=== PATIENT | female | born 1945 | race Caucasian/White ===

== ENCOUNTER 2016-12-28 21:58 | Inpatient (IN) | payer MEDICARE, MEDICAID ==
[2016-12-28 22:19] LABS: % BASOPHILS 1.8 % (0.0-2.0); % LYMPHOCYTES 13.2 % (20.0-50.0); HEMATOCRIT 34.7 % (41.0-60); HEMOGLOBIN 11.4 gm/dL (12-16); MEAN CELL VOLUME 83.9 fl (81-100); MEAN CORPUSCULAR HEMOGLOBIN 27.6 pg (27.0-31.0); MEAN CORPUSCULAR HGB CONC 32.9 pg (28.0-36.0); MEAN PLATELET VOLUME 9.5 fl; NEUTROPHILE ABSOLUTE 4.9 Th/cmm (1.8-8.0); PLATELET COUNT 155 Th/cmm (150-400); RED BLOOD COUNT 4.14 Mil/cmm (3.80-5.20); RED CELL DISTRIBUTION WIDTH 19.2 % (11.5-20.0); WHITE BLOOD COUNT 6.6 Th/cmm (4.8-10.8)
[2016-12-28 22:33] LABS: INR 1.33 (0.5-1.4)
[2016-12-28 22:35] LABS: ALB/GLOB RATIO 0.8 (1.0-1.8); ALKALINE PHOSPHATASE 78 U/L (34-104); ANION GAP 10.7 (7.0-16.0); BILIRUBIN,TOTAL 1.1 mg/dL (0.3-1.0); BUN - UREA NITROGEN 62 mg/dL (7-25); BUN/CREATININE RATIO 41.3; CALCIUM SERUM 8.7 mg/dL (8.6-10.3); CARBON DIOXIDE 20.1 mEq/L (21.0-31.0); CHLORIDE 106 mEq/L (98-107); CREATININE - SERUM 1.5 mg/dL (0.6-1.2); GLUCOSE 174 mg/dL (70-105); POTASSIUM SERUM 3.8 mEq/L (3.5-5.1); SGOT 19 U/L (13-39); SGPT/ALT 10 U/L (7-52); SODIUM SERUM 133 mEq/L (136-145)
[2016-12-28 22:49] LABS: URINE BILIRUBIN NEGATIVE (NEGATIVE); URINE BLOOD SMALL (NEGATIVE); URINE COLOR YELLOW; URINE GLUCOSE (UA) NEGATIVE (NEGATIVE); URINE KETONE NEGATIVE (NEGATIVE); URINE PH 5.5 (4.6 - 8.0); URINE PROTEIN TRACE mg/dL (NEGATIVE); URINE UROBILINOGEN 0.2 E.U./dL (0.2 - 1.0)
[2016-12-28 22:53] LABS: URINE BACTERIA MODERATE /hpf (NONE SEEN); URINE EPITHELIAL CELLS FEW /lpf (FEW)
--- NOTE | 2016-12-28 22:57 | ED Physician Chart ---
ED Chief Complaint/HPI - Patient Information Date Seen:: 12/28/16 Time Seen:: 22:02 Chief Complaint:: poor intake History of Present Illness:: THIS IS A 71 YO FEMALE WHO WAS SENT HERE FOR THE LONG-TERM FOR EVALUATION AND TREATMENT FOR POOR FEEDING AND DEHYDRATION. SHE HAS MENTAL DISEASE, DIABETES, HEART DISEASE AND ELEVATED LIPIDS. Allergies:: Allergies Allergy/AdvReac Type Severity Reaction Status Date / Time No Known Allergies Allergy Verified 12/28/16 22:31 Vitals:: Vital Signs - 8 hr 12/28/16 22:00 Temp 97.5 F HR 81 RR 17 BP 121/55 O2 Sat % 96 Historian:: Patient Review:: Nurse's Note Reviewed, Old Chart Reviewed, Transfer documents Reviewed ED Review of Systems - Review of Systems General/Constitutional: No fever, No chills, No weight loss, Weakness, No diaphoresis, No edema, Loss of appetite Skin: No skin lesions, No rash, No bruising Head: No headache, No light-headedness Eyes: No loss of vision, No pain, No diplopia ENT: No earache, No nasal drainage, No sore throat, No tinnitus Neck: No neck pain, No swelling, No thyromegaly, No stiffness, No mass noted Cardio Vascular: No chest pain, No palpitations, No PND, No orthopnea, No edema Pulmonary: No SOB, No cough, No sputum, No wheezing GI: No nausea, No vomiting, No diarrhea, No pain, No melena, No hematochezia, No constipation, No hematemesis G/U: No dysuria, No frequency, No hematuria Musculoskeletal: No bone or joint pain, No back pain, No muscle pain Endocrine: No polyuria, No polydipsia Psychiatric: No prior psych history, No depression, No anxiety, No suicidal ideation Hematopoietic: No bruising, No lymphadenopathy Allergic/Immuno: No urticaria, No angioedema Neurological: No syncope, No focal symptoms, No weakness, No paresthesia, No headache, No seizure, No dizziness, No confusion, No vertigo ED Past Medical History - Past Medical History Obtainable: Yes Past Medical History: HTN, DM, CAD, Dyslipidemia, Seizures, Arthritis Family History: None Social History: Non Smoker, No Alcohol, No Drug Use, Care Facility Surgical History: None Psychiatricy History: Depression, Dementia Family Medical History - Family Member Mother History Unknown: Yes ED Physical Exam - Physical Examination General/Constitutional: Awake, Well-developed, well-nourished, Alert, No distress, GCS 15, Non-toxic appearing, Ambulatory Head: Atraumatic Eyes: Lids, conjuctiva normal, PERRL, EOMI Skin: Nl inspection, No rash, No skin lesions, No ecchymosis, Well hydrated, No lymphadenopathy ENMT: External ears, nose nl, Nasal exam nl, Lips, teeth, gums nl Neck: Nontender, Full ROM w/o pain, No JVD, No nuchal rigidity, No bruit, No mass, No stridor Respiratory: Nl effort/Exclusion, Clear to Auscultation, No Wheeze/Rhonchi/Rales Cardio Vascular: RRR, No murmur, gallop, rubs, NL S1 S2 Other Cardio Vascular comments:: A PACEMAKER IS NOTED IN THE LEFT UPPER CHEST WALL GI: No tenderness/rebounding/guarding, No organomegaly, No hernia, Normal BS's, Nondistended, No mass/bruits, No McBurney tenderness : No CVA tenderness Extremities: No tenderness or effusion, Full ROM, normal strength in all extremities, Normal digits & nails Other Extremities comments:: BILATERAL EDEMA OF BOTH FEET. Neuro/Psych: Alert/oriented, DTR's symmetric, Normal sensory exam, Normal motor strength, Judgement/insight normal, Mood normal, Normal gait, No focal deficits Misc: normal gait, Normal back, No paraspinal tenderness ED Labs/Radiology/EKG Results - Lab Results Results: Laboratory Tests 12/28/16 12/28/16 12/28/16 22:11 22:11 22:11 WBC 6.6 RBC 4.14 Hgb 11.4 L Hct 34.7 L MCV 83.9 MCH 27.6 MCHC Differential 32.9 RDW 19.2 Plt Count 155 MPV 9.5 Neutrophils % 75.0 Lymphocytes % 13.2 L Monocytes % 7.0 Eosinophils % 3.0 Basophils % 1.8 PT 14.0 H INR 1.33 Sodium 133 L Potassium 3.8 Chloride 106 Carbon Dioxide 20.1 L Anion Gap 10.7 BUN 62 H Creatinine 1.5 H Est GFR ( Amer) TNP Est GFR (Non-Af Amer) TNP BUN/Creatinine Ratio 41.3 Glucose 174 H Calcium 8.7 Total Bilirubin 1.1 H AST 19 ALT 10 Alkaline Phosphatase 78 Troponin I Total Protein 6.2 Albumin 2.8 L Globulin 3.4 Albumin/Globulin Ratio 0.8 L Urine Color Urine Clarity Urine pH Ur Specific [place] Urine Protein Urine Glucose (UA) Urine Ketones Urine Blood Urine Nitrate Urine Bilirubin Urine Urobilinogen Ur Leukocyte Esterase 12/28/16 12/28/16 22:11 22:30 WBC RBC Hgb Hct MCV MCH MCHC Differential RDW Plt Count MPV Neutrophils % Lymphocytes % Monocytes % Eosinophils % Basophils % PT INR Sodium Potassium Chloride Carbon Dioxide Anion Gap BUN Creatinine Est GFR ( Amer) Est GFR (Non-Af Amer) BUN/Creatinine Ratio Glucose Calcium Total Bilirubin AST ALT Alkaline Phosphatase Troponin I 1.12 H* Total Protein Albumin Globulin Albumin/Globulin Ratio Urine Color YELLOW Urine Clarity HAZY Urine pH 5.5 Ur Specific [place] 1.015 Urine Protein TRACE Urine Glucose (UA) NEGATIVE Urine Ketones NEGATIVE Urine Blood SMALL H Urine Nitrate POSITIVE H Urine Bilirubin NEGATIVE Urine Urobilinogen 0.2 Ur Leukocyte Esterase TRACE H - Radiology Results Results: CHEST X-RAY = NAD - EKG Interpretations EKG Time:: 22:59 Rate & Rhythm: RATE=73, SINUS Maxwell: LEFT AXIS ED Assessment - Assessment General Assessment: DEHYDRATED ELEVATED TROPONIN URINARY TRACT INFECTION ED Septic Shock - . Is Septic Shock (SBP<90, OR Lactate>4 mmol\L) present?: No - <6hrs of presentation: Vital Signs: Vital Signs - 8 hr 12/28/16 22:00 Temp 97.5 F HR 81 RR 17 BP 121/55 O2 Sat % 96 ED Reassessment (Disposition) - Reassessment Reassessment Condition:: Improved - Diagnosis Diagnosis:: DEHYDRATION ELEVATED TROPONIN URINARY TRACT INFECTION - Patient Disposition Discharge/Transfer:: Acute Care w/in this hosp Admitting Medical Physician:: Tita Kelly Condition at Disposition:: Improved ED Discharge Plan - Patient Disposition Admit/Discharge/Transfer: Acute Care w/in this hosp Condition at Disposition: Improved
[2016-12-29] MEDS ORDERED: Sodium Chloride 0.9% 1,000 ML IV ONE ×2 (00:41)
[2016-12-29] MEDS ORDERED: Fleet Enema 135 mL RC PRN (01:47)
[2016-12-29] MEDS ORDERED: Albuterol/Ipratropium Neb 3 ML AERS HHN PRN (01:47)
[2016-12-29] MEDS ORDERED: Acetaminophen 500 MG TAB PO PRN (01:47)
[2016-12-29] MEDS ORDERED: Magnesium Hydroxide (MOM) 30 mL UDC PO PRN (01:47)
[2016-12-29 03:00] VITALS: BP 105/66
--- NOTE | 2016-12-29 04:51 | Consultation ---
DATE OF CONSULTATION: 12/28/2016 REFERRING PHYSICIAN: Dr. Kelly. REASON FOR CONSULTATION: UTI. HISTORY OF PRESENT ILLNESS: The patient is a 71-year-old female with a past medical history of hypertension, diabetes mellitus type 2, coronary artery disease, dyslipidemia, seizure disorder, arthritis, brought from nursing facility for poor oral intake. On initial evaluation, the patient's temperature was 97.5 degrees Fahrenheit and WBC count was 6600. Creatinine was 1.5, mildly elevated. The patient had urinalysis which suggested wbc 6-10 and positive nitrite and trace leukoesterase. The patient is a poor historian, unable to provide any meaningful history although the patient denies any dysuria. PAST MEDICAL HISTORY: As mentioned above hypertension, diabetes mellitus type 2, coronary artery disease, dyslipidemia, seizure disorder, arthritis. FAMILY HISTORY: Not available. SOCIAL HISTORY: The patient lives at a nursing facility. No history of smoking, alcohol or drug use. PSYCHIATRIC HISTORY: Includes depression and dementia. ALLERGIES: NKDA. MEDICATIONS: See medication reconciliation sheet. Antibiotic-guan, the patient has received Rocephin. This was continuously weaned. REVIEW OF SYSTEMS: GENERAL: The patient has no fever, no chills. HEENT: No diplopia, no photophobia, no sore throat. RESPIRATORY: No cough, no shortness of breath. CARDIOVASCULAR: No chest pain or palpitation. GASTROINTESTINAL: No nausea, no vomiting, no diarrhea, no constipation. GENITOURINARY: No dysuria. NEUROLOGIC: No headache, no dizziness, no focal weakness. GENITOURINARY: The patient denies any dysuria, urgency or hematuria. PHYSICAL EXAMINATION: VITAL SIGNS: Shows temperature is 97.5 degrees Fahrenheit, pulse is 81, respirations 17, blood pressure 121/55. GENERAL: The patient is comfortable, not in acute distress, well nourished, and well developed. HEENT: Head is normocephalic, atraumatic. Oral cavity moist, pink tongue. Eyes: No pallor, no icterus. PERRLA, EOMI. NECK: Supple, no JVD, no carotid bruit. Trachea in midline. CHEST: Bilateral breath sounds. No crackles or wheezing. HEART: S1, S2 within normal limit. Regular rhythm. No murmur, no gallop. ABDOMEN: Soft, nontender, nondistended. Bowel sounds present. EXTREMITIES: No cyanosis, no clubbing, no edema. NEUROLOGIC: Alert, awake, unable to communicate. LABORATORY DATA: Labs shows WBC count was 6600, hemoglobin 11.4, hematocrit 34.7, platelets are 155,000, neutrophils 75%. INR is 1.33. Sodium is 133, potassium 3.8, chloride 106, bicarbonate is 20, BUN is 62, creatinine 1.5, glucose is 474. Total bilirubin 1.1 and troponin 1.12. Hemoglobin A1c 7.4. LFTs are reviewed. Urinalysis showed clear hazy urine with pos blood, nitrite positive, trace leukoesterase, wbc's 6-10, rbc's 10-25. IMPRESSION: 1. Urinary tract infection. 2. Renal failure . There is no previous lab data available, unable to determine, acute versus chronic. 3. Dehydration. 4. Elevated troponin. 5. Hypertension. 6. Diabetes mellitus type 2. 7. Coronary artery disease. 8. Dyslipidemia. 9. Seizure disorder. 10. Arthritis. RECOMMENDATIONS: Check renal ultrasound and continue Rocephin at this time. IV fluids. Thank you Dr. Kelly for involving me in taking care of this patient. JOB# [id number] [facility]
[2016-12-29 06:36] LABS: % BASOPHILS 0.1 % (0.0-2.0); % EOSINOPHILS 2.6 % (0.0-5.0); % LYMPHOCYTES 13.6 % (20.0-50.0); % MONOCYTES 8.6 % (2.0-10.0); % NEUTROPHILS 75.1 % (40.0-80.0); HEMATOCRIT 35.4 % (41.0-60); HEMOGLOBIN 11.5 gm/dL (12-16); MEAN CELL VOLUME 84.3 fl (81-100); MEAN CORPUSCULAR HEMOGLOBIN 27.3 pg (27.0-31.0); MEAN CORPUSCULAR HGB CONC 32.3 pg (28.0-36.0); MEAN PLATELET VOLUME 9.1 fl; NEUTROPHILE ABSOLUTE 4.7 Th/cmm (1.8-8.0); PLATELET COUNT 151 Th/cmm (150-400); RED CELL DISTRIBUTION WIDTH 19.8 % (11.5-20.0); WHITE BLOOD COUNT 6.3 Th/cmm (4.8-10.8)
[2016-12-29 06:42] LABS: ANION GAP 11.3 (7.0-16.0); BUN - UREA NITROGEN 60 mg/dL (7-25); CALCIUM SERUM 8.6 mg/dL (8.6-10.3); CARBON DIOXIDE 18.3 mEq/L (21.0-31.0); CHLORIDE 109 mEq/L (98-107); CREATININE - SERUM 1.5 mg/dL (0.6-1.2); GLUCOSE 151 mg/dL (70-105); PHOSPHOROUS 3.7 mg/dL (2.5-5.0); POTASSIUM SERUM 3.6 mEq/L (3.5-5.1); SODIUM SERUM 135 mEq/L (136-145)
--- NOTE | 2016-12-29 07:43 | Diagnostic Imaging Report ---
Chest x-ray single view History: Shortness of breath Comparison: None The heart size is normal. No focal pulmonary parenchymal processes. No hilar or mediastinal abnormalities. The aortic arch calcified. Left-sided pacemaker is noted. Bony thorax and marked with for degenerative changes. Impression: No acute abnormalities.
[2016-12-29] MEDS: Levothyroxine 0.05 Mg Tab PO SCH (07:51)
[2016-12-29] MEDS: Sodium Chloride 0.9% 1,000 ML IV SCH ×2 (07:51→17:19)
[2016-12-29] MEDS: INSULIN ASPART SLIDING SCALE 100 UNITS/ML UNIT SUBQ SCH ×3 (08:07→17:24)
[2016-12-29] MEDS: Lactobacillus Rhamnosus 10 Billion CFU Capsule PO SCH (08:49)
[2016-12-29] MEDS: Pantoprazole 40 mg EC Tab PO SCH (08:51)
[2016-12-29] MEDS: Multivitamin w/ Minerals Tab PO SCH (08:51)
[2016-12-29] MEDS ORDERED: Non-Formulary Item 1 EA (Cranberry Fruit Extract [Cranberry] 425 MG) PO SCH (09:00)
--- NOTE | 2016-12-29 11:06 | Diagnostic Imaging Report ---
Renal ultrasound HISTORY: pyelonephritis. COMPARISON: None Technique: Sonography of the kidneys and urinary bladder was performed in multiple planes. FINDINGS: Exam is limited due to body habitus. The right kidney measures 11.2 x 5.5 cm. The Left kidney measures 11.1 x 5.3 cm. The renal margins are not well-defined limiting assessment for focal lesions. No hydronephrosis. Due to patient's incontinence post void residual bladder volume are not able to be obtained. The bladder wall appears mildly thickened. IMPRESSION: Limited exam due to body habitus. No evidence of hydronephrosis. Mild generalized prominence of the urinary bladder wall. Underlying inflammatory process cannot be excluded
[2016-12-29] MEDS ORDERED: Atorvastatin Calcium 10 MG TAB PO SCH (21:00)
[2016-12-29] MEDS: Enoxaparin 40 mg/0.4 mL 0.4mL Syr SUBQ SCH (23:13)
[2016-12-30] MEDS: INSULIN ASPART SLIDING SCALE 100 UNITS/ML UNIT SUBQ SCH ×4 (00:17→20:41)
[2016-12-30] MEDS: cefTRIAXone 1 GM in Sodium Chloride 0.9% 50 ML IV SCH (01:43)
--- NOTE | 2016-12-30 02:07 | Consultation ---
DATE OF CONSULTATION: 12/29/2016 PATIENT OF: Dr. Kelly. HISTORY AND PHYSICAL: This is a 71-year-old female patient who has poor intake orally and poor diet, hence the patient was transferred to the Emergency Room. In the Emergency Room, the patient was found to have urinary tract infection with possible pyelonephritis, hence the patient was admitted. The patient has had elevated troponin level, hence Cardiology consult was requested. PAST MEDICAL HISTORY: Coronary artery disease, diabetes mellitus type 2, iron deficiency anemia, diabetic CKD stage 2, hyperlipidemia, seizure disorder, sick sinus syndrome with pacemaker. FAMILY HISTORY: Unremarkable. SOCIAL HISTORY: No history of smoking or alcohol abuse. ALLERGIES: No known allergies. PHYSICAL EXAMINATION: VITAL SIGNS: Blood pressure 110/70, pulse 70, respirations 20, temperature 99. HEAD: Normocephalic. No lumps or bumps. EYES: Pupils equal, reactive to light. Fundi show AV nicking, sclerae white, conjunctivae pink. NECK: Carotid 2+. Normal upstroke. JVD flat. Thyroid not palpable. Lymph nodes not palpable. CHEST: Shows increased AP diameter. No kyphosis, scoliosis. LUNGS: Bilateral bronchovesicular breath sounds. HEART: PMI fifth intercostal space with lateral to midclavicular line. S1, S2. No S3, S4. Systolic murmur, grade 2/6, lower left sternal border without radiation. ABDOMEN: Soft. Liver and spleen not palpable. No organomegaly. Bowel sounds are active. NEUROLOGIC: Unremarkable. EXTREMITIES: Peripheral pulses 2+. No pedal edema. CLINICAL IMPRESSION: Non-ST elevation myocardial infarction, urinary tract infection with pyelonephritis, diabetes mellitus type 2, diabetic chronic kidney disease stage 2, iron deficiency anemia, hyperlipidemia, seizure disorder, sick sinus syndrome with pacemaker. PLAN: The patient to be started on IV fluids and IV antibiotics. The patient to be evaluated for calorie count for possible PEG placement. [facility]# [id number]
[2016-12-30 06:18] LABS: % BASOPHILS 0.1 % (0.0-2.0); % EOSINOPHILS 1.8 % (0.0-5.0); % LYMPHOCYTES 14.2 % (20.0-50.0); % MONOCYTES 10.1 % (2.0-10.0); % NEUTROPHILS 73.8 % (40.0-80.0); HEMATOCRIT 34.4 % (41.0-60); HEMOGLOBIN 11.3 gm/dL (12-16); MEAN CELL VOLUME 84.4 fl (81-100); MEAN CORPUSCULAR HEMOGLOBIN 27.7 pg (27.0-31.0); MEAN CORPUSCULAR HGB CONC 32.8 pg (28.0-36.0); MEAN PLATELET VOLUME 9.2 fl; NEUTROPHILE ABSOLUTE 5.5 Th/cmm (1.8-8.0); PLATELET COUNT 145 Th/cmm (150-400); RED BLOOD COUNT 4.08 Mil/cmm (3.80-5.20); RED CELL DISTRIBUTION WIDTH 19.6 % (11.5-20.0); WHITE BLOOD COUNT 7.4 Th/cmm (4.8-10.8)
[2016-12-30 06:38] LABS: ALB/GLOB RATIO 0.9 (1.0-1.8); ALKALINE PHOSPHATASE 71 U/L (34-104); ANION GAP 12.1 (7.0-16.0); BILIRUBIN,TOTAL 0.9 mg/dL (0.3-1.0); BUN - UREA NITROGEN 54 mg/dL (7-25); BUN/CREATININE RATIO 38.6; CALCIUM SERUM 8.6 mg/dL (8.6-10.3); CHLORIDE 111 mEq/L (98-107); CHOLESTEROL 69 mg/dL (<200); CREATININE - SERUM 1.4 mg/dL (0.6-1.2); GLUCOSE 256 mg/dL (70-105); MAGNESIUM 1.9 mg/dL (1.9-2.7); PHOSPHOROUS 3.3 mg/dL (2.5-5.0); POTASSIUM SERUM 4.1 mEq/L (3.5-5.1); SGOT 15 U/L (13-39); SGPT/ALT 8 U/L (7-52); SODIUM SERUM 139 mEq/L (136-145); TRIGLYCERIDES 60 mg/dL (<150); URIC ACID 9.5 mg/dL (2.3-6.6)
[2016-12-30] MEDS: Sodium Chloride 0.9% 1,000 ML IV SCH ×2 (08:00→17:08)
[2016-12-30] MEDS: Enoxaparin 40 mg/0.4 mL 0.4mL Syr SUBQ SCH ×2 (08:36→20:42)
[2016-12-30] MEDS: Multivitamin w/ Minerals Tab PO SCH (08:37)
[2016-12-30] MEDS: Pantoprazole 40 mg EC Tab PO SCH (08:37)
[2016-12-30] MEDS: Levothyroxine 0.05 Mg Tab PO SCH (08:37)
[2016-12-30] MEDS: Aspirin 81mg Chewable Tab PO SCH (08:37)
[2016-12-30] MEDS: Atorvastatin Calcium 10 MG TAB PO SCH (08:37)
--- NOTE | 2016-12-30 09:43 | General Progress Note ---
Subjective - Review of Systems Events since last encounter: 71 year old patient admitted for poor intake , UTI, elevated troponin level Objective - Results Result Diagrams: 12/30/16 05:35 12/30/16 05:35 Recent Labs: Laboratory Last Values WBC 7.4 Th/cmm (4.8-10.8) 12/30/16 05:35 RBC 4.08 Mil/cmm (3.80-5.20) 12/30/16 05:35 Hgb 11.3 gm/dL (12-16) L 12/30/16 05:35 Hct 34.4 % (41.0-60) L 12/30/16 05:35 MCV 84.4 fl (81-100) 12/30/16 05:35 MCH 27.7 pg (27.0-31.0) 12/30/16 05:35 MCHC Differential 32.8 pg (28.0-36.0) 12/30/16 05:35 RDW 19.6 % (11.5-20.0) 12/30/16 05:35 Plt Count 145 Th/cmm (150-400) L 12/30/16 05:35 MPV 9.2 fl 12/30/16 05:35 Neutrophils % 73.8 % (40.0-80.0) 12/30/16 05:35 Lymphocytes % 14.2 % (20.0-50.0) L 12/30/16 05:35 Monocytes % 10.1 % (2.0-10.0) H 12/30/16 05:35 Eosinophils % 1.8 % (0.0-5.0) 12/30/16 05:35 Basophils % 0.1 % (0.0-2.0) 12/30/16 05:35 PT 14.0 SECONDS (9.5-11.5) H 12/28/16 22:11 INR 1.33 (0.5-1.4) 12/28/16 22:11 Sodium 139 mEq/L (136-145) 12/30/16 05:35 Potassium 4.1 mEq/L (3.5-5.1) 12/30/16 05:35 Chloride 111 mEq/L (98-107) H 12/30/16 05:35 Carbon Dioxide 20.0 mEq/L (21.0-31.0) L 12/30/16 05:35 Anion Gap 12.1 (7.0-16.0) 12/30/16 05:35 BUN 54 mg/dL (7-25) H 12/30/16 05:35 Creatinine 1.4 mg/dL (0.6-1.2) H 12/30/16 05:35 Est GFR ( Amer) TNP 12/30/16 05:35 Est GFR (Non-Af Amer) TNP 12/30/16 05:35 BUN/Creatinine Ratio 38.6 12/30/16 05:35 Glucose 256 mg/dL (70-105) H 12/30/16 05:35 POC Glucose 230 MG/DL (70 - 105) H 12/30/16 05:53 Hemoglobin A1c % 7.4 % (4.0-6.0) H 12/28/16 22:11 Uric Acid 9.5 mg/dL (2.3-6.6) H 12/30/16 05:35 Calcium 8.6 mg/dL (8.6-10.3) 12/30/16 05:35 Phosphorus 3.3 mg/dL (2.5-5.0) 12/30/16 05:35 Magnesium 1.9 mg/dL (1.9-2.7) 12/30/16 05:35 Total Bilirubin 0.9 mg/dL (0.3-1.0) 12/30/16 05:35 AST 15 U/L (13-39) 12/30/16 05:35 ALT 8 U/L (7-52) 12/30/16 05:35 Alkaline Phosphatase 71 U/L (34-104) 12/30/16 05:35 Troponin I 0.76 ng/mL (0.01-0.05) H* D 12/30/16 05:35 Total Protein 6.2 gm/dL (6.0-8.3) 12/30/16 05:35 Albumin 2.9 gm/dL (3.7-5.3) L 12/30/16 05:35 Globulin 3.3 gm/dL 12/30/16 05:35 Albumin/Globulin Ratio 0.9 (1.0-1.8) L 12/30/16 05:35 Triglycerides 60 mg/dL (<150) 12/30/16 05:35 Cholesterol 69 mg/dL (<200) 12/30/16 05:35 LDL Cholesterol Direct 47 mg/dL (75-193) L 12/30/16 05:35 HDL Cholesterol 23 mg/dL (23-92) 12/30/16 05:35 TSH 2.33 uIU/ml (0.34-5.60) 12/28/16 22:11 Urine Source CLEAN C 12/28/16 22:30 Urine Color YELLOW 12/28/16 22:30 Urine Clarity HAZY (CLEAR) 12/28/16 22:30 Urine pH 5.5 (4.6 - 8.0) 12/28/16 22:30 Ur Specific [place] 1.015 (1.005-1.030) 12/28/16 22:30 Urine Protein TRACE mg/dL (NEGATIVE) 12/28/16 22:30 Urine Glucose (UA) NEGATIVE mg/dL (NEGATIVE) 12/28/16 22:30 Urine Ketones NEGATIVE mg/dL (NEGATIVE) 12/28/16 22:30 Urine Blood SMALL (NEGATIVE) H 12/28/16 22:30 Urine Nitrate POSITIVE (NEGATIVE) H 12/28/16 22:30 Urine Bilirubin NEGATIVE (NEGATIVE) 12/28/16 22:30 Urine Urobilinogen 0.2 E.U./dL (0.2 - 1.0) 12/28/16 22:30 Ur Leukocyte Esterase TRACE (NEGATIVE) H 12/28/16 22:30 Urine RBC 10-25 /hpf (0-5) H 12/28/16 22:30 Urine WBC 6-10 /hpf (0-5) H 12/28/16 22:30 Ur Epithelial Cells FEW /lpf (FEW) 12/28/16 22:30 Urine Bacteria MODERATE /hpf (NONE SEEN) 12/28/16 22:30 - Physical Exam Vitals and I&O: Vital Signs Temp 98.0 F 12/30/16 08:00 Pulse 71 12/30/16 08:38 Resp 20 12/30/16 08:13 BP 134/77 12/30/16 08:38 Pulse Ox 97 12/30/16 08:13 Intake & Output 12/29/16 12/30/16 12/30/16 18:59 06:59 18:59 Intake Total 1000 1120 Balance 1000 1120 Weight (lbs) 84.368 kg 84.368 kg Intake: Intake, IV Amount 1000 1000 Sodium Chloride 0.9% 1, 1000 1000 000 ml @ 125 mls/hr IV . Q8H [facility] Rx#:[id number] Oral 120 Other: # Voids 2 # Bowel Movements 0 Active Medications: Current Medications Acetaminophen (Tylenol) 650 mg PO Q4HR PRN PRN Reason: Pain or Fever >101 Stop: 02/27/17 01:46 Last Admin: 12/29/16 15:14 Dose: 650 mg Albuterol/Ipratropium (Duoneb Neb) 3 ml HHN Q6HR PRN PRN Reason: Shortness of Breath or Wheeze Stop: 02/27/17 01:46 Ascorbic Acid (Vitamin C) 500 mg PO DAILY [facility] Stop: 02/27/17 08:59 Last Admin: 12/30/16 08:37 Dose: 500 mg Aspirin (Aspirin Chewable) 81 mg PO DAILY [facility] Stop: 02/28/17 08:59 Last Admin: 12/30/16 08:37 Dose: 81 mg Atorvastatin Calcium (Lipitor) 10 mg PO DAILY [facility]SE DAVID PRN Reason: Protocol Stop: 02/28/17 08:59 Last Admin: 12/30/16 08:37 Dose: 10 mg Bisacodyl (Dulcolax 10 Mg Supp) 10 mg RC DAILY PRN PRN Reason: Constipation Stop: 02/27/17 01:46 Carvedilol (Coreg) 3.125 mg PO BID [facility] Stop: 02/27/17 08:59 Last Admin: 12/30/16 08:38 Dose: 3.125 mg Docusate Sodium (Colace) 100 mg PO BID [facility] Stop: 02/27/17 08:59 Last Admin: 12/30/16 08:37 Dose: 100 mg Enoxaparin Sodium (Lovenox) 40 mg SUBQ Q12HR [facility] Stop: 02/27/17 20:59 Last Admin: 12/30/16 08:36 Dose: 40 mg Hydralazine HCl (Apresoline) 10 mg PO BID [facility] Stop: 02/27/17 08:59 Last Admin: 12/30/16 08:38 Dose: 10 mg Ceftriaxone Sodium 1 gm/ (Sodium Chloride) 50 mls @ 100 mls/hr IV Q24HR [facility] Stop: 02/28/17 00:00 Last Admin: 12/30/16 01:43 Dose: 100 mls/hr Sodium Chloride (Nacl 0.9%) 1,000 mls @ 125 mls/hr IV .Q8H [facility]SE DAVID Stop: 02/27/17 07:59 Last Admin: 12/30/16 08:00 Dose: 125 mls/hr Insulin Aspart (Novolog Insulin Sliding Scale) 0 units SUBQ ACHS JOSE DAVID PRN Reason: Protocol Stop: 02/27/17 07:29 Last Admin: 12/30/16 00:17 Dose: 5 units Isosorbide Dinitrate (Isordil) 10 mg PO TID JOSE DAVID Stop: 02/27/17 08:59 Last Admin: 12/30/16 08:38 Dose: 10 mg Lactobacillus Rhamnosus (Culturelle) 1 each PO DAILY [facility]SE DAVID Stop: 02/27/17 08:59 Last Admin: 12/29/16 08:49 Dose: 1 each Levetiracetam (Keppra) 250 mg PO BID [facility]SE DAVID Stop: 02/27/17 08:59 Last Admin: 12/30/16 08:37 Dose: 250 mg Levothyroxine Sodium (Synthroid) 0.05 mg PO QDAC JOSE DAVID Stop: 02/27/17 07:29 Last Admin: 12/30/16 08:37 Dose: 0.05 mg Magnesium Hydroxide (Milk Of Magnesia) 30 ml PO DAILY PRN PRN Reason: Constipation Stop: 02/27/17 01:46 Montelukast Sodium (Singulair) 10 mg PO DAILY JOSE DAVID Stop: 02/27/17 08:59 Last Admin: 12/30/16 08:37 Dose: 10 mg Ondansetron HCl (Zofran Odt) 4 mg PO Q6HR PRN PRN Reason: Nausea / Vomiting Stop: 02/27/17 01:46 Pantoprazole Sodium (Protonix) 40 mg PO DAILY [facility]ID Stop: 02/27/17 08:59 Last Admin: 12/30/16 08:37 Dose: 40 mg Senna (Senna) 17.2 mg PO HS [facility] Stop: 02/27/17 20:59 Last Admin: 12/29/16 23:17 Dose: 17.2 mg Sodium Phosphate (Fleet Enema) 135 ml RC Q48HR PRN PRN Reason: Constipation Stop: 02/27/17 01:46 General: No acute distress HEENT: Atraumatic Cardiovascular: Regular rate, Normal S1, Normal S2 Lungs: Clear to auscultation Assessment/Plan - Problem List Patient Problems: All Active Problems Anemia (Acute) D64.9 CKD (chronic kidney disease) stage 2, GFR 60-89 ml/min (Acute) N18.2 Diabetes (Acute) E11.9 Hyperlipidemia (Acute) E78.5 Non-ST elevated myocardial infarction (Acute) I21.4 Pacemaker (Acute) Z95.0 Pyelonephritis (Acute) N12 Seizure disorder (Acute) G40.909 Sick sinus syndrome (Acute) I49.5 UTI (urinary tract infection) (Acute) - Plan Plan: cardio w/up iv antibiotics cpm
[2016-12-30] MEDS: Lactobacillus Rhamnosus 10 Billion CFU Capsule PO SCH (10:33)
--- NOTE | 2016-12-30 14:43 | History & Physical ---
ADMIT DATE: 12/29/2016 HISTORY OF PRESENT ILLNESS: A 71-[facility]-old female [facility]. The patient came to the Emergency Room because of poor oral intake, increasing BUN, increasing creatinine and unable to make urine, found to have urinary tract infection, dehydration, acute renal failure. PAST MEDICAL HISTORY: Included coronary artery disease, diabetes, type 2, CKD, hyperkalemia, hyperlipidemia, seizures, and history of sick sinus syndrome, and pacemaker. FAMILY HISTORY: Unremarkable. SOCIAL HISTORY: Unremarkable. ALLERGIES: No known allergies. PHYSICAL EXAMINATION: VITAL SIGNS: Blood pressure 100/70, pulse was 80, respirations 20, temperature 99. HEAD: Normal. ENT: Normal. NECK: Supple and nontender. LUNGS: Clear. CARDIOVASCULAR SYSTEM: S1, S2 heard. ABDOMEN: Soft. Bowel sounds are heard. CENTRAL NERVOUS SYSTEM: Decreased sensorium. DIAGNOSES: Toxic metabolic encephalopathy, urinary tract infection, sepsis, non-ST elevated possible myocardial infarction, history of pyelonephritis, history of diabetes type 2, history of chronic kidney disease, history of acute renal failure, history of hyperlipidemia, history of seizures, history of anemia, status post pacemaker. PLAN: The patient is being admitted and I will follow the patient. JOB# [id number]
[2016-12-30] MEDS ORDERED: Probiotic Screen MC PRN (15:41)
--- NOTE | 2016-12-30 17:16 | Cardiology ---
12/29/[address] Kelly. M-MODE ECHOCARDIOGRAM: Mitral valve, anterior leaflet of the mitral valve shows decreased excursion, EF velocity. Posterior leaflet of mitral valve shows decreased excursion. Left ventricle posterior wall shows increased thickness, decreased excursion. Interventricular septum shows increased thickness, decreased excursion. There is hypertrophy of the left ventricle, ejection fraction 10-15%. Left atrium enlarged 4.3 cm. Aortic root shows normal dimension, normal excursion of aortic leaflets. CONCLUSION: Cardiomyopathy, ejection fraction 10-15%, left atrial enlargement. 2D ECHO: Long axis view shows enlarged left ventricular cavity with global hypokinesis. Mitral valve shows decreased excursion, left atrium enlarged, aortic root shows normal dimension, normal excursion of aortic leaflets. Short axis view of mitral valve normal. Short axis view of aortic valve normal. Apical four chamber view shows enlarged left ventricular cavity with decreased ejection fraction. Left atrial enlargement. Right ventricle normal. Right atrial enlargement. CONCLUSION: Left atrial enlargement, right atrial enlargement. Hypertrophy of the left ventricle, cardiomyopathy 10-15%. Doppler study shows moderate tricuspid regurgitation, mild mitral regurgitation, mild aortic regurgitation, mild pulmonary regurgitation, right ventricular systolic pressure of 75 mmHg with severe pulmonary hypertension. [facility]# [id number]
--- NOTE | 2016-12-30 18:13 | Infectious Disease Prog Note ---
Infectious Disease Subjective - Review of Systems Service Date: 12/30/16 Subjective: There is no new change, there is no fever. Infectious Disease Objective - Results Result Diagrams: 12/30/16 05:35 12/30/16 05:35 Recent Labs: Laboratory Last Values WBC 7.4 Th/cmm (4.8-10.8) 12/30/16 05:35 RBC 4.08 Mil/cmm (3.80-5.20) 12/30/16 05:35 Hgb 11.3 gm/dL (12-16) L 12/30/16 05:35 Hct 34.4 % (41.0-60) L 12/30/16 05:35 MCV 84.4 fl (81-100) 12/30/16 05:35 MCH 27.7 pg (27.0-31.0) 12/30/16 05:35 MCHC Differential 32.8 pg (28.0-36.0) 12/30/16 05:35 RDW 19.6 % (11.5-20.0) 12/30/16 05:35 Plt Count 145 Th/cmm (150-400) L 12/30/16 05:35 MPV 9.2 fl 12/30/16 05:35 Neutrophils % 73.8 % (40.0-80.0) 12/30/16 05:35 Lymphocytes % 14.2 % (20.0-50.0) L 12/30/16 05:35 Monocytes % 10.1 % (2.0-10.0) H 12/30/16 05:35 Eosinophils % 1.8 % (0.0-5.0) 12/30/16 05:35 Basophils % 0.1 % (0.0-2.0) 12/30/16 05:35 PT 14.0 SECONDS (9.5-11.5) H 12/28/16 22:11 INR 1.33 (0.5-1.4) 12/28/16 22:11 Sodium 139 mEq/L (136-145) 12/30/16 05:35 Potassium 4.1 mEq/L (3.5-5.1) 12/30/16 05:35 Chloride 111 mEq/L (98-107) H 12/30/16 05:35 Carbon Dioxide 20.0 mEq/L (21.0-31.0) L 12/30/16 05:35 Anion Gap 12.1 (7.0-16.0) 12/30/16 05:35 BUN 54 mg/dL (7-25) H 12/30/16 05:35 Creatinine 1.4 mg/dL (0.6-1.2) H 12/30/16 05:35 Est GFR ( Amer) TNP 12/30/16 05:35 Est GFR (Non-Af Amer) TNP 12/30/16 05:35 BUN/Creatinine Ratio 38.6 12/30/16 05:35 Glucose 256 mg/dL (70-105) H 12/30/16 05:35 POC Glucose 255 MG/DL (70 - 105) H 12/30/16 17:39 Hemoglobin A1c % 7.4 % (4.0-6.0) H 12/28/16 22:11 Uric Acid 9.5 mg/dL (2.3-6.6) H 12/30/16 05:35 Calcium 8.6 mg/dL (8.6-10.3) 12/30/16 05:35 Phosphorus 3.3 mg/dL (2.5-5.0) 12/30/16 05:35 Magnesium 1.9 mg/dL (1.9-2.7) 12/30/16 05:35 Total Bilirubin 0.9 mg/dL (0.3-1.0) 12/30/16 05:35 AST 15 U/L (13-39) 12/30/16 05:35 ALT 8 U/L (7-52) 12/30/16 05:35 Alkaline Phosphatase 71 U/L (34-104) 12/30/16 05:35 Troponin I 0.76 ng/mL (0.01-0.05) H* D 12/30/16 05:35 Total Protein 6.2 gm/dL (6.0-8.3) 12/30/16 05:35 Albumin 2.9 gm/dL (3.7-5.3) L 12/30/16 05:35 Globulin 3.3 gm/dL 12/30/16 05:35 Albumin/Globulin Ratio 0.9 (1.0-1.8) L 12/30/16 05:35 Triglycerides 60 mg/dL (<150) 12/30/16 05:35 Cholesterol 69 mg/dL (<200) 12/30/16 05:35 LDL Cholesterol Direct 47 mg/dL (75-193) L 12/30/16 05:35 HDL Cholesterol 23 mg/dL (23-92) 12/30/16 05:35 TSH 2.33 uIU/ml (0.34-5.60) 12/28/16 22:11 Urine Source CLEAN C 12/28/16 22:30 Urine Color YELLOW 12/28/16 22:30 Urine Clarity HAZY (CLEAR) 12/28/16 22:30 Urine pH 5.5 (4.6 - 8.0) 12/28/16 22:30 Ur Specific [place] 1.015 (1.005-1.030) 12/28/16 22:30 Urine Protein TRACE mg/dL (NEGATIVE) 12/28/16 22:30 Urine Glucose (UA) NEGATIVE mg/dL (NEGATIVE) 12/28/16 22:30 Urine Ketones NEGATIVE mg/dL (NEGATIVE) 12/28/16 22:30 Urine Blood SMALL (NEGATIVE) H 12/28/16 22:30 Urine Nitrate POSITIVE (NEGATIVE) H 12/28/16 22:30 Urine Bilirubin NEGATIVE (NEGATIVE) 12/28/16 22:30 Urine Urobilinogen 0.2 E.U./dL (0.2 - 1.0) 12/28/16 22:30 Ur Leukocyte Esterase TRACE (NEGATIVE) H 12/28/16 22:30 Urine RBC 10-25 /hpf (0-5) H 12/28/16 22:30 Urine WBC 6-10 /hpf (0-5) H 12/28/16 22:30 Ur Epithelial Cells FEW /lpf (FEW) 12/28/16 22:30 Urine Bacteria MODERATE /hpf (NONE SEEN) 12/28/16 22:30 - Physical Exam Vitals and I&O: Vital Signs Temp 98.7 F 12/30/16 16:00 Pulse 71 12/30/16 17:46 Resp 18 12/30/16 16:00 BP 130/69 12/30/16 17:46 Pulse Ox 96 12/30/16 16:00 Intake & Output 12/29/16 12/30/16 12/30/16 18:59 06:59 18:59 Intake Total 1000 1120 Balance 1000 1120 Weight (lbs) 84.368 kg 84.368 kg Intake: Intake, IV Amount 1000 1000 Sodium Chloride 0.9% 1, 1000 1000 000 ml @ 125 mls/hr IV . Q8H [facility] Rx#:[id number] Oral 120 Other: # Voids 2 # Bowel Movements 0 Active Medications: Current Medications Acetaminophen (Tylenol) 650 mg PO Q4HR PRN PRN Reason: Pain or Fever >101 Stop: 02/27/17 01:46 Last Admin: 12/29/16 15:14 Dose: 650 mg Albuterol/Ipratropium (Duoneb Neb) 3 ml HHN Q6HR PRN PRN Reason: Shortness of Breath or Wheeze Stop: 02/27/17 01:46 Ascorbic Acid (Vitamin C) 500 mg PO DAILY [facility] Stop: 02/27/17 08:59 Last Admin: 12/30/16 08:37 Dose: 500 mg Aspirin (Aspirin Chewable) 81 mg PO DAILY [facility] Stop: 02/28/17 08:59 Last Admin: 12/30/16 08:37 Dose: 81 mg Atorvastatin Calcium (Lipitor) 10 mg PO DAILY [facility] PRN Reason: Protocol Stop: 02/28/17 08:59 Last Admin: 12/30/16 08:37 Dose: 10 mg Bisacodyl (Dulcolax 10 Mg Supp) 10 mg RC DAILY PRN PRN Reason: Constipation Stop: 02/27/17 01:46 Carvedilol (Coreg) 3.125 mg PO BID [facility] Stop: 02/27/17 08:59 Last Admin: 12/30/16 16:57 Dose: 3.125 mg Docusate Sodium (Colace) 100 mg PO BID [facility] Stop: 02/27/17 08:59 Last Admin: 12/30/16 16:57 Dose: 100 mg Enoxaparin Sodium (Lovenox) 40 mg SUBQ Q12HR [facility] Stop: 02/27/17 20:59 Last Admin: 12/30/16 08:36 Dose: 40 mg Hydralazine HCl (Apresoline) 10 mg PO BID [facility] Stop: 02/27/17 08:59 Last Admin: 12/30/16 17:46 Dose: Not Given Ceftriaxone Sodium 1 gm/ (Sodium Chloride) 50 mls @ 100 mls/hr IV Q24HR [facility] Stop: 02/28/17 00:00 Last Admin: 12/30/16 01:43 Dose: 100 mls/hr Sodium Chloride (Nacl 0.9%) 1,000 mls @ 70 mls/hr IV .[id number] [facility] Stop: 02/27/17 07:59 Last Admin: 12/30/16 17:08 Dose: 70 mls/hr Insulin Aspart (Novolog Insulin Sliding Scale) 0 units SUBQ ACHS [facility] PRN Reason: Protocol Stop: 02/27/17 07:29 Last Admin: 12/30/16 17:45 Dose: 5 units Isosorbide Dinitrate (Isordil) 10 mg PO TID [facility] Stop: 02/27/17 08:59 Last Admin: 12/30/16 15:04 Dose: 10 mg Lactobacillus Rhamnosus (Culturelle) 1 each PO DAILY [facility] Stop: 02/27/17 08:59 Last Admin: 12/30/16 10:33 Dose: Not Given Levetiracetam (Keppra) 250 mg PO BID [facility] Stop: 02/27/17 08:59 Last Admin: 12/30/16 16:57 Dose: 250 mg Levothyroxine Sodium (Synthroid) 0.05 mg PO QDAC [facility] Stop: 02/27/17 07:29 Last Admin: 12/30/16 08:37 Dose: 0.05 mg Magnesium Hydroxide (Milk Of Magnesia) 30 ml PO DAILY PRN PRN Reason: Constipation Stop: 02/27/17 01:46 Megestrol Acetate (Megace) 40 mg PO DAILY [facility] PRN Reason: Protocol Stop: 02/28/17 15:59 Last Admin: 12/30/16 16:59 Dose: 40 mg Miscellaneous (Probiotic Screen) 1 ea MC PRN PRN PRN Reason: PROTOCOL Stop: 02/28/17 15:40 Montelukast Sodium (Singulair) 10 mg PO DAILY [facility] Stop: 02/27/17 08:59 Last Admin: 12/30/16 08:37 Dose: 10 mg Ondansetron HCl (Zofran Odt) 4 mg PO Q6HR PRN PRN Reason: Nausea / Vomiting Stop: 02/27/17 01:46 Pantoprazole Sodium (Protonix) 40 mg PO DAILY [facility] Stop: 02/27/17 08:59 Last Admin: 12/30/16 08:37 Dose: 40 mg Senna (Senna) 17.2 mg PO HS [facility] Stop: 02/27/17 20:59 Last Admin: 12/29/16 23:17 Dose: 17.2 mg Sodium Phosphate (Fleet Enema) 135 ml RC Q48HR PRN PRN Reason: Constipation Stop: 02/27/17 01:46 General: no acute distress, well developed, well nourished HEENT: atraumatic, normocephalic, PERRLA Neck: supple, no thyromegaly Cardiovascular: S1S2, regular Lungs: clear to auscultation bilaterally, clear to percussion Abdomen: soft, no tender, no distended Extremities: no cyanosis, no clubbing Neurological: awake, alert Skin: intact Infectious Disease Assmt/Plan - Problem List Patient Problems: All Active Problems Anemia (Acute) D64.9 CKD (chronic kidney disease) stage 2, GFR 60-89 ml/min (Acute) N18.2 Diabetes (Acute) E11.9 Hyperlipidemia (Acute) E78.5 Non-ST elevated myocardial infarction (Acute) I21.4 Pacemaker (Acute) Z95.0 Pyelonephritis (Acute) N12 Seizure disorder (Acute) G40.909 Sick sinus syndrome (Acute) I49.5 UTI (urinary tract infection) (Acute) - Assessment Assessment: UTI MRSA colonization. - Plan Plan: Continue rocephin. Nutritional Asmnt/Malnutr-PDOC - Dietary Evaluation Malnutrition Findings (Please click <Entered> for more info): Nutritional Asmnt/Malnutrition Start: 12/30/16 12: 57 Text: Status: Complete Freq: Document 12/30/16 12:57 GSUN (Rec: 12/30/16 13:17 GSUN [employer]) Nutritional Asmnt/Malnutrition Patient General Information Nutritional Screening High Risk Screening Diagnosis Elevated troponin level, UTI, poor intake Pertinent Medical Hx/Surgical Hx Anemia, CKD stage 2, DM, hyperlipidemia, non ST elevated myocardial infarction , pacemaker, pyelonephritis, seizure disorder, sick sinus syndrome Subjective Information 71 year old female. Pt's diet order noted to be pureed [facility] , current diet order is low sodium. Spoke to RN Baldemar, RN made aware, RN also stated pt is Sinhala speaking but confused. Spoke to LEAF SUCKER OPERATOR who assisted with breakfast, LEAF SUCKER OPERATOR stated pt is a feeder, good appetite, tolerated well, however noted pt is edentulous so did not feed toast. Pt seen talkign to self during visit, appeared overweight, no muscle fat wasting noted. Current Diet Order/ Nutrition Support Low sodium Pertinent Medications Vitamin C, Lipitor, Dulcolax, Colace, Novolog, Culturelle, MOM, Zofran, Protonix, Senna, Fleet Enema Pertinent Labs 12/28: A1c 7.4H 12/30: BUN 54H, potassium 4.1, creatinine 1.4H, glucose 256H Nutritional Hx/Data Height 1.52 m Height (Calculated Centimeters) 152.4 Current Weight (lbs) 84.368 kg Weight (Calculated Kilograms) 84.4 Weight (Calculated Grams) 08444.2 [place] Body Weight 100 Weight Status Obese GI Symptoms Usual diet at home [facility]: ronaldo, [facility], [facility] Skin Integrity/Comment: Ho 13. Pitting 2+ lower extremities. Coccyx blanchable redness. Estimated Nutritional Goals BEE in Kcals: Adj wt of IBW Calories/Kcals/Kg AdjBW 121.5lb/55.2kg Kcals Calculated 1380-1656kcal (25-30kcal/kg) Protein: Adj wt of IBW Protein Calculated 55-66g (1-1.2g/kg) Fluid: ml 1380-1656ml (1ml/kcal) Nutritional Problem 2. Problem Problem Altered nutrition related laboratory values related to Etiology DM aeb Signs/Symptoms: A1c 7.4H, glucose 256H 1. Problem Problem (possible) diffiiculty chewing related to Etiology edentulous, diet order aeb Signs/Symptoms: pt was previously on pureed diet and now on regular texture Intervention/Recommendation Comments 1. Recommend [id number] low sodium, diet texture to be determined. Previous pureed diet order noted in transfer chart, however pt has been on regular texture diet since adm , day 2. MIKE Mcdermott made aware. 2. Nursing staff to record % intake for every meal. No documentations since adm. Expected Outcomes/Goals Expected Outcomes/Goals 1. PO intake to meet at least 75% of estimated nutritional needs with tolerance.
[2016-12-31] MEDS: cefTRIAXone 1 GM in Sodium Chloride 0.9% 50 ML IV SCH (01:37)
--- NOTE | 2016-12-31 04:00 | Consultation ---
DATE OF CONSULTATION: 12/29/2016 ATTENDING PHYSICIAN: Robin Bailey M.D. ART CLASS MODEL: Ryan Castillo M.D. REASON FOR CONSULTATION: Worsening kidney function, electrolyte imbalance, and fluid management. HISTORY OF PRESENT ILLNESS: This is a 71-year-old female with past medical history of hypertension who came in because of failure to thrive. A few days prior to admission, she was noted to have gradual deterioration of oral intake. She lost her appetite. A few hours prior to admission, she was quite weak and was brought to the Emergency Room. Urinalysis was suggestive of UTI. Chest x-ray revealed no acute disease. Labs drawn last 09/2016 revealed a BUN/creatinine of 52/1.64. Her BUN/creatinine upon admission here at [facility] were 62/1.5. There was no history of nausea and vomiting as well as diarrhea. PAST MEDICAL HISTORY: 1. Chronic kidney disease. 2. Chronic decompensating congestive heart failure. 3. Coronary artery disease. 4. Type 2 diabetes mellitus. 5. Vascular dementia. 6. Status post left parietal CVA. 7. Peripheral arterial disease. PAST SURGICAL HISTORY: Status post AICD. CURRENT MEDICATIONS: She is currently on acetaminophen, ascorbic acid, aspirin, atorvastatin, Bisacodyl, carvedilol, ceftriaxone, clonidine, docusate sodium, enoxaparin, hydralazine, aspart, isosorbide, Levetiracetam, levothyroxine, magnesium oxide, montelukast, multivitamins, Zofran, and pantoprazole. ALLERGIES: No known drug allergies. SOCIAL AND FAMILY HISTORY: I was not able to obtain directly from the patient because she remains nonverbal. REVIEW OF SYSTEMS: Again, I was not able to decipher directly from the patient. PHYSICAL EXAMINATION: GENERAL: The patient is awake, not in any form of distress. VITAL SIGNS: Her blood pressure is 121/55, pulse 81, and temperature 97.5 degrees. SKIN: Poor turgor, warm. No rash, no jaundice appreciated. HEENT: Head is normocephalic and atraumatic. Eyes: Extraocular muscles intact. Pupils are equal, round, and reactive to light and accommodates. Anicteric sclerae. Pale conjunctivae. Nose, midline nasal septum. Mouth: Dry mucosa with poor dentition. NECK: Supple. No adenopathy, no thyromegaly, and no bruits. Trachea palpated in the midline. CHEST AND CVS: S1 and S2. No rub, murmur, or gallop appreciated. Point of maximal impulse fifth intercostal space, left midclavicular line. No abdominal or femoral bruits appreciated. LUNGS: Equal expansion. No use of accessory muscles. No supraclavicular retractions. Decreased breath sounds. Few rhonchi, but no rales or wheezes appreciated. BREASTS: Symmetrical without any discharge. ABDOMEN: Flat and soft. Positive for bowel sounds. No bruits either diastolic or systolic. RECTAL: Lax sphincter tone. GENITOURINARY: Normal appearing female genitalia. MUSCULOSKELETAL: No effusions present in her joints, but unable to assess her range of motion. EXTREMITIES: No evidence of any edema, cyanosis, or clubbing with palpable femoral, but unable to fully appreciate her popliteal and dorsalis pedis pulses. NEUROLOGIC: The patient at this point was drowsy and unable to follow my neuro commands, so I was not able to pursue further my neuro exam. LABORATORY DATA: Revealed white count 6.6, hemoglobin 11.4, hematocrit 34.7, platelets 155,000, polys 75%. Chemistry: Sodium 133, potassium 3.8, chloride 106, bicarb 20, BUN 62, creatinine 1.5, glucose is 174, troponin is 1.12, and albumin 2.8. IMPRESSION: 1. Chronic kidney disease. There was no significant change in her kidney function compared to 09/2016. The patient's chronic kidney disease is secondary to diabetic nephropathy due to longstanding history of diabetes and hypertensive nephrosclerosis. 2. Uncomplicated urinary tract infection. 3. Elevated troponin, possibly in this case due to chronic kidney disease. However, also need to consider with history of coronary artery disease. 4. Chronic congestive hearty failure. 5. Type 2 diabetes mellitus. 6. Vascular dementia. 7. Status post left parietal cerebrovascular accident. 8. Peripheral arterial disease. 9. Essential hypertension. PLAN: 1. Urine sodium, eosinophils and creatinine. 2. Urine microalbumin to creatinine ratio. 3. Renal ultrasound. 4. Follow up electrolytes. 5. Encouraged p.o. intake. 6. Start the patient on Megace. [facility]# [id number]
[2016-12-31] MEDS: Sodium Chloride 0.9% 1,000 ML IV SCH (07:00)
[2016-12-31] MEDS: Levothyroxine 0.05 Mg Tab PO SCH (07:01)
[2016-12-31] MEDS: INSULIN ASPART SLIDING SCALE 100 UNITS/ML UNIT SUBQ SCH ×4 (07:02→21:37)
[2016-12-31 07:23] LABS: BUN - UREA NITROGEN 47 mg/dL (7-25); BUN/CREATININE RATIO 36.2; CALCIUM SERUM 8.6 mg/dL (8.6-10.3); CHLORIDE 112 mEq/L (98-107); CREATININE - SERUM 1.3 mg/dL (0.6-1.2); GLUCOSE 157 mg/dL (70-105); SODIUM SERUM 140 mEq/L (136-145)
[2016-12-31] MEDS: Aspirin 81mg Chewable Tab PO SCH (09:30)
[2016-12-31] MEDS: Atorvastatin Calcium 10 MG TAB PO SCH (09:30)
[2016-12-31] MEDS: Multivitamin w/ Minerals Tab PO SCH (09:30)
[2016-12-31] MEDS: Lactobacillus Rhamnosus 10 Billion CFU Capsule PO SCH (09:30)
[2016-12-31] MEDS: Enoxaparin 40 mg/0.4 mL 0.4mL Syr SUBQ SCH ×2 (09:30→21:35)
[2016-12-31] MEDS: Pantoprazole 40 mg EC Tab PO SCH (09:30)
--- NOTE | 2016-12-31 09:53 | General Progress Note ---
Subjective - Review of Systems Events since last encounter: no change Objective - Results Result Diagrams: 12/30/16 05:35 12/31/16 06:27 Recent Labs: Laboratory Last Values WBC 7.4 Th/cmm (4.8-10.8) 12/30/16 05:35 RBC 4.08 Mil/cmm (3.80-5.20) 12/30/16 05:35 Hgb 11.3 gm/dL (12-16) L 12/30/16 05:35 Hct 34.4 % (41.0-60) L 12/30/16 05:35 MCV 84.4 fl (81-100) 12/30/16 05:35 MCH 27.7 pg (27.0-31.0) 12/30/16 05:35 MCHC Differential 32.8 pg (28.0-36.0) 12/30/16 05:35 RDW 19.6 % (11.5-20.0) 12/30/16 05:35 Plt Count 145 Th/cmm (150-400) L 12/30/16 05:35 MPV 9.2 fl 12/30/16 05:35 Neutrophils % 73.8 % (40.0-80.0) 12/30/16 05:35 Lymphocytes % 14.2 % (20.0-50.0) L 12/30/16 05:35 Monocytes % 10.1 % (2.0-10.0) H 12/30/16 05:35 Eosinophils % 1.8 % (0.0-5.0) 12/30/16 05:35 Basophils % 0.1 % (0.0-2.0) 12/30/16 05:35 Eos Smear Source URINE 12/30/16 17:25 Eos Smear Total Cells NONE SEEN (NONE SEEN) 12/30/16 17:25 PT 14.0 SECONDS (9.5-11.5) H 12/28/16 22:11 INR 1.33 (0.5-1.4) 12/28/16 22:11 Sodium 140 mEq/L (136-145) 12/31/16 06:27 Potassium 4.0 mEq/L (3.5-5.1) 12/31/16 06:27 Chloride 112 mEq/L (98-107) H 12/31/16 06:27 Carbon Dioxide 20.0 mEq/L (21.0-31.0) L 12/31/16 06:27 Anion Gap 12.0 (7.0-16.0) 12/31/16 06:27 BUN 47 mg/dL (7-25) H 12/31/16 06:27 Creatinine 1.3 mg/dL (0.6-1.2) H 12/31/16 06:27 Est GFR ( Amer) TNP 12/31/16 06:27 Est GFR (Non-Af Amer) TNP 12/31/16 06:27 BUN/Creatinine Ratio 36.2 12/31/16 06:27 Glucose 157 mg/dL (70-105) H 12/31/16 06:27 POC Glucose 157 MG/DL (70 - 105) H 12/31/16 06:57 Hemoglobin A1c % 7.4 % (4.0-6.0) H 12/28/16 22:11 Uric Acid 9.5 mg/dL (2.3-6.6) H 12/30/16 05:35 Calcium 8.6 mg/dL (8.6-10.3) 12/31/16 06:27 Phosphorus 3.3 mg/dL (2.5-5.0) 12/30/16 05:35 Magnesium 1.9 mg/dL (1.9-2.7) 12/30/16 05:35 Total Bilirubin 0.9 mg/dL (0.3-1.0) 12/30/16 05:35 AST 15 U/L (13-39) 12/30/16 05:35 ALT 8 U/L (7-52) 12/30/16 05:35 Alkaline Phosphatase 71 U/L (34-104) 12/30/16 05:35 Troponin I < 0.01 ng/mL (0.01-0.05) L 12/31/16 06:27 B-Natriuretic Peptide 2210.0 pg/mL (5.0-100.0) H 12/31/16 06:27 Total Protein 6.2 gm/dL (6.0-8.3) 12/30/16 05:35 Albumin 2.9 gm/dL (3.7-5.3) L 12/30/16 05:35 Globulin 3.3 gm/dL 12/30/16 05:35 Albumin/Globulin Ratio 0.9 (1.0-1.8) L 12/30/16 05:35 Triglycerides 60 mg/dL (<150) 12/30/16 05:35 Cholesterol 69 mg/dL (<200) 12/30/16 05:35 LDL Cholesterol Direct 47 mg/dL (75-193) L 12/30/16 05:35 HDL Cholesterol 23 mg/dL (23-92) 12/30/16 05:35 TSH 2.33 uIU/ml (0.34-5.60) 12/28/16 22:11 Urine Source CLEAN C 12/28/16 22:30 Urine Color YELLOW 12/28/16 22:30 Urine Clarity HAZY (CLEAR) 12/28/16 22:30 Urine pH 5.5 (4.6 - 8.0) 12/28/16 22:30 Ur Specific [place] 1.015 (1.005-1.030) 12/28/16 22:30 Urine Protein TRACE mg/dL (NEGATIVE) 12/28/16 22:30 Urine Glucose (UA) NEGATIVE mg/dL (NEGATIVE) 12/28/16 22:30 Urine Ketones NEGATIVE mg/dL (NEGATIVE) 12/28/16 22:30 Urine Blood SMALL (NEGATIVE) H 12/28/16 22:30 Urine Nitrate POSITIVE (NEGATIVE) H 12/28/16 22:30 Urine Bilirubin NEGATIVE (NEGATIVE) 12/28/16 22:30 Urine Urobilinogen 0.2 E.U./dL (0.2 - 1.0) 12/28/16 22:30 Ur Leukocyte Esterase TRACE (NEGATIVE) H 12/28/16 22:30 Urine RBC 10-25 /hpf (0-5) H 12/28/16 22:30 Urine WBC 6-10 /hpf (0-5) H 12/28/16 22:30 Ur Epithelial Cells FEW /lpf (FEW) 12/28/16 22:30 Urine Bacteria MODERATE /hpf (NONE SEEN) 12/28/16 22:30 Ur Random Sodium 13 mmol/L 12/30/16 17:25 Urine Creatinine 93.0 mg/dl (28.0-217.0) 12/30/16 17:25 - Physical Exam Vitals and I&O: Vital Signs Temp 98.3 F 12/31/16 07:37 Pulse 70 12/31/16 08:06 Resp 20 12/31/16 08:06 BP 142/78 12/31/16 07:37 Pulse Ox 99 12/31/16 08:06 Intake & Output 12/30/16 12/31/16 12/31/16 18:59 06:59 18:59 Intake Total 600 200 970.667 Balance 600 200 970.667 Weight (lbs) 84.368 kg 85.275 kg Intake: Intake, IV Amount 970.667 Sodium Chloride 0.9% 1, 970.667 000 ml @ 70 mls/hr IV . [id number] PENDING SALE TO [facility] Rx#:[id number] Oral 600 200 Other: # Voids 4 2 # Bowel Movements 0 0 Active Medications: Current Medications Acetaminophen (Tylenol) 650 mg PO Q4HR PRN PRN Reason: Pain or Fever >101 Stop: 02/27/17 01:46 Last Admin: 12/30/16 21:38 Dose: 650 mg Albuterol/Ipratropium (Duoneb Neb) 3 ml HHN Q6HR PRN PRN Reason: Shortness of Breath or Wheeze Stop: 02/27/17 01:46 Ascorbic Acid (Vitamin C) 500 mg PO DAILY [facility] Stop: 02/27/17 08:59 Last Admin: 12/30/16 08:37 Dose: 500 mg Aspirin (Aspirin Chewable) 81 mg PO DAILY [facility]END[facility] TO [facility] Stop: 02/28/17 08:59 Last Admin: 12/30/16 08:37 Dose: 81 mg Atorvastatin Calcium (Lipitor) 10 mg PO DAILY [facility] PRN Reason: Protocol Stop: 02/28/17 08:59 Last Admin: 12/30/16 08:37 Dose: 10 mg Bisacodyl (Dulcolax 10 Mg Supp) 10 mg RC DAILY PRN PRN Reason: Constipation Stop: 02/27/17 01:46 Carvedilol (Coreg) 3.125 mg PO BID [facility]END[facility] TO [facility] Stop: 02/27/17 08:59 Last Admin: 12/30/16 16:57 Dose: 3.125 mg Docusate Sodium (Colace) 100 mg PO BID [facility] Stop: 02/27/17 08:59 Last Admin: 12/30/16 16:57 Dose: 100 mg Enoxaparin Sodium (Lovenox) 40 mg SUBQ Q12HR PEND[facility] S[facility] TO [facility] Stop: 02/27/17 20:59 Last Admin: 12/30/16 20:42 Dose: 40 mg Hydralazine HCl (Apresoline) 10 mg PO BID JOSE DAVID Stop: 02/27/17 08:59 Last Admin: 12/30/16 17:46 Dose: Not Given Ceftriaxone Sodium 1 gm/ (Sodium Chloride) 50 mls @ 100 mls/hr IV Q24HR JOSE DAVID Stop: 02/28/17 00:00 Last Admin: 12/31/16 01:37 Dose: 100 mls/hr Sodium Chloride (Nacl 0.9%) 1,000 mls @ 70 mls/hr IV .[id number] JOSE DAVID Stop: 02/27/17 07:59 Last Admin: 12/31/16 07:00 Dose: 70 mls/hr Insulin Aspart (Novolog Insulin Sliding Scale) 0 units SUBQ ACHS JOSE DAVID PRN Reason: Protocol Stop: 02/27/17 07:29 Last Admin: 12/31/16 07:02 Dose: 3 units Isosorbide Dinitrate (Isordil) 10 mg PO TID JOSE DAVID Stop: 02/27/17 08:59 Last Admin: 12/30/16 20:22 Dose: 10 mg Lactobacillus Rhamnosus (Culturelle) 1 each PO DAILY JOSE DAVID Stop: 02/27/17 08:59 Last Admin: 12/30/16 10:33 Dose: Not Given Levetiracetam (Keppra) 250 mg PO BID JOSE DAVID Stop: 02/27/17 08:59 Last Admin: 12/30/16 16:57 Dose: 250 mg Levothyroxine Sodium (Synthroid) 0.05 mg PO QDAC JOSE DAVID Stop: 02/27/17 07:29 Last Admin: 12/31/16 07:01 Dose: 0.05 mg Magnesium Hydroxide (Milk Of Magnesia) 30 ml PO DAILY PRN PRN Reason: Constipation Stop: 02/27/17 01:46 Megestrol Acetate (Megace) 40 mg PO DAILY JOSE DAVID PRN Reason: Protocol Stop: 02/28/17 15:59 Last Admin: 12/30/16 16:59 Dose: 40 mg Miscellaneous (Probiotic Screen) 1 ea MC PRN PRN PRN Reason: PROTOCOL Stop: 02/28/17 15:40 Montelukast Sodium (Singulair) 10 mg PO DAILY PENDING SALE TO [facility] Stop: 02/27/17 08:59 Last Admin: 12/30/16 08:37 Dose: 10 mg Mupirocin (Bactroban Oint) 1 appl NS BID PENDING SALE TO [facility] Stop: 01/04/17 17:01 Ondansetron HCl (Zofran Odt) 4 mg PO Q6HR PRN PRN Reason: Nausea / Vomiting Stop: 02/27/17 01:46 Pantoprazole Sodium (Protonix) 40 mg PO DAILY JOSE DAVID Stop: 02/27/17 08:59 Last Admin: 12/30/16 08:37 Dose: 40 mg Senna (Senna) 17.2 mg PO HS JOSE DAVID Stop: 02/27/17 20:59 Last Admin: 12/30/16 20:22 Dose: 17.2 mg Sodium Phosphate (Fleet Enema) 135 ml RC Q48HR PRN PRN Reason: Constipation Stop: 02/27/17 01:46 General: No acute distress HEENT: Atraumatic Cardiovascular: Regular rate, Normal S1, Normal S2 Lungs: Clear to auscultation Assessment/Plan - Problem List Patient Problems: All Active Problems Anemia (Acute) D64.9 CKD (chronic kidney disease) stage 2, GFR 60-89 ml/min (Acute) N18.2 Diabetes (Acute) E11.9 Hyperlipidemia (Acute) E78.5 Non-ST elevated myocardial infarction (Acute) I21.4 Pacemaker (Acute) Z95.0 Pyelonephritis (Acute) N12 Seizure disorder (Acute) G40.909 Sick sinus syndrome (Acute) I49.5 UTI (urinary tract infection) (Acute) - Plan Plan: cardio w/up iv antibiotics cpm Nutritional Asmnt/Malnutr-PDOC - Dietary Evaluation Malnutrition Findings (Please click <Entered> for more info): Nutritional Asmnt/Malnutrition Start: 12/30/16 12: 57 Text: Status: Complete Freq: Document 12/30/16 12:57 GSUN (Rec: 12/30/16 13:17 PAM [id number]) Nutritional Asmnt/Malnutrition Patient General Information Nutritional Screening High Risk Screening Diagnosis Elevated troponin level, UTI, poor intake Pertinent Medical Hx/Surgical Hx Anemia, CKD stage 2, DM, hyperlipidemia, non ST elevated myocardial infarction , pacemaker, pyelonephritis, seizure disorder, sick sinus syndrome Subjective Information 71 year old female. Pt's diet order noted to be pureed CCHO NICOLASA at [facility] , current diet order is low sodium. Spoke to MIKE Mcdermott, RN made aware, RN also stated pt is English speaking but confused. Spoke to SCHOLARSHIP COUNSELOR who assisted with breakfast, SCHOLARSHIP COUNSELOR stated pt is a feeder, good appetite, tolerated well, however noted pt is edentulous so did not feed toast. Pt seen talkign to self during visit, appeared overweight, no muscle fat wasting noted. Current Diet Order/ Nutrition Support Low sodium Pertinent Medications Vitamin C, Lipitor, Dulcolax, Colace, Novolog, Culturelle, MOM, Zofran, Protonix, Senna, Fleet Enema Pertinent Labs 12/28: A1c 7.4H 12/30: BUN 54H, potassium 4.1, creatinine 1.4H, glucose 256H Nutritional Hx/Data Height 1.52 m Height (Calculated Centimeters) 152.4 Current Weight (lbs) 84.368 kg Weight (Calculated Kilograms) 84.4 Weight (Calculated Grams) 30357.2 [place] Body Weight 100 Weight Status Obese GI Symptoms Usual diet at home [facility]: pureed, CCHO, NICOLASA Skin Integrity/Comment: Ho 13. Pitting 2+ lower extremities. Coccyx blanchable redness. Estimated Nutritional Goals BEE in Kcals: Adj wt of IBW Calories/Kcals/Kg AdjBW 121.5lb/55.2kg Kcals Calculated 1380-1656kcal (25-30kcal/kg) Protein: Adj wt of IBW Protein Calculated 55-66g (1-1.2g/kg) Fluid: ml 1380-1656ml (1ml/kcal) Nutritional Problem 2. Problem Problem Altered nutrition related laboratory values related to Etiology DM aeb Signs/Symptoms: A1c 7.4H, glucose 256H 1. Problem Problem (possible) diffiiculty chewing related to Etiology edentulous, diet order aeb Signs/Symptoms: pt was previously on pureed diet and now on regular texture Intervention/Recommendation Comments 1. Recommend [id number] low sodium, diet texture to be determined. Previous pureed diet order noted in transfer chart, however pt has been on regular texture diet since adm , day 2. MIKE Mcdermott made aware. 2. Nursing staff to record % intake for every meal. No documentations since adm. Expected Outcomes/Goals Expected Outcomes/Goals 1. PO intake to meet at least 75% of estimated nutritional needs with tolerance.
--- NOTE | 2016-12-31 18:52 | General Progress Note ---
Subjective - Review of Systems Service Date: 12/31/16 Subjective: awake, eating dinner, mild tachypnea Objective - Results Result Diagrams: 12/30/16 05:35 12/31/16 06:27 Recent Labs: Laboratory Last Values WBC 7.4 Th/cmm (4.8-10.8) 12/30/16 05:35 RBC 4.08 Mil/cmm (3.80-5.20) 12/30/16 05:35 Hgb 11.3 gm/dL (12-16) L 12/30/16 05:35 Hct 34.4 % (41.0-60) L 12/30/16 05:35 MCV 84.4 fl (81-100) 12/30/16 05:35 MCH 27.7 pg (27.0-31.0) 12/30/16 05:35 MCHC Differential 32.8 pg (28.0-36.0) 12/30/16 05:35 RDW 19.6 % (11.5-20.0) 12/30/16 05:35 Plt Count 145 Th/cmm (150-400) L 12/30/16 05:35 MPV 9.2 fl 12/30/16 05:35 Neutrophils % 73.8 % (40.0-80.0) 12/30/16 05:35 Lymphocytes % 14.2 % (20.0-50.0) L 12/30/16 05:35 Monocytes % 10.1 % (2.0-10.0) H 12/30/16 05:35 Eosinophils % 1.8 % (0.0-5.0) 12/30/16 05:35 Basophils % 0.1 % (0.0-2.0) 12/30/16 05:35 Eos Smear Source URINE 12/30/16 17:25 Eos Smear Total Cells NONE SEEN (NONE SEEN) 12/30/16 17:25 PT 14.0 SECONDS (9.5-11.5) H 12/28/16 22:11 INR 1.33 (0.5-1.4) 12/28/16 22:11 Sodium 140 mEq/L (136-145) 12/31/16 06:27 Potassium 4.0 mEq/L (3.5-5.1) 12/31/16 06:27 Chloride 112 mEq/L (98-107) H 12/31/16 06:27 Carbon Dioxide 20.0 mEq/L (21.0-31.0) L 12/31/16 06:27 Anion Gap 12.0 (7.0-16.0) 12/31/16 06:27 BUN 47 mg/dL (7-25) H 12/31/16 06:27 Creatinine 1.3 mg/dL (0.6-1.2) H 12/31/16 06:27 Est GFR ( Amer) TNP 12/31/16 06:27 Est GFR (Non-Af Amer) TNP 12/31/16 06:27 BUN/Creatinine Ratio 36.2 12/31/16 06:27 Glucose 157 mg/dL (70-105) H 12/31/16 06:27 POC Glucose 158 MG/DL (70 - 105) H 12/31/16 17:47 Hemoglobin A1c % 7.4 % (4.0-6.0) H 12/28/16 22:11 Uric Acid 9.5 mg/dL (2.3-6.6) H 12/30/16 05:35 Calcium 8.6 mg/dL (8.6-10.3) 12/31/16 06:27 Phosphorus 3.3 mg/dL (2.5-5.0) 12/30/16 05:35 Magnesium 1.9 mg/dL (1.9-2.7) 12/30/16 05:35 Total Bilirubin 0.9 mg/dL (0.3-1.0) 12/30/16 05:35 AST 15 U/L (13-39) 12/30/16 05:35 ALT 8 U/L (7-52) 12/30/16 05:35 Alkaline Phosphatase 71 U/L (34-104) 12/30/16 05:35 Troponin I < 0.01 ng/mL (0.01-0.05) L 12/31/16 06:27 B-Natriuretic Peptide 2210.0 pg/mL (5.0-100.0) H 12/31/16 06:27 Total Protein 6.2 gm/dL (6.0-8.3) 12/30/16 05:35 Albumin 2.9 gm/dL (3.7-5.3) L 12/30/16 05:35 Globulin 3.3 gm/dL 12/30/16 05:35 Albumin/Globulin Ratio 0.9 (1.0-1.8) L 12/30/16 05:35 Triglycerides 60 mg/dL (<150) 12/30/16 05:35 Cholesterol 69 mg/dL (<200) 12/30/16 05:35 LDL Cholesterol Direct 47 mg/dL (75-193) L 12/30/16 05:35 HDL Cholesterol 23 mg/dL (23-92) 12/30/16 05:35 TSH 2.33 uIU/ml (0.34-5.60) 12/28/16 22:11 Urine Source CLEAN C 12/28/16 22:30 Urine Color YELLOW 12/28/16 22:30 Urine Clarity HAZY (CLEAR) 12/28/16 22:30 Urine pH 5.5 (4.6 - 8.0) 12/28/16 22:30 Ur Specific [place] 1.015 (1.005-1.030) 12/28/16 22:30 Urine Protein TRACE mg/dL (NEGATIVE) 12/28/16 22:30 Urine Glucose (UA) NEGATIVE mg/dL (NEGATIVE) 12/28/16 22:30 Urine Ketones NEGATIVE mg/dL (NEGATIVE) 12/28/16 22:30 Urine Blood SMALL (NEGATIVE) H 12/28/16 22:30 Urine Nitrate POSITIVE (NEGATIVE) H 12/28/16 22:30 Urine Bilirubin NEGATIVE (NEGATIVE) 12/28/16 22:30 Urine Urobilinogen 0.2 E.U./dL (0.2 - 1.0) 12/28/16 22:30 Ur Leukocyte Esterase TRACE (NEGATIVE) H 12/28/16 22:30 Urine RBC 10-25 /hpf (0-5) H 12/28/16 22:30 Urine WBC 6-10 /hpf (0-5) H 12/28/16 22:30 Ur Epithelial Cells FEW /lpf (FEW) 12/28/16 22:30 Urine Bacteria MODERATE /hpf (NONE SEEN) 12/28/16 22:30 Ur Random Sodium 13 mmol/L 12/30/16 17:25 Urine Creatinine 93.0 mg/dl (28.0-217.0) 12/30/16 17:25 - Physical Exam Vitals and I&O: Vital Signs Temp 98.3 F 12/31/16 07:37 Pulse 70 12/31/16 10:23 Resp 20 12/31/16 08:06 BP 142/78 12/31/16 10:23 Pulse Ox 99 12/31/16 08:06 Intake & Output 12/30/16 12/31/16 12/31/16 18:59 06:59 18:59 Intake Total 336 407 4979.667 Balance 969 314 7806.667 Weight (lbs) 84.368 kg 85.275 kg 85.275 kg Intake: Intake, IV Amount 970.667 Sodium Chloride 0.9% 1, 970.667 000 ml @ 70 mls/hr IV . [id number] [facility] Rx#:[id number] Oral 600 200 240 Other: # Voids 4 2 3 # Bowel Movements 0 0 0 Active Medications: Current Medications Acetaminophen (Tylenol) 650 mg PO Q4HR PRN PRN Reason: Pain or Fever >101 Stop: 02/27/17 01:46 Last Admin: 12/30/16 21:38 Dose: 650 mg Albuterol/Ipratropium (Duoneb Neb) 3 ml HHN Q6HR PRN PRN Reason: Shortness of Breath or Wheeze Stop: 02/27/17 01:46 Ascorbic Acid (Vitamin C) 500 mg PO DAILY [facility] Stop: 02/27/17 08:59 Last Admin: 12/31/16 09:30 Dose: 500 mg Aspirin (Aspirin Chewable) 81 mg PO DAILY [facility] Stop: 02/28/17 08:59 Last Admin: 12/31/16 09:30 Dose: 81 mg Atorvastatin Calcium (Lipitor) 10 mg PO DAILY [facility] PRN Reason: Protocol Stop: 02/28/17 08:59 Last Admin: 12/31/16 09:30 Dose: 10 mg Bisacodyl (Dulcolax 10 Mg Supp) 10 mg RC DAILY PRN PRN Reason: Constipation Stop: 02/27/17 01:46 Carvedilol (Coreg) 3.125 mg PO BID [facility] Stop: 02/27/17 08:59 Last Admin: 12/31/16 17:37 Dose: Not Given Docusate Sodium (Colace) 100 mg PO BID [facility] Stop: 02/27/17 08:59 Last Admin: 12/31/16 17:37 Dose: Not Given Enoxaparin Sodium (Lovenox) 40 mg SUBQ Q12HR [facility] Stop: 02/27/17 20:59 Last Admin: 12/31/16 09:30 Dose: 40 mg Hydralazine HCl (Apresoline) 10 mg PO BID [facility] Stop: 02/27/17 08:59 Last Admin: 12/31/16 17:37 Dose: Not Given Ceftriaxone Sodium 1 gm/ (Sodium Chloride) 50 mls @ 100 mls/hr IV Q24HR [facility] Stop: 02/28/17 00:00 Last Admin: 12/31/16 01:37 Dose: 100 mls/hr Sodium Chloride (Nacl 0.9%) 1,000 mls @ 70 mls/hr IV .[id number] [facility] Stop: 02/27/17 07:59 Last Admin: 12/31/16 07:00 Dose: 70 mls/hr Insulin Aspart (Novolog Insulin Sliding Scale) 0 units SUBQ ACHS [facility] PRN Reason: Protocol Stop: 02/27/17 07:29 Last Admin: 12/31/16 17:52 Dose: 3 units Isosorbide Dinitrate (Isordil) 10 mg PO TID [facility] Stop: 02/27/17 08:59 Last Admin: 12/31/16 14:10 Dose: Not Given Lactobacillus Rhamnosus (Culturelle) 1 each PO DAILY [facility] Stop: 02/27/17 08:59 Last Admin: 12/31/16 09:30 Dose: 1 each Levetiracetam (Keppra) 250 mg PO BID [facility] Stop: 02/27/17 08:59 Last Admin: 12/31/16 17:37 Dose: Not Given Levothyroxine Sodium (Synthroid) 0.05 mg PO QDAC [facility] Stop: 02/27/17 07:29 Last Admin: 12/31/16 07:01 Dose: 0.05 mg Magnesium Hydroxide (Milk Of Magnesia) 30 ml PO DAILY PRN PRN Reason: Constipation Stop: 02/27/17 01:46 Megestrol Acetate (Megace) 40 mg PO DAILY [facility] PRN Reason: Protocol Stop: 02/28/17 15:59 Last Admin: 12/31/16 09:30 Dose: 40 mg Miscellaneous (Probiotic Screen) 1 ea MC PRN PRN PRN Reason: PROTOCOL Stop: 02/28/17 15:40 Montelukast Sodium (Singulair) 10 mg PO DAILY [facility] Stop: 02/27/17 08:59 Last Admin: 12/31/16 09:30 Dose: 10 mg Mupirocin (Bactroban Oint) 1 appl NS BID [facility] Stop: 01/04/17 17:01 Last Admin: 12/31/16 17:37 Dose: Not Given Ondansetron HCl (Zofran Odt) 4 mg PO Q6HR PRN PRN Reason: Nausea / Vomiting Stop: 02/27/17 01:46 Pantoprazole Sodium (Protonix) 40 mg PO DAILY [facility] Stop: 02/27/17 08:59 Last Admin: 12/31/16 09:30 Dose: 40 mg Senna (Senna) 17.2 mg PO HS JOSE DVAID Stop: 02/27/17 20:59 Last Admin: 12/30/16 20:22 Dose: 17.2 mg Sodium Phosphate (Fleet Enema) 135 ml RC Q48HR PRN PRN Reason: Constipation Stop: 02/27/17 01:46 General: Alert, No acute distress HEENT: Atraumatic Neck: Supple, +2 carotid pulse wo bruit Cardiovascular: Regular rate, Normal S1, Normal S2 Lungs: Clear to auscultation, Other (decrease bs) Abdomen: Bowel sounds, Soft Extremities: Edema, Other ((+) 3 bipdeal edema) Neurological: Sensation intact Skin: no Rash Psych/Mental Status: Mood NL Assessment/Plan - Problem List Patient Problems: All Active Problems Anemia (Acute) D64.9 CKD (chronic kidney disease) stage 2, GFR 60-89 ml/min (Acute) N18.2 Diabetes (Acute) E11.9 Hyperlipidemia (Acute) E78.5 Non-ST elevated myocardial infarction (Acute) I21.4 Pacemaker (Acute) Z95.0 Pyelonephritis (Acute) N12 Seizure disorder (Acute) G40.909 Sick sinus syndrome (Acute) I49.5 UTI (urinary tract infection) (Acute) - Assessment Assessment: MAEVE on CKD Type 2 DM Alzh Dementia Ess Htn w/ CKD Cardiac Arryhtmia s/p PPP Epilepsy CAD Acute on Chronic Chf Severed PAD FTT - Plan Plan: Lab - Result Diagrams 12/30/16 05:35 12/31/16 06:27 Current Medications Acetaminophen (Tylenol) 650 mg PO Q4HR PRN PRN Reason: Pain or Fever >101 Stop: 02/27/17 01:46 Last Admin: 12/30/16 21:38 Dose: 650 mg Albuterol/Ipratropium (Duoneb Neb) 3 ml HHN Q6HR PRN PRN Reason: Shortness of Breath or Wheeze Stop: 02/27/17 01:46 Ascorbic Acid (Vitamin C) 500 mg PO DAILY [facility] Stop: 02/27/17 08:59 Last Admin: 12/31/16 09:30 Dose: 500 mg Aspirin (Aspirin Chewable) 81 mg PO DAILY [facility] Stop: 02/28/17 08:59 Last Admin: 12/31/16 09:30 Dose: 81 mg Atorvastatin Calcium (Lipitor) 10 mg PO DAILY [facility] PRN Reason: Protocol Stop: 02/28/17 08:59 Last Admin: 12/31/16 09:30 Dose: 10 mg Bisacodyl (Dulcolax 10 Mg Supp) 10 mg RC DAILY PRN PRN Reason: Constipation Stop: 02/27/17 01:46 Carvedilol (Coreg) 3.125 mg PO BID [facility] Stop: 02/27/17 08:59 Last Admin: 12/31/16 17:37 Dose: Not Given Docusate Sodium (Colace) 100 mg PO BID [facility] Stop: 02/27/17 08:59 Last Admin: 12/31/16 17:37 Dose: Not Given Enoxaparin Sodium (Lovenox) 40 mg SUBQ Q12HR [facility] Stop: 02/27/17 20:59 Last Admin: 12/31/16 09:30 Dose: 40 mg Hydralazine HCl (Apresoline) 10 mg PO BID [facility] Stop: 02/27/17 08:59 Last Admin: 12/31/16 17:37 Dose: Not Given Ceftriaxone Sodium 1 gm/ (Sodium Chloride) 50 mls @ 100 mls/hr IV Q24HR [facility] Stop: 02/28/17 00:00 Last Admin: 12/31/16 01:37 Dose: 100 mls/hr Sodium Chloride (Nacl 0.9%) 1,000 mls @ 70 mls/hr IV .[id number] [facility] Stop: 02/27/17 07:59 Last Admin: 12/31/16 07:00 Dose: 70 mls/hr Insulin Aspart (Novolog Insulin Sliding Scale) 0 units SUBQ ACHS [facility] PRN Reason: Protocol Stop: 02/27/17 07:29 Last Admin: 12/31/16 17:52 Dose: 3 units Isosorbide Dinitrate (Isordil) 10 mg PO TID [facility] Stop: 02/27/17 08:59 Last Admin: 12/31/16 14:10 Dose: Not Given Lactobacillus Rhamnosus (Culturelle) 1 each PO DAILY [facility] Stop: 02/27/17 08:59 Last Admin: 12/31/16 09:30 Dose: 1 each Levetiracetam (Keppra) 250 mg PO BID [facility] Stop: 02/27/17 08:59 Last Admin: 12/31/16 17:37 Dose: Not Given Levothyroxine Sodium (Synthroid) 0.05 mg PO QDAC [facility] Stop: 02/27/17 07:29 Last Admin: 12/31/16 07:01 Dose: 0.05 mg Magnesium Hydroxide (Milk Of Magnesia) 30 ml PO DAILY PRN PRN Reason: Constipation Stop: 02/27/17 01:46 Megestrol Acetate (Megace) 40 mg PO DAILY [facility] PRN Reason: Protocol Stop: 02/28/17 15:59 Last Admin: 12/31/16 09:30 Dose: 40 mg Miscellaneous (Probiotic Screen) 1 ea MC PRN PRN PRN Reason: PROTOCOL Stop: 02/28/17 15:40 Montelukast Sodium (Singulair) 10 mg PO DAILY [facility] Stop: 02/27/17 08:59 Last Admin: 12/31/16 09:30 Dose: 10 mg Mupirocin (Bactroban Oint) 1 appl NS BID [facility] Stop: 01/04/17 17:01 Last Admin: 12/31/16 17:37 Dose: Not Given Ondansetron HCl (Zofran Odt) 4 mg PO Q6HR PRN PRN Reason: Nausea / Vomiting Stop: 02/27/17 01:46 Pantoprazole Sodium (Protonix) 40 mg PO DAILY [facility] Stop: 02/27/17 08:59 Last Admin: 12/31/16 09:30 Dose: 40 mg Senna (Senna) 17.2 mg PO HS [facility] Stop: 02/27/17 20:59 Last Admin: 12/30/16 20:22 Dose: 17.2 mg Sodium Phosphate (Fleet Enema) 135 ml RC Q48HR PRN PRN Reason: Constipation Stop: 02/27/17 01:46 DC IVF due to elevated BNP, peripheral edema ECHO revealed severe CM w/ EJF of 10-15% B/L LAE, LVH kidney fnc gradually improving administer 1 dose of lasix already has AICD, consider bivent pacing f/u electrolytes in am FE Na 0.13% suggestive of prerenal component Nutritional Asmnt/Malnutr-PDOC - Dietary Evaluation Malnutrition Findings (Please click <Entered> for more info): Nutritional Asmnt/Malnutrition Start: 12/30/16 12: 57 Text: Status: Complete Freq: Document 12/30/16 12:57 GSUN (Rec: 12/30/16 13:17 GSUN [id number]) Nutritional Asmnt/Malnutrition Patient General Information Nutritional Screening High Risk Screening Diagnosis Elevated troponin level, UTI, poor intake Pertinent Medical Hx/Surgical Hx Anemia, CKD stage 2, DM, hyperlipidemia, non ST elevated myocardial infarction , pacemaker, pyelonephritis, seizure disorder, sick sinus syndrome Subjective Information 71 year old female. Pt's diet order noted to be pureed CCHO NICOLASA at [facility] , current diet order is low sodium. Spoke to RN Baldemar, RN made aware, RN also stated pt is [place] speaking but confused. Spoke to TAPE CUTTING MACHINE OPERATOR who assisted with breakfast, TAPE CUTTING MACHINE OPERATOR stated pt is a feeder, good appetite, tolerated well, however noted pt is edentulous so did not feed toast. Pt seen talkign to self during visit, appeared overweight, no muscle fat wasting noted. Current Diet Order/ Nutrition Support Low sodium Pertinent Medications Vitamin C, Lipitor, Dulcolax, Colace, Novolog, Culturelle, MOM, Zofran, Protonix, Senna, Fleet Enema Pertinent Labs 12/28: A1c 7.4H 12/30: BUN 54H, potassium 4.1, creatinine 1.4H, glucose 256H Nutritional Hx/Data Height 1.52 m Height (Calculated Centimeters) 152.4 Current Weight (lbs) 84.368 kg Weight (Calculated Kilograms) 84.4 Weight (Calculated Grams) 31414.2 [place] Body Weight 100 Weight Status Obese GI Symptoms Usual diet at home [facility]: pureed, CCHO, NICOLASA Skin Integrity/Comment: Ho 13. Pitting 2+ lower extremities. Coccyx blanchable redness. Estimated Nutritional Goals BEE in Kcals: Adj wt of IBW Calories/Kcals/Kg AdjBW 121.5lb/55.2kg Kcals Calculated 1380-1656kcal (25-30kcal/kg) Protein: Adj wt of IBW Protein Calculated 55-66g (1-1.2g/kg) Fluid: ml 1380-1656ml (1ml/kcal) Nutritional Problem 2. Problem Problem Altered nutrition related laboratory values related to Etiology DM aeb Signs/Symptoms: A1c 7.4H, glucose 256H 1. Problem Problem (possible) diffiiculty chewing related to Etiology edentulous, diet order aeb Signs/Symptoms: pt was previously on pureed diet and now on regular texture Intervention/Recommendation Comments 1. Recommend [id number] low sodium, diet texture to be determined. Previous pureed diet order noted in transfer chart, however pt has been on regular texture diet since adm , day 2. MIKE Mcdermott made aware. 2. Nursing staff to record % intake for every meal. No documentations since adm. Expected Outcomes/Goals Expected Outcomes/Goals 1. PO intake to meet at least 75% of estimated nutritional needs with tolerance.
[2017-01-01] MEDS: cefTRIAXone 1 GM in Sodium Chloride 0.9% 50 ML IV SCH ×2 (00:26→23:52)
[2017-01-01] MEDS: Levothyroxine 0.05 Mg Tab PO SCH (06:29)
[2017-01-01] MEDS: INSULIN ASPART SLIDING SCALE 100 UNITS/ML UNIT SUBQ SCH ×6 (06:29→21:38)
[2017-01-01 06:58] LABS: ANION GAP 13.5 (7.0-16.0); BUN - UREA NITROGEN 43 mg/dL (7-25); BUN/CREATININE RATIO 35.8; CALCIUM SERUM 8.8 mg/dL (8.6-10.3); CARBON DIOXIDE 18.4 mEq/L (21.0-31.0); CHLORIDE 113 mEq/L (98-107); CREATININE - SERUM 1.2 mg/dL (0.6-1.2); GLUCOSE 183 mg/dL (70-105); POTASSIUM SERUM 3.9 mEq/L (3.5-5.1); SODIUM SERUM 141 mEq/L (136-145)
--- NOTE | 2017-01-01 07:49 | Diagnostic Imaging Report ---
Streaky: Portable chest x-ray HISTORY: Congestive heart failure. Findings: Portable upright examination of chest at 0738 hours reviewed the study compared to prior [id number]. The study demonstrates severe rotation of the patient Mediastinal structures midline. No acute pulmonic infiltrates or effusions are noted. Left-sided pacemaker identified. The aortic arch calcified. Bony thorax intact. IMPRESSION: No acute disease.
[2017-01-01] MEDS: Atorvastatin Calcium 10 MG TAB PO SCH (09:01)
[2017-01-01] MEDS: Lactobacillus Rhamnosus 10 Billion CFU Capsule PO SCH (09:01)
[2017-01-01] MEDS: Aspirin 81mg Chewable Tab PO SCH (09:03)
[2017-01-01] MEDS: Multivitamin w/ Minerals Tab PO SCH (09:03)
[2017-01-01] MEDS: Pantoprazole 40 mg EC Tab PO SCH (09:04)
[2017-01-01] MEDS: Enoxaparin 40 mg/0.4 mL 0.4mL Syr SUBQ SCH ×2 (09:11→21:37)
--- NOTE | 2017-01-01 11:10 | Internal Medicine Prog Note ---
Internal Medicine Subjective - Subjective Service Date: 01/01/17 Patient seen and examined:: with staff Patient is:: awake, confused Per staff patient has:: no adverse event, tolerating meds Internal Medicine Objective - Results Result Diagrams: 12/30/16 05:35 01/01/17 06:25 Recent Labs: Laboratory Last Values WBC 7.4 Th/cmm (4.8-10.8) 12/30/16 05:35 RBC 4.08 Mil/cmm (3.80-5.20) 12/30/16 05:35 Hgb 11.3 gm/dL (12-16) L 12/30/16 05:35 Hct 34.4 % (41.0-60) L 12/30/16 05:35 MCV 84.4 fl (81-100) 12/30/16 05:35 MCH 27.7 pg (27.0-31.0) 12/30/16 05:35 MCHC Differential 32.8 pg (28.0-36.0) 12/30/16 05:35 RDW 19.6 % (11.5-20.0) 12/30/16 05:35 Plt Count 145 Th/cmm (150-400) L 12/30/16 05:35 MPV 9.2 fl 12/30/16 05:35 Neutrophils % 73.8 % (40.0-80.0) 12/30/16 05:35 Lymphocytes % 14.2 % (20.0-50.0) L 12/30/16 05:35 Monocytes % 10.1 % (2.0-10.0) H 12/30/16 05:35 Eosinophils % 1.8 % (0.0-5.0) 12/30/16 05:35 Basophils % 0.1 % (0.0-2.0) 12/30/16 05:35 Eos Smear Source URINE 12/30/16 17:25 Eos Smear Total Cells NONE SEEN (NONE SEEN) 12/30/16 17:25 PT 14.0 SECONDS (9.5-11.5) H 12/28/16 22:11 INR 1.33 (0.5-1.4) 12/28/16 22:11 Sodium 141 mEq/L (136-145) 01/01/17 06:25 Potassium 3.9 mEq/L (3.5-5.1) 01/01/17 06:25 Chloride 113 mEq/L (98-107) H 01/01/17 06:25 Carbon Dioxide 18.4 mEq/L (21.0-31.0) L 01/01/17 06:25 Anion Gap 13.5 (7.0-16.0) 01/01/17 06:25 BUN 43 mg/dL (7-25) H 01/01/17 06:25 Creatinine 1.2 mg/dL (0.6-1.2) 01/01/17 06:25 Est GFR ( Amer) TNP 01/01/17 06:25 Est GFR (Non-Af Amer) TNP 01/01/17 06:25 BUN/Creatinine Ratio 35.8 01/01/17 06:25 Glucose 183 mg/dL (70-105) H 01/01/17 06:25 POC Glucose 187 MG/DL (70 - 105) H 01/01/17 06:07 Hemoglobin A1c % 7.4 % (4.0-6.0) H 12/28/16 22:11 Uric Acid 9.5 mg/dL (2.3-6.6) H 12/30/16 05:35 Calcium 8.8 mg/dL (8.6-10.3) 01/01/17 06:25 Phosphorus 3.3 mg/dL (2.5-5.0) 12/30/16 05:35 Magnesium 1.9 mg/dL (1.9-2.7) 12/30/16 05:35 Total Bilirubin 0.9 mg/dL (0.3-1.0) 12/30/16 05:35 AST 15 U/L (13-39) 12/30/16 05:35 ALT 8 U/L (7-52) 12/30/16 05:35 Alkaline Phosphatase 71 U/L (34-104) 12/30/16 05:35 Troponin I < 0.01 ng/mL (0.01-0.05) L 12/31/16 06:27 B-Natriuretic Peptide 2210.0 pg/mL (5.0-100.0) H 12/31/16 06:27 Total Protein 6.2 gm/dL (6.0-8.3) 12/30/16 05:35 Albumin 2.9 gm/dL (3.7-5.3) L 12/30/16 05:35 Globulin 3.3 gm/dL 12/30/16 05:35 Albumin/Globulin Ratio 0.9 (1.0-1.8) L 12/30/16 05:35 Triglycerides 60 mg/dL (<150) 12/30/16 05:35 Cholesterol 69 mg/dL (<200) 12/30/16 05:35 LDL Cholesterol Direct 47 mg/dL (75-193) L 12/30/16 05:35 HDL Cholesterol 23 mg/dL (23-92) 12/30/16 05:35 TSH 2.33 uIU/ml (0.34-5.60) 12/28/16 22:11 Urine Source CLEAN C 12/28/16 22:30 Urine Color YELLOW 12/28/16 22:30 Urine Clarity HAZY (CLEAR) 12/28/16 22:30 Urine pH 5.5 (4.6 - 8.0) 12/28/16 22:30 Ur Specific [place] 1.015 (1.005-1.030) 12/28/16 22:30 Urine Protein TRACE mg/dL (NEGATIVE) 12/28/16 22:30 Urine Glucose (UA) NEGATIVE mg/dL (NEGATIVE) 12/28/16 22:30 Urine Ketones NEGATIVE mg/dL (NEGATIVE) 12/28/16 22:30 Urine Blood SMALL (NEGATIVE) H 12/28/16 22:30 Urine Nitrate POSITIVE (NEGATIVE) H 12/28/16 22:30 Urine Bilirubin NEGATIVE (NEGATIVE) 12/28/16 22:30 Urine Urobilinogen 0.2 E.U./dL (0.2 - 1.0) 12/28/16 22:30 Ur Leukocyte Esterase TRACE (NEGATIVE) H 12/28/16 22:30 Urine RBC 10-25 /hpf (0-5) H 12/28/16 22:30 Urine WBC 6-10 /hpf (0-5) H 12/28/16 22:30 Ur Epithelial Cells FEW /lpf (FEW) 12/28/16 22:30 Urine Bacteria MODERATE /hpf (NONE SEEN) 12/28/16 22:30 Ur Random Sodium 13 mmol/L 12/30/16 17:25 Urine Creatinine 93.0 mg/dl (28.0-217.0) 12/30/16 17:25 - Physical Exam Vitals and I&O: Vital Signs Temp 98.1 F 01/01/17 04:00 Pulse 71 01/01/17 09:03 Resp 18 01/01/17 08:19 BP 140/81 01/01/17 09:03 Pulse Ox 97 01/01/17 08:19 Intake & Output 12/31/16 01/01/17 01/01/17 18:59 06:59 18:59 Intake Total 1210.667 200 Balance 1210.667 200 Weight (lbs) 188 lb 186 lb 8 oz 186 lb Intake: Intake, IV Amount 970.667 Sodium Chloride 0.9% 1, 970.667 000 ml @ 70 mls/hr IV . [id number] [facility] Rx#:[id number] Oral 240 200 Other: # Voids 3 3 # Bowel Movements 0 2 Stool Characteristics Soft Brown Black Active Medications: Current Medications Acetaminophen (Tylenol) 650 mg PO Q4HR PRN PRN Reason: Pain or Fever >101 Stop: 02/27/17 01:46 Last Admin: 12/31/16 21:33 Dose: 650 mg Albuterol/Ipratropium (Duoneb Neb) 3 ml HHN Q6HR PRN PRN Reason: Shortness of Breath or Wheeze Stop: 02/27/17 01:46 Ascorbic Acid (Vitamin C) 500 mg PO DAILY [facility] Stop: 02/27/17 08:59 Last Admin: 01/01/17 09:03 Dose: 500 mg Aspirin (Aspirin Chewable) 81 mg PO DAILY [facility] Stop: 02/28/17 08:59 Last Admin: 01/01/17 09:03 Dose: 81 mg Atorvastatin Calcium (Lipitor) 10 mg PO DAILY [facility] PRN Reason: Protocol Stop: 02/28/17 08:59 Last Admin: 01/01/17 09:01 Dose: 10 mg Bisacodyl (Dulcolax 10 Mg Supp) 10 mg RC DAILY PRN PRN Reason: Constipation Stop: 02/27/17 01:46 Carvedilol (Coreg) 3.125 mg PO BID [facility] Stop: 02/27/17 08:59 Last Admin: 01/01/17 09:03 Dose: 3.125 mg Docusate Sodium (Colace) 100 mg PO BID [facility] Stop: 02/27/17 08:59 Last Admin: 01/01/17 09:03 Dose: 100 mg Enoxaparin Sodium (Lovenox) 40 mg SUBQ Q12HR JOSE DAVID Stop: 02/27/17 20:59 Last Admin: 01/01/17 09:11 Dose: Not Given Hydralazine HCl (Apresoline) 10 mg PO BID JOSE DAVID Stop: 02/27/17 08:59 Last Admin: 01/01/17 09:02 Dose: 10 mg Ceftriaxone Sodium 1 gm/ (Sodium Chloride) 50 mls @ 100 mls/hr IV Q24HR JOSE DAVID Stop: 02/28/17 00:00 Last Admin: 01/01/17 00:26 Dose: 100 mls/hr Insulin Aspart (Novolog Insulin Sliding Scale) 0 units SUBQ ACHS [facility] PRN Reason: Protocol Stop: 02/27/17 07:29 Last Admin: 01/01/17 06:29 Dose: Not Given Isosorbide Dinitrate (Isordil) 10 mg PO TID JOSE DAVID Stop: 02/27/17 08:59 Last Admin: 01/01/17 09:01 Dose: 10 mg Lactobacillus Rhamnosus (Culturelle) 1 each PO DAILY JOSE DAVID Stop: 02/27/17 08:59 Last Admin: 01/01/17 09:01 Dose: 1 each Levetiracetam (Keppra) 250 mg PO BID JOSE DAVID Stop: 02/27/17 08:59 Last Admin: 01/01/17 09:04 Dose: 250 mg Levothyroxine Sodium (Synthroid) 0.05 mg PO QDAC [facility] Stop: 02/27/17 07:29 Last Admin: 01/01/17 06:29 Dose: Not Given Magnesium Hydroxide (Milk Of Magnesia) 30 ml PO DAILY PRN PRN Reason: Constipation Stop: 02/27/17 01:46 Megestrol Acetate (Megace) 40 mg PO DAILY [facility] PRN Reason: Protocol Stop: 02/28/17 15:59 Last Admin: 01/01/17 09:01 Dose: 40 mg Miscellaneous (Probiotic Screen) 1 ea PRN PRN PRN Reason: PROTOCOL Stop: 02/28/17 15:40 Montelukast Sodium (Singulair) 10 mg PO DAILY [facility] Stop: 02/27/17 08:59 Last Admin: 01/01/17 09:03 Dose: 10 mg Mupirocin (Bactroban Oint) 1 appl NS BID JOSE DAVID Stop: 01/04/17 17:01 Last Admin: 01/01/17 09:00 Dose: 1 appl Ondansetron HCl (Zofran Odt) 4 mg PO Q6HR PRN PRN Reason: Nausea / Vomiting Stop: 02/27/17 01:46 Pantoprazole Sodium (Protonix) 40 mg PO DAILY JOSE DAVID Stop: 02/27/17 08:59 Last Admin: 01/01/17 09:04 Dose: 40 mg Senna (Senna) 17.2 mg PO HS JOSE DAVID Stop: 02/27/17 20:59 Last Admin: 12/31/16 21:33 Dose: 17.2 mg Sodium Phosphate (Fleet Enema) 135 ml RC Q48HR PRN PRN Reason: Constipation Stop: 02/27/17 01:46 General: weak, demented HEENT: NC/AT, PERRLA Neck: Supple Lungs: CTAB Cardiovascular: RRR, Normal S1, Normal S2, without murmur Abdomen: soft, non-tender, non-distended, positive bowel sound Neurological: other (confused) Internal Medicine Assmt/Plan - Assessment Assessment: Anemia CKD Diabetes Hyperlipidemia Non-ST elevated myocardial infarction Pacemaker status Pyelonephritis Seizure disorder Sick sinus syndrome Acute UTI - Plan Plan: await for BNP results continue iv antibiotics as per id monitor glucose continue current plan of care Nutritional Asmnt/Malnutr-PDOC - Dietary Evaluation Malnutrition Findings (Please click <Entered> for more info): Nutritional Asmnt/Malnutrition Start: 12/30/16 12: 57 Text: Status: Complete Freq: Document 12/30/16 12:57 GSUN (Rec: 12/30/16 13:17 [id number] [id number]) Nutritional Asmnt/Malnutrition Patient General Information Nutritional Screening High Risk Screening Diagnosis Elevated troponin level, UTI, poor intake Pertinent Medical Hx/Surgical Hx Anemia, CKD stage 2, DM, hyperlipidemia, non ST elevated myocardial infarction , pacemaker, pyelonephritis, seizure disorder, sick sinus syndrome Subjective Information 71 year old female. Pt's diet order noted to be pureed CCHO NICOLASA at [facility] , current diet order is low sodium. Spoke to RN Baldemar, RN made aware, RN also stated pt is French speaking but confused. Spoke to COB SAWYER who assisted with breakfast, COB SAWYER stated pt is a feeder, good appetite, tolerated well, however noted pt is edentulous so did not feed toast. Pt seen talkign to self during visit, appeared overweight, no muscle fat wasting noted. Current Diet Order/ Nutrition Support Low sodium Pertinent Medications Vitamin C, Lipitor, Dulcolax, Colace, Novolog, Culturelle, MOM, Zofran, Protonix, Senna, Fleet Enema Pertinent Labs 12/28: A1c 7.4H 12/30: BUN 54H, potassium 4.1, creatinine 1.4H, glucose 256H Nutritional Hx/Data Height 5 ft Height (Calculated Centimeters) 152.4 Current Weight (lbs) 186 lb Weight (Calculated Kilograms) 84.4 Weight (Calculated Grams) 29578.2 [place] Body Weight 100 Weight Status Obese GI Symptoms Usual diet at home [facility]: pureyossi, CCHO, NICOLASA Skin Integrity/Comment: Ho 13. Pitting 2+ lower extremities. Coccyx blanchable redness. Estimated Nutritional Goals BEE in Kcals: Adj wt of IBW Calories/Kcals/Kg AdjBW 121.5lb/55.2kg Kcals Calculated 1380-1656kcal (25-30kcal/kg) Protein: Adj wt of IBW Protein Calculated 55-66g (1-1.2g/kg) Fluid: ml 1380-1656ml (1ml/kcal) Nutritional Problem 2. Problem Problem Altered nutrition related laboratory values related to Etiology DM aeb Signs/Symptoms: A1c 7.4H, glucose 256H 1. Problem Problem (possible) diffiiculty chewing related to Etiology edentulous, diet order aeb Signs/Symptoms: pt was previously on pureed diet and now on regular texture Intervention/Recommendation Comments 1. Recommend [id number] low sodium, diet texture to be determined. Previous pureed diet order noted in transfer chart, however pt has been on regular texture diet since adm , day 2. MIKE Mcdermott made aware. 2. Nursing staff to record % intake for every meal. No documentations since adm. Expected Outcomes/Goals Expected Outcomes/Goals 1. PO intake to meet at least 75% of estimated nutritional needs with tolerance.
[2017-01-01 12:16] LABS: MICROALBUMIN RANDOM RUINE 636.6 ug/mL (Not Estab.)
--- NOTE | 2017-01-01 13:50 | General Progress Note ---
Subjective - Review of Systems Service Date: 01/01/17 Subjective: alert, verbal, mild tachypnea Objective - Results Result Diagrams: 12/30/16 05:35 01/01/17 06:25 Recent Labs: Laboratory Last Values WBC 7.4 Th/cmm (4.8-10.8) 12/30/16 05:35 RBC 4.08 Mil/cmm (3.80-5.20) 12/30/16 05:35 Hgb 11.3 gm/dL (12-16) L 12/30/16 05:35 Hct 34.4 % (41.0-60) L 12/30/16 05:35 MCV 84.4 fl (81-100) 12/30/16 05:35 MCH 27.7 pg (27.0-31.0) 12/30/16 05:35 MCHC Differential 32.8 pg (28.0-36.0) 12/30/16 05:35 RDW 19.6 % (11.5-20.0) 12/30/16 05:35 Plt Count 145 Th/cmm (150-400) L 12/30/16 05:35 MPV 9.2 fl 12/30/16 05:35 Neutrophils % 73.8 % (40.0-80.0) 12/30/16 05:35 Lymphocytes % 14.2 % (20.0-50.0) L 12/30/16 05:35 Monocytes % 10.1 % (2.0-10.0) H 12/30/16 05:35 Eosinophils % 1.8 % (0.0-5.0) 12/30/16 05:35 Basophils % 0.1 % (0.0-2.0) 12/30/16 05:35 Eos Smear Source URINE 12/30/16 17:25 Eos Smear Total Cells NONE SEEN (NONE SEEN) 12/30/16 17:25 PT 14.0 SECONDS (9.5-11.5) H 12/28/16 22:11 INR 1.33 (0.5-1.4) 12/28/16 22:11 Sodium 141 mEq/L (136-145) 01/01/17 06:25 Potassium 3.9 mEq/L (3.5-5.1) 01/01/17 06:25 Chloride 113 mEq/L (98-107) H 01/01/17 06:25 Carbon Dioxide 18.4 mEq/L (21.0-31.0) L 01/01/17 06:25 Anion Gap 13.5 (7.0-16.0) 01/01/17 06:25 BUN 43 mg/dL (7-25) H 01/01/17 06:25 Creatinine 1.2 mg/dL (0.6-1.2) 01/01/17 06:25 Est GFR ( Amer) TNP 01/01/17 06:25 Est GFR (Non-Af Amer) TNP 01/01/17 06:25 BUN/Creatinine Ratio 35.8 01/01/17 06:25 Glucose 183 mg/dL (70-105) H 01/01/17 06:25 POC Glucose 181 MG/DL (70 - 105) H 01/01/17 11:12 Hemoglobin A1c % 7.4 % (4.0-6.0) H 12/28/16 22:11 Uric Acid 9.5 mg/dL (2.3-6.6) H 12/30/16 05:35 Calcium 8.8 mg/dL (8.6-10.3) 01/01/17 06:25 Phosphorus 3.3 mg/dL (2.5-5.0) 12/30/16 05:35 Magnesium 1.9 mg/dL (1.9-2.7) 12/30/16 05:35 Total Bilirubin 0.9 mg/dL (0.3-1.0) 12/30/16 05:35 AST 15 U/L (13-39) 12/30/16 05:35 ALT 8 U/L (7-52) 12/30/16 05:35 Alkaline Phosphatase 71 U/L (34-104) 12/30/16 05:35 Troponin I < 0.01 ng/mL (0.01-0.05) L 12/31/16 06:27 B-Natriuretic Peptide 2520.0 pg/mL (5.0-100.0) H 01/01/17 06:25 Total Protein 6.2 gm/dL (6.0-8.3) 12/30/16 05:35 Albumin 2.9 gm/dL (3.7-5.3) L 12/30/16 05:35 Globulin 3.3 gm/dL 12/30/16 05:35 Albumin/Globulin Ratio 0.9 (1.0-1.8) L 12/30/16 05:35 Triglycerides 60 mg/dL (<150) 12/30/16 05:35 Cholesterol 69 mg/dL (<200) 12/30/16 05:35 LDL Cholesterol Direct 47 mg/dL (75-193) L 12/30/16 05:35 HDL Cholesterol 23 mg/dL (23-92) 12/30/16 05:35 TSH 2.33 uIU/ml (0.34-5.60) 12/28/16 22:11 Urine Source CLEAN C 12/28/16 22:30 Urine Color YELLOW 12/28/16 22:30 Urine Clarity HAZY (CLEAR) 12/28/16 22:30 Urine pH 5.5 (4.6 - 8.0) 12/28/16 22:30 Ur Specific [place] 1.015 (1.005-1.030) 12/28/16 22:30 Urine Protein TRACE mg/dL (NEGATIVE) 12/28/16 22:30 Urine Glucose (UA) NEGATIVE mg/dL (NEGATIVE) 12/28/16 22:30 Urine Ketones NEGATIVE mg/dL (NEGATIVE) 12/28/16 22:30 Urine Blood SMALL (NEGATIVE) H 12/28/16 22:30 Urine Nitrate POSITIVE (NEGATIVE) H 12/28/16 22:30 Urine Bilirubin NEGATIVE (NEGATIVE) 12/28/16 22:30 Urine Urobilinogen 0.2 E.U./dL (0.2 - 1.0) 12/28/16 22:30 Ur Leukocyte Esterase TRACE (NEGATIVE) H 12/28/16 22:30 Urine RBC 10-25 /hpf (0-5) H 12/28/16 22:30 Urine WBC 6-10 /hpf (0-5) H 12/28/16 22:30 Ur Epithelial Cells FEW /lpf (FEW) 12/28/16 22:30 Urine Bacteria MODERATE /hpf (NONE SEEN) 12/28/16 22:30 Ur Random Sodium 13 mmol/L 12/30/16 17:25 Urine Creatinine 74.6 mg/dl (Not Estab.) 12/30/16 17:25 Urine Microalbumin 636.6 ug/mL (Not Estab.) 12/30/16 17:25 Microalb/Creat Ratio 853.4 mg/g creat (0.0-30.0) H 12/30/16 17:25 - Physical Exam Vitals and I&O: Vital Signs Temp 98.8 F 01/01/17 11:52 Pulse 78 01/01/17 11:52 Resp 17 01/01/17 11:52 BP 145/76 01/01/17 11:52 Pulse Ox 97 01/01/17 11:52 Intake & Output 12/31/16 01/01/17 01/01/17 18:59 06:59 18:59 Intake Total 1210.667 200 Balance 1210.667 200 Weight (lbs) 85.275 kg 84.595 kg 84.368 kg Intake: Intake, IV Amount 970.667 Sodium Chloride 0.9% 1, 970.667 000 ml @ 70 mls/hr IV . [id number] [facility] Rx#:[id number] Oral 240 200 Other: # Voids 3 3 # Bowel Movements 0 2 Stool Characteristics Soft Brown Black Active Medications: Current Medications Acetaminophen (Tylenol) 650 mg PO Q4HR PRN PRN Reason: Pain or Fever >101 Stop: 02/27/17 01:46 Last Admin: 12/31/16 21:33 Dose: 650 mg Albuterol/Ipratropium (Duoneb Neb) 3 ml HHN Q6HR PRN PRN Reason: Shortness of Breath or Wheeze Stop: 02/27/17 01:46 Ascorbic Acid (Vitamin C) 500 mg PO DAILY [facility] Stop: 02/27/17 08:59 Last Admin: 01/01/17 09:03 Dose: 500 mg Aspirin (Aspirin Chewable) 81 mg PO DAILY [facility] Stop: 02/28/17 08:59 Last Admin: 01/01/17 09:03 Dose: 81 mg Atorvastatin Calcium (Lipitor) 10 mg PO DAILY [facility] PRN Reason: Protocol Stop: 02/28/17 08:59 Last Admin: 01/01/17 09:01 Dose: 10 mg Bisacodyl (Dulcolax 10 Mg Supp) 10 mg RC DAILY PRN PRN Reason: Constipation Stop: 02/27/17 01:46 Carvedilol (Coreg) 3.125 mg PO BID [facility] Stop: 02/27/17 08:59 Last Admin: 01/01/17 09:03 Dose: 3.125 mg Docusate Sodium (Colace) 100 mg PO BID [facility] Stop: 02/27/17 08:59 Last Admin: 01/01/17 09:03 Dose: 100 mg Enoxaparin Sodium (Lovenox) 40 mg SUBQ Q12HR [facility] Stop: 02/27/17 20:59 Last Admin: 01/01/17 09:11 Dose: Not Given Hydralazine HCl (Apresoline) 10 mg PO BID [facility] Stop: 02/27/17 08:59 Last Admin: 01/01/17 09:02 Dose: 10 mg Ceftriaxone Sodium 1 gm/ (Sodium Chloride) 50 mls @ 100 mls/hr IV Q24HR [facility] Stop: 02/28/17 00:00 Last Admin: 01/01/17 00:26 Dose: 100 mls/hr Insulin Aspart (Novolog Insulin Sliding Scale) 0 units SUBQ ACHS [facility] PRN Reason: Protocol Stop: 02/27/17 07:29 Last Admin: 01/01/17 12:59 Dose: Not Given Isosorbide Dinitrate (Isordil) 10 mg PO TID [facility] Stop: 02/27/17 08:59 Last Admin: 01/01/17 09:01 Dose: 10 mg Lactobacillus Rhamnosus (Culturelle) 1 each PO DAILY [facility] Stop: 02/27/17 08:59 Last Admin: 01/01/17 09:01 Dose: 1 each Levetiracetam (Keppra) 250 mg PO BID [facility] Stop: 02/27/17 08:59 Last Admin: 01/01/17 09:04 Dose: 250 mg Levothyroxine Sodium (Synthroid) 0.05 mg PO QDAC [facility] Stop: 02/27/17 07:29 Last Admin: 01/01/17 06:29 Dose: Not Given Magnesium Hydroxide (Milk Of Magnesia) 30 ml PO DAILY PRN PRN Reason: Constipation Stop: 02/27/17 01:46 Megestrol Acetate (Megace) 40 mg PO DAILY [facility] PRN Reason: Protocol Stop: 02/28/17 15:59 Last Admin: 01/01/17 09:01 Dose: 40 mg Miscellaneous (Probiotic Screen) 1 ea MC PRN PRN PRN Reason: PROTOCOL Stop: 02/28/17 15:40 Montelukast Sodium (Singulair) 10 mg PO DAILY [facility] Stop: 02/27/17 08:59 Last Admin: 01/01/17 09:03 Dose: 10 mg Mupirocin (Bactroban Oint) 1 appl NS BID [facility] Stop: 01/04/17 17:01 Last Admin: 01/01/17 09:00 Dose: 1 appl Ondansetron HCl (Zofran Odt) 4 mg PO Q6HR PRN PRN Reason: Nausea / Vomiting Stop: 02/27/17 01:46 Pantoprazole Sodium (Protonix) 40 mg PO DAILY [facility] Stop: 02/27/17 08:59 Last Admin: 01/01/17 09:04 Dose: 40 mg Senna (Senna) 17.2 mg PO HS [facility] Stop: 02/27/17 20:59 Last Admin: 12/31/16 21:33 Dose: 17.2 mg Sodium Phosphate (Fleet Enema) 135 ml RC Q48HR PRN PRN Reason: Constipation Stop: 02/27/17 01:46 General: Alert, No acute distress HEENT: Atraumatic Neck: Supple, +2 carotid pulse wo bruit Cardiovascular: Regular rate, Normal S1, Normal S2 Lungs: Clear to auscultation, Other (decrease bs) Abdomen: Bowel sounds, Soft Extremities: Edema, Other ((+) 3 bipdeal edema) Neurological: Sensation intact Skin: no Rash Psych/Mental Status: Mood NL Assessment/Plan - Problem List Patient Problems: All Active Problems Anemia (Acute) D64.9 CKD (chronic kidney disease) stage 2, GFR 60-89 ml/min (Acute) N18.2 Diabetes (Acute) E11.9 Hyperlipidemia (Acute) E78.5 Non-ST elevated myocardial infarction (Acute) I21.4 Pacemaker (Acute) Z95.0 Pyelonephritis (Acute) N12 Seizure disorder (Acute) G40.909 Sick sinus syndrome (Acute) I49.5 UTI (urinary tract infection) (Acute) - Assessment Assessment: MAEVE on CKD Type 2 DM Alzh Dementia Ess Htn w/ CKD Cardiomyopathy S/P AICD Epilepsy CAD Acute on Chronic Chf Severed PAD FTT - Plan Plan: Lab - Result Diagrams 12/30/16 05:35 12/31/16 06:27 Current Medications Acetaminophen (Tylenol) 650 mg PO Q4HR PRN PRN Reason: Pain or Fever >101 Stop: 02/27/17 01:46 Last Admin: 12/30/16 21:38 Dose: 650 mg Albuterol/Ipratropium (Duoneb Neb) 3 ml HHN Q6HR PRN PRN Reason: Shortness of Breath or Wheeze Stop: 02/27/17 01:46 Ascorbic Acid (Vitamin C) 500 mg PO DAILY [facility] Stop: 02/27/17 08:59 Last Admin: 12/31/16 09:30 Dose: 500 mg Aspirin (Aspirin Chewable) 81 mg PO DAILY [facility] Stop: 02/28/17 08:59 Last Admin: 12/31/16 09:30 Dose: 81 mg Atorvastatin Calcium (Lipitor) 10 mg PO DAILY [facility] PRN Reason: Protocol Stop: 02/28/17 08:59 Last Admin: 12/31/16 09:30 Dose: 10 mg Bisacodyl (Dulcolax 10 Mg Supp) 10 mg RC DAILY PRN PRN Reason: Constipation Stop: 02/27/17 01:46 Carvedilol (Coreg) 3.125 mg PO BID [facility] Stop: 02/27/17 08:59 Last Admin: 12/31/16 17:37 Dose: Not Given Docusate Sodium (Colace) 100 mg PO BID [facility] Stop: 02/27/17 08:59 Last Admin: 12/31/16 17:37 Dose: Not Given Enoxaparin Sodium (Lovenox) 40 mg SUBQ Q12HR [facility] Stop: 02/27/17 20:59 Last Admin: 12/31/16 09:30 Dose: 40 mg Hydralazine HCl (Apresoline) 10 mg PO BID [facility] Stop: 02/27/17 08:59 Last Admin: 12/31/16 17:37 Dose: Not Given Ceftriaxone Sodium 1 gm/ (Sodium Chloride) 50 mls @ 100 mls/hr IV Q24HR [facility] Stop: 02/28/17 00:00 Last Admin: 12/31/16 01:37 Dose: 100 mls/hr Sodium Chloride (Nacl 0.9%) 1,000 mls @ 70 mls/hr IV .[id number] [facility] Stop: 02/27/17 07:59 Last Admin: 12/31/16 07:00 Dose: 70 mls/hr Insulin Aspart (Novolog Insulin Sliding Scale) 0 units SUBQ ACHS [facility] PRN Reason: Protocol Stop: 02/27/17 07:29 Last Admin: 12/31/16 17:52 Dose: 3 units Isosorbide Dinitrate (Isordil) 10 mg PO TID [facility] Stop: 02/27/17 08:59 Last Admin: 12/31/16 14:10 Dose: Not Given Lactobacillus Rhamnosus (Culturelle) 1 each PO DAILY [facility] Stop: 02/27/17 08:59 Last Admin: 12/31/16 09:30 Dose: 1 each Levetiracetam (Keppra) 250 mg PO BID [facility] Stop: 02/27/17 08:59 Last Admin: 12/31/16 17:37 Dose: Not Given Levothyroxine Sodium (Synthroid) 0.05 mg PO QDAC [facility] Stop: 02/27/17 07:29 Last Admin: 12/31/16 07:01 Dose: 0.05 mg Magnesium Hydroxide (Milk Of Magnesia) 30 ml PO DAILY PRN PRN Reason: Constipation Stop: 02/27/17 01:46 Megestrol Acetate (Megace) 40 mg PO DAILY [facility] PRN Reason: Protocol Stop: 02/28/17 15:59 Last Admin: 12/31/16 09:30 Dose: 40 mg Miscellaneous (Probiotic Screen) 1 ea MC PRN PRN PRN Reason: PROTOCOL Stop: 02/28/17 15:40 Montelukast Sodium (Singulair) 10 mg PO DAILY [facility] Stop: 02/27/17 08:59 Last Admin: 12/31/16 09:30 Dose: 10 mg Mupirocin (Bactroban Oint) 1 appl NS BID [facility] Stop: 01/04/17 17:01 Last Admin: 12/31/16 17:37 Dose: Not Given Ondansetron HCl (Zofran Odt) 4 mg PO Q6HR PRN PRN Reason: Nausea / Vomiting Stop: 02/27/17 01:46 Pantoprazole Sodium (Protonix) 40 mg PO DAILY [facility] Stop: 02/27/17 08:59 Last Admin: 12/31/16 09:30 Dose: 40 mg Senna (Senna) 17.2 mg PO HS [facility] Stop: 02/27/17 20:59 Last Admin: 12/30/16 20:22 Dose: 17.2 mg Sodium Phosphate (Fleet Enema) 135 ml RC Q48HR PRN PRN Reason: Constipation Stop: 02/27/17 01:46 DC IVF due to elevated BNP, peripheral edema ECHO revealed severe CM w/ EJF of 10-15% B/L LAE, LVH kidney fnc gradually improving administer 1 dose of lasix already has AICD, consider bivent pacing CXR NAD, BNP Lab - Result Diagrams 12/30/16 05:35 01/01/17 06:25 2520 FE Na 0.13% suggestive of prerenal component add spironolactone, increase coreg Nutritional Asmnt/Malnutr-PDOC - Dietary Evaluation Malnutrition Findings (Please click <Entered> for more info): Nutritional Asmnt/Malnutrition Start: 12/30/16 12: 57 Text: Status: Complete Freq: Document 12/30/16 12:57 GSUN (Rec: 12/30/16 13:17 [id number] [id number]) Nutritional Asmnt/Malnutrition Patient General Information Nutritional Screening High Risk Screening Diagnosis Elevated troponin level, UTI, poor intake Pertinent Medical Hx/Surgical Hx Anemia, CKD stage 2, DM, hyperlipidemia, non ST elevated myocardial infarction , pacemaker, pyelonephritis, seizure disorder, sick sinus syndrome Subjective Information 71 year old female. Pt's diet order noted to be pureed [facility] at [facility] , current diet order is low sodium. Spoke to RN Baldemar, RN made aware, RN also stated pt is [place] speaking but confused. Spoke to REFRIGERATION MANAGER who assisted with breakfast, REFRIGERATION MANAGER stated pt is a feeder, good appetite, tolerated well, however noted pt is edentulous so did not feed toast. Pt seen talkign to self during visit, appeared overweight, no muscle fat wasting noted. Current Diet Order/ Nutrition Support Low sodium Pertinent Medications Vitamin C, Lipitor, Dulcolax, Colace, Novolog, Culturelle, MOM, Zofran, Protonix, Senna, Fleet Enema Pertinent Labs 12/28: A1c 7.4H 12/30: BUN 54H, potassium 4.1, creatinine 1.4H, glucose 256H Nutritional Hx/Data Height 1.52 m Height (Calculated Centimeters) 152.4 Current Weight (lbs) 84.368 kg Weight (Calculated Kilograms) 84.4 Weight (Calculated Grams) 21736.2 [place] Body Weight 100 Weight Status Obese GI Symptoms Usual diet at home [facility]: pureed, CCHO, NICOLASA Skin Integrity/Comment: Ho 13. Pitting 2+ lower extremities. Coccyx blanchable redness. Estimated Nutritional Goals BEE in Kcals: Adj wt of IBW Calories/Kcals/Kg AdjBW 121.5lb/55.2kg Kcals Calculated 1380-1656kcal (25-30kcal/kg) Protein: Adj wt of IBW Protein Calculated 55-66g (1-1.2g/kg) Fluid: ml 1380-1656ml (1ml/kcal) Nutritional Problem 2. Problem Problem Altered nutrition related laboratory values related to Etiology DM aeb Signs/Symptoms: A1c 7.4H, glucose 256H 1. Problem Problem (possible) diffiiculty chewing related to Etiology edentulous, diet order aeb Signs/Symptoms: pt was previously on pureed diet and now on regular texture Intervention/Recommendation Comments 1. Recommend [id number] low sodium, diet texture to be determined. Previous pureed diet order noted in transfer chart, however pt has been on regular texture diet since adm , day 2. MIKE Mcdermott made aware. 2. Nursing staff to record % intake for every meal. No documentations since adm. Expected Outcomes/Goals Expected Outcomes/Goals 1. PO intake to meet at least 75% of estimated nutritional needs with tolerance.
[2017-01-02] MEDS: INSULIN ASPART SLIDING SCALE 100 UNITS/ML UNIT SUBQ SCH ×4 (07:12→20:41)
[2017-01-02] MEDS: Levothyroxine 0.05 Mg Tab PO SCH (07:12)
[2017-01-02] MEDS: Multivitamin w/ Minerals Tab PO SCH (08:50)
[2017-01-02] MEDS: Atorvastatin Calcium 10 MG TAB PO SCH (08:52)
[2017-01-02] MEDS: Aspirin 81mg Chewable Tab PO SCH (08:54)
[2017-01-02] MEDS: Pantoprazole 40 mg EC Tab PO SCH (08:54)
[2017-01-02] MEDS: Enoxaparin 40 mg/0.4 mL 0.4mL Syr SUBQ SCH ×2 (09:10→20:41)
[2017-01-02] MEDS: Lactobacillus Rhamnosus 10 Billion CFU Capsule PO SCH (10:14)
[2017-01-02 10:44] LABS: % BASOPHILS 0.3 % (0.0-2.0); % EOSINOPHILS 2.5 % (0.0-5.0); % LYMPHOCYTES 12.4 % (20.0-50.0); % NEUTROPHILS 78.8 % (40.0-80.0); MEAN CELL VOLUME 85.1 fl (81-100); MEAN CORPUSCULAR HEMOGLOBIN 26.8 pg (27.0-31.0); MEAN CORPUSCULAR HGB CONC 31.5 pg (28.0-36.0); MEAN PLATELET VOLUME 9.2 fl; PLATELET COUNT 154 Th/cmm (150-400); RED BLOOD COUNT 4.48 Mil/cmm (3.80-5.20); RED CELL DISTRIBUTION WIDTH 18.8 % (11.5-20.0); WHITE BLOOD COUNT 7.6 Th/cmm (4.8-10.8)
[2017-01-02 10:45] LABS: HEMATOCRIT 38.1 % (41.0-60)
[2017-01-02 11:19] LABS: ANION GAP 13.5 (7.0-16.0); BUN - UREA NITROGEN 41 mg/dL (7-25); BUN/CREATININE RATIO 34.2; CALCIUM SERUM 8.7 mg/dL (8.6-10.3); CARBON DIOXIDE 18.6 mEq/L (21.0-31.0); CHLORIDE 112 mEq/L (98-107); CREATININE - SERUM 1.2 mg/dL (0.6-1.2); GLUCOSE 250 mg/dL (70-105); POTASSIUM SERUM 4.1 mEq/L (3.5-5.1); SODIUM SERUM 140 mEq/L (136-145)
--- NOTE | 2017-01-02 13:11 | General Progress Note ---
Subjective - Review of Systems Service Date: 01/02/17 Subjective: alert, verbal, eating lunch Objective - Results Result Diagrams: 01/02/17 10:29 01/02/17 10:29 Recent Labs: Laboratory Last Values WBC 7.6 Th/cmm (4.8-10.8) 01/02/17 10:29 RBC 4.48 Mil/cmm (3.80-5.20) 01/02/17 10:29 Hgb 12.0 gm/dL (12-16) 01/02/17 10:29 Hct 38.1 % (41.0-60) L D 01/02/17 10:29 MCV 85.1 fl (81-100) 01/02/17 10:29 MCH 26.8 pg (27.0-31.0) L 01/02/17 10:29 MCHC Differential 31.5 pg (28.0-36.0) 01/02/17 10:29 RDW 18.8 % (11.5-20.0) 01/02/17 10:29 Plt Count 154 Th/cmm (150-400) 01/02/17 10:29 MPV 9.2 fl 01/02/17 10:29 Neutrophils % 78.8 % (40.0-80.0) 01/02/17 10:29 Lymphocytes % 12.4 % (20.0-50.0) L 01/02/17 10:29 Monocytes % 6.0 % (2.0-10.0) 01/02/17 10:29 Eosinophils % 2.5 % (0.0-5.0) 01/02/17 10:29 Basophils % 0.3 % (0.0-2.0) 01/02/17 10:29 Eos Smear Source URINE 12/30/16 17:25 Eos Smear Total Cells NONE SEEN (NONE SEEN) 12/30/16 17:25 PT 14.0 SECONDS (9.5-11.5) H 12/28/16 22:11 INR 1.33 (0.5-1.4) 12/28/16 22:11 Sodium 140 mEq/L (136-145) 01/02/17 10:29 Potassium 4.1 mEq/L (3.5-5.1) 01/02/17 10:29 Chloride 112 mEq/L (98-107) H 01/02/17 10:29 Carbon Dioxide 18.6 mEq/L (21.0-31.0) L 01/02/17 10:29 Anion Gap 13.5 (7.0-16.0) 01/02/17 10:29 BUN 41 mg/dL (7-25) H 01/02/17 10:29 Creatinine 1.2 mg/dL (0.6-1.2) 01/02/17 10:29 Est GFR ( Amer) TNP 01/02/17 10:29 Est GFR (Non-Af Amer) TNP 01/02/17 10:29 BUN/Creatinine Ratio 34.2 01/02/17 10:29 Glucose 250 mg/dL (70-105) H 01/02/17 10:29 POC Glucose 245 MG/DL (70 - 105) H 01/02/17 12:25 Hemoglobin A1c % 7.4 % (4.0-6.0) H 12/28/16 22:11 Uric Acid 9.5 mg/dL (2.3-6.6) H 12/30/16 05:35 Calcium 8.7 mg/dL (8.6-10.3) 01/02/17 10:29 Phosphorus 3.3 mg/dL (2.5-5.0) 12/30/16 05:35 Magnesium 1.9 mg/dL (1.9-2.7) 12/30/16 05:35 Total Bilirubin 0.9 mg/dL (0.3-1.0) 12/30/16 05:35 AST 15 U/L (13-39) 12/30/16 05:35 ALT 8 U/L (7-52) 12/30/16 05:35 Alkaline Phosphatase 71 U/L (34-104) 12/30/16 05:35 Troponin I < 0.01 ng/mL (0.01-0.05) L 12/31/16 06:27 B-Natriuretic Peptide 2520.0 pg/mL (5.0-100.0) H 01/01/17 06:25 Total Protein 6.2 gm/dL (6.0-8.3) 12/30/16 05:35 Albumin 2.9 gm/dL (3.7-5.3) L 12/30/16 05:35 Globulin 3.3 gm/dL 12/30/16 05:35 Albumin/Globulin Ratio 0.9 (1.0-1.8) L 12/30/16 05:35 Triglycerides 60 mg/dL (<150) 12/30/16 05:35 Cholesterol 69 mg/dL (<200) 12/30/16 05:35 LDL Cholesterol Direct 47 mg/dL (75-193) L 12/30/16 05:35 HDL Cholesterol 23 mg/dL (23-92) 12/30/16 05:35 TSH 2.33 uIU/ml (0.34-5.60) 12/28/16 22:11 Urine Source CLEAN C 12/28/16 22:30 Urine Color YELLOW 12/28/16 22:30 Urine Clarity HAZY (CLEAR) 12/28/16 22:30 Urine pH 5.5 (4.6 - 8.0) 12/28/16 22:30 Ur Specific Olar 1.015 (1.005-1.030) 12/28/16 22:30 Urine Protein TRACE mg/dL (NEGATIVE) 12/28/16 22:30 Urine Glucose (UA) NEGATIVE mg/dL (NEGATIVE) 12/28/16 22:30 Urine Ketones NEGATIVE mg/dL (NEGATIVE) 12/28/16 22:30 Urine Blood SMALL (NEGATIVE) H 12/28/16 22:30 Urine Nitrate POSITIVE (NEGATIVE) H 12/28/16 22:30 Urine Bilirubin NEGATIVE (NEGATIVE) 12/28/16 22:30 Urine Urobilinogen 0.2 E.U./dL (0.2 - 1.0) 12/28/16 22:30 Ur Leukocyte Esterase TRACE (NEGATIVE) H 12/28/16 22:30 Urine RBC 10-25 /hpf (0-5) H 12/28/16 22:30 Urine WBC 6-10 /hpf (0-5) H 12/28/16 22:30 Ur Epithelial Cells FEW /lpf (FEW) 12/28/16 22:30 Urine Bacteria MODERATE /hpf (NONE SEEN) 12/28/16 22:30 Ur Random Sodium 13 mmol/L 12/30/16 17:25 Urine Creatinine 74.6 mg/dl (Not Estab.) 12/30/16 17:25 Urine Microalbumin 636.6 ug/mL (Not Estab.) 12/30/16 17:25 Microalb/Creat Ratio 853.4 mg/g creat (0.0-30.0) H 12/30/16 17:25 - Physical Exam Vitals and I&O: Vital Signs Temp 98.4 F 01/02/17 11:41 Pulse 74 01/02/17 11:41 Resp 18 01/02/17 11:48 BP 122/66 01/02/17 11:41 Pulse Ox 96 01/02/17 11:41 Intake & Output 01/01/17 01/02/17 01/02/17 18:59 06:59 18:59 Intake Total 340 50 Balance 340 50 Weight (lbs) 84.368 kg 84.368 kg 83.461 kg Intake: Intake, IV Amount 50 cefTRIAXone 1 gm In 50 Sodium Chloride 0.9% 50 ml @ 100 mls/hr IV Q24HR [facility] Rx#:[id number] Oral 340 Other: # Voids 3 # Bowel Movements 0 1 Active Medications: Current Medications Acetaminophen (Tylenol) 650 mg PO Q4HR PRN PRN Reason: Pain or Fever >101 Stop: 02/27/17 01:46 Last Admin: 01/01/17 16:16 Dose: 650 mg Albuterol/Ipratropium (Duoneb Neb) 3 ml HHN Q6HR PRN PRN Reason: Shortness of Breath or Wheeze Stop: 02/27/17 01:46 Ascorbic Acid (Vitamin C) 500 mg PO DAILY [facility] Stop: 02/27/17 08:59 Last Admin: 01/02/17 08:54 Dose: 500 mg Aspirin (Aspirin Chewable) 81 mg PO DAILY [facility] Stop: 02/28/17 08:59 Last Admin: 01/02/17 08:54 Dose: 81 mg Atorvastatin Calcium (Lipitor) 10 mg PO DAILY [facility] PRN Reason: Protocol Stop: 02/28/17 08:59 Last Admin: 01/02/17 08:52 Dose: 10 mg Bisacodyl (Dulcolax 10 Mg Supp) 10 mg RC DAILY PRN PRN Reason: Constipation Stop: 02/27/17 01:46 Carvedilol (Coreg) 6.25 mg PO BID [facility] Stop: 03/02/17 16:59 Last Admin: 01/02/17 08:53 Dose: 6.25 mg Docusate Sodium (Colace) 100 mg PO BID [facility] Stop: 02/27/17 08:59 Last Admin: 01/02/17 08:50 Dose: 100 mg Enoxaparin Sodium (Lovenox) 40 mg SUBQ Q12HR [facility] Stop: 02/27/17 20:59 Last Admin: 01/02/17 09:10 Dose: 40 mg Furosemide (Lasix) 40 mg IVP BID [facility] Stop: 03/02/17 16:59 Last Admin: 01/02/17 08:55 Dose: 40 mg Hydralazine HCl (Apresoline) 10 mg PO BID [facility] Stop: 02/27/17 08:59 Last Admin: 01/02/17 10:14 Dose: 10 mg Ceftriaxone Sodium 1 gm/ (Sodium Chloride) 50 mls @ 100 mls/hr IV Q24HR [facility] Stop: 02/28/17 00:00 Last Infusion: 01/02/17 07:12 Dose: Infused Insulin Aspart (Novolog Insulin Sliding Scale) 0 units SUBQ ACHS [facility] PRN Reason: Protocol Stop: 02/27/17 07:29 Last Admin: 01/02/17 07:12 Dose: Not Given Isosorbide Dinitrate (Isordil) 10 mg PO TID [facility] Stop: 02/27/17 08:59 Last Admin: 01/02/17 10:15 Dose: 10 mg Lactobacillus Rhamnosus (Culturelle) 1 each PO DAILY [facility] Stop: 02/27/17 08:59 Last Admin: 01/02/17 10:14 Dose: 1 each Levetiracetam (Keppra) 250 mg PO BID [facility] Stop: 02/27/17 08:59 Last Admin: 01/02/17 08:50 Dose: 250 mg Levothyroxine Sodium (Synthroid) 0.05 mg PO QDAC [facility] Stop: 02/27/17 07:29 Last Admin: 01/02/17 07:12 Dose: Not Given Magnesium Hydroxide (Milk Of Magnesia) 30 ml PO DAILY PRN PRN Reason: Constipation Stop: 02/27/17 01:46 Megestrol Acetate (Megace) 40 mg PO DAILY [facility] PRN Reason: Protocol Stop: 02/28/17 15:59 Last Admin: 01/02/17 08:53 Dose: 40 mg Miscellaneous (Probiotic Screen) 1 ea PRN PRN PRN Reason: PROTOCOL Stop: 02/28/17 15:40 Montelukast Sodium (Singulair) 10 mg PO DAILY [facility] Stop: 02/27/17 08:59 Last Admin: 01/02/17 08:55 Dose: 10 mg Mupirocin (Bactroban Oint) 1 appl NS BID [facility] Stop: 01/04/17 17:01 Last Admin: 01/02/17 09:10 Dose: 1 appl Ondansetron HCl (Zofran Odt) 4 mg PO Q6HR PRN PRN Reason: Nausea / Vomiting Stop: 02/27/17 01:46 Pantoprazole Sodium (Protonix) 40 mg PO DAILY [facility] Stop: 02/27/17 08:59 Last Admin: 01/02/17 08:54 Dose: 40 mg Senna (Senna) 17.2 mg PO HS [facility] Stop: 02/27/17 20:59 Last Admin: 01/01/17 21:38 Dose: 17.2 mg Sodium Phosphate (Fleet Enema) 135 ml RC Q48HR PRN PRN Reason: Constipation Stop: 02/27/17 01:46 Spironolactone (Aldactone) 25 mg PO BID [facility] Stop: 03/02/17 16:59 Last Admin: 01/02/17 08:54 Dose: 25 mg General: Alert, No acute distress HEENT: Atraumatic Neck: Supple, +2 carotid pulse wo bruit Cardiovascular: Regular rate, Normal S1, Normal S2 Lungs: Clear to auscultation, Other (decrease bs) Abdomen: Bowel sounds, Soft Extremities: Edema, Other ((+) 3 bipdeal edema) Neurological: Sensation intact Skin: no Rash Psych/Mental Status: Mood NL Assessment/Plan - Problem List Patient Problems: All Active Problems Anemia (Acute) D64.9 CKD (chronic kidney disease) stage 2, GFR 60-89 ml/min (Acute) N18.2 Diabetes (Acute) E11.9 Hyperlipidemia (Acute) E78.5 Non-ST elevated myocardial infarction (Acute) I21.4 Pacemaker (Acute) Z95.0 Pyelonephritis (Acute) N12 Seizure disorder (Acute) G40.909 Sick sinus syndrome (Acute) I49.5 UTI (urinary tract infection) (Acute) - Assessment Assessment: MAEVE on CKD Type 2 DM Alzh Dementia Ess Htn w/ CKD Severe Cardiomyopathy S/P AICD Epilepsy CAD Acute on Chronic Chf Severed PAD FTT - Plan Plan: Lab - Result Diagrams 12/30/16 05:35 12/31/16 06:27 Current Medications Acetaminophen (Tylenol) 650 mg PO Q4HR PRN PRN Reason: Pain or Fever >101 Stop: 02/27/17 01:46 Last Admin: 12/30/16 21:38 Dose: 650 mg Albuterol/Ipratropium (Duoneb Neb) 3 ml HHN Q6HR PRN PRN Reason: Shortness of Breath or Wheeze Stop: 02/27/17 01:46 Ascorbic Acid (Vitamin C) 500 mg PO DAILY [facility] Stop: 02/27/17 08:59 Last Admin: 12/31/16 09:30 Dose: 500 mg Aspirin (Aspirin Chewable) 81 mg PO DAILY [facility] Stop: 02/28/17 08:59 Last Admin: 12/31/16 09:30 Dose: 81 mg Atorvastatin Calcium (Lipitor) 10 mg PO DAILY [facility] PRN Reason: Protocol Stop: 02/28/17 08:59 Last Admin: 12/31/16 09:30 Dose: 10 mg Bisacodyl (Dulcolax 10 Mg Supp) 10 mg RC DAILY PRN PRN Reason: Constipation Stop: 02/27/17 01:46 Carvedilol (Coreg) 3.125 mg PO BID [facility] Stop: 02/27/17 08:59 Last Admin: 12/31/16 17:37 Dose: Not Given Docusate Sodium (Colace) 100 mg PO BID [facility] Stop: 02/27/17 08:59 Last Admin: 12/31/16 17:37 Dose: Not Given Enoxaparin Sodium (Lovenox) 40 mg SUBQ Q12HR [facility] Stop: 02/27/17 20:59 Last Admin: 12/31/16 09:30 Dose: 40 mg Hydralazine HCl (Apresoline) 10 mg PO BID [facility] Stop: 02/27/17 08:59 Last Admin: 12/31/16 17:37 Dose: Not Given Ceftriaxone Sodium 1 gm/ (Sodium Chloride) 50 mls @ 100 mls/hr IV Q24HR [facility] Stop: 02/28/17 00:00 Last Admin: 12/31/16 01:37 Dose: 100 mls/hr Sodium Chloride (Nacl 0.9%) 1,000 mls @ 70 mls/hr IV .[id number] [facility] Stop: 02/27/17 07:59 Last Admin: 12/31/16 07:00 Dose: 70 mls/hr Insulin Aspart (Novolog Insulin Sliding Scale) 0 units SUBQ ACHS [facility] PRN Reason: Protocol Stop: 02/27/17 07:29 Last Admin: 12/31/16 17:52 Dose: 3 units Isosorbide Dinitrate (Isordil) 10 mg PO TID [facility] Stop: 02/27/17 08:59 Last Admin: 12/31/16 14:10 Dose: Not Given Lactobacillus Rhamnosus (Culturelle) 1 each PO DAILY [facility] Stop: 02/27/17 08:59 Last Admin: 12/31/16 09:30 Dose: 1 each Levetiracetam (Keppra) 250 mg PO BID [facility] Stop: 02/27/17 08:59 Last Admin: 12/31/16 17:37 Dose: Not Given Levothyroxine Sodium (Synthroid) 0.05 mg PO QDAC [facility] Stop: 02/27/17 07:29 Last Admin: 12/31/16 07:01 Dose: 0.05 mg Magnesium Hydroxide (Milk Of Magnesia) 30 ml PO DAILY PRN PRN Reason: Constipation Stop: 02/27/17 01:46 Megestrol Acetate (Megace) 40 mg PO DAILY [facility] PRN Reason: Protocol Stop: 02/28/17 15:59 Last Admin: 12/31/16 09:30 Dose: 40 mg Miscellaneous (Probiotic Screen) 1 ea [facility] PRN PRN PRN Reason: PROTOCOL Stop: 02/28/17 15:40 Montelukast Sodium (Singulair) 10 mg PO DAILY [facility] Stop: 02/27/17 08:59 Last Admin: 12/31/16 09:30 Dose: 10 mg Mupirocin (Bactroban Oint) 1 appl NS BID [facility] Stop: 01/04/17 17:01 Last Admin: 12/31/16 17:37 Dose: Not Given Ondansetron HCl (Zofran Odt) 4 mg PO Q6HR PRN PRN Reason: Nausea / Vomiting Stop: 02/27/17 01:46 Pantoprazole Sodium (Protonix) 40 mg PO DAILY [facility] Stop: 02/27/17 08:59 Last Admin: 12/31/16 09:30 Dose: 40 mg Senna (Senna) 17.2 mg PO HS [facility] Stop: 02/27/17 20:59 Last Admin: 12/30/16 20:22 Dose: 17.2 mg Sodium Phosphate (Fleet Enema) 135 ml RC Q48HR PRN PRN Reason: Constipation Stop: 02/27/17 01:46 DC IVF due to elevated BNP, peripheral edema ECHO revealed severe CM w/ EJF of 10-15% B/L LAE, LVH kidney fnc gradually improving administer 1 dose of lasix already has AICD, consider bivent pacing CXR NAD, BNP 2520 FE Na 0.13% suggestive of prerenal component add spironolactone, increase coreg Lab - Result Diagrams 01/02/17 10:29 01/02/17 10:29 Nutritional Asmnt/Malnutr-PDOC - Dietary Evaluation Malnutrition Findings (Please click <Entered> for more info): Nutritional Asmnt/Malnutrition Start: 12/30/16 12: 57 Text: Status: Complete Freq: Document 12/30/16 12:57 GSUN (Rec: 12/30/16 13:17 [id number]) Nutritional Asmnt/Malnutrition Patient General Information Nutritional Screening High Risk Screening Diagnosis Elevated troponin level, UTI, poor intake Pertinent Medical Hx/Surgical Hx Anemia, CKD stage 2, DM, hyperlipidemia, non ST elevated myocardial infarction , pacemaker, pyelonephritis, seizure disorder, sick sinus syndrome Subjective Information 71 year old female. Pt's diet order noted to be pureed CCHO NICOLASA at [facility] , current diet order is low sodium. Spoke to RN Baldemar, RN made aware, RN also stated pt is Indonesian speaking but confused. Spoke to ACIDIZER who assisted with breakfast, ACIDIZER stated pt is a feeder, good appetite, tolerated well, however noted pt is edentulous so did not feed toast. Pt seen talkign to self during visit, appeared overweight, no muscle fat wasting noted. Current Diet Order/ Nutrition Support Low sodium Pertinent Medications Vitamin C, Lipitor, Dulcolax, Colace, Novolog, Culturelle, MOM, Zofran, Protonix, Senna, Fleet Enema Pertinent Labs 12/28: A1c 7.4H 12/30: BUN 54H, potassium 4.1, creatinine 1.4H, glucose 256H Nutritional Hx/Data Height 1.52 m Height (Calculated Centimeters) 152.4 Current Weight (lbs) 84.368 kg Weight (Calculated Kilograms) 84.4 Weight (Calculated Grams) 09893.2 [place] Body Weight 100 Weight Status Obese GI Symptoms Usual diet at home [facility]: ronaldo, CCHO, NICOLASA Skin Integrity/Comment: Ho 13. Pitting 2+ lower extremities. Coccyx blanchable redness. Estimated Nutritional Goals BEE in Kcals: Adj wt of IBW Calories/Kcals/Kg AdjBW 121.5lb/55.2kg Kcals Calculated 1380-1656kcal (25-30kcal/kg) Protein: Adj wt of IBW Protein Calculated 55-66g (1-1.2g/kg) Fluid: ml 1380-1656ml (1ml/kcal) Nutritional Problem 2. Problem Problem Altered nutrition related laboratory values related to Etiology DM aeb Signs/Symptoms: A1c 7.4H, glucose 256H 1. Problem Problem (possible) diffiiculty chewing related to Etiology edentulous, diet order aeb Signs/Symptoms: pt was previously on pureed diet and now on regular texture Intervention/Recommendation Comments 1. Recommend [id number] low sodium, diet texture to be determined. Previous pureed diet order noted in transfer chart, however pt has been on regular texture diet since adm , day 2. MIKE Mcdermott made aware. 2. Nursing staff to record % intake for every meal. No documentations since adm. Expected Outcomes/Goals Expected Outcomes/Goals 1. PO intake to meet at least 75% of estimated nutritional needs with tolerance.
--- NOTE | 2017-01-02 20:36 | Progress Notes ---
DATE: 01/02/2017 SUBJECTIVE: The patient was seen in her room, lying in the bed. The patient is a poor historian due to medical condition, appears to be awake, alert, and oriented x 2-3 with confusion, otherwise the patient appears to be comfortable, in no acute distress. OBJECTIVE: VITAL SIGNS: Temperature 98.4, heart rate 74, blood pressure 122/66, heart rate of 20, 96% on room air. HEENT: Head is atraumatic and normocephalic. Eyes: Bilateral conjunctivae are clear. Bilateral pupils are equally round and reactive. NECK: Supple. No JVD. CARDIOVASCULAR: S1 and S2, without murmur. PULMONARY: Decreased breath sounds on both sides. GASTROINTESTINAL: Soft and nontender without guarding. Positive bowel sounds. MUSCULOSKELETAL: No clubbing and no cyanosis noted. ASSESSMENT: 1. Metabolic encephalopathy. 2. Non-ST elevated myocardial infarction. 3. Urinary tract infection. 4. Diabetes mellitus. 5. Chronic kidney disease. 6. Iron deficiency anemia. 7. Hyperlipidemia. 8. Diabetes mellitus. 9. Sick sinus syndrome status post pacemaker. 10. Dehydration. PLAN: We will continue to monitor the patient's condition and monitor the patient's electrolytes. We will continue IV hydration. Treatment plans were discussed with Dr. Kelly. Treatment plans were discussed with the patient's nurse. JOB# [id number]
[2017-01-03] MEDS: cefTRIAXone 1 GM in Sodium Chloride 0.9% 50 ML IV SCH (01:24)
[2017-01-03] MEDS: Levothyroxine 0.05 Mg Tab PO SCH (06:39)
[2017-01-03] MEDS: INSULIN ASPART SLIDING SCALE 100 UNITS/ML UNIT SUBQ SCH ×4 (06:39→22:04)
[2017-01-03 07:13] LABS: ANION GAP 9.4 (7.0-16.0); BUN - UREA NITROGEN 41 mg/dL (7-25); BUN/CREATININE RATIO 31.5; CALCIUM SERUM 8.5 mg/dL (8.6-10.3); CARBON DIOXIDE 21.8 mEq/L (21.0-31.0); CHLORIDE 110 mEq/L (98-107); CREATININE - SERUM 1.3 mg/dL (0.6-1.2); GLUCOSE 204 mg/dL (70-105); POTASSIUM SERUM 4.2 mEq/L (3.5-5.1); SODIUM SERUM 137 mEq/L (136-145)
[2017-01-03] MEDS: Multivitamin w/ Minerals Tab PO SCH (08:42)
[2017-01-03] MEDS: Pantoprazole 40 mg EC Tab PO SCH (08:42)
[2017-01-03] MEDS: Atorvastatin Calcium 10 MG TAB PO SCH (08:42)
[2017-01-03] MEDS: Enoxaparin 40 mg/0.4 mL 0.4mL Syr SUBQ SCH ×2 (08:43→21:44)
[2017-01-03] MEDS: Lactobacillus Rhamnosus 10 Billion CFU Capsule PO SCH (08:43)
[2017-01-03] MEDS: Aspirin 81mg Chewable Tab PO SCH (08:43)
--- NOTE | 2017-01-03 10:00 | General Progress Note ---
Subjective - Review of Systems Events since last encounter: no acute distress patient awake Objective - Results Result Diagrams: 01/02/17 10:29 01/03/17 06:37 Recent Labs: Laboratory Last Values WBC 7.6 Th/cmm (4.8-10.8) 01/02/17 10:29 RBC 4.48 Mil/cmm (3.80-5.20) 01/02/17 10:29 Hgb 12.0 gm/dL (12-16) 01/02/17 10:29 Hct 38.1 % (41.0-60) L D 01/02/17 10:29 MCV 85.1 fl (81-100) 01/02/17 10:29 MCH 26.8 pg (27.0-31.0) L 01/02/17 10:29 MCHC Differential 31.5 pg (28.0-36.0) 01/02/17 10:29 RDW 18.8 % (11.5-20.0) 01/02/17 10:29 Plt Count 154 Th/cmm (150-400) 01/02/17 10:29 MPV 9.2 fl 01/02/17 10:29 Neutrophils % 78.8 % (40.0-80.0) 01/02/17 10:29 Lymphocytes % 12.4 % (20.0-50.0) L 01/02/17 10:29 Monocytes % 6.0 % (2.0-10.0) 01/02/17 10:29 Eosinophils % 2.5 % (0.0-5.0) 01/02/17 10:29 Basophils % 0.3 % (0.0-2.0) 01/02/17 10:29 Eos Smear Source URINE 12/30/16 17:25 Eos Smear Total Cells NONE SEEN (NONE SEEN) 12/30/16 17:25 PT 14.0 SECONDS (9.5-11.5) H 12/28/16 22:11 INR 1.33 (0.5-1.4) 12/28/16 22:11 Sodium 137 mEq/L (136-145) 01/03/17 06:37 Potassium 4.2 mEq/L (3.5-5.1) 01/03/17 06:37 Chloride 110 mEq/L (98-107) H 01/03/17 06:37 Carbon Dioxide 21.8 mEq/L (21.0-31.0) 01/03/17 06:37 Anion Gap 9.4 (7.0-16.0) 01/03/17 06:37 BUN 41 mg/dL (7-25) H 01/03/17 06:37 Creatinine 1.3 mg/dL (0.6-1.2) H 01/03/17 06:37 Est GFR ( Amer) TNP 01/03/17 06:37 Est GFR (Non-Af Amer) TNP 01/03/17 06:37 BUN/Creatinine Ratio 31.5 01/03/17 06:37 Glucose 204 mg/dL (70-105) H 01/03/17 06:37 POC Glucose 186 MG/DL (70 - 105) H 01/03/17 06:41 Hemoglobin A1c % 7.4 % (4.0-6.0) H 12/28/16 22:11 Plasma/Ser Osmolality 311 mOsmol/kg (280-301) H 12/30/16 05:35 Uric Acid 9.5 mg/dL (2.3-6.6) H 12/30/16 05:35 Calcium 8.5 mg/dL (8.6-10.3) L 01/03/17 06:37 Phosphorus 3.3 mg/dL (2.5-5.0) 12/30/16 05:35 Magnesium 1.9 mg/dL (1.9-2.7) 12/30/16 05:35 Total Bilirubin 0.9 mg/dL (0.3-1.0) 12/30/16 05:35 AST 15 U/L (13-39) 12/30/16 05:35 ALT 8 U/L (7-52) 12/30/16 05:35 Alkaline Phosphatase 71 U/L (34-104) 12/30/16 05:35 Troponin I < 0.01 ng/mL (0.01-0.05) L 12/31/16 06:27 B-Natriuretic Peptide 2520.0 pg/mL (5.0-100.0) H 01/01/17 06:25 Total Protein 6.2 gm/dL (6.0-8.3) 12/30/16 05:35 Albumin 2.9 gm/dL (3.7-5.3) L 12/30/16 05:35 Globulin 3.3 gm/dL 12/30/16 05:35 Albumin/Globulin Ratio 0.9 (1.0-1.8) L 12/30/16 05:35 Triglycerides 60 mg/dL (<150) 12/30/16 05:35 Cholesterol 69 mg/dL (<200) 12/30/16 05:35 LDL Cholesterol Direct 47 mg/dL (75-193) L 12/30/16 05:35 HDL Cholesterol 23 mg/dL (23-92) 12/30/16 05:35 TSH 2.33 uIU/ml (0.34-5.60) 12/28/16 22:11 Urine Source CLEAN C 12/28/16 22:30 Urine Color YELLOW 12/28/16 22:30 Urine Clarity HAZY (CLEAR) 12/28/16 22:30 Urine pH 5.5 (4.6 - 8.0) 12/28/16 22:30 Ur Specific [place] 1.015 (1.005-1.030) 12/28/16 22:30 Urine Protein TRACE mg/dL (NEGATIVE) 12/28/16 22:30 Urine Glucose (UA) NEGATIVE mg/dL (NEGATIVE) 12/28/16 22:30 Urine Ketones NEGATIVE mg/dL (NEGATIVE) 12/28/16 22:30 Urine Blood SMALL (NEGATIVE) H 12/28/16 22:30 Urine Nitrate POSITIVE (NEGATIVE) H 12/28/16 22:30 Urine Bilirubin NEGATIVE (NEGATIVE) 12/28/16 22:30 Urine Urobilinogen 0.2 E.U./dL (0.2 - 1.0) 12/28/16 22:30 Ur Leukocyte Esterase TRACE (NEGATIVE) H 12/28/16 22:30 Urine RBC 10-25 /hpf (0-5) H 12/28/16 22:30 Urine WBC 6-10 /hpf (0-5) H 12/28/16 22:30 Ur Epithelial Cells FEW /lpf (FEW) 12/28/16 22:30 Urine Bacteria MODERATE /hpf (NONE SEEN) 12/28/16 22:30 Ur Random Sodium 13 mmol/L 12/30/16 17:25 Urine Creatinine 74.6 mg/dl (Not Estab.) 12/30/16 17:25 Urine Microalbumin 636.6 ug/mL (Not Estab.) 12/30/16 17:25 Microalb/Creat Ratio 853.4 mg/g creat (0.0-30.0) H 12/30/16 17:25 - Physical Exam Vitals and I&O: Vital Signs Temp 97.3 F 01/03/17 07:39 Pulse 71 01/03/17 08:45 Resp 18 01/03/17 07:39 BP 123/61 01/03/17 08:45 Pulse Ox 98 01/03/17 07:39 Intake & Output 01/02/17 01/03/17 01/03/17 18:59 06:59 18:59 Intake Total 890 100 Output Total 1 Balance 890 99 Weight (lbs) 83.461 kg 85.275 kg 85.275 kg Intake: Intake, IV Amount 50 cefTRIAXone 1 gm In 50 Sodium Chloride 0.9% 50 ml @ 100 mls/hr IV Q24HR [facility] Rx#:[id number] Oral 840 100 Output: Stool 1 Other: # Voids 2 2 # Bowel Movements 1 Active Medications: Current Medications Acetaminophen (Tylenol) 650 mg PO Q4HR PRN PRN Reason: Pain or Fever >101 Stop: 02/27/17 01:46 Last Admin: 01/01/17 16:16 Dose: 650 mg Albuterol/Ipratropium (Duoneb Neb) 3 ml HHN Q6HR PRN PRN Reason: Shortness of Breath or Wheeze Stop: 02/27/17 01:46 Ascorbic Acid (Vitamin C) 500 mg PO DAILY [facility] Stop: 02/27/17 08:59 Last Admin: 01/03/17 08:42 Dose: 500 mg Aspirin (Aspirin Chewable) 81 mg PO DAILY [facility] Stop: 02/28/17 08:59 Last Admin: 01/03/17 08:43 Dose: 81 mg Atorvastatin Calcium (Lipitor) 10 mg PO DAILY [facility] PRN Reason: Protocol Stop: 02/28/17 08:59 Last Admin: 01/03/17 08:42 Dose: 10 mg Bisacodyl (Dulcolax 10 Mg Supp) 10 mg RC DAILY PRN PRN Reason: Constipation Stop: 02/27/17 01:46 Carvedilol (Coreg) 6.25 mg PO BID [facility] Stop: 03/02/17 16:59 Last Admin: 01/03/17 08:45 Dose: 6.25 mg Docusate Sodium (Colace) 100 mg PO BID [facility] Stop: 02/27/17 08:59 Last Admin: 01/03/17 08:42 Dose: 100 mg Enoxaparin Sodium (Lovenox) 40 mg SUBQ Q12HR [facility] Stop: 02/27/17 20:59 Last Admin: 01/03/17 08:43 Dose: 40 mg Furosemide (Lasix) 40 mg IVP BID [facility]SE DAVID Stop: 03/02/17 16:59 Last Admin: 01/03/17 08:45 Dose: 40 mg Hydralazine HCl (Apresoline) 10 mg PO BID [facility]SE DAVID Stop: 02/27/17 08:59 Last Admin: 01/03/17 08:45 Dose: 10 mg Ceftriaxone Sodium 1 gm/ (Sodium Chloride) 50 mls @ 100 mls/hr IV Q24HR [facility] Stop: 02/28/17 00:00 Last Admin: 01/03/17 01:24 Dose: 100 mls/hr Insulin Aspart (Novolog Insulin Sliding Scale) 0 units SUBQ ACHS [facility] PRN Reason: Protocol Stop: 02/27/17 07:29 Last Admin: 01/03/17 06:39 Dose: 3 units Isosorbide Dinitrate (Isordil) 10 mg PO TID [facility]SE DAVID Stop: 02/27/17 08:59 Last Admin: 01/03/17 08:44 Dose: 10 mg Lactobacillus Rhamnosus (Culturelle) 1 each PO DAILY [facility] Stop: 02/27/17 08:59 Last Admin: 01/03/17 08:43 Dose: 1 each Levetiracetam (Keppra) 250 mg PO BID [facility] Stop: 02/27/17 08:59 Last Admin: 01/03/17 08:43 Dose: 250 mg Levothyroxine Sodium (Synthroid) 0.05 mg PO QDAC [facility] Stop: 02/27/17 07:29 Last Admin: 01/03/17 06:39 Dose: 0.05 mg Magnesium Hydroxide (Milk Of Magnesia) 30 ml PO DAILY PRN PRN Reason: Constipation Stop: 02/27/17 01:46 Megestrol Acetate (Megace) 40 mg PO DAILY [facility] PRN Reason: Protocol Stop: 02/28/17 15:59 Last Admin: 01/03/17 08:43 Dose: 40 mg Miscellaneous (Probiotic Screen) 1 ea MC PRN PRN PRN Reason: PROTOCOL Stop: 02/28/17 15:40 Montelukast Sodium (Singulair) 10 mg PO DAILY [facility] Stop: 02/27/17 08:59 Last Admin: 01/03/17 08:42 Dose: 10 mg Mupirocin (Bactroban Oint) 1 appl NS BID [facility] Stop: 01/04/17 17:01 Last Admin: 01/03/17 08:42 Dose: 1 appl Ondansetron HCl (Zofran Odt) 4 mg PO Q6HR PRN PRN Reason: Nausea / Vomiting Stop: 02/27/17 01:46 Pantoprazole Sodium (Protonix) 40 mg PO DAILY [facility] Stop: 02/27/17 08:59 Last Admin: 01/03/17 08:42 Dose: 40 mg Senna (Senna) 17.2 mg PO HS [facility]SE DAVID Stop: 02/27/17 20:59 Last Admin: 01/02/17 20:40 Dose: 17.2 mg Sodium Phosphate (Fleet Enema) 135 ml RC Q48HR PRN PRN Reason: Constipation Stop: 02/27/17 01:46 Spironolactone (Aldactone) 25 mg PO BID [facility] Stop: 03/02/17 16:59 Last Admin: 01/03/17 08:44 Dose: 25 mg General: Alert, No acute distress HEENT: Atraumatic Neck: Supple, +2 carotid pulse wo bruit Cardiovascular: Regular rate, Normal S1, Normal S2 Lungs: Clear to auscultation, Other (decrease bs) Abdomen: Bowel sounds, Soft Extremities: Edema, Other ((+) 3 bipdeal edema) Neurological: Sensation intact Skin: no Rash Psych/Mental Status: Mood NL Assessment/Plan - Problem List Patient Problems: All Active Problems Anemia (Acute) D64.9 CKD (chronic kidney disease) stage 2, GFR 60-89 ml/min (Acute) N18.2 Diabetes (Acute) E11.9 Hyperlipidemia (Acute) E78.5 Non-ST elevated myocardial infarction (Acute) I21.4 Pacemaker (Acute) Z95.0 Pyelonephritis (Acute) N12 Seizure disorder (Acute) G40.909 Sick sinus syndrome (Acute) I49.5 UTI (urinary tract infection) (Acute) - Plan Plan: cardio w/up iv antibiotics cpm Nutritional Asmnt/Malnutr-PDOC - Dietary Evaluation Malnutrition Findings (Please click <Entered> for more info): Nutritional Asmnt/Malnutrition Start: 12/30/16 12: 57 Text: Status: Complete Freq: Document 12/30/16 12:57 GSUN (Rec: 12/30/16 13:17 GSUN [id number]) Nutritional Asmnt/Malnutrition Patient General Information Nutritional Screening High Risk Screening Diagnosis Elevated troponin level, UTI, poor intake Pertinent Medical Hx/Surgical Hx Anemia, CKD stage 2, DM, hyperlipidemia, non ST elevated myocardial infarction , pacemaker, pyelonephritis, seizure disorder, sick sinus syndrome Subjective Information 71 year old female. Pt's diet order noted to be pureed CCHO NICOLASA at [facility] , current diet order is low sodium. Spoke to RN Baldemar, RN made aware, RN also stated pt is Cypriot speaking but confused. Spoke to INSURANCE ADMINISTRATIVE ASSISTANT who assisted with breakfast, INSURANCE ADMINISTRATIVE ASSISTANT stated pt is a feeder, good appetite, tolerated well, however noted pt is edentulous so did not feed toast. Pt seen talkign to self during visit, appeared overweight, no muscle fat wasting noted. Current Diet Order/ Nutrition Support Low sodium Pertinent Medications Vitamin C, Lipitor, Dulcolax, Colace, Novolog, Culturelle, MOM, Zofran, Protonix, Senna, Fleet Enema Pertinent Labs 12/28: A1c 7.4H 12/30: BUN 54H, potassium 4.1, creatinine 1.4H, glucose 256H Nutritional Hx/Data Height 1.52 m Height (Calculated Centimeters) 152.4 Current Weight (lbs) 84.368 kg Weight (Calculated Kilograms) 84.4 Weight (Calculated Grams) 17625.2 [place] Body Weight 100 Weight Status Obese GI Symptoms Usual diet at home [facility]: pureed, CCHO, NICOLASA Skin Integrity/Comment: Ho 13. Pitting 2+ lower extremities. Coccyx blanchable redness. Estimated Nutritional Goals BEE in Kcals: Adj wt of IBW Calories/Kcals/Kg AdjBW 121.5lb/55.2kg Kcals Calculated 1380-1656kcal (25-30kcal/kg) Protein: Adj wt of IBW Protein Calculated 55-66g (1-1.2g/kg) Fluid: ml 1380-1656ml (1ml/kcal) Nutritional Problem 2. Problem Problem Altered nutrition related laboratory values related to Etiology DM aeb Signs/Symptoms: A1c 7.4H, glucose 256H 1. Problem Problem (possible) diffiiculty chewing related to Etiology edentulous, diet order aeb Signs/Symptoms: pt was previously on pureed diet and now on regular texture Intervention/Recommendation Comments 1. Recommend [id number] low sodium, diet texture to be determined. Previous pureed diet order noted in transfer chart, however pt has been on regular texture diet since adm , day 2. RN Baldemar made aware. 2. Nursing staff to record % intake for every meal. No documentations since adm. Expected Outcomes/Goals Expected Outcomes/Goals 1. PO intake to meet at least 75% of estimated nutritional needs with tolerance.
--- NOTE | 2017-01-03 13:16 | General Progress Note ---
Subjective - Review of Systems Service Date: 01/03/17 Subjective: sleeping, comfortable Objective - Results Result Diagrams: 01/02/17 10:29 01/03/17 06:37 Recent Labs: Laboratory Last Values WBC 7.6 Th/cmm (4.8-10.8) 01/02/17 10:29 RBC 4.48 Mil/cmm (3.80-5.20) 01/02/17 10:29 Hgb 12.0 gm/dL (12-16) 01/02/17 10:29 Hct 38.1 % (41.0-60) L D 01/02/17 10:29 MCV 85.1 fl (81-100) 01/02/17 10:29 MCH 26.8 pg (27.0-31.0) L 01/02/17 10:29 MCHC Differential 31.5 pg (28.0-36.0) 01/02/17 10:29 RDW 18.8 % (11.5-20.0) 01/02/17 10:29 Plt Count 154 Th/cmm (150-400) 01/02/17 10:29 MPV 9.2 fl 01/02/17 10:29 Neutrophils % 78.8 % (40.0-80.0) 01/02/17 10:29 Lymphocytes % 12.4 % (20.0-50.0) L 01/02/17 10:29 Monocytes % 6.0 % (2.0-10.0) 01/02/17 10:29 Eosinophils % 2.5 % (0.0-5.0) 01/02/17 10:29 Basophils % 0.3 % (0.0-2.0) 01/02/17 10:29 Eos Smear Source URINE 12/30/16 17:25 Eos Smear Total Cells NONE SEEN (NONE SEEN) 12/30/16 17:25 PT 14.0 SECONDS (9.5-11.5) H 12/28/16 22:11 INR 1.33 (0.5-1.4) 12/28/16 22:11 Sodium 137 mEq/L (136-145) 01/03/17 06:37 Potassium 4.2 mEq/L (3.5-5.1) 01/03/17 06:37 Chloride 110 mEq/L (98-107) H 01/03/17 06:37 Carbon Dioxide 21.8 mEq/L (21.0-31.0) 01/03/17 06:37 Anion Gap 9.4 (7.0-16.0) 01/03/17 06:37 BUN 41 mg/dL (7-25) H 01/03/17 06:37 Creatinine 1.3 mg/dL (0.6-1.2) H 01/03/17 06:37 Est GFR ( Amer) TNP 01/03/17 06:37 Est GFR (Non-Af Amer) TNP 01/03/17 06:37 BUN/Creatinine Ratio 31.5 01/03/17 06:37 Glucose 204 mg/dL (70-105) H 01/03/17 06:37 POC Glucose 233 MG/DL (70 - 105) H 01/03/17 11:16 Hemoglobin A1c % 7.4 % (4.0-6.0) H 12/28/16 22:11 Plasma/Ser Osmolality 311 mOsmol/kg (280-301) H 12/30/16 05:35 Uric Acid 9.5 mg/dL (2.3-6.6) H 12/30/16 05:35 Calcium 8.5 mg/dL (8.6-10.3) L 01/03/17 06:37 Phosphorus 3.3 mg/dL (2.5-5.0) 12/30/16 05:35 Magnesium 1.9 mg/dL (1.9-2.7) 12/30/16 05:35 Total Bilirubin 0.9 mg/dL (0.3-1.0) 12/30/16 05:35 AST 15 U/L (13-39) 12/30/16 05:35 ALT 8 U/L (7-52) 12/30/16 05:35 Alkaline Phosphatase 71 U/L (34-104) 12/30/16 05:35 Troponin I < 0.01 ng/mL (0.01-0.05) L 12/31/16 06:27 B-Natriuretic Peptide 2520.0 pg/mL (5.0-100.0) H 01/01/17 06:25 Total Protein 6.2 gm/dL (6.0-8.3) 12/30/16 05:35 Albumin 2.9 gm/dL (3.7-5.3) L 12/30/16 05:35 Globulin 3.3 gm/dL 12/30/16 05:35 Albumin/Globulin Ratio 0.9 (1.0-1.8) L 12/30/16 05:35 Triglycerides 60 mg/dL (<150) 12/30/16 05:35 Cholesterol 69 mg/dL (<200) 12/30/16 05:35 LDL Cholesterol Direct 47 mg/dL (75-193) L 12/30/16 05:35 HDL Cholesterol 23 mg/dL (23-92) 12/30/16 05:35 TSH 2.33 uIU/ml (0.34-5.60) 12/28/16 22:11 Urine Source CLEAN C 12/28/16 22:30 Urine Color YELLOW 12/28/16 22:30 Urine Clarity HAZY (CLEAR) 12/28/16 22:30 Urine pH 5.5 (4.6 - 8.0) 12/28/16 22:30 Ur Specific [place] 1.015 (1.005-1.030) 12/28/16 22:30 Urine Protein TRACE mg/dL (NEGATIVE) 12/28/16 22:30 Urine Glucose (UA) NEGATIVE mg/dL (NEGATIVE) 12/28/16 22:30 Urine Ketones NEGATIVE mg/dL (NEGATIVE) 12/28/16 22:30 Urine Blood SMALL (NEGATIVE) H 12/28/16 22:30 Urine Nitrate POSITIVE (NEGATIVE) H 12/28/16 22:30 Urine Bilirubin NEGATIVE (NEGATIVE) 12/28/16 22:30 Urine Urobilinogen 0.2 E.U./dL (0.2 - 1.0) 12/28/16 22:30 Ur Leukocyte Esterase TRACE (NEGATIVE) H 12/28/16 22:30 Urine RBC 10-25 /hpf (0-5) H 12/28/16 22:30 Urine WBC 6-10 /hpf (0-5) H 12/28/16 22:30 Ur Epithelial Cells FEW /lpf (FEW) 12/28/16 22:30 Urine Bacteria MODERATE /hpf (NONE SEEN) 12/28/16 22:30 Ur Random Sodium 13 mmol/L 12/30/16 17:25 Urine Creatinine 74.6 mg/dl (Not Estab.) 12/30/16 17:25 Urine Microalbumin 636.6 ug/mL (Not Estab.) 12/30/16 17:25 Microalb/Creat Ratio 853.4 mg/g creat (0.0-30.0) H 12/30/16 17:25 - Physical Exam Vitals and I&O: Vital Signs Temp 97.2 F 01/03/17 11:54 Pulse 69 01/03/17 11:54 Resp 18 01/03/17 11:54 BP 121/69 01/03/17 11:54 Pulse Ox 99 01/03/17 11:54 Intake & Output 01/02/17 01/03/17 01/03/17 18:59 06:59 18:59 Intake Total 890 100 Output Total 1 Balance 890 99 Weight (lbs) 83.461 kg 85.275 kg 85.275 kg Intake: Intake, IV Amount 50 cefTRIAXone 1 gm In 50 Sodium Chloride 0.9% 50 ml @ 100 mls/hr IV Q24HR [facility] Rx#:[id number] Oral 840 100 Output: Stool 1 Other: # Voids 2 2 # Bowel Movements 1 Active Medications: Current Medications Acetaminophen (Tylenol) 650 mg PO Q4HR PRN PRN Reason: Pain or Fever >101 Stop: 02/27/17 01:46 Last Admin: 01/01/17 16:16 Dose: 650 mg Albuterol/Ipratropium (Duoneb Neb) 3 ml HHN Q6HR PRN PRN Reason: Shortness of Breath or Wheeze Stop: 02/27/17 01:46 Ascorbic Acid (Vitamin C) 500 mg PO DAILY [facility] Stop: 02/27/17 08:59 Last Admin: 01/03/17 08:42 Dose: 500 mg Aspirin (Aspirin Chewable) 81 mg PO DAILY [facility] Stop: 02/28/17 08:59 Last Admin: 01/03/17 08:43 Dose: 81 mg Atorvastatin Calcium (Lipitor) 10 mg PO DAILY [facility] PRN Reason: Protocol Stop: 02/28/17 08:59 Last Admin: 01/03/17 08:42 Dose: 10 mg Bisacodyl (Dulcolax 10 Mg Supp) 10 mg RC DAILY PRN PRN Reason: Constipation Stop: 02/27/17 01:46 Carvedilol (Coreg) 6.25 mg PO BID [facility] Stop: 03/02/17 16:59 Last Admin: 01/03/17 08:45 Dose: 6.25 mg Docusate Sodium (Colace) 100 mg PO BID [facility] Stop: 02/27/17 08:59 Last Admin: 01/03/17 08:42 Dose: 100 mg Enoxaparin Sodium (Lovenox) 40 mg SUBQ Q12HR [facility] Stop: 02/27/17 20:59 Last Admin: 01/03/17 08:43 Dose: 40 mg Furosemide (Lasix) 40 mg IVP BID [facility] Stop: 03/02/17 16:59 Last Admin: 01/03/17 08:45 Dose: 40 mg Hydralazine HCl (Apresoline) 10 mg PO BID [facility] Stop: 02/27/17 08:59 Last Admin: 01/03/17 08:45 Dose: 10 mg Ceftriaxone Sodium 1 gm/ (Sodium Chloride) 50 mls @ 100 mls/hr IV Q24HR [facility] Stop: 02/28/17 00:00 Last Admin: 01/03/17 01:24 Dose: 100 mls/hr Insulin Aspart (Novolog Insulin Sliding Scale) 0 units SUBQ ACHS [facility] PRN Reason: Protocol Stop: 02/27/17 07:29 Last Admin: 01/03/17 11:29 Dose: 4 units Isosorbide Dinitrate (Isordil) 10 mg PO TID [facility] Stop: 02/27/17 08:59 Last Admin: 01/03/17 08:44 Dose: 10 mg Lactobacillus Rhamnosus (Culturelle) 1 each PO DAILY [facility] Stop: 02/27/17 08:59 Last Admin: 01/03/17 08:43 Dose: 1 each Levetiracetam (Keppra) 250 mg PO BID [facility] Stop: 02/27/17 08:59 Last Admin: 01/03/17 08:43 Dose: 250 mg Levothyroxine Sodium (Synthroid) 0.05 mg PO QDAC [facility] Stop: 02/27/17 07:29 Last Admin: 01/03/17 06:39 Dose: 0.05 mg Magnesium Hydroxide (Milk Of Magnesia) 30 ml PO DAILY PRN PRN Reason: Constipation Stop: 02/27/17 01:46 Megestrol Acetate (Megace) 40 mg PO DAILY [facility] PRN Reason: Protocol Stop: 02/28/17 15:59 Last Admin: 01/03/17 08:43 Dose: 40 mg Miscellaneous (Probiotic Screen) 1 ea MC PRN PRN PRN Reason: PROTOCOL Stop: 02/28/17 15:40 Montelukast Sodium (Singulair) 10 mg PO DAILY [facility] Stop: 02/27/17 08:59 Last Admin: 01/03/17 08:42 Dose: 10 mg Mupirocin (Bactroban Oint) 1 appl NS BID [facility] Stop: 01/04/17 17:01 Last Admin: 01/03/17 08:42 Dose: 1 appl Ondansetron HCl (Zofran Odt) 4 mg PO Q6HR PRN PRN Reason: Nausea / Vomiting Stop: 02/27/17 01:46 Pantoprazole Sodium (Protonix) 40 mg PO DAILY [facility] Stop: 02/27/17 08:59 Last Admin: 01/03/17 08:42 Dose: 40 mg Senna (Senna) 17.2 mg PO HS [facility] Stop: 02/27/17 20:59 Last Admin: 01/02/17 20:40 Dose: 17.2 mg Sodium Phosphate (Fleet Enema) 135 ml RC Q48HR PRN PRN Reason: Constipation Stop: 02/27/17 01:46 Spironolactone (Aldactone) 25 mg PO BID [facility] Stop: 03/02/17 16:59 Last Admin: 01/03/17 08:44 Dose: 25 mg General: Alert, No acute distress HEENT: Atraumatic Neck: Supple, +2 carotid pulse wo bruit Cardiovascular: Regular rate, Normal S1, Normal S2 Lungs: Clear to auscultation, Other (decrease bs) Abdomen: Bowel sounds, Soft Extremities: Edema, Other ((+) 3 bipdeal edema) Neurological: Sensation intact Skin: no Rash Psych/Mental Status: Mood NL Assessment/Plan - Problem List Patient Problems: All Active Problems Anemia (Acute) D64.9 CKD (chronic kidney disease) stage 2, GFR 60-89 ml/min (Acute) N18.2 Diabetes (Acute) E11.9 Hyperlipidemia (Acute) E78.5 Non-ST elevated myocardial infarction (Acute) I21.4 Pacemaker (Acute) Z95.0 Pyelonephritis (Acute) N12 Seizure disorder (Acute) G40.909 Sick sinus syndrome (Acute) I49.5 UTI (urinary tract infection) (Acute) - Assessment Assessment: MAEVE on CKD Type 2 DM Alzh Dementia Ess Htn w/ CKD Severe Cardiomyopathy S/P AICD Epilepsy CAD Acute on Chronic Chf Severed PAD FTT - Plan Plan: Lab - Result Diagrams 12/30/16 05:35 12/31/16 06:27 Current Medications Acetaminophen (Tylenol) 650 mg PO Q4HR PRN PRN Reason: Pain or Fever >101 Stop: 02/27/17 01:46 Last Admin: 12/30/16 21:38 Dose: 650 mg Albuterol/Ipratropium (Duoneb Neb) 3 ml HHN Q6HR PRN PRN Reason: Shortness of Breath or Wheeze Stop: 02/27/17 01:46 Ascorbic Acid (Vitamin C) 500 mg PO DAILY [facility] Stop: 02/27/17 08:59 Last Admin: 12/31/16 09:30 Dose: 500 mg Aspirin (Aspirin Chewable) 81 mg PO DAILY [facility] Stop: 02/28/17 08:59 Last Admin: 12/31/16 09:30 Dose: 81 mg Atorvastatin Calcium (Lipitor) 10 mg PO DAILY [facility] PRN Reason: Protocol Stop: 02/28/17 08:59 Last Admin: 12/31/16 09:30 Dose: 10 mg Bisacodyl (Dulcolax 10 Mg Supp) 10 mg RC DAILY PRN PRN Reason: Constipation Stop: 02/27/17 01:46 Carvedilol (Coreg) 3.125 mg PO BID [facility] Stop: 02/27/17 08:59 Last Admin: 12/31/16 17:37 Dose: Not Given Docusate Sodium (Colace) 100 mg PO BID [facility] Stop: 02/27/17 08:59 Last Admin: 12/31/16 17:37 Dose: Not Given Enoxaparin Sodium (Lovenox) 40 mg SUBQ Q12HR [facility] Stop: 02/27/17 20:59 Last Admin: 12/31/16 09:30 Dose: 40 mg Hydralazine HCl (Apresoline) 10 mg PO BID [facility] Stop: 02/27/17 08:59 Last Admin: 12/31/16 17:37 Dose: Not Given Ceftriaxone Sodium 1 gm/ (Sodium Chloride) 50 mls @ 100 mls/hr IV Q24HR [facility] Stop: 02/28/17 00:00 Last Admin: 12/31/16 01:37 Dose: 100 mls/hr Sodium Chloride (Nacl 0.9%) 1,000 mls @ 70 mls/hr IV .[id number] [facility] Stop: 02/27/17 07:59 Last Admin: 12/31/16 07:00 Dose: 70 mls/hr Insulin Aspart (Novolog Insulin Sliding Scale) 0 units SUBQ ACHS [facility] PRN Reason: Protocol Stop: 02/27/17 07:29 Last Admin: 12/31/16 17:52 Dose: 3 units Isosorbide Dinitrate (Isordil) 10 mg PO TID [facility] Stop: 02/27/17 08:59 Last Admin: 12/31/16 14:10 Dose: Not Given Lactobacillus Rhamnosus (Culturelle) 1 each PO DAILY [facility] Stop: 02/27/17 08:59 Last Admin: 12/31/16 09:30 Dose: 1 each Levetiracetam (Keppra) 250 mg PO BID [facility] Stop: 02/27/17 08:59 Last Admin: 12/31/16 17:37 Dose: Not Given Levothyroxine Sodium (Synthroid) 0.05 mg PO QDAC [facility] Stop: 02/27/17 07:29 Last Admin: 12/31/16 07:01 Dose: 0.05 mg Magnesium Hydroxide (Milk Of Magnesia) 30 ml PO DAILY PRN PRN Reason: Constipation Stop: 02/27/17 01:46 Megestrol Acetate (Megace) 40 mg PO DAILY [facility] PRN Reason: Protocol Stop: 02/28/17 15:59 Last Admin: 12/31/16 09:30 Dose: 40 mg Miscellaneous (Probiotic Screen) 1 ea MC PRN PRN PRN Reason: PROTOCOL Stop: 02/28/17 15:40 Montelukast Sodium (Singulair) 10 mg PO DAILY [facility] Stop: 02/27/17 08:59 Last Admin: 12/31/16 09:30 Dose: 10 mg Mupirocin (Bactroban Oint) 1 appl NS BID [facility] Stop: 01/04/17 17:01 Last Admin: 12/31/16 17:37 Dose: Not Given Ondansetron HCl (Zofran Odt) 4 mg PO Q6HR PRN PRN Reason: Nausea / Vomiting Stop: 02/27/17 01:46 Pantoprazole Sodium (Protonix) 40 mg PO DAILY [facility] Stop: 02/27/17 08:59 Last Admin: 12/31/16 09:30 Dose: 40 mg Senna (Senna) 17.2 mg PO HS [facility] Stop: 02/27/17 20:59 Last Admin: 12/30/16 20:22 Dose: 17.2 mg Sodium Phosphate (Fleet Enema) 135 ml RC Q48HR PRN PRN Reason: Constipation Stop: 02/27/17 01:46 DC IVF due to elevated BNP, peripheral edema ECHO revealed severe CM w/ EJF of 10-15% B/L LAE, LVH kidney fnc remain stable administer 1 dose of lasix already has AICD, consider bivent pacing CXR NAD, BNP 2520 FE Na 0.13% suggestive of prerenal component add spironolactone, increase coreg Lab - Result Diagrams 01/02/17 10:29 01/03/17 06:37 Nutritional Asmnt/Malnutr-PDOC - Dietary Evaluation Malnutrition Findings (Please click <Entered> for more info): Nutritional Asmnt/Malnutrition Start: 12/30/16 12: 57 Text: Status: Complete Freq: Document 12/30/16 12:57 GSUN (Rec: 12/30/16 13:17 GSUN [id number]) Nutritional Asmnt/Malnutrition Patient General Information Nutritional Screening High Risk Screening Diagnosis Elevated troponin level, UTI, poor intake Pertinent Medical Hx/Surgical Hx Anemia, CKD stage 2, DM, hyperlipidemia, non ST elevated myocardial infarction , pacemaker, pyelonephritis, seizure disorder, sick sinus syndrome Subjective Information 71 year old female. Pt's diet order noted to be pureed CCHO NICOLASA at [facility] , current diet order is low sodium. Spoke to RN Baldemar, RN made aware, RN also stated pt is [place] speaking but confused. Spoke to SENIOR INTERACTIVE PRODUCER who assisted with breakfast, SENIOR INTERACTIVE PRODUCER stated pt is a feeder, good appetite, tolerated well, however noted pt is edentulous so did not feed toast. Pt seen talkign to self during visit, appeared overweight, no muscle fat wasting noted. Current Diet Order/ Nutrition Support Low sodium Pertinent Medications Vitamin C, Lipitor, Dulcolax, Colace, Novolog, Culturelle, MOM, Zofran, Protonix, Senna, Fleet Enema Pertinent Labs 12/28: A1c 7.4H 12/30: BUN 54H, potassium 4.1, creatinine 1.4H, glucose 256H Nutritional Hx/Data Height 1.52 m Height (Calculated Centimeters) 152.4 Current Weight (lbs) 84.368 kg Weight (Calculated Kilograms) 84.4 Weight (Calculated Grams) [address]555.2 [place] Body Weight 100 Weight Status Obese GI Symptoms Usual diet at home [facility]: pureed, CCHO, NICOLASA Skin Integrity/Comment: Ho 13. Pitting 2+ lower extremities. Coccyx blanchable redness. Estimated Nutritional Goals BEE in Kcals: Adj wt of IBW Calories/Kcals/Kg AdjBW 121.5lb/55.2kg Kcals Calculated 1380-1656kcal (25-30kcal/kg) Protein: Adj wt of IBW Protein Calculated 55-66g (1-1.2g/kg) Fluid: ml 1380-1656ml (1ml/kcal) Nutritional Problem 2. Problem Problem Altered nutrition related laboratory values related to Etiology DM aeb Signs/Symptoms: A1c 7.4H, glucose 256H 1. Problem Problem (possible) diffiiculty chewing related to Etiology edentulous, diet order aeb Signs/Symptoms: pt was previously on pureed diet and now on regular texture Intervention/Recommendation Comments 1. Recommend [id number] low sodium, diet texture to be determined. Previous pureed diet order noted in transfer chart, however pt has been on regular texture diet since adm , day 2. MIKE Mcdermott made aware. 2. Nursing staff to record % intake for every meal. No documentations since adm. Expected Outcomes/Goals Expected Outcomes/Goals 1. PO intake to meet at least 75% of estimated nutritional needs with tolerance.
[2017-01-04] MEDS: cefTRIAXone 1 GM in Sodium Chloride 0.9% 50 ML IV SCH (00:23)
[2017-01-04] MEDS: Levothyroxine 0.05 Mg Tab PO SCH (06:31)
[2017-01-04] MEDS: INSULIN ASPART SLIDING SCALE 100 UNITS/ML UNIT SUBQ SCH ×4 (06:31→23:24)
[2017-01-04 06:49] LABS: ANION GAP 11.1 (7.0-16.0); BUN - UREA NITROGEN 37 mg/dL (7-25); BUN/CREATININE RATIO 30.8; CALCIUM SERUM 8.7 mg/dL (8.6-10.3); CARBON DIOXIDE 22.1 mEq/L (21.0-31.0); CHLORIDE 110 mEq/L (98-107); CREATININE - SERUM 1.2 mg/dL (0.6-1.2); GLUCOSE 182 mg/dL (70-105); POTASSIUM SERUM 4.2 mEq/L (3.5-5.1); SODIUM SERUM 139 mEq/L (136-145)
--- NOTE | 2017-01-04 09:30 | Infectious Disease Prog Note ---
Infectious Disease Subjective - Review of Systems Service Date: 01/04/17 Subjective: There is no new change, there is no fever. Infectious Disease Objective - Results Result Diagrams: 01/02/17 10:29 01/04/17 05:10 Recent Labs: Laboratory Last Values WBC 7.6 Th/cmm (4.8-10.8) 01/02/17 10:29 RBC 4.48 Mil/cmm (3.80-5.20) 01/02/17 10:29 Hgb 12.0 gm/dL (12-16) 01/02/17 10:29 Hct 38.1 % (41.0-60) L D 01/02/17 10:29 MCV 85.1 fl (81-100) 01/02/17 10:29 MCH 26.8 pg (27.0-31.0) L 01/02/17 10:29 MCHC Differential 31.5 pg (28.0-36.0) 01/02/17 10:29 RDW 18.8 % (11.5-20.0) 01/02/17 10:29 Plt Count 154 Th/cmm (150-400) 01/02/17 10:29 MPV 9.2 fl 01/02/17 10:29 Neutrophils % 78.8 % (40.0-80.0) 01/02/17 10:29 Lymphocytes % 12.4 % (20.0-50.0) L 01/02/17 10:29 Monocytes % 6.0 % (2.0-10.0) 01/02/17 10:29 Eosinophils % 2.5 % (0.0-5.0) 01/02/17 10:29 Basophils % 0.3 % (0.0-2.0) 01/02/17 10:29 Eos Smear Source URINE 12/30/16 17:25 Eos Smear Total Cells NONE SEEN (NONE SEEN) 12/30/16 17:25 PT 14.0 SECONDS (9.5-11.5) H 12/28/16 22:11 INR 1.33 (0.5-1.4) 12/28/16 22:11 Sodium 139 mEq/L (136-145) 01/04/17 05:10 Potassium 4.2 mEq/L (3.5-5.1) 01/04/17 05:10 Chloride 110 mEq/L (98-107) H 01/04/17 05:10 Carbon Dioxide 22.1 mEq/L (21.0-31.0) 01/04/17 05:10 Anion Gap 11.1 (7.0-16.0) 01/04/17 05:10 BUN 37 mg/dL (7-25) H 01/04/17 05:10 Creatinine 1.2 mg/dL (0.6-1.2) 01/04/17 05:10 Est GFR ( Amer) TNP 01/04/17 05:10 Est GFR (Non-Af Amer) TNP 01/04/17 05:10 BUN/Creatinine Ratio 30.8 01/04/17 05:10 Glucose 182 mg/dL (70-105) H 01/04/17 05:10 POC Glucose 177 MG/DL (70 - 105) H 01/04/17 05:41 Hemoglobin A1c % 7.4 % (4.0-6.0) H 12/28/16 22:11 Plasma/Ser Osmolality 311 mOsmol/kg (280-301) H 12/30/16 05:35 Uric Acid 9.5 mg/dL (2.3-6.6) H 12/30/16 05:35 Calcium 8.7 mg/dL (8.6-10.3) 01/04/17 05:10 Phosphorus 3.3 mg/dL (2.5-5.0) 12/30/16 05:35 Magnesium 1.9 mg/dL (1.9-2.7) 12/30/16 05:35 Total Bilirubin 0.9 mg/dL (0.3-1.0) 12/30/16 05:35 AST 15 U/L (13-39) 12/30/16 05:35 ALT 8 U/L (7-52) 12/30/16 05:35 Alkaline Phosphatase 71 U/L (34-104) 12/30/16 05:35 Troponin I < 0.01 ng/mL (0.01-0.05) L 12/31/16 06:27 B-Natriuretic Peptide 1610.0 pg/mL (5.0-100.0) H 01/04/17 05:10 Total Protein 6.2 gm/dL (6.0-8.3) 12/30/16 05:35 Albumin 2.9 gm/dL (3.7-5.3) L 12/30/16 05:35 Globulin 3.3 gm/dL 12/30/16 05:35 Albumin/Globulin Ratio 0.9 (1.0-1.8) L 12/30/16 05:35 Triglycerides 60 mg/dL (<150) 12/30/16 05:35 Cholesterol 69 mg/dL (<200) 12/30/16 05:35 LDL Cholesterol Direct 47 mg/dL (75-193) L 12/30/16 05:35 HDL Cholesterol 23 mg/dL (23-92) 12/30/16 05:35 TSH 2.33 uIU/ml (0.34-5.60) 12/28/16 22:11 Urine Source CLEAN C 12/28/16 22:30 Urine Color YELLOW 12/28/16 22:30 Urine Clarity HAZY (CLEAR) 12/28/16 22:30 Urine pH 5.5 (4.6 - 8.0) 12/28/16 22:30 Ur Specific [place] 1.015 (1.005-1.030) 12/28/16 22:30 Urine Protein TRACE mg/dL (NEGATIVE) 12/28/16 22:30 Urine Glucose (UA) NEGATIVE mg/dL (NEGATIVE) 12/28/16 22:30 Urine Ketones NEGATIVE mg/dL (NEGATIVE) 12/28/16 22:30 Urine Blood SMALL (NEGATIVE) H 12/28/16 22:30 Urine Nitrate POSITIVE (NEGATIVE) H 12/28/16 22:30 Urine Bilirubin NEGATIVE (NEGATIVE) 12/28/16 22:30 Urine Urobilinogen 0.2 E.U./dL (0.2 - 1.0) 12/28/16 22:30 Ur Leukocyte Esterase TRACE (NEGATIVE) H 12/28/16 22:30 Urine RBC 10-25 /hpf (0-5) H 12/28/16 22:30 Urine WBC 6-10 /hpf (0-5) H 12/28/16 22:30 Ur Epithelial Cells FEW /lpf (FEW) 12/28/16 22:30 Urine Bacteria MODERATE /hpf (NONE SEEN) 12/28/16 22:30 Ur Random Sodium 13 mmol/L 12/30/16 17:25 Urine Creatinine 74.6 mg/dl (Not Estab.) 12/30/16 17:25 Urine Microalbumin 636.6 ug/mL (Not Estab.) 12/30/16 17:25 Microalb/Creat Ratio 853.4 mg/g creat (0.0-30.0) H 12/30/16 17:25 - Physical Exam Vitals and I&O: Vital Signs Temp 98.4 F 01/04/17 07:35 Pulse 68 01/04/17 07:45 Resp 20 01/04/17 08:47 BP 102/69 01/04/17 07:35 Pulse Ox 97 01/04/17 07:45 Intake & Output 01/03/17 01/04/17 01/04/17 18:59 06:59 18:59 Intake Total 960 150 Output Total 1 Balance 959 150 Weight (lbs) 85.275 kg 84.368 kg Intake: Oral 960 150 Output: Stool 1 Other: # Voids 2 3 # Bowel Movements 1 Active Medications: Current Medications Acetaminophen (Tylenol) 650 mg PO Q4HR PRN PRN Reason: Pain or Fever >101 Stop: 02/27/17 01:46 Last Admin: 01/01/17 16:16 Dose: 650 mg Albuterol/Ipratropium (Duoneb Neb) 3 ml HHN Q6HR PRN PRN Reason: Shortness of Breath or Wheeze Stop: 02/27/17 01:46 Ascorbic Acid (Vitamin C) 500 mg PO DAILY [facility] Stop: 02/27/17 08:59 Last Admin: 01/03/17 08:42 Dose: 500 mg Aspirin (Aspirin Chewable) 81 mg PO DAILY [facility] Stop: 02/28/17 08:59 Last Admin: 01/03/17 08:43 Dose: 81 mg Atorvastatin Calcium (Lipitor) 10 mg PO DAILY JOSE DAVID PRN Reason: Protocol Stop: 02/28/17 08:59 Last Admin: 01/03/17 08:42 Dose: 10 mg Bisacodyl (Dulcolax 10 Mg Supp) 10 mg RC DAILY PRN PRN Reason: Constipation Stop: 02/27/17 01:46 Carvedilol (Coreg) 6.25 mg PO BID [facility] Stop: 03/02/17 16:59 Last Admin: 01/03/17 16:26 Dose: Not Given Docusate Sodium (Colace) 100 mg PO BID JOSE DAVID Stop: 02/27/17 08:59 Last Admin: 01/03/17 16:24 Dose: 100 mg Enoxaparin Sodium (Lovenox) 40 mg SUBQ Q12HR JOSE DAVID Stop: 02/27/17 20:59 Last Admin: 01/03/17 21:44 Dose: 40 mg Furosemide (Lasix) 40 mg IVP BID JOSE DAVID Stop: 03/02/17 16:59 Last Admin: 01/03/17 16:27 Dose: Not Given Hydralazine HCl (Apresoline) 10 mg PO BID JOSE DAVID Stop: 02/27/17 08:59 Last Admin: 01/03/17 16:26 Dose: Not Given Ceftriaxone Sodium 1 gm/ (Sodium Chloride) 50 mls @ 100 mls/hr IV Q24HR JOSE DAVID Stop: 02/28/17 00:00 Last Admin: 01/04/17 00:23 Dose: 100 mls/hr Insulin Aspart (Novolog Insulin Sliding Scale) 0 units SUBQ ACHS JOSE DAVID PRN Reason: Protocol Stop: 02/27/17 07:29 Last Admin: 01/04/17 06:31 Dose: 3 units Isosorbide Dinitrate (Isordil) 10 mg PO TID JOSE DAVID Stop: 02/27/17 08:59 Last Admin: 01/03/17 21:44 Dose: 10 mg Lactobacillus Rhamnosus (Culturelle) 1 each PO DAILY JOSE DAVID Stop: 02/27/17 08:59 Last Admin: 01/03/17 08:43 Dose: 1 each Levetiracetam (Keppra) 250 mg PO BID JOSE DAVID Stop: 02/27/17 08:59 Last Admin: 01/03/17 16:24 Dose: 250 mg Levothyroxine Sodium (Synthroid) 0.05 mg PO QDAC JOSE DAVID Stop: 02/27/17 07:29 Last Admin: 01/04/17 06:31 Dose: 0.05 mg Magnesium Hydroxide (Milk Of Magnesia) 30 ml PO DAILY PRN PRN Reason: Constipation Stop: 02/27/17 01:46 Megestrol Acetate (Megace) 40 mg PO DAILY JOSE DAVID PRN Reason: Protocol Stop: 02/28/17 15:59 Last Admin: 01/03/17 08:43 Dose: 40 mg Miscellaneous (Probiotic Screen) 1 ea PRN PRN PRN Reason: PROTOCOL Stop: 02/28/17 15:40 Montelukast Sodium (Singulair) 10 mg PO DAILY JOSE DAVID Stop: 02/27/17 08:59 Last Admin: 01/03/17 08:42 Dose: 10 mg Mupirocin (Bactroban Oint) 1 appl NS BID JOSE DAVID Stop: 01/04/17 17:01 Last Admin: 01/03/17 16:28 Dose: 1 appl Ondansetron HCl (Zofran Odt) 4 mg PO Q6HR PRN PRN Reason: Nausea / Vomiting Stop: 02/27/17 01:46 Pantoprazole Sodium (Protonix) 40 mg PO DAILY JOSE DAVID Stop: 02/27/17 08:59 Last Admin: 01/03/17 08:42 Dose: 40 mg Senna (Senna) 17.2 mg PO HS [facility] Stop: 02/27/17 20:59 Last Admin: 01/03/17 21:45 Dose: 17.2 mg Sodium Phosphate (Fleet Enema) 135 ml RC Q48HR PRN PRN Reason: Constipation Stop: 02/27/17 01:46 Spironolactone (Aldactone) 25 mg PO BID JOSE DAVID Stop: 03/02/17 16:59 Last Admin: 01/03/17 16:25 Dose: Not Given General: no acute distress, well developed, well nourished HEENT: atraumatic, normocephalic, PERRLA, EOMI, moist mucous membrane Neck: supple, no thyromegaly Cardiovascular: S1S2, regular Lungs: clear to auscultation bilaterally, clear to percussion Abdomen: soft, no tender, no distended, no mass Extremities: no cyanosis, no clubbing, no edema Neurological: awake, alert, oriented Skin: intact Infectious Disease Assmt/Plan - Problem List Patient Problems: All Active Problems Anemia (Acute) D64.9 CKD (chronic kidney disease) stage 2, GFR 60-89 ml/min (Acute) N18.2 Diabetes (Acute) E11.9 Hyperlipidemia (Acute) E78.5 Non-ST elevated myocardial infarction (Acute) I21.4 Pacemaker (Acute) Z95.0 Pyelonephritis (Acute) N12 Seizure disorder (Acute) G40.909 Sick sinus syndrome (Acute) I49.5 UTI (urinary tract infection) (Acute) - Assessment Assessment: UTI MRSA colonization. - Plan Plan: Continue rocephin. DC plan. DC antibiotic on discharge. Nutritional Asmnt/Malnutr-PDOC - Dietary Evaluation Malnutrition Findings (Please click <Entered> for more info): Nutritional Asmnt/Malnutrition Start: 12/30/16 12: 57 Text: Status: Complete Freq: Document 12/30/16 12:57 GSUN (Rec: 12/30/16 13:17 GSUN [id number]) Nutritional Asmnt/Malnutrition Patient General Information Nutritional Screening High Risk Screening Diagnosis Elevated troponin level, UTI, poor intake Pertinent Medical Hx/Surgical Hx Anemia, CKD stage 2, DM, hyperlipidemia, non ST elevated myocardial infarction , pacemaker, pyelonephritis, seizure disorder, sick sinus syndrome Subjective Information 71 year old female. Pt's diet order noted to be pureed SAULO NICOLASA at [facility] , current diet order is low sodium. Spoke to RN Baldemar, RN made aware, RN also stated pt is Frisian speaking but confused. Spoke to HYGIENE ASSISTANT who assisted with breakfast, HYGIENE ASSISTANT stated pt is a feeder, good appetite, tolerated well, however noted pt is edentulous so did not feed toast. Pt seen talkign to self during visit, appeared overweight, no muscle fat wasting noted. Current Diet Order/ Nutrition Support Low sodium Pertinent Medications Vitamin C, Lipitor, Dulcolax, Colace, Novolog, Culturelle, MOM, Zofran, Protonix, Senna, Fleet Enema Pertinent Labs 12/28: A1c 7.4H 12/30: BUN 54H, potassium 4.1, creatinine 1.4H, glucose 256H Nutritional Hx/Data Height 1.52 m Height (Calculated Centimeters) 152.4 Current Weight (lbs) 84.368 kg Weight (Calculated Kilograms) 84.4 Weight (Calculated Grams) 47830.2 [place] Body Weight 100 Weight Status Obese GI Symptoms Usual diet at home [facility]: pureed, CCHO, NICOLASA Skin Integrity/Comment: Ho 13. Pitting 2+ lower extremities. Coccyx blanchable redness. Estimated Nutritional Goals BEE in Kcals: Adj wt of IBW Calories/Kcals/Kg AdjBW 121.5lb/55.2kg Kcals Calculated 1380-1656kcal (25-30kcal/kg) Protein: Adj wt of IBW Protein Calculated 55-66g (1-1.2g/kg) Fluid: ml 1380-1656ml (1ml/kcal) Nutritional Problem 2. Problem Problem Altered nutrition related laboratory values related to Etiology DM aeb Signs/Symptoms: A1c 7.4H, glucose 256H 1. Problem Problem (possible) diffiiculty chewing related to Etiology edentulous, diet order aeb Signs/Symptoms: pt was previously on pureed diet and now on regular texture Intervention/Recommendation Comments 1. Recommend [id number] low sodium, diet texture to be determined. Previous pureed diet order noted in transfer chart, however pt has been on regular texture diet since adm , day 2. RN Baldemar made aware. 2. Nursing staff to record % intake for every meal. No documentations since adm. Expected Outcomes/Goals Expected Outcomes/Goals 1. PO intake to meet at least 75% of estimated nutritional needs with tolerance.
[2017-01-04] MEDS: Lactobacillus Rhamnosus 10 Billion CFU Capsule PO SCH (09:37)
[2017-01-04] MEDS: Atorvastatin Calcium 10 MG TAB PO SCH (09:37)
[2017-01-04] MEDS: Aspirin 81mg Chewable Tab PO SCH (09:38)
[2017-01-04] MEDS: Enoxaparin 40 mg/0.4 mL 0.4mL Syr SUBQ SCH ×2 (09:55→21:18)
[2017-01-04] MEDS: Pantoprazole 40 mg EC Tab PO SCH (09:56)
[2017-01-04] MEDS: Multivitamin w/ Minerals Tab PO SCH (09:56)
--- NOTE | 2017-01-04 14:21 | General Progress Note ---
Subjective - Review of Systems Service Date: 01/04/17 Subjective: alert, verbal, comfortable Objective - Results Result Diagrams: 01/02/17 10:29 01/04/17 05:10 Recent Labs: Laboratory Last Values WBC 7.6 Th/cmm (4.8-10.8) 01/02/17 10:29 RBC 4.48 Mil/cmm (3.80-5.20) 01/02/17 10:29 Hgb 12.0 gm/dL (12-16) 01/02/17 10:29 Hct 38.1 % (41.0-60) L D 01/02/17 10:29 MCV 85.1 fl (81-100) 01/02/17 10:29 MCH 26.8 pg (27.0-31.0) L 01/02/17 10:29 MCHC Differential 31.5 pg (28.0-36.0) 01/02/17 10:29 RDW 18.8 % (11.5-20.0) 01/02/17 10:29 Plt Count 154 Th/cmm (150-400) 01/02/17 10:29 MPV 9.2 fl 01/02/17 10:29 Neutrophils % 78.8 % (40.0-80.0) 01/02/17 10:29 Lymphocytes % 12.4 % (20.0-50.0) L 01/02/17 10:29 Monocytes % 6.0 % (2.0-10.0) 01/02/17 10:29 Eosinophils % 2.5 % (0.0-5.0) 01/02/17 10:29 Basophils % 0.3 % (0.0-2.0) 01/02/17 10:29 Eos Smear Source URINE 12/30/16 17:25 Eos Smear Total Cells NONE SEEN (NONE SEEN) 12/30/16 17:25 PT 14.0 SECONDS (9.5-11.5) H 12/28/16 22:11 INR 1.33 (0.5-1.4) 12/28/16 22:11 Sodium 139 mEq/L (136-145) 01/04/17 05:10 Potassium 4.2 mEq/L (3.5-5.1) 01/04/17 05:10 Chloride 110 mEq/L (98-107) H 01/04/17 05:10 Carbon Dioxide 22.1 mEq/L (21.0-31.0) 01/04/17 05:10 Anion Gap 11.1 (7.0-16.0) 01/04/17 05:10 BUN 37 mg/dL (7-25) H 01/04/17 05:10 Creatinine 1.2 mg/dL (0.6-1.2) 01/04/17 05:10 Est GFR ( Amer) TNP 01/04/17 05:10 Est GFR (Non-Af Amer) TNP 01/04/17 05:10 BUN/Creatinine Ratio 30.8 01/04/17 05:10 Glucose 182 mg/dL (70-105) H 01/04/17 05:10 POC Glucose 182 MG/DL (70 - 105) H 01/04/17 12:09 Hemoglobin A1c % 7.4 % (4.0-6.0) H 12/28/16 22:11 Plasma/Ser Osmolality 311 mOsmol/kg (280-301) H 12/30/16 05:35 Uric Acid 9.5 mg/dL (2.3-6.6) H 12/30/16 05:35 Calcium 8.7 mg/dL (8.6-10.3) 01/04/17 05:10 Phosphorus 3.3 mg/dL (2.5-5.0) 12/30/16 05:35 Magnesium 1.9 mg/dL (1.9-2.7) 12/30/16 05:35 Total Bilirubin 0.9 mg/dL (0.3-1.0) 12/30/16 05:35 AST 15 U/L (13-39) 12/30/16 05:35 ALT 8 U/L (7-52) 12/30/16 05:35 Alkaline Phosphatase 71 U/L (34-104) 12/30/16 05:35 Troponin I < 0.01 ng/mL (0.01-0.05) L 12/31/16 06:27 B-Natriuretic Peptide 1610.0 pg/mL (5.0-100.0) H 01/04/17 05:10 Total Protein 6.2 gm/dL (6.0-8.3) 12/30/16 05:35 Albumin 2.9 gm/dL (3.7-5.3) L 12/30/16 05:35 Globulin 3.3 gm/dL 12/30/16 05:35 Albumin/Globulin Ratio 0.9 (1.0-1.8) L 12/30/16 05:35 Triglycerides 60 mg/dL (<150) 12/30/16 05:35 Cholesterol 69 mg/dL (<200) 12/30/16 05:35 LDL Cholesterol Direct 47 mg/dL (75-193) L 12/30/16 05:35 HDL Cholesterol 23 mg/dL (23-92) 12/30/16 05:35 TSH 2.33 uIU/ml (0.34-5.60) 12/28/16 22:11 Urine Source CLEAN C 12/28/16 22:30 Urine Color YELLOW 12/28/16 22:30 Urine Clarity HAZY (CLEAR) 12/28/16 22:30 Urine pH 5.5 (4.6 - 8.0) 12/28/16 22:30 Ur Specific [place] 1.015 (1.005-1.030) 12/28/16 22:30 Urine Protein TRACE mg/dL (NEGATIVE) 12/28/16 22:30 Urine Glucose (UA) NEGATIVE mg/dL (NEGATIVE) 12/28/16 22:30 Urine Ketones NEGATIVE mg/dL (NEGATIVE) 12/28/16 22:30 Urine Blood SMALL (NEGATIVE) H 12/28/16 22:30 Urine Nitrate POSITIVE (NEGATIVE) H 12/28/16 22:30 Urine Bilirubin NEGATIVE (NEGATIVE) 12/28/16 22:30 Urine Urobilinogen 0.2 E.U./dL (0.2 - 1.0) 12/28/16 22:30 Ur Leukocyte Esterase TRACE (NEGATIVE) H 12/28/16 22:30 Urine RBC 10-25 /hpf (0-5) H 12/28/16 22:30 Urine WBC 6-10 /hpf (0-5) H 12/28/16 22:30 Ur Epithelial Cells FEW /lpf (FEW) 12/28/16 22:30 Urine Bacteria MODERATE /hpf (NONE SEEN) 12/28/16 22:30 Ur Random Sodium 13 mmol/L 12/30/16 17:25 Urine Creatinine 74.6 mg/dl (Not Estab.) 12/30/16 17:25 Urine Microalbumin 636.6 ug/mL (Not Estab.) 12/30/16 17:25 Microalb/Creat Ratio 853.4 mg/g creat (0.0-30.0) H 12/30/16 17:25 - Physical Exam Vitals and I&O: Vital Signs Temp 98.6 F 01/04/17 11:39 Pulse 82 01/04/17 11:39 Resp 17 01/04/17 12:00 BP 104/71 01/04/17 11:39 Pulse Ox 99 01/04/17 11:39 Intake & Output 01/03/17 01/04/17 01/04/17 18:59 06:59 18:59 Intake Total 960 150 Output Total 1 Balance 959 150 Weight (lbs) 85.275 kg 84.368 kg 84.368 kg Intake: Oral 960 150 Output: Stool 1 Other: # Voids 2 3 # Bowel Movements 1 Active Medications: Current Medications Acetaminophen (Tylenol) 650 mg PO Q4HR PRN PRN Reason: Pain or Fever >101 Stop: 02/27/17 01:46 Last Admin: 01/01/17 16:16 Dose: 650 mg Albuterol/Ipratropium (Duoneb Neb) 3 ml HHN Q6HR PRN PRN Reason: Shortness of Breath or Wheeze Stop: 02/27/17 01:46 Ascorbic Acid (Vitamin C) 500 mg PO DAILY [facility] Stop: 02/27/17 08:59 Last Admin: 01/04/17 09:55 Dose: Not Given Aspirin (Aspirin Chewable) 81 mg PO DAILY [facility] Stop: 02/28/17 08:59 Last Admin: 01/04/17 09:38 Dose: 81 mg Atorvastatin Calcium (Lipitor) 10 mg PO DAILY [facility] PRN Reason: Protocol Stop: 02/28/17 08:59 Last Admin: 01/04/17 09:37 Dose: 10 mg Bisacodyl (Dulcolax 10 Mg Supp) 10 mg RC DAILY PRN PRN Reason: Constipation Stop: 02/27/17 01:46 Carvedilol (Coreg) 6.25 mg PO BID [facility] Stop: 03/02/17 16:59 Last Admin: 01/04/17 09:38 Dose: 6.25 mg Docusate Sodium (Colace) 100 mg PO BID [facility] Stop: 02/27/17 08:59 Last Admin: 01/04/17 09:55 Dose: Not Given Enoxaparin Sodium (Lovenox) 40 mg SUBQ Q12HR [facility] Stop: 02/27/17 20:59 Last Admin: 01/04/17 09:55 Dose: Not Given Furosemide (Lasix) 40 mg IVP BID [facility] Stop: 03/02/17 16:59 Last Admin: 01/04/17 09:38 Dose: 40 mg Hydralazine HCl (Apresoline) 10 mg PO BID [facility] Stop: 02/27/17 08:59 Last Admin: 01/04/17 09:55 Dose: Not Given Insulin Aspart (Novolog Insulin Sliding Scale) 0 units SUBQ ACHS [facility] PRN Reason: Protocol Stop: 02/27/17 07:29 Last Admin: 01/04/17 12:13 Dose: 3 units Isosorbide Dinitrate (Isordil) 10 mg PO TID [facility] Stop: 02/27/17 08:59 Last Admin: 01/04/17 14:04 Dose: Not Given Lactobacillus Rhamnosus (Culturelle) 1 each PO DAILY [facility] Stop: 02/27/17 08:59 Last Admin: 01/04/17 09:37 Dose: 1 each Levetiracetam (Keppra) 250 mg PO BID [facility] Stop: 02/27/17 08:59 Last Admin: 01/04/17 09:37 Dose: 250 mg Levothyroxine Sodium (Synthroid) 0.05 mg PO QDAC [facility] Stop: 02/27/17 07:29 Last Admin: 01/04/17 06:31 Dose: 0.05 mg Magnesium Hydroxide (Milk Of Magnesia) 30 ml PO DAILY PRN PRN Reason: Constipation Stop: 02/27/17 01:46 Megestrol Acetate (Megace) 40 mg PO DAILY [facility] PRN Reason: Protocol Stop: 02/28/17 15:59 Last Admin: 01/04/17 09:38 Dose: 40 mg Metolazone (Zaroxolyn) 5 mg PO BID [facility] Stop: 03/05/17 16:59 Miscellaneous (Probiotic Screen) 1 ea PRN PRN PRN Reason: PROTOCOL Stop: 02/28/17 15:40 Montelukast Sodium (Singulair) 10 mg PO DAILY [facility] Stop: 02/27/17 08:59 Last Admin: 01/04/17 09:56 Dose: Not Given Mupirocin (Bactroban Oint) 1 appl NS BID [facility] Stop: 01/04/17 17:01 Last Admin: 01/04/17 10:00 Dose: 1 appl Ondansetron HCl (Zofran Odt) 4 mg PO Q6HR PRN PRN Reason: Nausea / Vomiting Stop: 02/27/17 01:46 Pantoprazole Sodium (Protonix) 40 mg PO DAILY [facility] Stop: 02/27/17 08:59 Last Admin: 01/04/17 09:56 Dose: Not Given Senna (Senna) 17.2 mg PO HS [facility] Stop: 02/27/17 20:59 Last Admin: 01/03/17 21:45 Dose: 17.2 mg Sodium Phosphate (Fleet Enema) 135 ml RC Q48HR PRN PRN Reason: Constipation Stop: 02/27/17 01:46 Spironolactone (Aldactone) 25 mg PO BID [facility] Stop: 03/02/17 16:59 Last Admin: 01/04/17 09:56 Dose: Not Given General: Alert, No acute distress HEENT: Atraumatic Neck: Supple, +2 carotid pulse wo bruit Cardiovascular: Regular rate, Normal S1, Normal S2 Lungs: Clear to auscultation, Other (decrease bs) Abdomen: Bowel sounds, Soft Extremities: Edema, Other ((+) 3 bipdeal edema) Neurological: Sensation intact Skin: no Rash Psych/Mental Status: Mood NL Assessment/Plan - Problem List Patient Problems: All Active Problems Anemia (Acute) D64.9 CKD (chronic kidney disease) stage 2, GFR 60-89 ml/min (Acute) N18.2 Diabetes (Acute) E11.9 Hyperlipidemia (Acute) E78.5 Non-ST elevated myocardial infarction (Acute) I21.4 Pacemaker (Acute) Z95.0 Pyelonephritis (Acute) N12 Seizure disorder (Acute) G40.909 Sick sinus syndrome (Acute) I49.5 UTI (urinary tract infection) (Acute) - Assessment Assessment: MAEVE on CKD Type 2 DM Alzh Dementia Ess Htn w/ CKD Severe Cardiomyopathy S/P AICD Epilepsy CAD Acute on Chronic Chf Severed PAD FTT - Plan Plan: Lab - Result Diagrams 12/30/16 05:35 12/31/16 06:27 Current Medications Acetaminophen (Tylenol) 650 mg PO Q4HR PRN PRN Reason: Pain or Fever >101 Stop: 02/27/17 01:46 Last Admin: 12/30/16 21:38 Dose: 650 mg Albuterol/Ipratropium (Duoneb Neb) 3 ml HHN Q6HR PRN PRN Reason: Shortness of Breath or Wheeze Stop: 02/27/17 01:46 Ascorbic Acid (Vitamin C) 500 mg PO DAILY [facility] Stop: 02/27/17 08:59 Last Admin: 12/31/16 09:30 Dose: 500 mg Aspirin (Aspirin Chewable) 81 mg PO DAILY [facility] Stop: 02/28/17 08:59 Last Admin: 12/31/16 09:30 Dose: 81 mg Atorvastatin Calcium (Lipitor) 10 mg PO DAILY [facility] PRN Reason: Protocol Stop: 02/28/17 08:59 Last Admin: 12/31/16 09:30 Dose: 10 mg Bisacodyl (Dulcolax 10 Mg Supp) 10 mg RC DAILY PRN PRN Reason: Constipation Stop: 02/27/17 01:46 Carvedilol (Coreg) 3.125 mg PO BID [facility] Stop: 02/27/17 08:59 Last Admin: 12/31/16 17:37 Dose: Not Given Docusate Sodium (Colace) 100 mg PO BID [facility] Stop: 02/27/17 08:59 Last Admin: 12/31/16 17:37 Dose: Not Given Enoxaparin Sodium (Lovenox) 40 mg SUBQ Q12HR [facility] Stop: 02/27/17 20:59 Last Admin: 12/31/16 09:30 Dose: 40 mg Hydralazine HCl (Apresoline) 10 mg PO BID [facility] Stop: 02/27/17 08:59 Last Admin: 12/31/16 17:37 Dose: Not Given Ceftriaxone Sodium 1 gm/ (Sodium Chloride) 50 mls @ 100 mls/hr IV Q24HR [facility] Stop: 02/28/17 00:00 Last Admin: 12/31/16 01:37 Dose: 100 mls/hr Sodium Chloride (Nacl 0.9%) 1,000 mls @ 70 mls/hr IV .[id number] [facility] Stop: 02/27/17 07:59 Last Admin: 12/31/16 07:00 Dose: 70 mls/hr Insulin Aspart (Novolog Insulin Sliding Scale) 0 units SUBQ ACHS [facility] PRN Reason: Protocol Stop: 02/27/17 07:29 Last Admin: 12/31/16 17:52 Dose: 3 units Isosorbide Dinitrate (Isordil) 10 mg PO TID [facility] Stop: 02/27/17 08:59 Last Admin: 12/31/16 14:10 Dose: Not Given Lactobacillus Rhamnosus (Culturelle) 1 each PO DAILY [facility] Stop: 02/27/17 08:59 Last Admin: 12/31/16 09:30 Dose: 1 each Levetiracetam (Keppra) 250 mg PO BID [facility] Stop: 02/27/17 08:59 Last Admin: 12/31/16 17:37 Dose: Not Given Levothyroxine Sodium (Synthroid) 0.05 mg PO QDAC [facility] Stop: 02/27/17 07:29 Last Admin: 12/31/16 07:01 Dose: 0.05 mg Magnesium Hydroxide (Milk Of Magnesia) 30 ml PO DAILY PRN PRN Reason: Constipation Stop: 02/27/17 01:46 Megestrol Acetate (Megace) 40 mg PO DAILY [facility] PRN Reason: Protocol Stop: 02/28/17 15:59 Last Admin: 12/31/16 09:30 Dose: 40 mg Miscellaneous (Probiotic Screen) 1 ea MC PRN PRN PRN Reason: PROTOCOL Stop: 02/28/17 15:40 Montelukast Sodium (Singulair) 10 mg PO DAILY [facility] Stop: 02/27/17 08:59 Last Admin: 12/31/16 09:30 Dose: 10 mg Mupirocin (Bactroban Oint) 1 appl NS BID [facility] Stop: 01/04/17 17:01 Last Admin: 12/31/16 17:37 Dose: Not Given Ondansetron HCl (Zofran Odt) 4 mg PO Q6HR PRN PRN Reason: Nausea / Vomiting Stop: 02/27/17 01:46 Pantoprazole Sodium (Protonix) 40 mg PO DAILY [facility] Stop: 02/27/17 08:59 Last Admin: 12/31/16 09:30 Dose: 40 mg Senna (Senna) 17.2 mg PO HS [facility] Stop: 02/27/17 20:59 Last Admin: 12/30/16 20:22 Dose: 17.2 mg Sodium Phosphate (Fleet Enema) 135 ml RC Q48HR PRN PRN Reason: Constipation Stop: 02/27/17 01:46 DC IVF due to elevated BNP, peripheral edema ECHO revealed severe CM w/ EJF of 10-15% B/L LAE, LVH kidney fnc remain stable already has AICD, consider bivent pacing CXR NAD, BNP 2520 FE Na 0.13% suggestive of prerenal component add spironolactone, increase coreg f/u cxr, electrolytes Lab - Result Diagrams 01/02/17 10:29 01/04/17 05:10 7 Nutritional Asmnt/Malnutr-PDOC - Dietary Evaluation Malnutrition Findings (Please click <Entered> for more info): Nutritional Asmnt/Malnutrition Start: 12/30/16 12: 57 Text: Status: Complete Freq: Document 12/30/16 12:57 GSUN (Rec: 12/30/16 13:17 GSUN [facility]) Nutritional Asmnt/Malnutrition Patient General Information Nutritional Screening High Risk Screening Diagnosis Elevated troponin level, UTI, poor intake Pertinent Medical Hx/Surgical Hx Anemia, CKD stage 2, DM, hyperlipidemia, non ST elevated myocardial infarction , pacemaker, pyelonephritis, seizure disorder, sick sinus syndrome Subjective Information 71 year old female. Pt's diet order noted to be pureed CCHO NICOLASA at [facility] , current diet order is low sodium. Spoke to RN Baldemar, RN made aware, RN also stated pt is Tajik speaking but confused. Spoke to MANAGER INTRANET who assisted with breakfast, MANAGER INTRANET stated pt is a feeder, good appetite, tolerated well, however noted pt is edentulous so did not feed toast. Pt seen talkign to self during visit, appeared overweight, no muscle fat wasting noted. Current Diet Order/ Nutrition Support Low sodium Pertinent Medications Vitamin C, Lipitor, Dulcolax, Colace, Novolog, Culturelle, MOM, Zofran, Protonix, Senna, Fleet Enema Pertinent Labs 12/28: A1c 7.4H 12/30: BUN 54H, potassium 4.1, creatinine 1.4H, glucose 256H Nutritional Hx/Data Height 1.52 m Height (Calculated Centimeters) 152.4 Current Weight (lbs) 84.368 kg Weight (Calculated Kilograms) 84.4 Weight (Calculated Grams) 84406.2 [place] Body Weight 100 Weight Status Obese GI Symptoms Usual diet at home [facility]: HAZEL higgins NAS Skin Integrity/Comment: Ho 13. Pitting 2+ lower extremities. Coccyx blanchable redness. Estimated Nutritional Goals BEE in Kcals: Adj wt of IBW Calories/Kcals/Kg AdjBW 121.5lb/55.2kg Kcals Calculated 1380-1656kcal (25-30kcal/kg) Protein: Adj wt of IBW Protein Calculated 55-66g (1-1.2g/kg) Fluid: ml 1380-1656ml (1ml/kcal) Nutritional Problem 2. Problem Problem Altered nutrition related laboratory values related to Etiology DM aeb Signs/Symptoms: A1c 7.4H, glucose 256H 1. Problem Problem (possible) diffiiculty chewing related to Etiology edentulous, diet order aeb Signs/Symptoms: pt was previously on pureed diet and now on regular texture Intervention/Recommendation Comments 1. Recommend [id number] low sodium, diet texture to be determined. Previous pureed diet order noted in transfer chart, however pt has been on regular texture diet since adm , day 2. MIKE Mcdermott made aware. 2. Nursing staff to record % intake for every meal. No documentations since adm. Expected Outcomes/Goals Expected Outcomes/Goals 1. PO intake to meet at least 75% of estimated nutritional needs with tolerance.
--- NOTE | 2017-01-04 19:48 | Internal Medicine Prog Note ---
Internal Medicine Subjective - Subjective Service Date: 01/04/17 Patient is:: awake, confused Per staff patient has:: no adverse event, tolerating meds Internal Medicine Objective - Results Result Diagrams: 01/02/17 10:29 01/04/17 05:10 Recent Labs: Laboratory Last Values WBC 7.6 Th/cmm (4.8-10.8) 01/02/17 10:29 RBC 4.48 Mil/cmm (3.80-5.20) 01/02/17 10:29 Hgb 12.0 gm/dL (12-16) 01/02/17 10:29 Hct 38.1 % (41.0-60) L D 01/02/17 10:29 MCV 85.1 fl (81-100) 01/02/17 10:29 MCH 26.8 pg (27.0-31.0) L 01/02/17 10:29 MCHC Differential 31.5 pg (28.0-36.0) 01/02/17 10:29 RDW 18.8 % (11.5-20.0) 01/02/17 10:29 Plt Count 154 Th/cmm (150-400) 01/02/17 10:29 MPV 9.2 fl 01/02/17 10:29 Neutrophils % 78.8 % (40.0-80.0) 01/02/17 10:29 Lymphocytes % 12.4 % (20.0-50.0) L 01/02/17 10:29 Monocytes % 6.0 % (2.0-10.0) 01/02/17 10:29 Eosinophils % 2.5 % (0.0-5.0) 01/02/17 10:29 Basophils % 0.3 % (0.0-2.0) 01/02/17 10:29 Eos Smear Source URINE 12/30/16 17:25 Eos Smear Total Cells NONE SEEN (NONE SEEN) 12/30/16 17:25 PT 14.0 SECONDS (9.5-11.5) H 12/28/16 22:11 INR 1.33 (0.5-1.4) 12/28/16 22:11 Sodium 139 mEq/L (136-145) 01/04/17 05:10 Potassium 4.2 mEq/L (3.5-5.1) 01/04/17 05:10 Chloride 110 mEq/L (98-107) H 01/04/17 05:10 Carbon Dioxide 22.1 mEq/L (21.0-31.0) 01/04/17 05:10 Anion Gap 11.1 (7.0-16.0) 01/04/17 05:10 BUN 37 mg/dL (7-25) H 01/04/17 05:10 Creatinine 1.2 mg/dL (0.6-1.2) 01/04/17 05:10 Est GFR ( Amer) TNP 01/04/17 05:10 Est GFR (Non-Af Amer) TNP 01/04/17 05:10 BUN/Creatinine Ratio 30.8 01/04/17 05:10 Glucose 182 mg/dL (70-105) H 01/04/17 05:10 POC Glucose 182 MG/DL (70 - 105) H 01/04/17 12:09 Hemoglobin A1c % 7.4 % (4.0-6.0) H 12/28/16 22:11 Plasma/Ser Osmolality 311 mOsmol/kg (280-301) H 12/30/16 05:35 Uric Acid 9.5 mg/dL (2.3-6.6) H 12/30/16 05:35 Calcium 8.7 mg/dL (8.6-10.3) 01/04/17 05:10 Phosphorus 3.3 mg/dL (2.5-5.0) 12/30/16 05:35 Magnesium 1.9 mg/dL (1.9-2.7) 12/30/16 05:35 Total Bilirubin 0.9 mg/dL (0.3-1.0) 12/30/16 05:35 AST 15 U/L (13-39) 12/30/16 05:35 ALT 8 U/L (7-52) 12/30/16 05:35 Alkaline Phosphatase 71 U/L (34-104) 12/30/16 05:35 Troponin I < 0.01 ng/mL (0.01-0.05) L 12/31/16 06:27 B-Natriuretic Peptide 1610.0 pg/mL (5.0-100.0) H 01/04/17 05:10 Total Protein 6.2 gm/dL (6.0-8.3) 12/30/16 05:35 Albumin 2.9 gm/dL (3.7-5.3) L 12/30/16 05:35 Globulin 3.3 gm/dL 12/30/16 05:35 Albumin/Globulin Ratio 0.9 (1.0-1.8) L 12/30/16 05:35 Triglycerides 60 mg/dL (<150) 12/30/16 05:35 Cholesterol 69 mg/dL (<200) 12/30/16 05:35 LDL Cholesterol Direct 47 mg/dL (75-193) L 12/30/16 05:35 HDL Cholesterol 23 mg/dL (23-92) 12/30/16 05:35 TSH 2.33 uIU/ml (0.34-5.60) 12/28/16 22:11 Urine Source CLEAN C 12/28/16 22:30 Urine Color YELLOW 12/28/16 22:30 Urine Clarity HAZY (CLEAR) 12/28/16 22:30 Urine pH 5.5 (4.6 - 8.0) 12/28/16 22:30 Ur Specific [place] 1.015 (1.005-1.030) 12/28/16 22:30 Urine Protein TRACE mg/dL (NEGATIVE) 12/28/16 22:30 Urine Glucose (UA) NEGATIVE mg/dL (NEGATIVE) 12/28/16 22:30 Urine Ketones NEGATIVE mg/dL (NEGATIVE) 12/28/16 22:30 Urine Blood SMALL (NEGATIVE) H 12/28/16 22:30 Urine Nitrate POSITIVE (NEGATIVE) H 12/28/16 22:30 Urine Bilirubin NEGATIVE (NEGATIVE) 12/28/16 22:30 Urine Urobilinogen 0.2 E.U./dL (0.2 - 1.0) 12/28/16 22:30 Ur Leukocyte Esterase TRACE (NEGATIVE) H 12/28/16 22:30 Urine RBC 10-25 /hpf (0-5) H 12/28/16 22:30 Urine WBC 6-10 /hpf (0-5) H 12/28/16 22:30 Ur Epithelial Cells FEW /lpf (FEW) 12/28/16 22:30 Urine Bacteria MODERATE /hpf (NONE SEEN) 12/28/16 22:30 Ur Random Sodium 13 mmol/L 12/30/16 17:25 Urine Creatinine 74.6 mg/dl (Not Estab.) 12/30/16 17:25 Urine Microalbumin 636.6 ug/mL (Not Estab.) 12/30/16 17:25 Microalb/Creat Ratio 853.4 mg/g creat (0.0-30.0) H 12/30/16 17:25 - Physical Exam Vitals and I&O: Vital Signs Temp 98.4 F 01/04/17 15:06 Pulse 72 01/04/17 18:50 Resp 20 01/04/17 18:50 BP 113/50 01/04/17 16:39 Pulse Ox 100 01/04/17 18:50 Intake & Output 01/04/17 01/04/17 01/05/17 06:59 18:59 06:59 Intake Total 150 Balance 150 Weight (lbs) 186 lb 186 lb Intake: Oral 150 Other: # Voids 3 # Bowel Movements 1 Active Medications: Current Medications Acetaminophen (Tylenol) 650 mg PO Q4HR PRN PRN Reason: Pain or Fever >101 Stop: 02/27/17 01:46 Last Admin: 01/01/17 16:16 Dose: 650 mg Albuterol/Ipratropium (Duoneb Neb) 3 ml HHN Q6HR PRN PRN Reason: Shortness of Breath or Wheeze Stop: 02/27/17 01:46 Ascorbic Acid (Vitamin C) 500 mg PO DAILY [facility] Stop: 02/27/17 08:59 Last Admin: 01/04/17 09:55 Dose: Not Given Aspirin (Aspirin Chewable) 81 mg PO DAILY [facility] Stop: 02/28/17 08:59 Last Admin: 01/04/17 09:38 Dose: 81 mg Atorvastatin Calcium (Lipitor) 10 mg PO DAILY [facility] PRN Reason: Protocol Stop: 02/28/17 08:59 Last Admin: 01/04/17 09:37 Dose: 10 mg Bisacodyl (Dulcolax 10 Mg Supp) 10 mg RC DAILY PRN PRN Reason: Constipation Stop: 02/27/17 01:46 Carvedilol (Coreg) 6.25 mg PO BID [facility] Stop: 03/02/17 16:59 Last Admin: 01/04/17 16:39 Dose: 6.25 mg Docusate Sodium (Colace) 100 mg PO BID [facility] Stop: 02/27/17 08:59 Last Admin: 01/04/17 17:30 Dose: Not Given Enoxaparin Sodium (Lovenox) 40 mg SUBQ Q12HR [facility] Stop: 02/27/17 20:59 Last Admin: 01/04/17 09:55 Dose: Not Given Furosemide (Lasix) 40 mg IVP BID [facility] Stop: 03/02/17 16:59 Last Admin: 01/04/17 16:38 Dose: 40 mg Hydralazine HCl (Apresoline) 10 mg PO BID [facility] Stop: 02/27/17 08:59 Last Admin: 01/04/17 16:39 Dose: 10 mg Insulin Aspart (Novolog Insulin Sliding Scale) 0 units SUBQ ACHS [facility] PRN Reason: Protocol Stop: 02/27/17 07:29 Last Admin: 01/04/17 16:47 Dose: 4 units Isosorbide Dinitrate (Isordil) 10 mg PO TID [facility] Stop: 02/27/17 08:59 Last Admin: 01/04/17 14:04 Dose: Not Given Lactobacillus Rhamnosus (Culturelle) 1 each PO DAILY [facility] Stop: 02/27/17 08:59 Last Admin: 01/04/17 09:37 Dose: 1 each Levetiracetam (Keppra) 250 mg PO BID [facility] Stop: 02/27/17 08:59 Last Admin: 01/04/17 17:30 Dose: 250 mg Levothyroxine Sodium (Synthroid) 0.05 mg PO QDAC [facility] Stop: 02/27/17 07:29 Last Admin: 01/04/17 06:31 Dose: 0.05 mg Magnesium Hydroxide (Milk Of Magnesia) 30 ml PO DAILY PRN PRN Reason: Constipation Stop: 02/27/17 01:46 Megestrol Acetate (Megace) 40 mg PO DAILY [facility] PRN Reason: Protocol Stop: 02/28/17 15:59 Last Admin: 01/04/17 09:38 Dose: 40 mg Metolazone (Zaroxolyn) 5 mg PO BID [facility] Stop: 03/05/17 16:59 Last Admin: 01/04/17 16:39 Dose: 5 mg Miscellaneous (Probiotic Screen) 1 ea MC PRN PRN PRN Reason: PROTOCOL Stop: 02/28/17 15:40 Montelukast Sodium (Singulair) 10 mg PO DAILY [facility] Stop: 02/27/17 08:59 Last Admin: 01/04/17 09:56 Dose: Not Given Ondansetron HCl (Zofran Odt) 4 mg PO Q6HR PRN PRN Reason: Nausea / Vomiting Stop: 02/27/17 01:46 Pantoprazole Sodium (Protonix) 40 mg PO DAILY [facility] Stop: 02/27/17 08:59 Last Admin: 01/04/17 09:56 Dose: Not Given Senna (Senna) 17.2 mg PO HS [facility] Stop: 02/27/17 20:59 Last Admin: 01/03/17 21:45 Dose: 17.2 mg Sodium Phosphate (Fleet Enema) 135 ml RC Q48HR PRN PRN Reason: Constipation Stop: 02/27/17 01:46 Spironolactone (Aldactone) 25 mg PO BID [facility] Stop: 03/02/17 16:59 Last Admin: 01/04/17 16:38 Dose: 25 mg General: weak, demented HEENT: NC/AT, PERRLA Neck: Supple Lungs: CTAB Cardiovascular: RRR, Normal S1, Normal S2, without murmur Abdomen: soft, non-tender, non-distended, positive bowel sound Neurological: other (confused) Internal Medicine Assmt/Plan - Assessment Assessment: Anemia CKD Diabetes Hyperlipidemia Non-ST elevated myocardial infarction Pacemaker status Pyelonephritis Seizure disorder Sick sinus syndrome Acute UTI - Plan Plan: continue iv antibiotics as per id monitor glucose continue current plan of care Nutritional Asmnt/Malnutr-PDOC - Dietary Evaluation Malnutrition Findings (Please click <Entered> for more info): Nutritional Asmnt/Malnutrition Start: 12/30/16 12: 57 Text: Status: Complete Freq: Document 12/30/16 12:57 GSUN (Rec: 12/30/16 13:17 GSUN [email or web address]) Nutritional Asmnt/Malnutrition Patient General Information Nutritional Screening High Risk Screening Diagnosis Elevated troponin level, UTI, poor intake Pertinent Medical Hx/Surgical Hx Anemia, CKD stage 2, DM, hyperlipidemia, non ST elevated myocardial infarction , pacemaker, pyelonephritis, seizure disorder, sick sinus syndrome Subjective Information 71 year old female. Pt's diet order noted to be [facility] , current diet order is low sodium. Spoke to RN Kyzyl, RN made aware, RN also stated pt is Nepalese speaking but confused. Spoke to ROVING CAN TENDER who assisted with breakfast, ROVING CAN TENDER stated pt is a feeder, good appetite, tolerated well, however noted pt is edentulous so did not feed toast. Pt seen talkign to self during visit, appeared overweight, no muscle fat wasting noted. Current Diet Order/ Nutrition Support Low sodium Pertinent Medications Vitamin C, Lipitor, Dulcolax, Colace, Novolog, Culturelle, MOM, Zofran, Protonix, Senna, Fleet Enema Pertinent Labs 12/28: A1c 7.4H 12/30: BUN 54H, potassium 4.1, creatinine 1.4H, glucose 256H Nutritional Hx/Data Height 5 ft Height (Calculated Centimeters) 152.4 Current Weight (lbs) 186 lb Weight (Calculated Kilograms) 84.4 Weight (Calculated Grams) 23280.2 [place] Body Weight 100 Weight Status Obese GI Symptoms Usual diet at home [facility]: pureed, CCHO, NICOLASA Skin Integrity/Comment: Ho 13. Pitting 2+ lower extremities. Coccyx blanchable redness. Estimated Nutritional Goals BEE in Kcals: Adj wt of IBW Calories/Kcals/Kg AdjBW 121.5lb/55.2kg Kcals Calculated 1380-1656kcal (25-30kcal/kg) Protein: Adj wt of IBW Protein Calculated 55-66g (1-1.2g/kg) Fluid: ml 1380-1656ml (1ml/kcal) Nutritional Problem 2. Problem Problem Altered nutrition related laboratory values related to Etiology DM aeb Signs/Symptoms: A1c 7.4H, glucose 256H 1. Problem Problem (possible) diffiiculty chewing related to Etiology edentulous, diet order aeb Signs/Symptoms: pt was previously on pureed diet and now on regular texture Intervention/Recommendation Comments 1. Recommend [id number] low sodium, diet texture to be determined. Previous pureed diet order noted in transfer chart, however pt has been on regular texture diet since adm , day 2. MIKE Mcdermott made aware. 2. Nursing staff to record % intake for every meal. No documentations since adm. Expected Outcomes/Goals Expected Outcomes/Goals 1. PO intake to meet at least 75% of estimated nutritional needs with tolerance.
[2017-01-05 06:06] LABS: ANION GAP 10.3 (7.0-16.0); BUN - UREA NITROGEN 35 mg/dL (7-25); BUN/CREATININE RATIO 29.2; CALCIUM SERUM 8.7 mg/dL (8.6-10.3); CHLORIDE 106 mEq/L (98-107); CREATININE - SERUM 1.2 mg/dL (0.6-1.2); GLUCOSE 264 mg/dL (70-105); POTASSIUM SERUM 4.3 mEq/L (3.5-5.1); SODIUM SERUM 134 mEq/L (136-145)
[2017-01-05] MEDS: INSULIN ASPART SLIDING SCALE 100 UNITS/ML UNIT SUBQ SCH ×4 (07:02→21:07)
[2017-01-05] MEDS: Levothyroxine 0.05 Mg Tab PO SCH (07:03)
[2017-01-05] MEDS: Enoxaparin 40 mg/0.4 mL 0.4mL Syr SUBQ SCH ×2 (08:37→21:07)
[2017-01-05] MEDS: Atorvastatin Calcium 10 MG TAB PO SCH (08:38)
[2017-01-05] MEDS: Pantoprazole 40 mg EC Tab PO SCH (08:38)
--- NOTE | 2017-01-05 08:38 | Diagnostic Imaging Report ---
CHEST X-RAY: AP view INDICATION: Pneumonia COMPARISON: 01/01/2017 FINDINGS: Left chest wall AICD stable. No focal consolidation or pleural effusions. No evidence of CHF. Cardiomegaly is noted with atherosclerosis. IMPRESSION: No focal consolidation identified Stable AICD. Cardiomegaly and atherosclerotic vascular disease.
[2017-01-05] MEDS: Lactobacillus Rhamnosus 10 Billion CFU Capsule PO SCH (08:40)
[2017-01-05] MEDS: Multivitamin w/ Minerals Tab PO SCH (08:40)
[2017-01-05] MEDS: Aspirin 81mg Chewable Tab PO SCH (08:40)
--- NOTE | 2017-01-05 10:05 | General Progress Note ---
Subjective - Review of Systems Events since last encounter: patient awake alert no distress Objective - Results Result Diagrams: 01/02/17 10:29 01/05/17 05:35 Recent Labs: Laboratory Last Values WBC 7.6 Th/cmm (4.8-10.8) 01/02/17 10:29 RBC 4.48 Mil/cmm (3.80-5.20) 01/02/17 10:29 Hgb 12.0 gm/dL (12-16) 01/02/17 10:29 Hct 38.1 % (41.0-60) L D 01/02/17 10:29 MCV 85.1 fl (81-100) 01/02/17 10:29 MCH 26.8 pg (27.0-31.0) L 01/02/17 10:29 MCHC Differential 31.5 pg (28.0-36.0) 01/02/17 10:29 RDW 18.8 % (11.5-20.0) 01/02/17 10:29 Plt Count 154 Th/cmm (150-400) 01/02/17 10:29 MPV 9.2 fl 01/02/17 10:29 Neutrophils % 78.8 % (40.0-80.0) 01/02/17 10:29 Lymphocytes % 12.4 % (20.0-50.0) L 01/02/17 10:29 Monocytes % 6.0 % (2.0-10.0) 01/02/17 10:29 Eosinophils % 2.5 % (0.0-5.0) 01/02/17 10:29 Basophils % 0.3 % (0.0-2.0) 01/02/17 10:29 Eos Smear Source URINE 12/30/16 17:25 Eos Smear Total Cells NONE SEEN (NONE SEEN) 12/30/16 17:25 PT 14.0 SECONDS (9.5-11.5) H 12/28/16 22:11 INR 1.33 (0.5-1.4) 12/28/16 22:11 Sodium 134 mEq/L (136-145) L 01/05/17 05:35 Potassium 4.3 mEq/L (3.5-5.1) 01/05/17 05:35 Chloride 106 mEq/L (98-107) 01/05/17 05:35 Carbon Dioxide 22.0 mEq/L (21.0-31.0) 01/05/17 05:35 Anion Gap 10.3 (7.0-16.0) 01/05/17 05:35 BUN 35 mg/dL (7-25) H 01/05/17 05:35 Creatinine 1.2 mg/dL (0.6-1.2) 01/05/17 05:35 Est GFR ( Amer) TNP 01/05/17 05:35 Est GFR (Non-Af Amer) TNP 01/05/17 05:35 BUN/Creatinine Ratio 29.2 01/05/17 05:35 Glucose 264 mg/dL (70-105) H 01/05/17 05:35 POC Glucose 241 MG/DL (70 - 105) H 01/05/17 05:38 Hemoglobin A1c % 7.4 % (4.0-6.0) H 12/28/16 22:11 Plasma/Ser Osmolality 311 mOsmol/kg (280-301) H 12/30/16 05:35 Uric Acid 9.5 mg/dL (2.3-6.6) H 12/30/16 05:35 Calcium 8.7 mg/dL (8.6-10.3) 01/05/17 05:35 Phosphorus 3.3 mg/dL (2.5-5.0) 12/30/16 05:35 Magnesium 1.9 mg/dL (1.9-2.7) 12/30/16 05:35 Total Bilirubin 0.9 mg/dL (0.3-1.0) 12/30/16 05:35 AST 15 U/L (13-39) 12/30/16 05:35 ALT 8 U/L (7-52) 12/30/16 05:35 Alkaline Phosphatase 71 U/L (34-104) 12/30/16 05:35 Troponin I < 0.01 ng/mL (0.01-0.05) L 12/31/16 06:27 B-Natriuretic Peptide 2580.0 pg/mL (5.0-100.0) H 01/05/17 05:35 Total Protein 6.2 gm/dL (6.0-8.3) 12/30/16 05:35 Albumin 2.9 gm/dL (3.7-5.3) L 12/30/16 05:35 Globulin 3.3 gm/dL 12/30/16 05:35 Albumin/Globulin Ratio 0.9 (1.0-1.8) L 12/30/16 05:35 Triglycerides 60 mg/dL (<150) 12/30/16 05:35 Cholesterol 69 mg/dL (<200) 12/30/16 05:35 LDL Cholesterol Direct 47 mg/dL (75-193) L 12/30/16 05:35 HDL Cholesterol 23 mg/dL (23-92) 12/30/16 05:35 TSH 2.33 uIU/ml (0.34-5.60) 12/28/16 22:11 Urine Source CLEAN C 12/28/16 22:30 Urine Color YELLOW 12/28/16 22:30 Urine Clarity HAZY (CLEAR) 12/28/16 22:30 Urine pH 5.5 (4.6 - 8.0) 12/28/16 22:30 Ur Specific [place] 1.015 (1.005-1.030) 12/28/16 22:30 Urine Protein TRACE mg/dL (NEGATIVE) 12/28/16 22:30 Urine Glucose (UA) NEGATIVE mg/dL (NEGATIVE) 12/28/16 22:30 Urine Ketones NEGATIVE mg/dL (NEGATIVE) 12/28/16 22:30 Urine Blood SMALL (NEGATIVE) H 12/28/16 22:30 Urine Nitrate POSITIVE (NEGATIVE) H 12/28/16 22:30 Urine Bilirubin NEGATIVE (NEGATIVE) 12/28/16 22:30 Urine Urobilinogen 0.2 E.U./dL (0.2 - 1.0) 12/28/16 22:30 Ur Leukocyte Esterase TRACE (NEGATIVE) H 12/28/16 22:30 Urine RBC 10-25 /hpf (0-5) H 12/28/16 22:30 Urine WBC 6-10 /hpf (0-5) H 12/28/16 22:30 Ur Epithelial Cells FEW /lpf (FEW) 12/28/16 22:30 Urine Bacteria MODERATE /hpf (NONE SEEN) 12/28/16 22:30 Ur Random Sodium 13 mmol/L 12/30/16 17:25 Urine Creatinine 74.6 mg/dl (Not Estab.) 12/30/16 17:25 Urine Microalbumin 636.6 ug/mL (Not Estab.) 12/30/16 17:25 Microalb/Creat Ratio 853.4 mg/g creat (0.0-30.0) H 12/30/16 17:25 - Physical Exam Vitals and I&O: Vital Signs Temp 97.7 F 01/05/17 07:34 Pulse 74 01/05/17 08:40 Resp 17 01/05/17 07:34 BP 133/67 01/05/17 08:40 Pulse Ox 96 01/05/17 07:34 Intake & Output 01/04/17 01/05/17 01/05/17 18:59 06:59 18:59 Intake Total 240 Balance 240 Weight (lbs) 84.368 kg 84.368 kg Intake: Oral 240 Other: # Voids 3 # Bowel Movements 1 Active Medications: Current Medications Acetaminophen (Tylenol) 650 mg PO Q4HR PRN PRN Reason: Pain or Fever >101 Stop: 02/27/17 01:46 Last Admin: 01/04/17 23:10 Dose: 650 mg Albuterol/Ipratropium (Duoneb Neb) 3 ml HHN Q6HR PRN PRN Reason: Shortness of Breath or Wheeze Stop: 02/27/17 01:46 Ascorbic Acid (Vitamin C) 500 mg PO DAILY [facility] Stop: 02/27/17 08:59 Last Admin: 01/05/17 08:40 Dose: 500 mg Aspirin (Aspirin Chewable) 81 mg PO DAILY [facility] Stop: 02/28/17 08:59 Last Admin: 01/05/17 08:40 Dose: 81 mg Atorvastatin Calcium (Lipitor) 10 mg PO DAILY [facility] PRN Reason: Protocol Stop: 02/28/17 08:59 Last Admin: 01/05/17 08:38 Dose: 10 mg Bisacodyl (Dulcolax 10 Mg Supp) 10 mg RC DAILY PRN PRN Reason: Constipation Stop: 02/27/17 01:46 Carvedilol (Coreg) 6.25 mg PO BID [facility] Stop: 03/02/17 16:59 Last Admin: 01/05/17 08:39 Dose: 6.25 mg Docusate Sodium (Colace) 100 mg PO BID [facility] Stop: 02/27/17 08:59 Last Admin: 01/05/17 08:40 Dose: 100 mg Enoxaparin Sodium (Lovenox) 40 mg SUBQ Q12HR [facility] Stop: 02/27/17 20:59 Last Admin: 01/05/17 08:37 Dose: 40 mg Furosemide (Lasix) 40 mg IVP BID [facility] Stop: 03/02/17 16:59 Last Admin: 01/05/17 08:39 Dose: 40 mg Hydralazine HCl (Apresoline) 10 mg PO BID [facility] Stop: 02/27/17 08:59 Last Admin: 01/05/17 08:40 Dose: 10 mg Insulin Aspart (Novolog Insulin Sliding Scale) 0 units SUBQ ACHS [facility] PRN Reason: Protocol Stop: 02/27/17 07:29 Last Admin: 01/05/17 07:02 Dose: 4 units Isosorbide Dinitrate (Isordil) 10 mg PO TID [facility] Stop: 02/27/17 08:59 Last Admin: 01/05/17 08:38 Dose: 10 mg Lactobacillus Rhamnosus (Culturelle) 1 each PO DAILY [facility] Stop: 02/27/17 08:59 Last Admin: 01/05/17 08:40 Dose: 1 each Levetiracetam (Keppra) 250 mg PO BID [facility] Stop: 02/27/17 08:59 Last Admin: 01/05/17 08:40 Dose: 250 mg Levothyroxine Sodium (Synthroid) 0.05 mg PO QDAC [facility] Stop: 02/27/17 07:29 Last Admin: 01/05/17 07:03 Dose: 0.05 mg Magnesium Hydroxide (Milk Of Magnesia) 30 ml PO DAILY PRN PRN Reason: Constipation Stop: 02/27/17 01:46 Megestrol Acetate (Megace) 40 mg PO DAILY [facility] PRN Reason: Protocol Stop: 02/28/17 15:59 Last Admin: 01/05/17 08:38 Dose: 40 mg Metolazone (Zaroxolyn) 5 mg PO BID [facility] Stop: 03/05/17 16:59 Last Admin: 01/05/17 08:39 Dose: 5 mg Miscellaneous (Probiotic Screen) 1 ea MC PRN PRN PRN Reason: PROTOCOL Stop: 02/28/17 15:40 Montelukast Sodium (Singulair) 10 mg PO DAILY [facility] Stop: 02/27/17 08:59 Last Admin: 01/05/17 08:38 Dose: 10 mg Ondansetron HCl (Zofran Odt) 4 mg PO Q6HR PRN PRN Reason: Nausea / Vomiting Stop: 02/27/17 01:46 Pantoprazole Sodium (Protonix) 40 mg PO DAILY [facility] Stop: 02/27/17 08:59 Last Admin: 01/05/17 08:38 Dose: 40 mg Senna (Senna) 17.2 mg PO HS [facility] Stop: 02/27/17 20:59 Last Admin: 01/04/17 21:19 Dose: 17.2 mg Sodium Phosphate (Fleet Enema) 135 ml RC Q48HR PRN PRN Reason: Constipation Stop: 02/27/17 01:46 Spironolactone (Aldactone) 25 mg PO BID [facility] Stop: 03/02/17 16:59 Last Admin: 01/05/17 08:39 Dose: 25 mg General: Alert, No acute distress HEENT: Atraumatic Neck: Supple, +2 carotid pulse wo bruit Cardiovascular: Regular rate, Normal S1, Normal S2 Lungs: Clear to auscultation, Other (decrease bs) Abdomen: Bowel sounds, Soft Extremities: Edema, Other ((+) 3 bipdeal edema) Neurological: Sensation intact Skin: no Rash Psych/Mental Status: Mood NL Assessment/Plan - Problem List Patient Problems: All Active Problems Anemia (Acute) D64.9 CKD (chronic kidney disease) stage 2, GFR 60-89 ml/min (Acute) N18.2 Diabetes (Acute) E11.9 Hyperlipidemia (Acute) E78.5 Non-ST elevated myocardial infarction (Acute) I21.4 Pacemaker (Acute) Z95.0 Pyelonephritis (Acute) N12 Seizure disorder (Acute) G40.909 Sick sinus syndrome (Acute) I49.5 UTI (urinary tract infection) (Acute) - Plan Plan: cardio w/up iv antibiotics cpm Nutritional Asmnt/Malnutr-PDOC - Dietary Evaluation Malnutrition Findings (Please click <Entered> for more info): Nutritional Asmnt/Malnutrition Start: 12/30/16 12: 57 Text: Status: Complete Freq: Document 12/30/16 12:57 GSUN (Rec: 12/30/16 13:17 GSUN [email or web address]) Nutritional Asmnt/Malnutrition Patient General Information Nutritional Screening High Risk Screening Diagnosis Elevated troponin level, UTI, poor intake Pertinent Medical Hx/Surgical Hx Anemia, CKD stage 2, DM, hyperlipidemia, non ST elevated myocardial infarction , pacemaker, pyelonephritis, seizure disorder, sick sinus syndrome Subjective Information 71 year old female. Pt's diet order noted to be pureed [facility] at [facility] , current diet order is low sodium. Spoke to RN Baldemar, RN made aware, RN also stated pt is Indonesian speaking but confused. Spoke to POWER SYSTEMS ENGINEER who assisted with breakfast, POWER SYSTEMS ENGINEER stated pt is a feeder, good appetite, tolerated well, however noted pt is edentulous so did not feed toast. Pt seen talkign to self during visit, appeared overweight, no muscle fat wasting noted. Current Diet Order/ Nutrition Support Low sodium Pertinent Medications Vitamin C, Lipitor, Dulcolax, Colace, Novolog, Culturelle, MOM, Zofran, Protonix, Senna, Fleet Enema Pertinent Labs 12/28: A1c 7.4H 12/30: BUN 54H, potassium 4.1, creatinine 1.4H, glucose 256H Nutritional Hx/Data Height 1.52 m Height (Calculated Centimeters) 152.4 Current Weight (lbs) 84.368 kg Weight (Calculated Kilograms) 84.4 Weight (Calculated Grams) 47508.2 [place] Body Weight 100 Weight Status Obese GI Symptoms Usual diet at home [facility]: pureed, CCHO, NICOLASA Skin Integrity/Comment: Ho 13. Pitting 2+ lower extremities. Coccyx blanchable redness. Estimated Nutritional Goals BEE in Kcals: Adj wt of IBW Calories/Kcals/Kg AdjBW 121.5lb/55.2kg Kcals Calculated 1380-1656kcal (25-30kcal/kg) Protein: Adj wt of IBW Protein Calculated 55-66g (1-1.2g/kg) Fluid: ml 1380-1656ml (1ml/kcal) Nutritional Problem 2. Problem Problem Altered nutrition related laboratory values related to Etiology DM aeb Signs/Symptoms: A1c 7.4H, glucose 256H 1. Problem Problem (possible) diffiiculty chewing related to Etiology edentulous, diet order aeb Signs/Symptoms: pt was previously on pureed diet and now on regular texture Intervention/Recommendation Comments 1. Recommend [id number] low sodium, diet texture to be determined. Previous pureed diet order noted in transfer chart, however pt has been on regular texture diet since adm , day 2. RN Baldemar made aware. 2. Nursing staff to record % intake for every meal. No documentations since adm. Expected Outcomes/Goals Expected Outcomes/Goals 1. PO intake to meet at least 75% of estimated nutritional needs with tolerance.
--- NOTE | 2017-01-05 14:35 | General Progress Note ---
Subjective - Review of Systems Service Date: 01/05/17 Subjective: alert, verbal, comfortable Objective - Results Result Diagrams: 01/02/17 10:29 01/05/17 05:35 Recent Labs: Laboratory Last Values WBC 7.6 Th/cmm (4.8-10.8) 01/02/17 10:29 RBC 4.48 Mil/cmm (3.80-5.20) 01/02/17 10:29 Hgb 12.0 gm/dL (12-16) 01/02/17 10:29 Hct 38.1 % (41.0-60) L D 01/02/17 10:29 MCV 85.1 fl (81-100) 01/02/17 10:29 MCH 26.8 pg (27.0-31.0) L 01/02/17 10:29 MCHC Differential 31.5 pg (28.0-36.0) 01/02/17 10:29 RDW 18.8 % (11.5-20.0) 01/02/17 10:29 Plt Count 154 Th/cmm (150-400) 01/02/17 10:29 MPV 9.2 fl 01/02/17 10:29 Neutrophils % 78.8 % (40.0-80.0) 01/02/17 10:29 Lymphocytes % 12.4 % (20.0-50.0) L 01/02/17 10:29 Monocytes % 6.0 % (2.0-10.0) 01/02/17 10:29 Eosinophils % 2.5 % (0.0-5.0) 01/02/17 10:29 Basophils % 0.3 % (0.0-2.0) 01/02/17 10:29 Eos Smear Source URINE 12/30/16 17:25 Eos Smear Total Cells NONE SEEN (NONE SEEN) 12/30/16 17:25 PT 14.0 SECONDS (9.5-11.5) H 12/28/16 22:11 INR 1.33 (0.5-1.4) 12/28/16 22:11 Sodium 134 mEq/L (136-145) L 01/05/17 05:35 Potassium 4.3 mEq/L (3.5-5.1) 01/05/17 05:35 Chloride 106 mEq/L (98-107) 01/05/17 05:35 Carbon Dioxide 22.0 mEq/L (21.0-31.0) 01/05/17 05:35 Anion Gap 10.3 (7.0-16.0) 01/05/17 05:35 BUN 35 mg/dL (7-25) H 01/05/17 05:35 Creatinine 1.2 mg/dL (0.6-1.2) 01/05/17 05:35 Est GFR ( Amer) TNP 01/05/17 05:35 Est GFR (Non-Af Amer) TNP 01/05/17 05:35 BUN/Creatinine Ratio 29.2 01/05/17 05:35 Glucose 264 mg/dL (70-105) H 01/05/17 05:35 POC Glucose 187 MG/DL (70 - 105) H 01/05/17 11:25 Hemoglobin A1c % 7.4 % (4.0-6.0) H 12/28/16 22:11 Plasma/Ser Osmolality 311 mOsmol/kg (280-301) H 12/30/16 05:35 Uric Acid 9.5 mg/dL (2.3-6.6) H 12/30/16 05:35 Calcium 8.7 mg/dL (8.6-10.3) 01/05/17 05:35 Phosphorus 3.3 mg/dL (2.5-5.0) 12/30/16 05:35 Magnesium 1.9 mg/dL (1.9-2.7) 12/30/16 05:35 Total Bilirubin 0.9 mg/dL (0.3-1.0) 12/30/16 05:35 AST 15 U/L (13-39) 12/30/16 05:35 ALT 8 U/L (7-52) 12/30/16 05:35 Alkaline Phosphatase 71 U/L (34-104) 12/30/16 05:35 Troponin I < 0.01 ng/mL (0.01-0.05) L 12/31/16 06:27 B-Natriuretic Peptide 2580.0 pg/mL (5.0-100.0) H 01/05/17 05:35 Total Protein 6.2 gm/dL (6.0-8.3) 12/30/16 05:35 Albumin 2.9 gm/dL (3.7-5.3) L 12/30/16 05:35 Globulin 3.3 gm/dL 12/30/16 05:35 Albumin/Globulin Ratio 0.9 (1.0-1.8) L 12/30/16 05:35 Triglycerides 60 mg/dL (<150) 12/30/16 05:35 Cholesterol 69 mg/dL (<200) 12/30/16 05:35 LDL Cholesterol Direct 47 mg/dL (75-193) L 12/30/16 05:35 HDL Cholesterol 23 mg/dL (23-92) 12/30/16 05:35 TSH 2.33 uIU/ml (0.34-5.60) 12/28/16 22:11 Urine Source CLEAN C 12/28/16 22:30 Urine Color YELLOW 12/28/16 22:30 Urine Clarity HAZY (CLEAR) 12/28/16 22:30 Urine pH 5.5 (4.6 - 8.0) 12/28/16 22:30 Ur Specific Stickney 1.015 (1.005-1.030) 12/28/16 22:30 Urine Protein TRACE mg/dL (NEGATIVE) 12/28/16 22:30 Urine Glucose (UA) NEGATIVE mg/dL (NEGATIVE) 12/28/16 22:30 Urine Ketones NEGATIVE mg/dL (NEGATIVE) 12/28/16 22:30 Urine Blood SMALL (NEGATIVE) H 12/28/16 22:30 Urine Nitrate POSITIVE (NEGATIVE) H 12/28/16 22:30 Urine Bilirubin NEGATIVE (NEGATIVE) 12/28/16 22:30 Urine Urobilinogen 0.2 E.U./dL (0.2 - 1.0) 12/28/16 22:30 Ur Leukocyte Esterase TRACE (NEGATIVE) H 12/28/16 22:30 Urine RBC 10-25 /hpf (0-5) H 12/28/16 22:30 Urine WBC 6-10 /hpf (0-5) H 12/28/16 22:30 Ur Epithelial Cells FEW /lpf (FEW) 12/28/16 22:30 Urine Bacteria MODERATE /hpf (NONE SEEN) 12/28/16 22:30 Ur Random Sodium 13 mmol/L 12/30/16 17:25 Urine Creatinine 74.6 mg/dl (Not Estab.) 12/30/16 17:25 Urine Microalbumin 636.6 ug/mL (Not Estab.) 12/30/16 17:25 Microalb/Creat Ratio 853.4 mg/g creat (0.0-30.0) H 12/30/16 17:25 - Physical Exam Vitals and I&O: Vital Signs Temp 97.7 F 01/05/17 11:00 Pulse 74 01/05/17 11:00 Resp 17 01/05/17 11:00 BP 133/67 01/05/17 11:00 Pulse Ox 96 01/05/17 11:00 Intake & Output 01/04/17 01/05/17 01/05/17 18:59 06:59 18:59 Intake Total 240 Balance 240 Weight (lbs) 84.368 kg 84.368 kg Intake: Oral 240 Other: # Voids 3 # Bowel Movements 1 Active Medications: Current Medications Acetaminophen (Tylenol) 650 mg PO Q4HR PRN PRN Reason: Pain or Fever >101 Stop: 02/27/17 01:46 Last Admin: 01/04/17 23:10 Dose: 650 mg Albuterol/Ipratropium (Duoneb Neb) 3 ml HHN Q6HR PRN PRN Reason: Shortness of Breath or Wheeze Stop: 02/27/17 01:46 Ascorbic Acid (Vitamin C) 500 mg PO DAILY [facility] Stop: 02/27/17 08:59 Last Admin: 01/05/17 08:40 Dose: 500 mg Aspirin (Aspirin Chewable) 81 mg PO DAILY [facility] Stop: 02/28/17 08:59 Last Admin: 01/05/17 08:40 Dose: 81 mg Atorvastatin Calcium (Lipitor) 10 mg PO DAILY JOSE DAVID PRN Reason: Protocol Stop: 02/28/17 08:59 Last Admin: 01/05/17 08:38 Dose: 10 mg Bisacodyl (Dulcolax 10 Mg Supp) 10 mg RC DAILY PRN PRN Reason: Constipation Stop: 02/27/17 01:46 Carvedilol (Coreg) 6.25 mg PO BID [facility] Stop: 03/02/17 16:59 Last Admin: 01/05/17 08:39 Dose: 6.25 mg Docusate Sodium (Colace) 100 mg PO BID [facility] Stop: 02/27/17 08:59 Last Admin: 01/05/17 08:40 Dose: 100 mg Enoxaparin Sodium (Lovenox) 40 mg SUBQ Q12HR JOSE DAVID Stop: 02/27/17 20:59 Last Admin: 01/05/17 08:37 Dose: 40 mg Furosemide (Lasix) 40 mg IVP BID JOSE DAVID Stop: 03/02/17 16:59 Last Admin: 01/05/17 08:39 Dose: 40 mg Hydralazine HCl (Apresoline) 10 mg PO BID JOSE DAVID Stop: 02/27/17 08:59 Last Admin: 01/05/17 08:40 Dose: 10 mg Dopamine HCl/Dextrose (Dopamine) 400 mg in 250 mls @ 9.491 mls/hr IV Q26H JOSE DAVID PRN Reason: 3 MCG/KG/MIN Stop: 01/08/17 12:59 Insulin Aspart (Novolog Insulin Sliding Scale) 0 units SUBQ ACHS JOSE DAVID PRN Reason: Protocol Stop: 02/27/17 07:29 Last Admin: 01/05/17 12:33 Dose: 3 units Isosorbide Dinitrate (Isordil) 10 mg PO TID [facility] Stop: 02/27/17 08:59 Last Admin: 01/05/17 08:38 Dose: 10 mg Lactobacillus Rhamnosus (Culturelle) 1 each PO DAILY JOSE DAVID Stop: 02/27/17 08:59 Last Admin: 01/05/17 08:40 Dose: 1 each Levetiracetam (Keppra) 250 mg PO BID JOSE DAVID Stop: 02/27/17 08:59 Last Admin: 01/05/17 08:40 Dose: 250 mg Levothyroxine Sodium (Synthroid) 0.05 mg PO QDAC JOSE DAVID Stop: 02/27/17 07:29 Last Admin: 01/05/17 07:03 Dose: 0.05 mg Magnesium Hydroxide (Milk Of Magnesia) 30 ml PO DAILY PRN PRN Reason: Constipation Stop: 02/27/17 01:46 Megestrol Acetate (Megace) 40 mg PO DAILY JOSE DAVID PRN Reason: Protocol Stop: 02/28/17 15:59 Last Admin: 01/05/17 08:38 Dose: 40 mg Metolazone (Zaroxolyn) 5 mg PO BID JOSE DAVID Stop: 03/05/17 16:59 Last Admin: 01/05/17 08:39 Dose: 5 mg Miscellaneous (Probiotic Screen) 1 ea MC PRN PRN PRN Reason: PROTOCOL Stop: 02/28/17 15:40 Montelukast Sodium (Singulair) 10 mg PO DAILY [facility] Stop: 02/27/17 08:59 Last Admin: 01/05/17 08:38 Dose: 10 mg Ondansetron HCl (Zofran Odt) 4 mg PO Q6HR PRN PRN Reason: Nausea / Vomiting Stop: 02/27/17 01:46 Pantoprazole Sodium (Protonix) 40 mg PO DAILY JOSE DAVID Stop: 02/27/17 08:59 Last Admin: 01/05/17 08:38 Dose: 40 mg Senna (Senna) 17.2 mg PO HS JOSE DAVID Stop: 02/27/17 20:59 Last Admin: 01/04/17 21:19 Dose: 17.2 mg Sodium Phosphate (Fleet Enema) 135 ml RC Q48HR PRN PRN Reason: Constipation Stop: 02/27/17 01:46 Spironolactone (Aldactone) 25 mg PO BID [facility] Stop: 03/02/17 16:59 Last Admin: 01/05/17 08:39 Dose: 25 mg General: Alert, No acute distress HEENT: Atraumatic Neck: Supple, +2 carotid pulse wo bruit Cardiovascular: Regular rate, Normal S1, Normal S2 Lungs: Other (decrease bs) Abdomen: Bowel sounds, Soft Extremities: Edema, Other ((+) 3 bipdeal edema) Neurological: Sensation intact Skin: no Rash Psych/Mental Status: Mood NL Assessment/Plan - Problem List Patient Problems: All Active Problems Anemia (Acute) D64.9 CKD (chronic kidney disease) stage 2, GFR 60-89 ml/min (Acute) N18.2 Diabetes (Acute) E11.9 Hyperlipidemia (Acute) E78.5 Non-ST elevated myocardial infarction (Acute) I21.4 Pacemaker (Acute) Z95.0 Pyelonephritis (Acute) N12 Seizure disorder (Acute) G40.909 Sick sinus syndrome (Acute) I49.5 UTI (urinary tract infection) (Acute) - Assessment Assessment: MAEVE on CKD Type 2 DM Alzh Dementia Ess Htn w/ CKD Severe Cardiomyopathy S/P AICD Epilepsy CAD Acute on Chronic Chf Severed PAD FTT - Plan Plan: Lab - Result Diagrams 12/30/16 05:35 12/31/16 06:27 Current Medications Acetaminophen (Tylenol) 650 mg PO Q4HR PRN PRN Reason: Pain or Fever >101 Stop: 02/27/17 01:46 Last Admin: 12/30/16 21:38 Dose: 650 mg Albuterol/Ipratropium (Duoneb Neb) 3 ml HHN Q6HR PRN PRN Reason: Shortness of Breath or Wheeze Stop: 02/27/17 01:46 Ascorbic Acid (Vitamin C) 500 mg PO DAILY [facility] Stop: 02/27/17 08:59 Last Admin: 12/31/16 09:30 Dose: 500 mg Aspirin (Aspirin Chewable) 81 mg PO DAILY [facility] Stop: 02/28/17 08:59 Last Admin: 12/31/16 09:30 Dose: 81 mg Atorvastatin Calcium (Lipitor) 10 mg PO DAILY JOSE DAVID PRN Reason: Protocol Stop: 02/28/17 08:59 Last Admin: 12/31/16 09:30 Dose: 10 mg Bisacodyl (Dulcolax 10 Mg Supp) 10 mg RC DAILY PRN PRN Reason: Constipation Stop: 02/27/17 01:46 Carvedilol (Coreg) 3.125 mg PO BID [facility] Stop: 02/27/17 08:59 Last Admin: 12/31/16 17:37 Dose: Not Given Docusate Sodium (Colace) 100 mg PO BID [facility] Stop: 02/27/17 08:59 Last Admin: 12/31/16 17:37 Dose: Not Given Enoxaparin Sodium (Lovenox) 40 mg SUBQ Q12HR [facility] Stop: 02/27/17 20:59 Last Admin: 12/31/16 09:30 Dose: 40 mg Hydralazine HCl (Apresoline) 10 mg PO BID [facility] Stop: 02/27/17 08:59 Last Admin: 12/31/16 17:37 Dose: Not Given Ceftriaxone Sodium 1 gm/ (Sodium Chloride) 50 mls @ 100 mls/hr IV Q24HR [facility] Stop: 02/28/17 00:00 Last Admin: 12/31/16 01:37 Dose: 100 mls/hr Sodium Chloride (Nacl 0.9%) 1,000 mls @ 70 mls/hr IV .[id number] [facility] Stop: 02/27/17 07:59 Last Admin: 12/31/16 07:00 Dose: 70 mls/hr Insulin Aspart (Novolog Insulin Sliding Scale) 0 units SUBQ ACHS JOSE DAVID PRN Reason: Protocol Stop: 02/27/17 07:29 Last Admin: 12/31/16 17:52 Dose: 3 units Isosorbide Dinitrate (Isordil) 10 mg PO TID JOSE DAVID Stop: 02/27/17 08:59 Last Admin: 12/31/16 14:10 Dose: Not Given Lactobacillus Rhamnosus (Culturelle) 1 each PO DAILY JOSE DAVID Stop: 02/27/17 08:59 Last Admin: 12/31/16 09:30 Dose: 1 each Levetiracetam (Keppra) 250 mg PO BID JOSE DAVID Stop: 02/27/17 08:59 Last Admin: 12/31/16 17:37 Dose: Not Given Levothyroxine Sodium (Synthroid) 0.05 mg PO QDAC JOSE DAVID Stop: 02/27/17 07:29 Last Admin: 12/31/16 07:01 Dose: 0.05 mg Magnesium Hydroxide (Milk Of Magnesia) 30 ml PO DAILY PRN PRN Reason: Constipation Stop: 02/27/17 01:46 Megestrol Acetate (Megace) 40 mg PO DAILY JOSE DAVID PRN Reason: Protocol Stop: 02/28/17 15:59 Last Admin: 12/31/16 09:30 Dose: 40 mg Miscellaneous (Probiotic Screen) 1 ea MC PRN PRN PRN Reason: PROTOCOL Stop: 02/28/17 15:40 Montelukast Sodium (Singulair) 10 mg PO DAILY [facility] Stop: 02/27/17 08:59 Last Admin: 12/31/16 09:30 Dose: 10 mg Mupirocin (Bactroban Oint) 1 appl NS BID [facility] Stop: 01/04/17 17:01 Last Admin: 12/31/16 17:37 Dose: Not Given Ondansetron HCl (Zofran Odt) 4 mg PO Q6HR PRN PRN Reason: Nausea / Vomiting Stop: 02/27/17 01:46 Pantoprazole Sodium (Protonix) 40 mg PO DAILY JOSE DAVID Stop: 02/27/17 08:59 Last Admin: 12/31/16 09:30 Dose: 40 mg Senna (Senna) 17.2 mg PO HS OJSE DAVID Stop: 02/27/17 20:59 Last Admin: 12/30/16 20:22 Dose: 17.2 mg Sodium Phosphate (Fleet Enema) 135 ml RC Q48HR PRN PRN Reason: Constipation Stop: 02/27/17 01:46 DC IVF due to elevated BNP, peripheral edema ECHO revealed severe CM w/ EJF of 10-15% B/L LAE, LVH no change kidney fnc already has AICD, consider bivent pacing CXR NAD, BNP 2520 FE Na 0.13% suggestive of prerenal component add spironolactone, increase coreg f/u cxr, electrolytes Lab - Result Diagrams 01/02/17 10:29 01/05/17 05:35 7 Nutritional Asmnt/Malnutr-PDOC - Dietary Evaluation Malnutrition Findings (Please click <Entered> for more info): Nutritional Asmnt/Malnutrition Start: 12/30/16 12: 57 Text: Status: Complete Freq: Document 12/30/16 12:57 GSUN (Rec: 12/30/16 13:17 GSUN [id number]) Nutritional Asmnt/Malnutrition Patient General Information Nutritional Screening High Risk Screening Diagnosis Elevated troponin level, UTI, poor intake Pertinent Medical Hx/Surgical Hx Anemia, CKD stage 2, DM, hyperlipidemia, non ST elevated myocardial infarction , pacemaker, pyelonephritis, seizure disorder, sick sinus syndrome Subjective Information 71 year old female. Pt's diet order noted to be pureed CCHO NICOLASA at [facility] , current diet order is low sodium. Spoke to RN Baldemar, RN made aware, RN also stated pt is [place] speaking but confused. Spoke to MIS SPECIALIST who assisted with breakfast, MIS SPECIALIST stated pt is a feeder, good appetite, tolerated well, however noted pt is edentulous so did not feed toast. Pt seen talkign to self during visit, appeared overweight, no muscle fat wasting noted. Current Diet Order/ Nutrition Support Low sodium Pertinent Medications Vitamin C, Lipitor, Dulcolax, Colace, Novolog, Culturelle, MOM, Zofran, Protonix, Senna, Fleet Enema Pertinent Labs 12/28: A1c 7.4H 12/30: BUN 54H, potassium 4.1, creatinine 1.4H, glucose 256H Nutritional Hx/Data Height 1.52 m Height (Calculated Centimeters) 152.4 Current Weight (lbs) 84.368 kg Weight (Calculated Kilograms) 84.4 Weight (Calculated Grams) 10206.2 [place] Body Weight 100 Weight Status Obese GI Symptoms Usual diet at home [facility]: ronaldo, SAULO, NICOLASA Skin Integrity/Comment: Ho 13. Pitting 2+ lower extremities. Coccyx blanchable redness. Estimated Nutritional Goals BEE in Kcals: Adj wt of IBW Calories/Kcals/Kg AdjBW 121.5lb/55.2kg Kcals Calculated 1380-1656kcal (25-30kcal/kg) Protein: Adj wt of IBW Protein Calculated 55-66g (1-1.2g/kg) Fluid: ml 1380-1656ml (1ml/kcal) Nutritional Problem 2. Problem Problem Altered nutrition related laboratory values related to Etiology DM aeb Signs/Symptoms: A1c 7.4H, glucose 256H 1. Problem Problem (possible) diffiiculty chewing related to Etiology edentulous, diet order aeb Signs/Symptoms: pt was previously on pureed diet and now on regular texture Intervention/Recommendation Comments 1. Recommend [id number] low sodium, diet texture to be determined. Previous pureed diet order noted in transfer chart, however pt has been on regular texture diet since adm , day 2. MIKE Mcdermott made aware. 2. Nursing staff to record % intake for every meal. No documentations since adm. Expected Outcomes/Goals Expected Outcomes/Goals 1. PO intake to meet at least 75% of estimated nutritional needs with tolerance.
[2017-01-05] MEDS: DOPamine 400 MG/250 ML BAG IV SCH (14:43)
--- NOTE | 2017-01-05 22:47 | Infectious Disease Prog Note ---
Infectious Disease Subjective - Review of Systems Service Date: 01/05/17 Subjective: There is no new change, there is no fever. Infectious Disease Objective - Results Result Diagrams: 01/02/17 10:29 01/06/17 05:30 Recent Labs: Laboratory Last Values WBC 7.6 Th/cmm (4.8-10.8) 01/02/17 10:29 RBC 4.48 Mil/cmm (3.80-5.20) 01/02/17 10:29 Hgb 12.0 gm/dL (12-16) 01/02/17 10:29 Hct 38.1 % (41.0-60) L D 01/02/17 10:29 MCV 85.1 fl (81-100) 01/02/17 10:29 MCH 26.8 pg (27.0-31.0) L 01/02/17 10:29 MCHC Differential 31.5 pg (28.0-36.0) 01/02/17 10:29 RDW 18.8 % (11.5-20.0) 01/02/17 10:29 Plt Count 154 Th/cmm (150-400) 01/02/17 10:29 MPV 9.2 fl 01/02/17 10:29 Neutrophils % 78.8 % (40.0-80.0) 01/02/17 10:29 Lymphocytes % 12.4 % (20.0-50.0) L 01/02/17 10:29 Monocytes % 6.0 % (2.0-10.0) 01/02/17 10:29 Eosinophils % 2.5 % (0.0-5.0) 01/02/17 10:29 Basophils % 0.3 % (0.0-2.0) 01/02/17 10:29 Eos Smear Source URINE 12/30/16 17:25 Eos Smear Total Cells NONE SEEN (NONE SEEN) 12/30/16 17:25 PT 14.0 SECONDS (9.5-11.5) H 12/28/16 22:11 INR 1.33 (0.5-1.4) 12/28/16 22:11 Sodium 134 mEq/L (136-145) L 01/05/17 05:35 Potassium 4.3 mEq/L (3.5-5.1) 01/05/17 05:35 Chloride 106 mEq/L (98-107) 01/05/17 05:35 Carbon Dioxide 22.0 mEq/L (21.0-31.0) 01/05/17 05:35 Anion Gap 10.3 (7.0-16.0) 01/05/17 05:35 BUN 35 mg/dL (7-25) H 01/05/17 05:35 Creatinine 1.2 mg/dL (0.6-1.2) 01/05/17 05:35 Est GFR ( Amer) TNP 01/05/17 05:35 Est GFR (Non-Af Amer) TNP 01/05/17 05:35 BUN/Creatinine Ratio 29.2 01/05/17 05:35 Glucose 264 mg/dL (70-105) H 01/05/17 05:35 POC Glucose 261 MG/DL (70 - 105) H 01/05/17 21:02 Hemoglobin A1c % 7.4 % (4.0-6.0) H 12/28/16 22:11 Plasma/Ser Osmolality 311 mOsmol/kg (280-301) H 12/30/16 05:35 Uric Acid 9.5 mg/dL (2.3-6.6) H 12/30/16 05:35 Calcium 8.7 mg/dL (8.6-10.3) 01/05/17 05:35 Phosphorus 3.3 mg/dL (2.5-5.0) 12/30/16 05:35 Magnesium 1.9 mg/dL (1.9-2.7) 12/30/16 05:35 Total Bilirubin 0.9 mg/dL (0.3-1.0) 12/30/16 05:35 AST 15 U/L (13-39) 12/30/16 05:35 ALT 8 U/L (7-52) 12/30/16 05:35 Alkaline Phosphatase 71 U/L (34-104) 12/30/16 05:35 Troponin I < 0.01 ng/mL (0.01-0.05) L 12/31/16 06:27 B-Natriuretic Peptide 2580.0 pg/mL (5.0-100.0) H 01/05/17 05:35 Total Protein 6.2 gm/dL (6.0-8.3) 12/30/16 05:35 Albumin 2.9 gm/dL (3.7-5.3) L 12/30/16 05:35 Globulin 3.3 gm/dL 12/30/16 05:35 Albumin/Globulin Ratio 0.9 (1.0-1.8) L 12/30/16 05:35 Triglycerides 60 mg/dL (<150) 12/30/16 05:35 Cholesterol 69 mg/dL (<200) 12/30/16 05:35 LDL Cholesterol Direct 47 mg/dL (75-193) L 12/30/16 05:35 HDL Cholesterol 23 mg/dL (23-92) 12/30/16 05:35 TSH 2.33 uIU/ml (0.34-5.60) 12/28/16 22:11 Urine Source CLEAN C 12/28/16 22:30 Urine Color YELLOW 12/28/16 22:30 Urine Clarity HAZY (CLEAR) 12/28/16 22:30 Urine pH 5.5 (4.6 - 8.0) 12/28/16 22:30 Ur Specific [place] 1.015 (1.005-1.030) 12/28/16 22:30 Urine Protein TRACE mg/dL (NEGATIVE) 12/28/16 22:30 Urine Glucose (UA) NEGATIVE mg/dL (NEGATIVE) 12/28/16 22:30 Urine Ketones NEGATIVE mg/dL (NEGATIVE) 12/28/16 22:30 Urine Blood SMALL (NEGATIVE) H 12/28/16 22:30 Urine Nitrate POSITIVE (NEGATIVE) H 12/28/16 22:30 Urine Bilirubin NEGATIVE (NEGATIVE) 12/28/16 22:30 Urine Urobilinogen 0.2 E.U./dL (0.2 - 1.0) 12/28/16 22:30 Ur Leukocyte Esterase TRACE (NEGATIVE) H 12/28/16 22:30 Urine RBC 10-25 /hpf (0-5) H 12/28/16 22:30 Urine WBC 6-10 /hpf (0-5) H 12/28/16 22:30 Ur Epithelial Cells FEW /lpf (FEW) 12/28/16 22:30 Urine Bacteria MODERATE /hpf (NONE SEEN) 12/28/16 22:30 Ur Random Sodium 13 mmol/L 12/30/16 17:25 Urine Creatinine 74.6 mg/dl (Not Estab.) 12/30/16 17:25 Urine Microalbumin 636.6 ug/mL (Not Estab.) 12/30/16 17:25 Microalb/Creat Ratio 853.4 mg/g creat (0.0-30.0) H 12/30/16 17:25 - Physical Exam Vitals and I&O: Vital Signs Temp 98.3 F 01/05/17 15:00 Pulse 80 01/05/17 19:20 Resp 20 01/05/17 19:20 BP 142/66 01/05/17 16:52 Pulse Ox 95 01/05/17 19:20 Intake & Output 01/05/17 01/05/17 01/06/17 06:59 18:59 06:59 Intake Total 240 360 Output Total 725 Balance 240 -365 Weight (lbs) 84.368 kg 84.368 kg Intake: Oral 240 360 Output: Urine 725 Other: # Voids 3 # Bowel Movements 1 Active Medications: Current Medications Acetaminophen (Tylenol) 650 mg PO Q4HR PRN PRN Reason: Pain or Fever >101 Stop: 02/27/17 01:46 Last Admin: 01/04/17 23:10 Dose: 650 mg Albuterol/Ipratropium (Duoneb Neb) 3 ml HHN Q6HR PRN PRN Reason: Shortness of Breath or Wheeze Stop: 02/27/17 01:46 Ascorbic Acid (Vitamin C) 500 mg PO DAILY [facility] Stop: 02/27/17 08:59 Last Admin: 01/05/17 08:40 Dose: 500 mg Aspirin (Aspirin Chewable) 81 mg PO DAILY [facility] Stop: 02/28/17 08:59 Last Admin: 01/05/17 08:40 Dose: 81 mg Atorvastatin Calcium (Lipitor) 10 mg PO DAILY [facility] PRN Reason: Protocol Stop: 02/28/17 08:59 Last Admin: 01/05/17 08:38 Dose: 10 mg Bisacodyl (Dulcolax 10 Mg Supp) 10 mg RC DAILY PRN PRN Reason: Constipation Stop: 02/27/17 01:46 Carvedilol (Coreg) 6.25 mg PO BID [facility] Stop: 03/02/17 16:59 Last Admin: 01/05/17 16:51 Dose: 6.25 mg Docusate Sodium (Colace) 100 mg PO BID [facility] Stop: 02/27/17 08:59 Last Admin: 01/05/17 16:51 Dose: 100 mg Enoxaparin Sodium (Lovenox) 40 mg SUBQ Q12HR [facility] Stop: 02/27/17 20:59 Last Admin: 01/05/17 21:07 Dose: 40 mg Furosemide (Lasix) 40 mg IVP BID [facility] Stop: 03/02/17 16:59 Last Admin: 01/05/17 16:51 Dose: 40 mg Hydralazine HCl (Apresoline) 10 mg PO BID [facility] Stop: 02/27/17 08:59 Last Admin: 01/05/17 16:52 Dose: 10 mg Dopamine HCl/Dextrose (Dopamine) 400 mg in 250 mls @ 9.491 mls/hr IV Q26H [facility] PRN Reason: 3 MCG/KG/MIN Stop: 01/08/17 12:59 Last Admin: 01/05/17 14:43 Dose: 3 mcg/kg/min, 9.491 mls/hr Insulin Aspart (Novolog Insulin Sliding Scale) 0 units SUBQ ACHS [facility] PRN Reason: Protocol Stop: 02/27/17 07:29 Last Admin: 01/05/17 21:07 Dose: 5 units Isosorbide Dinitrate (Isordil) 10 mg PO TID [facility] Stop: 02/27/17 08:59 Last Admin: 01/05/17 21:06 Dose: Not Given Lactobacillus Rhamnosus (Culturelle) 1 each PO DAILY [facility] Stop: 02/27/17 08:59 Last Admin: 01/05/17 08:40 Dose: 1 each Levetiracetam (Keppra) 250 mg PO BID [facility] Stop: 02/27/17 08:59 Last Admin: 01/05/17 16:51 Dose: 250 mg Levothyroxine Sodium (Synthroid) 0.05 mg PO QDAC [facility] Stop: 02/27/17 07:29 Last Admin: 01/05/17 07:03 Dose: 0.05 mg Magnesium Hydroxide (Milk Of Magnesia) 30 ml PO DAILY PRN PRN Reason: Constipation Stop: 02/27/17 01:46 Megestrol Acetate (Megace) 40 mg PO DAILY [facility] PRN Reason: Protocol Stop: 02/28/17 15:59 Last Admin: 01/05/17 08:38 Dose: 40 mg Metolazone (Zaroxolyn) 5 mg PO BID [facility] Stop: 03/05/17 16:59 Last Admin: 01/05/17 16:51 Dose: 5 mg Miscellaneous (Probiotic Screen) 1 ea MC PRN PRN PRN Reason: PROTOCOL Stop: 02/28/17 15:40 Montelukast Sodium (Singulair) 10 mg PO DAILY [facility] Stop: 02/27/17 08:59 Last Admin: 01/05/17 08:38 Dose: 10 mg Ondansetron HCl (Zofran Odt) 4 mg PO Q6HR PRN PRN Reason: Nausea / Vomiting Stop: 02/27/17 01:46 Pantoprazole Sodium (Protonix) 40 mg PO DAILY [facility] Stop: 02/27/17 08:59 Last Admin: 01/05/17 08:38 Dose: 40 mg Senna (Senna) 17.2 mg PO HS [facility] Stop: 02/27/17 20:59 Last Admin: 01/05/17 21:07 Dose: Not Given Sodium Phosphate (Fleet Enema) 135 ml RC Q48HR PRN PRN Reason: Constipation Stop: 02/27/17 01:46 Spironolactone (Aldactone) 25 mg PO BID [facility] Stop: 03/02/17 16:59 Last Admin: 01/05/17 16:50 Dose: 25 mg General: no acute distress, well developed, well nourished HEENT: atraumatic, normocephalic, PERRLA Neck: supple, no thyromegaly Cardiovascular: S1S2, regular Lungs: clear to auscultation bilaterally, clear to percussion Abdomen: soft, bowel sounds, no tender, no distended, no mass Extremities: no cyanosis, no clubbing, no edema Neurological: awake, alert, oriented Skin: intact, no rash Infectious Disease Assmt/Plan - Problem List Patient Problems: All Active Problems Anemia (Acute) D64.9 CKD (chronic kidney disease) stage 2, GFR 60-89 ml/min (Acute) N18.2 Diabetes (Acute) E11.9 Hyperlipidemia (Acute) E78.5 Non-ST elevated myocardial infarction (Acute) I21.4 Pacemaker (Acute) Z95.0 Pyelonephritis (Acute) N12 Seizure disorder (Acute) G40.909 Sick sinus syndrome (Acute) I49.5 UTI (urinary tract infection) (Acute) - Assessment Assessment: UTI MRSA colonization. - Plan Plan: [facility] DC plan. Nutritional Asmnt/Malnutr-PDOC - Dietary Evaluation Malnutrition Findings (Please click <Entered> for more info): Nutritional Asmnt/Malnutrition Start: 12/30/16 12: 57 Text: Status: Complete Freq: Document 12/30/16 12:57 GSUN (Rec: 12/30/16 13:17 [email or web address] [email or web address]) Nutritional Asmnt/Malnutrition Patient General Information Nutritional Screening High Risk Screening Diagnosis Elevated troponin level, UTI, poor intake Pertinent Medical Hx/Surgical Hx Anemia, CKD stage 2, DM, hyperlipidemia, non ST elevated myocardial infarction , pacemaker, pyelonephritis, seizure disorder, sick sinus syndrome Subjective Information 71 year old female. Pt's diet order noted to be pureed CCHO NICOLASA at [facility] , current diet order is low sodium. Spoke to RN Baldemar, RN made aware, RN also stated pt is Chilean speaking but confused. Spoke to VENEER DRIER who assisted with breakfast, VENEER DRIER stated pt is a feeder, good appetite, tolerated well, however noted pt is edentulous so did not feed toast. Pt seen talkign to self during visit, appeared overweight, no muscle fat wasting noted. Current Diet Order/ Nutrition Support Low sodium Pertinent Medications Vitamin C, Lipitor, Dulcolax, Colace, Novolog, Culturelle, MOM, Zofran, Protonix, Senna, Fleet Enema Pertinent Labs 12/28: A1c 7.4H 12/30: BUN 54H, potassium 4.1, creatinine 1.4H, glucose 256H Nutritional Hx/Data Height 1.52 m Height (Calculated Centimeters) 152.4 Current Weight (lbs) 84.368 kg Weight (Calculated Kilograms) 84.4 Weight (Calculated Grams) 31741.2 [place] Body Weight 100 Weight Status Obese GI Symptoms Usual diet at home [facility]: pureed, CCHO, NICOLASA Skin Integrity/Comment: Ho 13. Pitting 2+ lower extremities. Coccyx blanchable redness. Estimated Nutritional Goals BEE in Kcals: Adj wt of IBW Calories/Kcals/Kg AdjBW 121.5lb/55.2kg Kcals Calculated 1380-1656kcal (25-30kcal/kg) Protein: Adj wt of IBW Protein Calculated 55-66g (1-1.2g/kg) Fluid: ml 1380-1656ml (1ml/kcal) Nutritional Problem 2. Problem Problem Altered nutrition related laboratory values related to Etiology DM aeb Signs/Symptoms: A1c 7.4H, glucose 256H 1. Problem Problem (possible) diffiiculty chewing related to Etiology edentulous, diet order aeb Signs/Symptoms: pt was previously on pureed diet and now on regular texture Intervention/Recommendation Comments 1. Recommend [id number] low sodium, diet texture to be determined. Previous pureed diet order noted in transfer chart, however pt has been on regular texture diet since adm , day 2. MIKE Mcdermott made aware. 2. Nursing staff to record % intake for every meal. No documentations since adm. Expected Outcomes/Goals Expected Outcomes/Goals 1. PO intake to meet at least 75% of estimated nutritional needs with tolerance.
[2017-01-06 06:16] LABS: ANION GAP 10.5 (7.0-16.0); BUN - UREA NITROGEN 34 mg/dL (7-25); BUN/CREATININE RATIO 28.3; CALCIUM SERUM 8.8 mg/dL (8.6-10.3); CARBON DIOXIDE 22.7 mEq/L (21.0-31.0); CHLORIDE 106 mEq/L (98-107); CREATININE - SERUM 1.2 mg/dL (0.6-1.2); GLUCOSE 211 mg/dL (70-105); MAGNESIUM 1.7 mg/dL (1.9-2.7); POTASSIUM SERUM 4.2 mEq/L (3.5-5.1); SODIUM SERUM 135 mEq/L (136-145)
[2017-01-06] MEDS: INSULIN ASPART SLIDING SCALE 100 UNITS/ML UNIT SUBQ SCH ×4 (06:45→20:42)
[2017-01-06] MEDS: Levothyroxine 0.05 Mg Tab PO SCH (06:45)
[2017-01-06] MEDS ORDERED: Mag Sulfate 2gm/50mL Premix 2 GM/50 ML BAG IV ONE (08:59)
--- NOTE | 2017-01-06 09:20 | General Progress Note ---
Subjective - Review of Systems Events since last encounter: there is no new changes Objective - Results Result Diagrams: 01/02/17 10:29 01/06/17 05:30 Recent Labs: Laboratory Last Values WBC 7.6 Th/cmm (4.8-10.8) 01/02/17 10:29 RBC 4.48 Mil/cmm (3.80-5.20) 01/02/17 10:29 Hgb 12.0 gm/dL (12-16) 01/02/17 10:29 Hct 38.1 % (41.0-60) L D 01/02/17 10:29 MCV 85.1 fl (81-100) 01/02/17 10:29 MCH 26.8 pg (27.0-31.0) L 01/02/17 10:29 MCHC Differential 31.5 pg (28.0-36.0) 01/02/17 10:29 RDW 18.8 % (11.5-20.0) 01/02/17 10:29 Plt Count 154 Th/cmm (150-400) 01/02/17 10:29 MPV 9.2 fl 01/02/17 10:29 Neutrophils % 78.8 % (40.0-80.0) 01/02/17 10:29 Lymphocytes % 12.4 % (20.0-50.0) L 01/02/17 10:29 Monocytes % 6.0 % (2.0-10.0) 01/02/17 10:29 Eosinophils % 2.5 % (0.0-5.0) 01/02/17 10:29 Basophils % 0.3 % (0.0-2.0) 01/02/17 10:29 Eos Smear Source URINE 12/30/16 17:25 Eos Smear Total Cells NONE SEEN (NONE SEEN) 12/30/16 17:25 PT 14.0 SECONDS (9.5-11.5) H 12/28/16 22:11 INR 1.33 (0.5-1.4) 12/28/16 22:11 Sodium 135 mEq/L (136-145) L 01/06/17 05:30 Potassium 4.2 mEq/L (3.5-5.1) 01/06/17 05:30 Chloride 106 mEq/L (98-107) 01/06/17 05:30 Carbon Dioxide 22.7 mEq/L (21.0-31.0) 01/06/17 05:30 Anion Gap 10.5 (7.0-16.0) 01/06/17 05:30 BUN 34 mg/dL (7-25) H 01/06/17 05:30 Creatinine 1.2 mg/dL (0.6-1.2) 01/06/17 05:30 Est GFR ( Amer) TNP 01/06/17 05:30 Est GFR (Non-Af Amer) TNP 01/06/17 05:30 BUN/Creatinine Ratio 28.3 01/06/17 05:30 Glucose 211 mg/dL (70-105) H 01/06/17 05:30 POC Glucose 195 MG/DL (70 - 105) H 01/06/17 06:38 Hemoglobin A1c % 7.4 % (4.0-6.0) H 12/28/16 22:11 Plasma/Ser Osmolality 311 mOsmol/kg (280-301) H 12/30/16 05:35 Uric Acid 9.5 mg/dL (2.3-6.6) H 12/30/16 05:35 Calcium 8.8 mg/dL (8.6-10.3) 01/06/17 05:30 Phosphorus 3.3 mg/dL (2.5-5.0) 12/30/16 05:35 Magnesium 1.7 mg/dL (1.9-2.7) L 01/06/17 05:30 Total Bilirubin 0.9 mg/dL (0.3-1.0) 12/30/16 05:35 AST 15 U/L (13-39) 12/30/16 05:35 ALT 8 U/L (7-52) 12/30/16 05:35 Alkaline Phosphatase 71 U/L (34-104) 12/30/16 05:35 Troponin I < 0.01 ng/mL (0.01-0.05) L 12/31/16 06:27 B-Natriuretic Peptide 2360.0 pg/mL (5.0-100.0) H 01/06/17 05:30 Total Protein 6.2 gm/dL (6.0-8.3) 12/30/16 05:35 Albumin 2.9 gm/dL (3.7-5.3) L 12/30/16 05:35 Globulin 3.3 gm/dL 12/30/16 05:35 Albumin/Globulin Ratio 0.9 (1.0-1.8) L 12/30/16 05:35 Triglycerides 60 mg/dL (<150) 12/30/16 05:35 Cholesterol 69 mg/dL (<200) 12/30/16 05:35 LDL Cholesterol Direct 47 mg/dL (75-193) L 12/30/16 05:35 HDL Cholesterol 23 mg/dL (23-92) 12/30/16 05:35 TSH 2.33 uIU/ml (0.34-5.60) 12/28/16 22:11 Urine Source CLEAN C 12/28/16 22:30 Urine Color YELLOW 12/28/16 22:30 Urine Clarity HAZY (CLEAR) 12/28/16 22:30 Urine pH 5.5 (4.6 - 8.0) 12/28/16 22:30 Ur Specific [place] 1.015 (1.005-1.030) 12/28/16 22:30 Urine Protein TRACE mg/dL (NEGATIVE) 12/28/16 22:30 Urine Glucose (UA) NEGATIVE mg/dL (NEGATIVE) 12/28/16 22:30 Urine Ketones NEGATIVE mg/dL (NEGATIVE) 12/28/16 22:30 Urine Blood SMALL (NEGATIVE) H 12/28/16 22:30 Urine Nitrate POSITIVE (NEGATIVE) H 12/28/16 22:30 Urine Bilirubin NEGATIVE (NEGATIVE) 12/28/16 22:30 Urine Urobilinogen 0.2 E.U./dL (0.2 - 1.0) 12/28/16 22:30 Ur Leukocyte Esterase TRACE (NEGATIVE) H 12/28/16 22:30 Urine RBC 10-25 /hpf (0-5) H 12/28/16 22:30 Urine WBC 6-10 /hpf (0-5) H 12/28/16 22:30 Ur Epithelial Cells FEW /lpf (FEW) 12/28/16 22:30 Urine Bacteria MODERATE /hpf (NONE SEEN) 12/28/16 22:30 Ur Random Sodium 13 mmol/L 12/30/16 17:25 Urine Creatinine 74.6 mg/dl (Not Estab.) 12/30/16 17:25 Urine Microalbumin 636.6 ug/mL (Not Estab.) 12/30/16 17:25 Microalb/Creat Ratio 853.4 mg/g creat (0.0-30.0) H 12/30/16 17:25 - Physical Exam Vitals and I&O: Vital Signs Temp 98.4 F 01/06/17 04:00 Pulse 78 01/06/17 07:22 Resp 20 01/06/17 07:22 BP 134/61 01/06/17 04:00 Pulse Ox 97 01/06/17 07:22 Intake & Output 01/05/17 01/06/17 01/06/17 18:59 06:59 18:59 Intake Total 360 300 Output Total 725 1100 Balance -365 -800 Weight (lbs) 84.368 kg 84.368 kg Intake: Oral 360 300 Output: Urine 725 1100 Active Medications: Current Medications Acetaminophen (Tylenol) 650 mg PO Q4HR PRN PRN Reason: Pain or Fever >101 Stop: 02/27/17 01:46 Last Admin: 01/04/17 23:10 Dose: 650 mg Albuterol/Ipratropium (Duoneb Neb) 3 ml HHN Q6HR PRN PRN Reason: Shortness of Breath or Wheeze Stop: 02/27/17 01:46 Ascorbic Acid (Vitamin C) 500 mg PO DAILY [facility] Stop: 02/27/17 08:59 Last Admin: 01/05/17 08:40 Dose: 500 mg Aspirin (Aspirin Chewable) 81 mg PO DAILY [facility] Stop: 02/28/17 08:59 Last Admin: 01/05/17 08:40 Dose: 81 mg Atorvastatin Calcium (Lipitor) 10 mg PO DAILY [facility] PRN Reason: Protocol Stop: 02/28/17 08:59 Last Admin: 01/05/17 08:38 Dose: 10 mg Bisacodyl (Dulcolax 10 Mg Supp) 10 mg RC DAILY PRN PRN Reason: Constipation Stop: 02/27/17 01:46 Carvedilol (Coreg) 6.25 mg PO BID [facility] Stop: 03/02/17 16:59 Last Admin: 01/05/17 16:51 Dose: 6.25 mg Docusate Sodium (Colace) 100 mg PO BID [facility] Stop: 02/27/17 08:59 Last Admin: 01/05/17 16:51 Dose: 100 mg Enoxaparin Sodium (Lovenox) 40 mg SUBQ Q12HR [facility] Stop: 02/27/17 20:59 Last Admin: 01/05/17 21:07 Dose: 40 mg Furosemide (Lasix) 40 mg IVP BID [facility] Stop: 03/02/17 16:59 Last Admin: 01/05/17 16:51 Dose: 40 mg Hydralazine HCl (Apresoline) 10 mg PO BID [facility] Stop: 02/27/17 08:59 Last Admin: 01/05/17 16:52 Dose: 10 mg Dopamine HCl/Dextrose (Dopamine) 400 mg in 250 mls @ 9.491 mls/hr IV Q26H [facility]ID PRN Reason: 3 MCG/KG/MIN Stop: 01/08/17 12:59 Last Admin: 01/05/17 14:43 Dose: 3 mcg/kg/min, 9.491 mls/hr Magnesium Sulfate (Magnesium Sulfate Premix) 2 gm in 50 mls @ 25 mls/hr IV X1 ONE Stop: 01/06/17 10:58 Insulin Aspart (Novolog Insulin Sliding Scale) 0 units SUBQ ACHS [facility] DAVID PRN Reason: Protocol Stop: 02/27/17 07:29 Last Admin: 01/06/17 06:45 Dose: 3 units Isosorbide Dinitrate (Isordil) 10 mg PO TID [facility] Stop: 02/27/17 08:59 Last Admin: 01/05/17 21:06 Dose: Not Given Lactobacillus Rhamnosus (Culturelle) 1 each PO DAILY [facility] Stop: 02/27/17 08:59 Last Admin: 01/05/17 08:40 Dose: 1 each Levetiracetam (Keppra) 250 mg PO BID [facility] Stop: 02/27/17 08:59 Last Admin: 01/05/17 16:51 Dose: 250 mg Levothyroxine Sodium (Synthroid) 0.05 mg PO QDAC [facility] Stop: 02/27/17 07:29 Last Admin: 01/06/17 06:45 Dose: 0.05 mg Magnesium Hydroxide (Milk Of Magnesia) 30 ml PO DAILY PRN PRN Reason: Constipation Stop: 02/27/17 01:46 Megestrol Acetate (Megace) 40 mg PO DAILY [facility] PRN Reason: Protocol Stop: 02/28/17 15:59 Last Admin: 01/05/17 08:38 Dose: 40 mg Metolazone (Zaroxolyn) 5 mg PO BID [facility] Stop: 03/05/17 16:59 Last Admin: 01/05/17 16:51 Dose: 5 mg Miscellaneous (Probiotic Screen) 1 ea MC PRN PRN PRN Reason: PROTOCOL Stop: 02/28/17 15:40 Montelukast Sodium (Singulair) 10 mg PO DAILY [facility] Stop: 02/27/17 08:59 Last Admin: 01/05/17 08:38 Dose: 10 mg Ondansetron HCl (Zofran Odt) 4 mg PO Q6HR PRN PRN Reason: Nausea / Vomiting Stop: 02/27/17 01:46 Pantoprazole Sodium (Protonix) 40 mg PO DAILY [facility] Stop: 02/27/17 08:59 Last Admin: 01/05/17 08:38 Dose: 40 mg Senna (Senna) 17.2 mg PO HS [facility] Stop: 02/27/17 20:59 Last Admin: 01/05/17 21:07 Dose: Not Given Sodium Phosphate (Fleet Enema) 135 ml RC Q48HR PRN PRN Reason: Constipation Stop: 02/27/17 01:46 Spironolactone (Aldactone) 25 mg PO BID [facility] Stop: 03/02/17 16:59 Last Admin: 01/05/17 16:50 Dose: 25 mg General: Alert, No acute distress HEENT: Atraumatic Neck: Supple, +2 carotid pulse wo bruit Cardiovascular: Regular rate, Normal S1, Normal S2 Lungs: Other (decrease bs) Abdomen: Bowel sounds, Soft Extremities: Edema, Other ((+) 3 bipdeal edema) Neurological: Sensation intact Skin: no Rash Psych/Mental Status: Mood NL Assessment/Plan - Problem List Patient Problems: All Active Problems Anemia (Acute) D64.9 CKD (chronic kidney disease) stage 2, GFR 60-89 ml/min (Acute) N18.2 Diabetes (Acute) E11.9 Hyperlipidemia (Acute) E78.5 Non-ST elevated myocardial infarction (Acute) I21.4 Pacemaker (Acute) Z95.0 Pyelonephritis (Acute) N12 Seizure disorder (Acute) G40.909 Sick sinus syndrome (Acute) I49.5 UTI (urinary tract infection) (Acute) - Plan Plan: cardio w/up iv antibiotics cpm Nutritional Asmnt/Malnutr-PDOC - Dietary Evaluation Malnutrition Findings (Please click <Entered> for more info): Nutritional Asmnt/Malnutrition Start: 12/30/16 12: 57 Text: Status: Complete Freq: Document 12/30/16 12:57 GSUN (Rec: 12/30/16 13:17 [email or web address] [email or web address]) Nutritional Asmnt/Malnutrition Patient General Information Nutritional Screening High Risk Screening Diagnosis Elevated troponin level, UTI, poor intake Pertinent Medical Hx/Surgical Hx Anemia, CKD stage 2, DM, hyperlipidemia, non ST elevated myocardial infarction , pacemaker, pyelonephritis, seizure disorder, sick sinus syndrome Subjective Information 71 year old female. Pt's diet order noted to be pureed CCHO NICOLASA at [facility] , current diet order is low sodium. Spoke to MIKE Mcdermott, RN made aware, RN also stated pt is Occitan speaking but confused. Spoke to BOOSTER PUMP OPERATOR who assisted with breakfast, BOOSTER PUMP OPERATOR stated pt is a feeder, good appetite, tolerated well, however noted pt is edentulous so did not feed toast. Pt seen talkign to self during visit, appeared overweight, no muscle fat wasting noted. Current Diet Order/ Nutrition Support Low sodium Pertinent Medications Vitamin C, Lipitor, Dulcolax, Colace, Novolog, Culturelle, MOM, Zofran, Protonix, Senna, Fleet Enema Pertinent Labs 12/28: A1c 7.4H 12/30: BUN 54H, potassium 4.1, creatinine 1.4H, glucose 256H Nutritional Hx/Data Height 1.52 m Height (Calculated Centimeters) 152.4 Current Weight (lbs) 84.368 kg Weight (Calculated Kilograms) 84.4 Weight (Calculated Grams) 43169.2 [place] Body Weight 100 Weight Status Obese GI Symptoms Usual diet at home [facility]: pureed, CCHO, NICOLASA Skin Integrity/Comment: Ho 13. Pitting 2+ lower extremities. Coccyx blanchable redness. Estimated Nutritional Goals BEE in Kcals: Adj wt of IBW Calories/Kcals/Kg AdjBW 121.5lb/55.2kg Kcals Calculated 1380-1656kcal (25-30kcal/kg) Protein: Adj wt of IBW Protein Calculated 55-66g (1-1.2g/kg) Fluid: ml 1380-1656ml (1ml/kcal) Nutritional Problem 2. Problem Problem Altered nutrition related laboratory values related to Etiology DM aeb Signs/Symptoms: A1c 7.4H, glucose 256H 1. Problem Problem (possible) diffiiculty chewing related to Etiology edentulous, diet order aeb Signs/Symptoms: pt was previously on pureed diet and now on regular texture Intervention/Recommendation Comments 1. Recommend [id number] low sodium, diet texture to be determined. Previous pureed diet order noted in transfer chart, however pt has been on regular texture diet since adm , day 2. RN Baldemar made aware. 2. Nursing staff to record % intake for every meal. No documentations since adm. Expected Outcomes/Goals Expected Outcomes/Goals 1. PO intake to meet at least 75% of estimated nutritional needs with tolerance.
[2017-01-06] MEDS: Atorvastatin Calcium 10 MG TAB PO SCH (09:42)
[2017-01-06] MEDS: Lactobacillus Rhamnosus 10 Billion CFU Capsule PO SCH (09:42)
[2017-01-06] MEDS: Enoxaparin 40 mg/0.4 mL 0.4mL Syr SUBQ SCH ×2 (09:42→20:44)
[2017-01-06] MEDS: Multivitamin w/ Minerals Tab PO SCH (09:42)
[2017-01-06] MEDS: Aspirin 81mg Chewable Tab PO SCH (09:43)
[2017-01-06] MEDS: Pantoprazole 40 mg EC Tab PO SCH (09:43)
--- NOTE | 2017-01-06 11:02 | Infectious Disease Prog Note ---
Infectious Disease Subjective - Review of Systems Service Date: 01/06/17 Subjective: There is no new change, there is no fever. Infectious Disease Objective - Results Result Diagrams: 01/02/17 10:29 01/06/17 05:30 Recent Labs: Laboratory Last Values WBC 7.6 Th/cmm (4.8-10.8) 01/02/17 10:29 RBC 4.48 Mil/cmm (3.80-5.20) 01/02/17 10:29 Hgb 12.0 gm/dL (12-16) 01/02/17 10:29 Hct 38.1 % (41.0-60) L D 01/02/17 10:29 MCV 85.1 fl (81-100) 01/02/17 10:29 MCH 26.8 pg (27.0-31.0) L 01/02/17 10:29 MCHC Differential 31.5 pg (28.0-36.0) 01/02/17 10:29 RDW 18.8 % (11.5-20.0) 01/02/17 10:29 Plt Count 154 Th/cmm (150-400) 01/02/17 10:29 MPV 9.2 fl 01/02/17 10:29 Neutrophils % 78.8 % (40.0-80.0) 01/02/17 10:29 Lymphocytes % 12.4 % (20.0-50.0) L 01/02/17 10:29 Monocytes % 6.0 % (2.0-10.0) 01/02/17 10:29 Eosinophils % 2.5 % (0.0-5.0) 01/02/17 10:29 Basophils % 0.3 % (0.0-2.0) 01/02/17 10:29 Eos Smear Source URINE 12/30/16 17:25 Eos Smear Total Cells NONE SEEN (NONE SEEN) 12/30/16 17:25 PT 14.0 SECONDS (9.5-11.5) H 12/28/16 22:11 INR 1.33 (0.5-1.4) 12/28/16 22:11 Sodium 135 mEq/L (136-145) L 01/06/17 05:30 Potassium 4.2 mEq/L (3.5-5.1) 01/06/17 05:30 Chloride 106 mEq/L (98-107) 01/06/17 05:30 Carbon Dioxide 22.7 mEq/L (21.0-31.0) 01/06/17 05:30 Anion Gap 10.5 (7.0-16.0) 01/06/17 05:30 BUN 34 mg/dL (7-25) H 01/06/17 05:30 Creatinine 1.2 mg/dL (0.6-1.2) 01/06/17 05:30 Est GFR ( Amer) TNP 01/06/17 05:30 Est GFR (Non-Af Amer) TNP 01/06/17 05:30 BUN/Creatinine Ratio 28.3 01/06/17 05:30 Glucose 211 mg/dL (70-105) H 01/06/17 05:30 POC Glucose 195 MG/DL (70 - 105) H 01/06/17 06:38 Hemoglobin A1c % 7.4 % (4.0-6.0) H 12/28/16 22:11 Plasma/Ser Osmolality 311 mOsmol/kg (280-301) H 12/30/16 05:35 Uric Acid 9.5 mg/dL (2.3-6.6) H 12/30/16 05:35 Calcium 8.8 mg/dL (8.6-10.3) 01/06/17 05:30 Phosphorus 3.3 mg/dL (2.5-5.0) 12/30/16 05:35 Magnesium 1.7 mg/dL (1.9-2.7) L 01/06/17 05:30 Total Bilirubin 0.9 mg/dL (0.3-1.0) 12/30/16 05:35 AST 15 U/L (13-39) 12/30/16 05:35 ALT 8 U/L (7-52) 12/30/16 05:35 Alkaline Phosphatase 71 U/L (34-104) 12/30/16 05:35 Troponin I < 0.01 ng/mL (0.01-0.05) L 12/31/16 06:27 B-Natriuretic Peptide 2360.0 pg/mL (5.0-100.0) H 01/06/17 05:30 Total Protein 6.2 gm/dL (6.0-8.3) 12/30/16 05:35 Albumin 2.9 gm/dL (3.7-5.3) L 12/30/16 05:35 Globulin 3.3 gm/dL 12/30/16 05:35 Albumin/Globulin Ratio 0.9 (1.0-1.8) L 12/30/16 05:35 Triglycerides 60 mg/dL (<150) 12/30/16 05:35 Cholesterol 69 mg/dL (<200) 12/30/16 05:35 LDL Cholesterol Direct 47 mg/dL (75-193) L 12/30/16 05:35 HDL Cholesterol 23 mg/dL (23-92) 12/30/16 05:35 TSH 2.33 uIU/ml (0.34-5.60) 12/28/16 22:11 Urine Source CLEAN C 12/28/16 22:30 Urine Color YELLOW 12/28/16 22:30 Urine Clarity HAZY (CLEAR) 12/28/16 22:30 Urine pH 5.5 (4.6 - 8.0) 12/28/16 22:30 Ur Specific [place] 1.015 (1.005-1.030) 12/28/16 22:30 Urine Protein TRACE mg/dL (NEGATIVE) 12/28/16 22:30 Urine Glucose (UA) NEGATIVE mg/dL (NEGATIVE) 12/28/16 22:30 Urine Ketones NEGATIVE mg/dL (NEGATIVE) 12/28/16 22:30 Urine Blood SMALL (NEGATIVE) H 12/28/16 22:30 Urine Nitrate POSITIVE (NEGATIVE) H 12/28/16 22:30 Urine Bilirubin NEGATIVE (NEGATIVE) 12/28/16 22:30 Urine Urobilinogen 0.2 E.U./dL (0.2 - 1.0) 12/28/16 22:30 Ur Leukocyte Esterase TRACE (NEGATIVE) H 12/28/16 22:30 Urine RBC 10-25 /hpf (0-5) H 12/28/16 22:30 Urine WBC 6-10 /hpf (0-5) H 12/28/16 22:30 Ur Epithelial Cells FEW /lpf (FEW) 12/28/16 22:30 Urine Bacteria MODERATE /hpf (NONE SEEN) 12/28/16 22:30 Ur Random Sodium 13 mmol/L 12/30/16 17:25 Urine Creatinine 74.6 mg/dl (Not Estab.) 12/30/16 17:25 Urine Microalbumin 636.6 ug/mL (Not Estab.) 12/30/16 17:25 Microalb/Creat Ratio 853.4 mg/g creat (0.0-30.0) H 12/30/16 17:25 - Physical Exam Vitals and I&O: Vital Signs Temp 98.4 F 01/06/17 04:00 Pulse 82 01/06/17 09:46 Resp 20 01/06/17 07:22 BP 145/70 01/06/17 09:46 Pulse Ox 97 01/06/17 07:22 Intake & Output 01/05/17 01/06/17 01/06/17 18:59 06:59 18:59 Intake Total 360 300 Output Total 725 1100 Balance -365 -800 Weight (lbs) 84.368 kg 84.368 kg Intake: Oral 360 300 Output: Urine 725 1100 Active Medications: Current Medications Acetaminophen (Tylenol) 650 mg PO Q4HR PRN PRN Reason: Pain or Fever >101 Stop: 02/27/17 01:46 Last Admin: 01/04/17 23:10 Dose: 650 mg Albuterol/Ipratropium (Duoneb Neb) 3 ml HHN Q6HR PRN PRN Reason: Shortness of Breath or Wheeze Stop: 02/27/17 01:46 Ascorbic Acid (Vitamin C) 500 mg PO DAILY [facility] Stop: 02/27/17 08:59 Last Admin: 01/06/17 09:42 Dose: 500 mg Aspirin (Aspirin Chewable) 81 mg PO DAILY [facility] Stop: 02/28/17 08:59 Last Admin: 01/06/17 09:43 Dose: 81 mg Atorvastatin Calcium (Lipitor) 10 mg PO DAILY [facility] PRN Reason: Protocol Stop: 02/28/17 08:59 Last Admin: 01/06/17 09:42 Dose: 10 mg Bisacodyl (Dulcolax 10 Mg Supp) 10 mg RC DAILY PRN PRN Reason: Constipation Stop: 02/27/17 01:46 Carvedilol (Coreg) 6.25 mg PO BID [facility] Stop: 03/02/17 16:59 Last Admin: 01/06/17 09:46 Dose: 6.25 mg Docusate Sodium (Colace) 100 mg PO BID [facility] Stop: 02/27/17 08:59 Last Admin: 01/06/17 09:45 Dose: 100 mg Enoxaparin Sodium (Lovenox) 40 mg SUBQ Q12HR [facility] Stop: 02/27/17 20:59 Last Admin: 01/06/17 09:42 Dose: 40 mg Furosemide (Lasix) 40 mg IVP BID [facility] Stop: 03/02/17 16:59 Last Admin: 01/06/17 09:41 Dose: 40 mg Hydralazine HCl (Apresoline) 10 mg PO BID [facility] Stop: 02/27/17 08:59 Last Admin: 01/06/17 09:43 Dose: 10 mg Dopamine HCl/Dextrose (Dopamine) 400 mg in 250 mls @ 9.491 mls/hr IV Q26H [facility] PRN Reason: 3 MCG/KG/MIN Stop: 01/08/17 12:59 Last Admin: 01/05/17 14:43 Dose: 3 mcg/kg/min, 9.491 mls/hr Insulin Aspart (Novolog Insulin Sliding Scale) 0 units SUBQ ACHS [facility] DAV[facility] PRN Reason: Protocol Stop: 02/27/17 07:29 Last Admin: 01/06/17 06:45 Dose: 3 units Isosorbide Dinitrate (Isordil) 10 mg PO TID [facility] Stop: 02/27/17 08:59 Last Admin: 01/06/17 09:42 Dose: 10 mg Lactobacillus Rhamnosus (Culturelle) 1 each PO DAILY [facility] Stop: 02/27/17 08:59 Last Admin: 01/06/17 09:42 Dose: 1 each Levetiracetam (Keppra) 250 mg PO BID [facility] Stop: 02/27/17 08:59 Last Admin: 01/06/17 09:42 Dose: 250 mg Levothyroxine Sodium (Synthroid) 0.05 mg PO QDAC [facility] Stop: 02/27/17 07:29 Last Admin: 01/06/17 06:45 Dose: 0.05 mg Magnesium Hydroxide (Milk Of Magnesia) 30 ml PO DAILY PRN PRN Reason: Constipation Stop: 02/27/17 01:46 Megestrol Acetate (Megace) 40 mg PO DAILY [facility] PRN Reason: Protocol Stop: 02/28/17 15:59 Last Admin: 10/04/17 09:42 Dose: 40 mg Metolazone (Zaroxolyn) 5 mg PO BID [facility] Stop: 03/05/17 16:59 Last Admin: 01/06/17 09:42 Dose: 5 mg Miscellaneous (Probiotic Screen) 1 ea MC PRN PRN PRN Reason: PROTOCOL Stop: 02/28/17 15:40 Montelukast Sodium (Singulair) 10 mg PO DAILY [facility] Stop: 02/27/17 08:59 Last Admin: 01/06/17 09:43 Dose: 10 mg Ondansetron HCl (Zofran Odt) 4 mg PO Q6HR PRN PRN Reason: Nausea / Vomiting Stop: 02/27/17 01:46 Pantoprazole Sodium (Protonix) 40 mg PO DAILY [facility] Stop: 02/27/17 08:59 Last Admin: 01/06/17 09:43 Dose: 40 mg Senna (Senna) 17.2 mg PO HS [facility] Stop: 02/27/17 20:59 Last Admin: 01/05/17 21:07 Dose: Not Given Sodium Phosphate (Fleet Enema) 135 ml RC Q48HR PRN PRN Reason: Constipation Stop: 02/27/17 01:46 Spironolactone (Aldactone) 25 mg PO BID [facility] Stop: 03/02/17 16:59 Last Admin: 01/06/17 09:43 Dose: 25 mg General: no acute distress, well developed, well nourished HEENT: atraumatic, normocephalic, PERRLA, EOMI Neck: supple, no thyromegaly Cardiovascular: S1S2, regular Lungs: clear to auscultation bilaterally, clear to percussion Abdomen: soft, no tender, no distended, no mass Extremities: no cyanosis, no clubbing, no edema Neurological: awake, alert, oriented Skin: intact Infectious Disease Assmt/Plan - Problem List Patient Problems: All Active Problems Anemia (Acute) D64.9 CKD (chronic kidney disease) stage 2, GFR 60-89 ml/min (Acute) N18.2 Diabetes (Acute) E11.9 Hyperlipidemia (Acute) E78.5 Non-ST elevated myocardial infarction (Acute) I21.4 Pacemaker (Acute) Z95.0 Pyelonephritis (Acute) N12 Seizure disorder (Acute) G40.909 Sick sinus syndrome (Acute) I49.5 UTI (urinary tract infection) (Acute) - Assessment Assessment: UTI MRSA colonization. - Plan Plan: off antibiotics. DC plan. Nutritional Asmnt/Malnutr-PDOC - Dietary Evaluation Malnutrition Findings (Please click <Entered> for more info): Nutritional Asmnt/Malnutrition Start: 12/30/16 12: 57 Text: Status: Complete Freq: Document 12/30/16 12:57 GSUN (Rec: 12/30/16 13:17 GSUN [id number]) Nutritional Asmnt/Malnutrition Patient General Information Nutritional Screening High Risk Screening Diagnosis Elevated troponin level, UTI, poor intake Pertinent Medical Hx/Surgical Hx Anemia, CKD stage 2, DM, hyperlipidemia, non ST elevated myocardial infarction , pacemaker, pyelonephritis, seizure disorder, sick sinus syndrome Subjective Information 71 year old female. Pt's diet order noted to be pureed CCHO NICOLASA at [facility] , current diet order is low sodium. Spoke to RN Baldemar, RN made aware, RN also stated pt is Malian speaking but confused. Spoke to APPLICATION SUPPORT CONSULTANT who assisted with breakfast, APPLICATION SUPPORT CONSULTANT stated pt is a feeder, good appetite, tolerated well, however noted pt is edentulous so did not feed toast. Pt seen talkign to self during visit, appeared overweight, no muscle fat wasting noted. Current Diet Order/ Nutrition Support Low sodium Pertinent Medications Vitamin C, Lipitor, Dulcolax, Colace, Novolog, Culturelle, MOM, Zofran, Protonix, Senna, Fleet Enema Pertinent Labs 12/28: A1c 7.4H 12/30: BUN 54H, potassium 4.1, creatinine 1.4H, glucose 256H Nutritional Hx/Data Height 1.52 m Height (Calculated Centimeters) 152.4 Current Weight (lbs) 84.368 kg Weight (Calculated Kilograms) 84.4 Weight (Calculated Grams) 18885.2 [place] Body Weight 100 Weight Status Obese GI Symptoms Usual diet at home [facility]: pureed, CCHO, NICOLASA Skin Integrity/Comment: Ho 13. Pitting 2+ lower extremities. Coccyx blanchable redness. Estimated Nutritional Goals BEE in Kcals: Adj wt of IBW Calories/Kcals/Kg AdjBW 121.5lb/55.2kg Kcals Calculated 1380-1656kcal (25-30kcal/kg) Protein: Adj wt of IBW Protein Calculated 55-66g (1-1.2g/kg) Fluid: ml 1380-1656ml (1ml/kcal) Nutritional Problem 2. Problem Problem Altered nutrition related laboratory values related to Etiology DM aeb Signs/Symptoms: A1c 7.4H, glucose 256H 1. Problem Problem (possible) diffiiculty chewing related to Etiology edentulous, diet order aeb Signs/Symptoms: pt was previously on pureed diet and now on regular texture Intervention/Recommendation Comments 1. Recommend [id number] low sodium, diet texture to be determined. Previous pureed diet order noted in transfer chart, however pt has been on regular texture diet since adm , day 2. RN Baldemar made aware. 2. Nursing staff to record % intake for every meal. No documentations since adm. Expected Outcomes/Goals Expected Outcomes/Goals 1. PO intake to meet at least 75% of estimated nutritional needs with tolerance.
--- NOTE | 2017-01-06 13:53 | General Progress Note ---
Subjective - Review of Systems Service Date: 01/06/17 Subjective: alert, verbal, comfortable Objective - Results Result Diagrams: 01/02/17 10:29 01/06/17 05:30 Recent Labs: Laboratory Last Values WBC 7.6 Th/cmm (4.8-10.8) 01/02/17 10:29 RBC 4.48 Mil/cmm (3.80-5.20) 01/02/17 10:29 Hgb 12.0 gm/dL (12-16) 01/02/17 10:29 Hct 38.1 % (41.0-60) L D 01/02/17 10:29 MCV 85.1 fl (81-100) 01/02/17 10:29 MCH 26.8 pg (27.0-31.0) L 01/02/17 10:29 MCHC Differential 31.5 pg (28.0-36.0) 01/02/17 10:29 RDW 18.8 % (11.5-20.0) 01/02/17 10:29 Plt Count 154 Th/cmm (150-400) 01/02/17 10:29 MPV 9.2 fl 01/02/17 10:29 Neutrophils % 78.8 % (40.0-80.0) 01/02/17 10:29 Lymphocytes % 12.4 % (20.0-50.0) L 01/02/17 10:29 Monocytes % 6.0 % (2.0-10.0) 01/02/17 10:29 Eosinophils % 2.5 % (0.0-5.0) 01/02/17 10:29 Basophils % 0.3 % (0.0-2.0) 01/02/17 10:29 Eos Smear Source URINE 12/30/16 17:25 Eos Smear Total Cells NONE SEEN (NONE SEEN) 12/30/16 17:25 PT 14.0 SECONDS (9.5-11.5) H 12/28/16 22:11 INR 1.33 (0.5-1.4) 12/28/16 22:11 Sodium 135 mEq/L (136-145) L 01/06/17 05:30 Potassium 4.2 mEq/L (3.5-5.1) 01/06/17 05:30 Chloride 106 mEq/L (98-107) 01/06/17 05:30 Carbon Dioxide 22.7 mEq/L (21.0-31.0) 01/06/17 05:30 Anion Gap 10.5 (7.0-16.0) 01/06/17 05:30 BUN 34 mg/dL (7-25) H 01/06/17 05:30 Creatinine 1.2 mg/dL (0.6-1.2) 01/06/17 05:30 Est GFR ( Amer) TNP 01/06/17 05:30 Est GFR (Non-Af Amer) TNP 01/06/17 05:30 BUN/Creatinine Ratio 28.3 01/06/17 05:30 Glucose 211 mg/dL (70-105) H 01/06/17 05:30 POC Glucose 214 MG/DL (70 - 105) H 01/06/17 11:33 Hemoglobin A1c % 7.4 % (4.0-6.0) H 12/28/16 22:11 Plasma/Ser Osmolality 311 mOsmol/kg (280-301) H 12/30/16 05:35 Uric Acid 9.5 mg/dL (2.3-6.6) H 12/30/16 05:35 Calcium 8.8 mg/dL (8.6-10.3) 01/06/17 05:30 Phosphorus 3.3 mg/dL (2.5-5.0) 12/30/16 05:35 Magnesium 1.7 mg/dL (1.9-2.7) L 01/06/17 05:30 Total Bilirubin 0.9 mg/dL (0.3-1.0) 12/30/16 05:35 AST 15 U/L (13-39) 12/30/16 05:35 ALT 8 U/L (7-52) 12/30/16 05:35 Alkaline Phosphatase 71 U/L (34-104) 12/30/16 05:35 Troponin I < 0.01 ng/mL (0.01-0.05) L 12/31/16 06:27 B-Natriuretic Peptide 2360.0 pg/mL (5.0-100.0) H 01/06/17 05:30 Total Protein 6.2 gm/dL (6.0-8.3) 12/30/16 05:35 Albumin 2.9 gm/dL (3.7-5.3) L 12/30/16 05:35 Globulin 3.3 gm/dL 12/30/16 05:35 Albumin/Globulin Ratio 0.9 (1.0-1.8) L 12/30/16 05:35 Triglycerides 60 mg/dL (<150) 12/30/16 05:35 Cholesterol 69 mg/dL (<200) 12/30/16 05:35 LDL Cholesterol Direct 47 mg/dL (75-193) L 12/30/16 05:35 HDL Cholesterol 23 mg/dL (23-92) 12/30/16 05:35 TSH 2.33 uIU/ml (0.34-5.60) 12/28/16 22:11 Urine Source CLEAN C 12/28/16 22:30 Urine Color YELLOW 12/28/16 22:30 Urine Clarity HAZY (CLEAR) 12/28/16 22:30 Urine pH 5.5 (4.6 - 8.0) 12/28/16 22:30 Ur Specific [place] 1.015 (1.005-1.030) 12/28/16 22:30 Urine Protein TRACE mg/dL (NEGATIVE) 12/28/16 22:30 Urine Glucose (UA) NEGATIVE mg/dL (NEGATIVE) 12/28/16 22:30 Urine Ketones NEGATIVE mg/dL (NEGATIVE) 12/28/16 22:30 Urine Blood SMALL (NEGATIVE) H 12/28/16 22:30 Urine Nitrate POSITIVE (NEGATIVE) H 12/28/16 22:30 Urine Bilirubin NEGATIVE (NEGATIVE) 12/28/16 22:30 Urine Urobilinogen 0.2 E.U./dL (0.2 - 1.0) 12/28/16 22:30 Ur Leukocyte Esterase TRACE (NEGATIVE) H 12/28/16 22:30 Urine RBC 10-25 /hpf (0-5) H 12/28/16 22:30 Urine WBC 6-10 /hpf (0-5) H 12/28/16 22:30 Ur Epithelial Cells FEW /lpf (FEW) 12/28/16 22:30 Urine Bacteria MODERATE /hpf (NONE SEEN) 12/28/16 22:30 Ur Random Sodium 13 mmol/L 12/30/16 17:25 Urine Creatinine 74.6 mg/dl (Not Estab.) 12/30/16 17:25 Urine Microalbumin 636.6 ug/mL (Not Estab.) 12/30/16 17:25 Microalb/Creat Ratio 853.4 mg/g creat (0.0-30.0) H 12/30/16 17:25 - Physical Exam Vitals and I&O: Vital Signs Temp 98.7 F 01/06/17 12:00 Pulse 81 01/06/17 12:00 Resp 16 01/06/17 12:00 BP 125/60 01/06/17 12:00 Pulse Ox 96 01/06/17 12:00 Intake & Output 01/05/17 01/06/17 01/06/17 18:59 06:59 18:59 Intake Total 360 300 Output Total 725 1100 Balance -365 -800 Weight (lbs) 84.368 kg 84.368 kg Intake: Oral 360 300 Output: Urine 725 1100 Active Medications: Current Medications Acetaminophen (Tylenol) 650 mg PO Q4HR PRN PRN Reason: Pain or Fever >101 Stop: 02/27/17 01:46 Last Admin: 01/04/17 23:10 Dose: 650 mg Albuterol/Ipratropium (Duoneb Neb) 3 ml HHN Q6HR PRN PRN Reason: Shortness of Breath or Wheeze Stop: 02/27/17 01:46 Ascorbic Acid (Vitamin C) 500 mg PO DAILY [facility] Stop: 02/27/17 08:59 Last Admin: 01/06/17 09:42 Dose: 500 mg Aspirin (Aspirin Chewable) 81 mg PO DAILY [facility] Stop: 02/28/17 08:59 Last Admin: 01/06/17 09:43 Dose: 81 mg Atorvastatin Calcium (Lipitor) 10 mg PO DAILY JOSE DAVID PRN Reason: Protocol Stop: 02/28/17 08:59 Last Admin: 01/06/17 09:42 Dose: 10 mg Bisacodyl (Dulcolax 10 Mg Supp) 10 mg RC DAILY PRN PRN Reason: Constipation Stop: 02/27/17 01:46 Carvedilol (Coreg) 6.25 mg PO BID [facility] Stop: 03/02/17 16:59 Last Admin: 01/06/17 09:46 Dose: 6.25 mg Docusate Sodium (Colace) 100 mg PO BID [facility] Stop: 02/27/17 08:59 Last Admin: 01/06/17 09:45 Dose: 100 mg Enoxaparin Sodium (Lovenox) 40 mg SUBQ Q12HR JOSE DAVID Stop: 02/27/17 20:59 Last Admin: 01/06/17 09:42 Dose: 40 mg Furosemide (Lasix) 40 mg IVP BID JOSE DAVID Stop: 03/02/17 16:59 Last Admin: 01/06/17 09:41 Dose: 40 mg Hydralazine HCl (Apresoline) 10 mg PO BID [facility]SE DAV[facility] Stop: 02/27/17 08:59 Last Admin: 01/06/17 09:43 Dose: 10 mg Dopamine HCl/Dextrose (Dopamine) 400 mg in 250 mls @ 9.491 mls/hr IV Q26H JOSE DAVID PRN Reason: 3 MCG/KG/MIN Stop: 01/08/17 12:59 Last Admin: 01/05/17 14:43 Dose: 3 mcg/kg/min, 9.491 mls/hr Insulin Aspart (Novolog Insulin Sliding Scale) 0 units SUBQ ACHS JOSE DAVID PRN Reason: Protocol Stop: 02/27/17 07:29 Last Admin: 01/06/17 11:36 Dose: 4 units Isosorbide Dinitrate (Isordil) 10 mg PO TID JOS EDAVID Stop: 02/27/17 08:59 Last Admin: 01/06/17 09:42 Dose: 10 mg Lactobacillus Rhamnosus (Culturelle) 1 each PO DAILY JOSE DAVID Stop: 02/27/17 08:59 Last Admin: 01/06/17 09:42 Dose: 1 each Levetiracetam (Keppra) 250 mg PO BID [facility]SE DAV[facility] Stop: 02/27/17 08:59 Last Admin: 01/06/17 09:42 Dose: 250 mg Levothyroxine Sodium (Synthroid) 0.05 mg PO QDAC JOSE DAVID Stop: 02/27/17 07:29 Last Admin: 01/06/17 06:45 Dose: 0.05 mg Magnesium Hydroxide (Milk Of Magnesia) 30 ml PO DAILY PRN PRN Reason: Constipation Stop: 02/27/17 01:46 Megestrol Acetate (Megace) 40 mg PO DAILY JOSE DAVID PRN Reason: Protocol Stop: 02/28/17 15:59 Last Admin: 01/06/17 09:42 Dose: 40 mg Metolazone (Zaroxolyn) 5 mg PO BID [facility] Stop: 03/05/17 16:59 Last Admin: 01/06/17 09:42 Dose: 5 mg Miscellaneous (Probiotic Screen) 1 ea MC PRN PRN PRN Reason: PROTOCOL Stop: 02/28/17 15:40 Montelukast Sodium (Singulair) 10 mg PO DAILY [facility] Stop: 02/27/17 08:59 Last Admin: 01/06/17 09:43 Dose: 10 mg Ondansetron HCl (Zofran Odt) 4 mg PO Q6HR PRN PRN Reason: Nausea / Vomiting Stop: 02/27/17 01:46 Pantoprazole Sodium (Protonix) 40 mg PO DAILY JOSE DAVID Stop: 02/27/17 08:59 Last Admin: 01/06/17 09:43 Dose: 40 mg Senna (Senna) 17.2 mg PO HS [facility] Stop: 02/27/17 20:59 Last Admin: 01/05/17 21:07 Dose: Not Given Sodium Phosphate (Fleet Enema) 135 ml RC Q48HR PRN PRN Reason: Constipation Stop: 02/27/17 01:46 Spironolactone (Aldactone) 25 mg PO BID [facility] Stop: 03/02/17 16:59 Last Admin: 01/06/17 09:43 Dose: 25 mg General: Alert, No acute distress HEENT: Atraumatic Neck: Supple, +2 carotid pulse wo bruit Cardiovascular: Regular rate, Normal S1, Normal S2 Lungs: Other (decrease bs) Abdomen: Bowel sounds, Soft Extremities: Edema, Other ((+) 3 bipdeal edema) Neurological: Sensation intact Skin: no Rash Psych/Mental Status: Mood NL Assessment/Plan - Problem List Patient Problems: All Active Problems Anemia (Acute) D64.9 CKD (chronic kidney disease) stage 2, GFR 60-89 ml/min (Acute) N18.2 Diabetes (Acute) E11.9 Hyperlipidemia (Acute) E78.5 Non-ST elevated myocardial infarction (Acute) I21.4 Pacemaker (Acute) Z95.0 Pyelonephritis (Acute) N12 Seizure disorder (Acute) G40.909 Sick sinus syndrome (Acute) I49.5 UTI (urinary tract infection) (Acute) - Assessment Assessment: MAEVE on CKD Type 2 DM Alzh Dementia Ess Htn w/ CKD Severe Cardiomyopathy S/P AICD Epilepsy CAD Acute on Chronic Chf Severed PAD FTT - Plan Plan: Lab - Result Diagrams 12/30/16 05:35 12/31/16 06:27 Current Medications Acetaminophen (Tylenol) 650 mg PO Q4HR PRN PRN Reason: Pain or Fever >101 Stop: 02/27/17 01:46 Last Admin: 12/30/16 21:38 Dose: 650 mg Albuterol/Ipratropium (Duoneb Neb) 3 ml HHN Q6HR PRN PRN Reason: Shortness of Breath or Wheeze Stop: 02/27/17 01:46 Ascorbic Acid (Vitamin C) 500 mg PO DAILY [facility] Stop: 02/27/17 08:59 Last Admin: 12/31/16 09:30 Dose: 500 mg Aspirin (Aspirin Chewable) 81 mg PO DAILY [facility] Stop: 02/28/17 08:59 Last Admin: 12/31/16 09:30 Dose: 81 mg Atorvastatin Calcium (Lipitor) 10 mg PO DAILY JOSE DAVID PRN Reason: Protocol Stop: 02/28/17 08:59 Last Admin: 12/31/16 09:30 Dose: 10 mg Bisacodyl (Dulcolax 10 Mg Supp) 10 mg RC DAILY PRN PRN Reason: Constipation Stop: 02/27/17 01:46 Carvedilol (Coreg) 3.125 mg PO BID [facility] Stop: 02/27/17 08:59 Last Admin: 12/31/16 17:37 Dose: Not Given Docusate Sodium (Colace) 100 mg PO BID [facility] Stop: 02/27/17 08:59 Last Admin: 12/31/16 17:37 Dose: Not Given Enoxaparin Sodium (Lovenox) 40 mg SUBQ Q12HR [facility] Stop: 02/27/17 20:59 Last Admin: 12/31/16 09:30 Dose: 40 mg Hydralazine HCl (Apresoline) 10 mg PO BID [facility] Stop: 02/27/17 08:59 Last Admin: 12/31/16 17:37 Dose: Not Given Ceftriaxone Sodium 1 gm/ (Sodium Chloride) 50 mls @ 100 mls/hr IV Q24HR [facility] Stop: 02/28/17 00:00 Last Admin: 12/31/16 01:37 Dose: 100 mls/hr Sodium Chloride (Nacl 0.9%) 1,000 mls @ 70 mls/hr IV .[id number] JOSE DAVID Stop: 02/27/17 07:59 Last Admin: 12/31/16 07:00 Dose: 70 mls/hr Insulin Aspart (Novolog Insulin Sliding Scale) 0 units SUBQ ACHS JOSE DAVID PRN Reason: Protocol Stop: 02/27/17 07:29 Last Admin: 12/31/16 17:52 Dose: 3 units Isosorbide Dinitrate (Isordil) 10 mg PO TID [facility] Stop: 02/27/17 08:59 Last Admin: 12/31/16 14:10 Dose: Not Given Lactobacillus Rhamnosus (Culturelle) 1 each PO DAILY [facility] Stop: 02/27/17 08:59 Last Admin: 12/31/16 09:30 Dose: 1 each Levetiracetam (Keppra) 250 mg PO BID [facility] Stop: 02/27/17 08:59 Last Admin: 12/31/16 17:37 Dose: Not Given Levothyroxine Sodium (Synthroid) 0.05 mg PO QDAC [facility]SE DAVID Stop: 02/27/17 07:29 Last Admin: 12/31/16 07:01 Dose: 0.05 mg Magnesium Hydroxide (Milk Of Magnesia) 30 ml PO DAILY PRN PRN Reason: Constipation Stop: 02/27/17 01:46 Megestrol Acetate (Megace) 40 mg PO DAILY [facility] PRN Reason: Protocol Stop: 02/28/17 15:59 Last Admin: 12/31/16 09:30 Dose: 40 mg Miscellaneous (Probiotic Screen) 1 ea MC PRN PRN PRN Reason: PROTOCOL Stop: 02/28/17 15:40 Montelukast Sodium (Singulair) 10 mg PO DAILY [facility] Stop: 02/27/17 08:59 Last Admin: 12/31/16 09:30 Dose: 10 mg Mupirocin (Bactroban Oint) 1 appl NS BID [facility] Stop: 01/04/17 17:01 Last Admin: 12/31/16 17:37 Dose: Not Given Ondansetron HCl (Zofran Odt) 4 mg PO Q6HR PRN PRN Reason: Nausea / Vomiting Stop: 02/27/17 01:46 Pantoprazole Sodium (Protonix) 40 mg PO DAILY [facility] Stop: 02/27/17 08:59 Last Admin: 12/31/16 09:30 Dose: 40 mg Senna (Senna) 17.2 mg PO HS [facility] Stop: 02/27/17 20:59 Last Admin: 12/30/16 20:22 Dose: 17.2 mg Sodium Phosphate (Fleet Enema) 135 ml RC Q48HR PRN PRN Reason: Constipation Stop: 02/27/17 01:46 DC IVF due to elevated BNP, peripheral edema ECHO revealed severe CM w/ EJF of 10-15% B/L LAE, LVH no change kidney fnc already has AICD, consider bivent pacing CXR NAD, BNP 2520 FE Na 0.13% suggestive of prerenal component add spironolactone, increase coreg f/u cxr, electrolytes Lab - Result Diagrams 01/02/17 10:29 01/06/17 05:30 7 Nutritional Asmnt/Malnutr-PDOC - Dietary Evaluation Malnutrition Findings (Please click <Entered> for more info): Nutritional Asmnt/Malnutrition Start: 12/30/16 12: 57 Text: Status: Complete Freq: Document 12/30/16 12:57 GSUN (Rec: 12/30/16 13:17 [email or web address] [id number]) Nutritional Asmnt/Malnutrition Patient General Information Nutritional Screening High Risk Screening Diagnosis Elevated troponin level, UTI, poor intake Pertinent Medical Hx/Surgical Hx Anemia, CKD stage 2, DM, hyperlipidemia, non ST elevated myocardial infarction , pacemaker, pyelonephritis, seizure disorder, sick sinus syndrome Subjective Information 71 year old female. [facility]'s [facility] , current diet order is low sodium. Spoke to MIKE Mcdermott RN made aware, RN also stated pt is Latvian speaking but confused. Spoke to SHRIMP CLEANER who assisted with breakfast, SHR[employer] CLEANER stated pt is a feeder, good appetite, tolerated well, however noted pt is edentulous so did not feed toast. Pt seen talkign to self during visit, appeared overweight, no muscle fat wasting noted. Current Diet Order/ Nutrition Support Low sodium Pertinent Medications Vitamin C, Lipitor, Dulcolax, Colace, Novolog, Culturelle, MOM, Zofran, Protonix, Senna, Fleet Enema Pertinent Labs 12/28: A1c 7.4H 12/30: BUN 54H, potassium 4.1, creatinine 1.4H, glucose 256H Nutritional Hx/Data Height 1.52 m Height (Calculated Centimeters) 152.4 Current Weight (lbs) 84.368 kg Weight (Calculated Kilograms) 84.4 Weight (Calculated Grams) 91370.2 [place] Body Weight 100 Weight Status Obese GI Symptoms Usual diet at home [facility]: pureed, CCHO, NICOLASA Skin Integrity/Comment: Ho 13. Pitting 2+ lower extremities. Coccyx blanchable redness. Estimated Nutritional Goals BEE in Kcals: Adj wt of IBW Calories/Kcals/Kg AdjBW 121.5lb/55.2kg Kcals Calculated 1380-1656kcal (25-30kcal/kg) Protein: Adj wt of IBW Protein Calculated 55-66g (1-1.2g/kg) Fluid: ml 1380-1656ml (1ml/kcal) Nutritional Problem 2. Problem Problem Altered nutrition related laboratory values related to Etiology DM aeb Signs/Symptoms: A1c 7.4H, glucose 256H 1. Problem Problem (possible) diffiiculty chewing related to Etiology edentulous, diet order aeb Signs/Symptoms: pt was previously on pureed diet and now on regular texture Intervention/Recommendation Comments 1. Recommend [id number] low sodium, diet texture to be determined. Previous pureed diet order noted in transfer chart, however pt has been on regular texture diet since adm , day 2. MIKE Mcdermott made aware. 2. Nursing staff to record % intake for every meal. No documentations since adm. Expected Outcomes/Goals Expected Outcomes/Goals 1. PO intake to meet at least 75% of estimated nutritional needs with tolerance.
[2017-01-06] MEDS: DOPamine 400 MG/250 ML BAG IV SCH (16:45)
[2017-01-07 06:43] LABS: ANION GAP 13.1 (7.0-16.0); BUN - UREA NITROGEN 35 mg/dL (7-25); BUN/CREATININE RATIO 29.2; CALCIUM SERUM 8.8 mg/dL (8.6-10.3); CARBON DIOXIDE 21.9 mEq/L (21.0-31.0); CHLORIDE 104 mEq/L (98-107); CREATININE - SERUM 1.2 mg/dL (0.6-1.2); GLUCOSE 253 mg/dL (70-105); SODIUM SERUM 135 mEq/L (136-145)
[2017-01-07] MEDS: Levothyroxine 0.05 Mg Tab PO SCH (06:43)
[2017-01-07] MEDS: INSULIN ASPART SLIDING SCALE 100 UNITS/ML UNIT SUBQ SCH ×4 (06:44→20:44)
--- NOTE | 2017-01-07 08:17 | General Progress Note ---
Subjective - Review of Systems Events since last encounter: alert , with no acute distress Objective - Results Result Diagrams: 01/02/17 10:29 01/07/17 05:40 Recent Labs: Laboratory Last Values WBC 7.6 Th/cmm (4.8-10.8) 01/02/17 10:29 RBC 4.48 Mil/cmm (3.80-5.20) 01/02/17 10:29 Hgb 12.0 gm/dL (12-16) 01/02/17 10:29 Hct 38.1 % (41.0-60) L D 01/02/17 10:29 MCV 85.1 fl (81-100) 01/02/17 10:29 MCH 26.8 pg (27.0-31.0) L 01/02/17 10:29 MCHC Differential 31.5 pg (28.0-36.0) 01/02/17 10:29 RDW 18.8 % (11.5-20.0) 01/02/17 10:29 Plt Count 154 Th/cmm (150-400) 01/02/17 10:29 MPV 9.2 fl 01/02/17 10:29 Neutrophils % 78.8 % (40.0-80.0) 01/02/17 10:29 Lymphocytes % 12.4 % (20.0-50.0) L 01/02/17 10:29 Monocytes % 6.0 % (2.0-10.0) 01/02/17 10:29 Eosinophils % 2.5 % (0.0-5.0) 01/02/17 10:29 Basophils % 0.3 % (0.0-2.0) 01/02/17 10:29 Eos Smear Source URINE 12/30/16 17:25 Eos Smear Total Cells NONE SEEN (NONE SEEN) 12/30/16 17:25 PT 14.0 SECONDS (9.5-11.5) H 12/28/16 22:11 INR 1.33 (0.5-1.4) 12/28/16 22:11 Sodium 135 mEq/L (136-145) L 01/07/17 05:40 Potassium 4.0 mEq/L (3.5-5.1) 01/07/17 05:40 Chloride 104 mEq/L (98-107) 01/07/17 05:40 Carbon Dioxide 21.9 mEq/L (21.0-31.0) 01/07/17 05:40 Anion Gap 13.1 (7.0-16.0) 01/07/17 05:40 BUN 35 mg/dL (7-25) H 01/07/17 05:40 Creatinine 1.2 mg/dL (0.6-1.2) 01/07/17 05:40 Est GFR ( Amer) TNP 01/07/17 05:40 Est GFR (Non-Af Amer) TNP 01/07/17 05:40 BUN/Creatinine Ratio 29.2 01/07/17 05:40 Glucose 253 mg/dL (70-105) H 01/07/17 05:40 POC Glucose 213 MG/DL (70 - 105) H 01/07/17 06:00 Hemoglobin A1c % 7.4 % (4.0-6.0) H 12/28/16 22:11 Plasma/Ser Osmolality 311 mOsmol/kg (280-301) H 12/30/16 05:35 Uric Acid 9.5 mg/dL (2.3-6.6) H 12/30/16 05:35 Calcium 8.8 mg/dL (8.6-10.3) 01/07/17 05:40 Phosphorus 3.3 mg/dL (2.5-5.0) 12/30/16 05:35 Magnesium 2.0 mg/dL (1.9-2.7) 01/07/17 05:40 Total Bilirubin 0.9 mg/dL (0.3-1.0) 12/30/16 05:35 AST 15 U/L (13-39) 12/30/16 05:35 ALT 8 U/L (7-52) 12/30/16 05:35 Alkaline Phosphatase 71 U/L (34-104) 12/30/16 05:35 Troponin I < 0.01 ng/mL (0.01-0.05) L 12/31/16 06:27 B-Natriuretic Peptide 2210.0 pg/mL (5.0-100.0) H 01/07/17 05:40 Total Protein 6.2 gm/dL (6.0-8.3) 12/30/16 05:35 Albumin 2.9 gm/dL (3.7-5.3) L 12/30/16 05:35 Globulin 3.3 gm/dL 12/30/16 05:35 Albumin/Globulin Ratio 0.9 (1.0-1.8) L 12/30/16 05:35 Triglycerides 60 mg/dL (<150) 12/30/16 05:35 Cholesterol 69 mg/dL (<200) 12/30/16 05:35 LDL Cholesterol Direct 47 mg/dL (75-193) L 12/30/16 05:35 HDL Cholesterol 23 mg/dL (23-92) 12/30/16 05:35 TSH 2.33 uIU/ml (0.34-5.60) 12/28/16 22:11 Urine Source CLEAN C 12/28/16 22:30 Urine Color YELLOW 12/28/16 22:30 Urine Clarity HAZY (CLEAR) 12/28/16 22:30 Urine pH 5.5 (4.6 - 8.0) 12/28/16 22:30 Ur Specific May 1.015 (1.005-1.030) 12/28/16 22:30 Urine Protein TRACE mg/dL (NEGATIVE) 12/28/16 22:30 Urine Glucose (UA) NEGATIVE mg/dL (NEGATIVE) 12/28/16 22:30 Urine Ketones NEGATIVE mg/dL (NEGATIVE) 12/28/16 22:30 Urine Blood SMALL (NEGATIVE) H 12/28/16 22:30 Urine Nitrate POSITIVE (NEGATIVE) H 12/28/16 22:30 Urine Bilirubin NEGATIVE (NEGATIVE) 12/28/16 22:30 Urine Urobilinogen 0.2 E.U./dL (0.2 - 1.0) 12/28/16 22:30 Ur Leukocyte Esterase TRACE (NEGATIVE) H 12/28/16 22:30 Urine RBC 10-25 /hpf (0-5) H 12/28/16 22:30 Urine WBC 6-10 /hpf (0-5) H 12/28/16 22:30 Ur Epithelial Cells FEW /lpf (FEW) 12/28/16 22:30 Urine Bacteria MODERATE /hpf (NONE SEEN) 12/28/16 22:30 Ur Random Sodium 13 mmol/L 12/30/16 17:25 Urine Creatinine 74.6 mg/dl (Not Estab.) 12/30/16 17:25 Urine Microalbumin 636.6 ug/mL (Not Estab.) 12/30/16 17:25 Microalb/Creat Ratio 853.4 mg/g creat (0.0-30.0) H 12/30/16 17:25 - Physical Exam Vitals and I&O: Vital Signs Temp 98.4 F 01/07/17 04:00 Pulse 93 01/07/17 04:00 Resp 20 01/07/17 04:00 BP 140/55 01/07/17 04:00 Pulse Ox 18 01/07/17 04:00 Intake & Output 01/06/17 01/07/17 01/07/17 18:59 06:59 18:59 Intake Total 747.082 200 Output Total 1800 1300 Balance -1052.918 -1100 Weight (lbs) 84.368 kg 84.368 kg Intake: Intake, IV Amount 247.082 DOPamine 400 mg In 250 ml 247.082 @ 3 MCG/KG/MIN 9.491 mls /hr IV Q26H [facility] Rx#: [id number] Oral 500 200 Output: Urine 1800 1300 Other: # Bowel Movements 0 Active Medications: Current Medications Acetaminophen (Tylenol) 650 mg PO Q4HR PRN PRN Reason: Pain or Fever >101 Stop: 02/27/17 01:46 Last Admin: 01/07/17 00:37 Dose: 650 mg Albuterol/Ipratropium (Duoneb Neb) 3 ml HHN Q6HR PRN PRN Reason: Shortness of Breath or Wheeze Stop: 02/27/17 01:46 Ascorbic Acid (Vitamin C) 500 mg PO DAILY [facility] Stop: 02/27/17 08:59 Last Admin: 01/06/17 09:42 Dose: 500 mg Aspirin (Aspirin Chewable) 81 mg PO DAILY [facility] Stop: 02/28/17 08:59 Last Admin: 01/06/17 09:43 Dose: 81 mg Atorvastatin Calcium (Lipitor) 10 mg PO DAILY [facility] PRN Reason: Protocol Stop: 02/28/17 08:59 Last Admin: 01/06/17 09:42 Dose: 10 mg Bisacodyl (Dulcolax 10 Mg Supp) 10 mg RC DAILY PRN PRN Reason: Constipation Stop: 02/27/17 01:46 Carvedilol (Coreg) 6.25 mg PO BID [facility] Stop: 03/02/17 16:59 Last Admin: 01/06/17 16:43 Dose: 6.25 mg Docusate Sodium (Colace) 100 mg PO BID [facility] Stop: 02/27/17 08:59 Last Admin: 01/06/17 16:48 Dose: 100 mg Enoxaparin Sodium (Lovenox) 40 mg SUBQ Q12HR [facility] Stop: 02/27/17 20:59 Last Admin: 01/06/17 20:44 Dose: 40 mg Furosemide (Lasix) 40 mg IVP BID [facility] Stop: 03/02/17 16:59 Last Admin: 01/06/17 16:44 Dose: 40 mg Hydralazine HCl (Apresoline) 10 mg PO BID [facility] Stop: 02/27/17 08:59 Last Admin: 01/06/17 16:42 Dose: 10 mg Dopamine HCl/Dextrose (Dopamine) 400 mg in 250 mls @ 9.491 mls/hr IV Q26H [facility] PRN Reason: 3 MCG/KG/MIN Stop: 01/08/17 12:59 Last Admin: 01/06/17 16:45 Dose: 3 mcg/kg/min, 9.491 mls/hr Insulin Aspart (Novolog Insulin Sliding Scale) 0 units SUBQ ACHS [facility] PRN Reason: Protocol Stop: 02/27/17 07:29 Last Admin: 01/07/17 06:44 Dose: 4 units Isosorbide Dinitrate (Isordil) 10 mg PO TID [facility] Stop: 02/27/17 08:59 Last Admin: 01/06/17 20:49 Dose: 10 mg Lactobacillus Rhamnosus (Culturelle) 1 each PO DAILY [facility] Stop: 02/27/17 08:59 Last Admin: 01/06/17 09:42 Dose: 1 each Levetiracetam (Keppra) 250 mg PO BID [facility] Stop: 02/27/17 08:59 Last Admin: 01/06/17 16:41 Dose: 250 mg Levothyroxine Sodium (Synthroid) 0.05 mg PO QDAC [facility] Stop: 02/27/17 07:29 Last Admin: 01/07/17 06:43 Dose: 0.05 mg Magnesium Hydroxide (Milk Of Magnesia) 30 ml PO DAILY PRN PRN Reason: Constipation Stop: 02/27/17 01:46 Megestrol Acetate (Megace) 40 mg PO DAILY [facility] PRN Reason: Protocol Stop: 02/28/17 15:59 Last Admin: 01/06/17 09:42 Dose: 40 mg Metolazone (Zaroxolyn) 5 mg PO BID [facility] Stop: 03/05/17 16:59 Last Admin: 01/06/17 16:44 Dose: 5 mg Miscellaneous (Probiotic Screen) 1 ea MC PRN PRN PRN Reason: PROTOCOL Stop: 02/28/17 15:40 Montelukast Sodium (Singulair) 10 mg PO DAILY [facility] Stop: 02/27/17 08:59 Last Admin: 01/06/17 09:43 Dose: 10 mg Ondansetron HCl (Zofran Odt) 4 mg PO Q6HR PRN PRN Reason: Nausea / Vomiting Stop: 02/27/17 01:46 Pantoprazole Sodium (Protonix) 40 mg PO DAILY [facility] Stop: 02/27/17 08:59 Last Admin: 01/06/17 09:43 Dose: 40 mg Senna (Senna) 17.2 mg PO HS [facility] Stop: 02/27/17 20:59 Last Admin: 01/06/17 20:48 Dose: 17.2 mg Sodium Phosphate (Fleet Enema) 135 ml RC Q48HR PRN PRN Reason: Constipation Stop: 02/27/17 01:46 Spironolactone (Aldactone) 25 mg PO BID [facility] Stop: 03/02/17 16:59 Last Admin: 01/06/17 16:44 Dose: 25 mg General: Alert, No acute distress HEENT: Atraumatic Neck: Supple, +2 carotid pulse wo bruit Cardiovascular: Regular rate, Normal S1, Normal S2 Lungs: Other (decrease bs) Abdomen: Bowel sounds, Soft Extremities: Edema, Other ((+) 3 bipdeal edema) Neurological: Sensation intact Skin: no Rash Psych/Mental Status: Mood NL Assessment/Plan - Problem List Patient Problems: All Active Problems Anemia (Acute) D64.9 CKD (chronic kidney disease) stage 2, GFR 60-89 ml/min (Acute) N18.2 Diabetes (Acute) E11.9 Hyperlipidemia (Acute) E78.5 Non-ST elevated myocardial infarction (Acute) I21.4 Pacemaker (Acute) Z95.0 Pyelonephritis (Acute) N12 Seizure disorder (Acute) G40.909 Sick sinus syndrome (Acute) I49.5 UTI (urinary tract infection) (Acute) - Plan Plan: cardio w/up iv antibiotics cpm Nutritional Asmnt/Malnutr-PDOC - Dietary Evaluation Malnutrition Findings (Please click <Entered> for more info): Nutritional Asmnt/Malnutrition Start: 12/30/16 12: 57 Text: Status: Complete Freq: Document 12/30/16 12:57 GSUN (Rec: 12/30/16 13:17 GSUN [id number]) Nutritional Asmnt/Malnutrition Patient General Information Nutritional Screening High Risk Screening Diagnosis Elevated troponin level, UTI, poor intake Pertinent Medical Hx/Surgical Hx Anemia, CKD stage 2, DM, hyperlipidemia, non ST elevated myocardial infarction , pacemaker, pyelonephritis, seizure disorder, sick sinus syndrome Subjective Information 71 year old female. Pt's diet order noted to be pureed CCHO NICOLASA at [facility] , current diet order is low sodium. Spoke to RN Baldemar, RN made aware, RN also stated pt is Ethiopian speaking but confused. Spoke to MANAGER GENERATION who assisted with breakfast, MANAGER GENERATION stated pt is a feeder, good appetite, tolerated well, however noted pt is edentulous so did not feed toast. Pt seen talkign to self during visit, appeared overweight, no muscle fat wasting noted. Current Diet Order/ Nutrition Support Low sodium Pertinent Medications Vitamin C, Lipitor, Dulcolax, Colace, Novolog, Culturelle, MOM, Zofran, Protonix, Senna, Fleet Enema Pertinent Labs 12/28: A1c 7.4H 12/30: BUN 54H, potassium 4.1, creatinine 1.4H, glucose 256H Nutritional Hx/Data Height 1.52 m Height (Calculated Centimeters) 152.4 Current Weight (lbs) 84.368 kg Weight (Calculated Kilograms) 84.4 Weight (Calculated Grams) 26361.2 Mead Body Weight 100 Weight Status Obese GI Symptoms Usual diet at home [facility]: pureed, CCHO, NICOLASA Skin Integrity/Comment: Ho 13. Pitting 2+ lower extremities. Coccyx blanchable redness. Estimated Nutritional Goals BEE in Kcals: Adj wt of IBW Calories/Kcals/Kg AdjBW 121.5lb/55.2kg Kcals Calculated 1380-1656kcal (25-30kcal/kg) Protein: Adj wt of IBW Protein Calculated 55-66g (1-1.2g/kg) Fluid: ml 1380-1656ml (1ml/kcal) Nutritional Problem 2. Problem Problem Altered nutrition related laboratory values related to Etiology DM aeb Signs/Symptoms: A1c 7.4H, glucose 256H 1. Problem Problem (possible) diffiiculty chewing related to Etiology edentulous, diet order aeb Signs/Symptoms: pt was previously on pureed diet and now on regular texture Intervention/Recommendation Comments 1. Recommend [id number] low sodium, diet texture to be determined. Previous pureed diet order noted in transfer chart, however pt has been on regular texture diet since adm , day 2. MIKE Mcdermott made aware. 2. Nursing staff to record % intake for every meal. No documentations since adm. Expected Outcomes/Goals Expected Outcomes/Goals 1. PO intake to meet at least 75% of estimated nutritional needs with tolerance.
[2017-01-07] MEDS: Enoxaparin 40 mg/0.4 mL 0.4mL Syr SUBQ SCH ×2 (09:17→20:31)
[2017-01-07] MEDS: Lactobacillus Rhamnosus 10 Billion CFU Capsule PO SCH (09:19)
[2017-01-07] MEDS: Multivitamin w/ Minerals Tab PO SCH (09:20)
[2017-01-07] MEDS: Atorvastatin Calcium 10 MG TAB PO SCH (09:20)
[2017-01-07] MEDS: Aspirin 81mg Chewable Tab PO SCH (09:20)
[2017-01-07] MEDS: Pantoprazole 40 mg EC Tab PO SCH (09:20)
--- NOTE | 2017-01-07 15:01 | General Progress Note ---
Subjective - Review of Systems Service Date: 01/07/17 Subjective: alert, verbal, comfortable Objective - Results Result Diagrams: 01/02/17 10:29 01/07/17 05:40 Recent Labs: Laboratory Last Values WBC 7.6 Th/cmm (4.8-10.8) 01/02/17 10:29 RBC 4.48 Mil/cmm (3.80-5.20) 01/02/17 10:29 Hgb 12.0 gm/dL (12-16) 01/02/17 10:29 Hct 38.1 % (41.0-60) L D 01/02/17 10:29 MCV 85.1 fl (81-100) 01/02/17 10:29 MCH 26.8 pg (27.0-31.0) L 01/02/17 10:29 MCHC Differential 31.5 pg (28.0-36.0) 01/02/17 10:29 RDW 18.8 % (11.5-20.0) 01/02/17 10:29 Plt Count 154 Th/cmm (150-400) 01/02/17 10:29 MPV 9.2 fl 01/02/17 10:29 Neutrophils % 78.8 % (40.0-80.0) 01/02/17 10:29 Lymphocytes % 12.4 % (20.0-50.0) L 01/02/17 10:29 Monocytes % 6.0 % (2.0-10.0) 01/02/17 10:29 Eosinophils % 2.5 % (0.0-5.0) 01/02/17 10:29 Basophils % 0.3 % (0.0-2.0) 01/02/17 10:29 Eos Smear Source URINE 12/30/16 17:25 Eos Smear Total Cells NONE SEEN (NONE SEEN) 12/30/16 17:25 PT 14.0 SECONDS (9.5-11.5) H 12/28/16 22:11 INR 1.33 (0.5-1.4) 12/28/16 22:11 Sodium 135 mEq/L (136-145) L 01/07/17 05:40 Potassium 4.0 mEq/L (3.5-5.1) 01/07/17 05:40 Chloride 104 mEq/L (98-107) 01/07/17 05:40 Carbon Dioxide 21.9 mEq/L (21.0-31.0) 01/07/17 05:40 Anion Gap 13.1 (7.0-16.0) 01/07/17 05:40 BUN 35 mg/dL (7-25) H 01/07/17 05:40 Creatinine 1.2 mg/dL (0.6-1.2) 01/07/17 05:40 Est GFR ( Amer) TNP 01/07/17 05:40 Est GFR (Non-Af Amer) TNP 01/07/17 05:40 BUN/Creatinine Ratio 29.2 01/07/17 05:40 Glucose 253 mg/dL (70-105) H 01/07/17 05:40 POC Glucose 262 MG/DL (70 - 105) H 01/07/17 11:14 Hemoglobin A1c % 7.4 % (4.0-6.0) H 12/28/16 22:11 Plasma/Ser Osmolality 311 mOsmol/kg (280-301) H 12/30/16 05:35 Uric Acid 9.5 mg/dL (2.3-6.6) H 12/30/16 05:35 Calcium 8.8 mg/dL (8.6-10.3) 01/07/17 05:40 Phosphorus 3.3 mg/dL (2.5-5.0) 12/30/16 05:35 Magnesium 2.0 mg/dL (1.9-2.7) 01/07/17 05:40 Total Bilirubin 0.9 mg/dL (0.3-1.0) 12/30/16 05:35 AST 15 U/L (13-39) 12/30/16 05:35 ALT 8 U/L (7-52) 12/30/16 05:35 Alkaline Phosphatase 71 U/L (34-104) 12/30/16 05:35 Troponin I < 0.01 ng/mL (0.01-0.05) L 12/31/16 06:27 B-Natriuretic Peptide 2210.0 pg/mL (5.0-100.0) H 01/07/17 05:40 Total Protein 6.2 gm/dL (6.0-8.3) 12/30/16 05:35 Albumin 2.9 gm/dL (3.7-5.3) L 12/30/16 05:35 Globulin 3.3 gm/dL 12/30/16 05:35 Albumin/Globulin Ratio 0.9 (1.0-1.8) L 12/30/16 05:35 Triglycerides 60 mg/dL (<150) 12/30/16 05:35 Cholesterol 69 mg/dL (<200) 12/30/16 05:35 LDL Cholesterol Direct 47 mg/dL (75-193) L 12/30/16 05:35 HDL Cholesterol 23 mg/dL (23-92) 12/30/16 05:35 TSH 2.33 uIU/ml (0.34-5.60) 12/28/16 22:11 Urine Source CLEAN C 12/28/16 22:30 Urine Color YELLOW 12/28/16 22:30 Urine Clarity HAZY (CLEAR) 12/28/16 22:30 Urine pH 5.5 (4.6 - 8.0) 12/28/16 22:30 Ur Specific [place] 1.015 (1.005-1.030) 12/28/16 22:30 Urine Protein TRACE mg/dL (NEGATIVE) 12/28/16 22:30 Urine Glucose (UA) NEGATIVE mg/dL (NEGATIVE) 12/28/16 22:30 Urine Ketones NEGATIVE mg/dL (NEGATIVE) 12/28/16 22:30 Urine Blood SMALL (NEGATIVE) H 12/28/16 22:30 Urine Nitrate POSITIVE (NEGATIVE) H 12/28/16 22:30 Urine Bilirubin NEGATIVE (NEGATIVE) 12/28/16 22:30 Urine Urobilinogen 0.2 E.U./dL (0.2 - 1.0) 12/28/16 22:30 Ur Leukocyte Esterase TRACE (NEGATIVE) H 12/28/16 22:30 Urine RBC 10-25 /hpf (0-5) H 12/28/16 22:30 Urine WBC 6-10 /hpf (0-5) H 12/28/16 22:30 Ur Epithelial Cells FEW /lpf (FEW) 12/28/16 22:30 Urine Bacteria MODERATE /hpf (NONE SEEN) 12/28/16 22:30 Ur Random Sodium 13 mmol/L 12/30/16 17:25 Urine Creatinine 74.6 mg/dl (Not Estab.) 12/30/16 17:25 Urine Microalbumin 636.6 ug/mL (Not Estab.) 12/30/16 17:25 Microalb/Creat Ratio 853.4 mg/g creat (0.0-30.0) H 12/30/16 17:25 - Physical Exam Vitals and I&O: Vital Signs Temp 97.7 F 01/07/17 13:49 Pulse 85 01/07/17 14:53 Resp 17 01/07/17 13:49 BP 137/69 01/07/17 14:53 Pulse Ox 97 01/07/17 13:49 Intake & Output 01/06/17 01/07/17 01/07/17 18:59 06:59 18:59 Intake Total 747.082 200 Output Total 1800 1300 Balance -1052.918 -1100 Weight (lbs) 84.368 kg 84.368 kg Intake: Intake, IV Amount 247.082 DOPamine 400 mg In 250 ml 247.082 @ 3 MCG/KG/MIN 9.491 mls /hr IV Q26H [facility] Rx#: [id number] Oral 500 200 Output: Urine 1800 1300 Other: # Bowel Movements 0 Active Medications: Current Medications Acetaminophen (Tylenol) 650 mg PO Q4HR PRN PRN Reason: Pain or Fever >101 Stop: 02/27/17 01:46 Last Admin: 01/07/17 00:37 Dose: 650 mg Albuterol/Ipratropium (Duoneb Neb) 3 ml HHN Q6HR PRN PRN Reason: Shortness of Breath or Wheeze Stop: 02/27/17 01:46 Ascorbic Acid (Vitamin C) 500 mg PO DAILY [facility] Stop: 02/27/17 08:59 Last Admin: 01/07/17 09:20 Dose: 500 mg Aspirin (Aspirin Chewable) 81 mg PO DAILY [facility] Stop: 02/28/17 08:59 Last Admin: 01/07/17 09:20 Dose: 81 mg Atorvastatin Calcium (Lipitor) 10 mg PO DAILY [facility] PRN Reason: Protocol Stop: 02/28/17 08:59 Last Admin: 01/07/17 09:20 Dose: 10 mg Bisacodyl (Dulcolax 10 Mg Supp) 10 mg RC DAILY PRN PRN Reason: Constipation Stop: 02/27/17 01:46 Carvedilol (Coreg) 6.25 mg PO BID [facility] Stop: 03/02/17 16:59 Last Admin: 01/07/17 09:20 Dose: 6.25 mg Docusate Sodium (Colace) 100 mg PO BID JOSE DAVID Stop: 02/27/17 08:59 Last Admin: 01/07/17 09:20 Dose: 100 mg Enoxaparin Sodium (Lovenox) 40 mg SUBQ Q12HR JOSE DAVID Stop: 02/27/17 20:59 Last Admin: 01/07/17 09:17 Dose: 40 mg Furosemide (Lasix) 40 mg IVP BID JOSE DAVID Stop: 03/02/17 16:59 Last Admin: 01/07/17 09:17 Dose: 40 mg Hydralazine HCl (Apresoline) 10 mg PO BID JOSE DAVID Stop: 02/27/17 08:59 Last Admin: 01/07/17 09:21 Dose: 10 mg Dopamine HCl/Dextrose (Dopamine) 400 mg in 250 mls @ 9.491 mls/hr IV Q26H JOSE DAVID PRN Reason: 3 MCG/KG/MIN Stop: 01/08/17 12:59 Last Admin: 01/06/17 16:45 Dose: 3 mcg/kg/min, 9.491 mls/hr Insulin Aspart (Novolog Insulin Sliding Scale) 0 units SUBQ ACHS JOSE DAVID PRN Reason: Protocol Stop: 02/27/17 07:29 Last Admin: 01/07/17 11:24 Dose: 5 units Isosorbide Dinitrate (Isordil) 10 mg PO TID JOSE DAVID Stop: 02/27/17 08:59 Last Admin: 01/07/17 14:53 Dose: 10 mg Lactobacillus Rhamnosus (Culturelle) 1 each PO DAILY JOSE DAVID Stop: 02/27/17 08:59 Last Admin: 01/07/17 09:19 Dose: 1 each Levetiracetam (Keppra) 250 mg PO BID JOSE DAVID Stop: 02/27/17 08:59 Last Admin: 01/07/17 09:20 Dose: 250 mg Levothyroxine Sodium (Synthroid) 0.05 mg PO QDAC JOSE DAVID Stop: 02/27/17 07:29 Last Admin: 01/07/17 06:43 Dose: 0.05 mg Magnesium Hydroxide (Milk Of Magnesia) 30 ml PO DAILY PRN PRN Reason: Constipation Stop: 02/27/17 01:46 Megestrol Acetate (Megace) 40 mg PO DAILY JOSE DAVID PRN Reason: Protocol Stop: 02/28/17 15:59 Last Admin: 01/07/17 09:20 Dose: 40 mg Metolazone (Zaroxolyn) 5 mg PO BID JOSE DAVID Stop: 03/05/17 16:59 Last Admin: 01/07/17 09:20 Dose: 5 mg Miscellaneous (Probiotic Screen) 1 ea MC PRN PRN PRN Reason: PROTOCOL Stop: 02/28/17 15:40 Montelukast Sodium (Singulair) 10 mg PO DAILY JOSE DAVID Stop: 02/27/17 08:59 Last Admin: 01/07/17 09:20 Dose: 10 mg Ondansetron HCl (Zofran Odt) 4 mg PO Q6HR PRN PRN Reason: Nausea / Vomiting Stop: 02/27/17 01:46 Pantoprazole Sodium (Protonix) 40 mg PO DAILY JOSE DAVID Stop: 02/27/17 08:59 Last Admin: 01/07/17 09:20 Dose: 40 mg Senna (Senna) 17.2 mg PO HS [facility] Stop: 02/27/17 20:59 Last Admin: 01/06/17 20:48 Dose: 17.2 mg Sodium Phosphate (Fleet Enema) 135 ml RC Q48HR PRN PRN Reason: Constipation Stop: 02/27/17 01:46 Spironolactone (Aldactone) 25 mg PO BID [facility] Stop: 03/02/17 16:59 Last Admin: 01/07/17 09:21 Dose: 25 mg General: Alert, No acute distress HEENT: Atraumatic Neck: Supple, +2 carotid pulse wo bruit Cardiovascular: Regular rate, Normal S1, Normal S2 Lungs: Other (decrease bs) Abdomen: Bowel sounds, Soft Extremities: Edema, Other ((+) 3 bipdeal edema) Neurological: Sensation intact Skin: no Rash Psych/Mental Status: Mood NL Assessment/Plan - Problem List Patient Problems: All Active Problems Anemia (Acute) D64.9 CKD (chronic kidney disease) stage 2, GFR 60-89 ml/min (Acute) N18.2 Diabetes (Acute) E11.9 Hyperlipidemia (Acute) E78.5 Non-ST elevated myocardial infarction (Acute) I21.4 Pacemaker (Acute) Z95.0 Pyelonephritis (Acute) N12 Seizure disorder (Acute) G40.909 Sick sinus syndrome (Acute) I49.5 UTI (urinary tract infection) (Acute) - Assessment Assessment: MAEVE on CKD Type 2 DM Alzh Dementia Ess Htn w/ CKD Severe Cardiomyopathy S/P AICD Epilepsy CAD Acute on Chronic Chf Severed PAD FTT - Plan Plan: Lab - Result Diagrams 12/30/16 05:35 12/31/16 06:27 Current Medications Acetaminophen (Tylenol) 650 mg PO Q4HR PRN PRN Reason: Pain or Fever >101 Stop: 02/27/17 01:46 Last Admin: 12/30/16 21:38 Dose: 650 mg Albuterol/Ipratropium (Duoneb Neb) 3 ml HHN Q6HR PRN PRN Reason: Shortness of Breath or Wheeze Stop: 02/27/17 01:46 Ascorbic Acid (Vitamin C) 500 mg PO DAILY [facility] Stop: 02/27/17 08:59 Last Admin: 12/31/16 09:30 Dose: 500 mg Aspirin (Aspirin Chewable) 81 mg PO DAILY JOSE DAVID Stop: 02/28/17 08:59 Last Admin: 12/31/16 09:30 Dose: 81 mg Atorvastatin Calcium (Lipitor) 10 mg PO DAILY JOSE DAVID PRN Reason: Protocol Stop: 02/28/17 08:59 Last Admin: 12/31/16 09:30 Dose: 10 mg Bisacodyl (Dulcolax 10 Mg Supp) 10 mg RC DAILY PRN PRN Reason: Constipation Stop: 02/27/17 01:46 Carvedilol (Coreg) 3.125 mg PO BID [facility] Stop: 02/27/17 08:59 Last Admin: 12/31/16 17:37 Dose: Not Given Docusate Sodium (Colace) 100 mg PO BID [facility] Stop: 02/27/17 08:59 Last Admin: 12/31/16 17:37 Dose: Not Given Enoxaparin Sodium (Lovenox) 40 mg SUBQ Q12HR JOSE DAVID Stop: 02/27/17 20:59 Last Admin: 12/31/16 09:30 Dose: 40 mg Hydralazine HCl (Apresoline) 10 mg PO BID [facility] Stop: 02/27/17 08:59 Last Admin: 12/31/16 17:37 Dose: Not Given Ceftriaxone Sodium 1 gm/ (Sodium Chloride) 50 mls @ 100 mls/hr IV Q24HR JOSE DAVID Stop: 02/28/17 00:00 Last Admin: 12/31/16 01:37 Dose: 100 mls/hr Sodium Chloride (Nacl 0.9%) 1,000 mls @ 70 mls/hr IV .[id number] JOSE DAVID Stop: 02/27/17 07:59 Last Admin: 12/31/16 07:00 Dose: 70 mls/hr Insulin Aspart (Novolog Insulin Sliding Scale) 0 units SUBQ ACHS JOSE DAVID PRN Reason: Protocol Stop: 02/27/17 07:29 Last Admin: 12/31/16 17:52 Dose: 3 units Isosorbide Dinitrate (Isordil) 10 mg PO TID JOSE DAVID Stop: 02/27/17 08:59 Last Admin: 12/31/16 14:10 Dose: Not Given Lactobacillus Rhamnosus (Culturelle) 1 each PO DAILY JOSE DAVID Stop: 02/27/17 08:59 Last Admin: 12/31/16 09:30 Dose: 1 each Levetiracetam (Keppra) 250 mg PO BID JOSE DAVID Stop: 02/27/17 08:59 Last Admin: 12/31/16 17:37 Dose: Not Given Levothyroxine Sodium (Synthroid) 0.05 mg PO QDAC JOSE DAVID Stop: 02/27/17 07:29 Last Admin: 12/31/16 07:01 Dose: 0.05 mg Magnesium Hydroxide (Milk Of Magnesia) 30 ml PO DAILY PRN PRN Reason: Constipation Stop: 02/27/17 01:46 Megestrol Acetate (Megace) 40 mg PO DAILY JOSE DAVID PRN Reason: Protocol Stop: 02/28/17 15:59 Last Admin: 12/31/16 09:30 Dose: 40 mg Miscellaneous (Probiotic Screen) 1 ea MC PRN PRN PRN Reason: PROTOCOL Stop: 02/28/17 15:40 Montelukast Sodium (Singulair) 10 mg PO DAILY JOSE DAVID Stop: 02/27/17 08:59 Last Admin: 12/31/16 09:30 Dose: 10 mg Mupirocin (Bactroban Oint) 1 appl NS BID JOSE DAVID Stop: 01/04/17 17:01 Last Admin: 12/31/16 17:37 Dose: Not Given Ondansetron HCl (Zofran Odt) 4 mg PO Q6HR PRN PRN Reason: Nausea / Vomiting Stop: 02/27/17 01:46 Pantoprazole Sodium (Protonix) 40 mg PO DAILY JOSE DAVID Stop: 02/27/17 08:59 Last Admin: 12/31/16 09:30 Dose: 40 mg Senna (Senna) 17.2 mg PO HS JOSE DAVID Stop: 02/27/17 20:59 Last Admin: 12/30/16 20:22 Dose: 17.2 mg Sodium Phosphate (Fleet Enema) 135 ml RC Q48HR PRN PRN Reason: Constipation Stop: 02/27/17 01:46 DC IVF due to elevated BNP, peripheral edema ECHO revealed severe CM w/ EJF of 10-15% B/L LAE, LVH no change kidney fnc already has AICD, consider bivent pacing CXR NAD, BNP 2520 FE Na 0.13% suggestive of prerenal component add spironolactone, increase coreg f/u cxr, electrolytes Lab - Result Diagrams 01/02/17 10:29 01/07/17 05:40 7 Nutritional Asmnt/Malnutr-PDOC - Dietary Evaluation Malnutrition Findings (Please click <Entered> for more info): Nutritional Asmnt/Malnutrition Start: 12/30/16 12: 57 Text: Status: Complete Freq: Document 12/30/16 12:57 GSUN (Rec: 12/30/16 13:17 [email or web address] [id number]) Nutritional Asmnt/Malnutrition Patient General Information Nutritional Screening High Risk Screening Diagnosis Elevated troponin level, UTI, poor intake Pertinent Medical Hx/Surgical Hx Anemia, CKD stage 2, DM, hyperlipidemia, non ST elevated myocardial infarction , pacemaker, pyelonephritis, seizure disorder, sick sinus syndrome Subjective Information 71 year old female. Pt's diet order noted to be pureed CCHO NICOLASA at [facility] , current diet order is low sodium. Spoke to RN Baldemar, RN made aware, RN also stated pt is Sw[place] speaking but confused. Spoke to CONSERVATION TECHNICIAN who assisted with breakfast, CONSERVATION TECHNICIAN stated pt is a feeder, good appetite, tolerated well, however noted pt is edentulous so did not feed toast. Pt seen talkign to self during visit, appeared overweight, no muscle fat wasting noted. Current Diet Order/ Nutrition Support Low sodium Pertinent Medications Vitamin C, Lipitor, Dulcolax, Colace, Novolog, Culturelle, MOM, Zofran, Protonix, Senna, Fleet Enema Pertinent Labs 12/28: A1c 7.4H 12/30: BUN 54H, potassium 4.1, creatinine 1.4H, glucose 256H Nutritional Hx/Data Height 1.52 m Height (Calculated Centimeters) 152.4 Current Weight (lbs) 84.368 kg Weight (Calculated Kilograms) 84.4 Weight (Calculated Grams) 99979.2 [place] Body Weight 100 Weight Status Obese GI Symptoms Usual diet at home [facility]: pureed, CCHO, NICOLASA Skin Integrity/Comment: Ho 13. Pitting 2+ lower extremities. Coccyx blanchable redness. Estimated Nutritional Goals BEE in Kcals: Adj wt of IBW Calories/Kcals/Kg AdjBW 121.5lb/55.2kg Kcals Calculated 1380-1656kcal (25-30kcal/kg) Protein: Adj wt of IBW Protein Calculated 55-66g (1-1.2g/kg) Fluid: ml 1380-1656ml (1ml/kcal) Nutritional Problem 2. Problem Problem Altered nutrition related laboratory values related to Etiology DM aeb Signs/Symptoms: A1c 7.4H, glucose 256H 1. Problem Problem (possible) diffiiculty chewing related to Etiology edentulous, diet order aeb Signs/Symptoms: pt was previously on pureed diet and now on regular texture Intervention/Recommendation Comments 1. Recommend [id number] low sodium, diet texture to be determined. Previous pureed diet order noted in transfer chart, however pt has been on regular texture diet since adm , day 2. MIKE Mcdermott made aware. 2. Nursing staff to record % intake for every meal. No documentations since adm. Expected Outcomes/Goals Expected Outcomes/Goals 1. PO intake to meet at least 75% of estimated nutritional needs with tolerance.
[2017-01-07] MEDS: DOPamine 400 MG/250 ML BAG IV SCH (16:40)
[2017-01-08 06:32] LABS: ANION GAP 10.9 (7.0-16.0); BUN - UREA NITROGEN 32 mg/dL (7-25); BUN/CREATININE RATIO 26.7; CALCIUM SERUM 8.9 mg/dL (8.6-10.3); CHLORIDE 102 mEq/L (98-107); CREATININE - SERUM 1.2 mg/dL (0.6-1.2); GLUCOSE 206 mg/dL (70-105); POTASSIUM SERUM 3.9 mEq/L (3.5-5.1); SODIUM SERUM 134 mEq/L (136-145)
[2017-01-08] MEDS: INSULIN ASPART SLIDING SCALE 100 UNITS/ML UNIT SUBQ SCH ×4 (06:37→20:40)
[2017-01-08] MEDS: Levothyroxine 0.05 Mg Tab PO SCH (06:37)
[2017-01-08] MEDS: Enoxaparin 40 mg/0.4 mL 0.4mL Syr SUBQ SCH ×2 (09:17→20:44)
[2017-01-08] MEDS: Aspirin 81mg Chewable Tab PO SCH (09:25)
[2017-01-08] MEDS: Atorvastatin Calcium 10 MG TAB PO SCH (09:25)
[2017-01-08] MEDS: Lactobacillus Rhamnosus 10 Billion CFU Capsule PO SCH (09:26)
[2017-01-08] MEDS: Multivitamin w/ Minerals Tab PO SCH (09:33)
[2017-01-08] MEDS: Pantoprazole 40 mg EC Tab PO SCH (09:33)
--- NOTE | 2017-01-08 12:24 | Internal Medicine Prog Note ---
Internal Medicine Subjective - Subjective Service Date: 01/08/17 (patient is on dopamine renal dose, bnp still elevated) Patient is:: awake, confused Per staff patient has:: no adverse event, tolerating meds Internal Medicine Objective - Results Result Diagrams: 01/02/17 10:29 01/08/17 05:55 Recent Labs: Laboratory Last Values WBC 7.6 Th/cmm (4.8-10.8) 01/02/17 10:29 RBC 4.48 Mil/cmm (3.80-5.20) 01/02/17 10:29 Hgb 12.0 gm/dL (12-16) 01/02/17 10:29 Hct 38.1 % (41.0-60) L D 01/02/17 10:29 MCV 85.1 fl (81-100) 01/02/17 10:29 MCH 26.8 pg (27.0-31.0) L 01/02/17 10:29 MCHC Differential 31.5 pg (28.0-36.0) 01/02/17 10:29 RDW 18.8 % (11.5-20.0) 01/02/17 10:29 Plt Count 154 Th/cmm (150-400) 01/02/17 10:29 MPV 9.2 fl 01/02/17 10:29 Neutrophils % 78.8 % (40.0-80.0) 01/02/17 10:29 Lymphocytes % 12.4 % (20.0-50.0) L 01/02/17 10:29 Monocytes % 6.0 % (2.0-10.0) 01/02/17 10:29 Eosinophils % 2.5 % (0.0-5.0) 01/02/17 10:29 Basophils % 0.3 % (0.0-2.0) 01/02/17 10:29 Eos Smear Source URINE 12/30/16 17:25 Eos Smear Total Cells NONE SEEN (NONE SEEN) 12/30/16 17:25 PT 14.0 SECONDS (9.5-11.5) H 12/28/16 22:11 INR 1.33 (0.5-1.4) 12/28/16 22:11 Sodium 134 mEq/L (136-145) L 01/08/17 05:55 Potassium 3.9 mEq/L (3.5-5.1) 01/08/17 05:55 Chloride 102 mEq/L (98-107) 01/08/17 05:55 Carbon Dioxide 25.0 mEq/L (21.0-31.0) 01/08/17 05:55 Anion Gap 10.9 (7.0-16.0) 01/08/17 05:55 BUN 32 mg/dL (7-25) H 01/08/17 05:55 Creatinine 1.2 mg/dL (0.6-1.2) 01/08/17 05:55 Est GFR ( Amer) TNP 01/08/17 05:55 Est GFR (Non-Af Amer) TNP 01/08/17 05:55 BUN/Creatinine Ratio 26.7 01/08/17 05:55 Glucose 206 mg/dL (70-105) H 01/08/17 05:55 POC Glucose 246 MG/DL (70 - 105) H 01/08/17 11:39 Hemoglobin A1c % 7.4 % (4.0-6.0) H 12/28/16 22:11 Plasma/Ser Osmolality 311 mOsmol/kg (280-301) H 12/30/16 05:35 Uric Acid 9.5 mg/dL (2.3-6.6) H 12/30/16 05:35 Calcium 8.9 mg/dL (8.6-10.3) 01/08/17 05:55 Phosphorus 3.3 mg/dL (2.5-5.0) 12/30/16 05:35 Magnesium 2.0 mg/dL (1.9-2.7) 01/07/17 05:40 Total Bilirubin 0.9 mg/dL (0.3-1.0) 12/30/16 05:35 AST 15 U/L (13-39) 12/30/16 05:35 ALT 8 U/L (7-52) 12/30/16 05:35 Alkaline Phosphatase 71 U/L (34-104) 12/30/16 05:35 Troponin I < 0.01 ng/mL (0.01-0.05) L 12/31/16 06:27 B-Natriuretic Peptide 2830.0 pg/mL (5.0-100.0) H 01/08/17 05:55 Total Protein 6.2 gm/dL (6.0-8.3) 12/30/16 05:35 Albumin 2.9 gm/dL (3.7-5.3) L 12/30/16 05:35 Globulin 3.3 gm/dL 12/30/16 05:35 Albumin/Globulin Ratio 0.9 (1.0-1.8) L 12/30/16 05:35 Triglycerides 60 mg/dL (<150) 12/30/16 05:35 Cholesterol 69 mg/dL (<200) 12/30/16 05:35 LDL Cholesterol Direct 47 mg/dL (75-193) L 12/30/16 05:35 HDL Cholesterol 23 mg/dL (23-92) 12/30/16 05:35 TSH 2.33 uIU/ml (0.34-5.60) 12/28/16 22:11 Urine Source CLEAN C 12/28/16 22:30 Urine Color YELLOW 12/28/16 22:30 Urine Clarity HAZY (CLEAR) 12/28/16 22:30 Urine pH 5.5 (4.6 - 8.0) 12/28/16 22:30 Ur Specific [place] 1.015 (1.005-1.030) 12/28/16 22:30 Urine Protein TRACE mg/dL (NEGATIVE) 12/28/16 22:30 Urine Glucose (UA) NEGATIVE mg/dL (NEGATIVE) 12/28/16 22:30 Urine Ketones NEGATIVE mg/dL (NEGATIVE) 12/28/16 22:30 Urine Blood SMALL (NEGATIVE) H 12/28/16 22:30 Urine Nitrate POSITIVE (NEGATIVE) H 12/28/16 22:30 Urine Bilirubin NEGATIVE (NEGATIVE) 12/28/16 22:30 Urine Urobilinogen 0.2 E.U./dL (0.2 - 1.0) 12/28/16 22:30 Ur Leukocyte Esterase TRACE (NEGATIVE) H 12/28/16 22:30 Urine RBC 10-25 /hpf (0-5) H 12/28/16 22:30 Urine WBC 6-10 /hpf (0-5) H 12/28/16 22:30 Ur Epithelial Cells FEW /lpf (FEW) 12/28/16 22:30 Urine Bacteria MODERATE /hpf (NONE SEEN) 12/28/16 22:30 Ur Random Sodium 13 mmol/L 12/30/16 17:25 Urine Creatinine 74.6 mg/dl (Not Estab.) 12/30/16 17:25 Urine Microalbumin 636.6 ug/mL (Not Estab.) 12/30/16 17:25 Microalb/Creat Ratio 853.4 mg/g creat (0.0-30.0) H 12/30/16 17:25 - Physical Exam Vitals and I&O: Vital Signs Temp 97.3 F 01/08/17 12:00 Pulse 90 01/08/17 12:00 Resp 18 01/08/17 12:00 BP 137/84 01/08/17 12:00 Pulse Ox 98 01/08/17 12:00 Intake & Output 01/07/17 01/08/17 01/08/17 18:59 06:59 18:59 Intake Total 226.993 Output Total 1000 Balance 226.993 -1000 Weight (lbs) 186 lb Intake: Intake, IV Amount 226.993 DOPamine 400 mg In 250 ml 226.993 @ 3 MCG/KG/MIN 9.491 mls /hr IV Q26H [facility] Rx#: [id number] Output: Urine 1000 Other: Stool Characteristics Soft Formed Active Medications: Current Medications Acetaminophen (Tylenol) 650 mg PO Q4HR PRN PRN Reason: Pain or Fever >101 Stop: 02/27/17 01:46 Last Admin: 01/08/17 09:24 Dose: 650 mg Albuterol/Ipratropium (Duoneb Neb) 3 ml HHN Q6HR PRN PRN Reason: Shortness of Breath or Wheeze Stop: 02/27/17 01:46 Ascorbic Acid (Vitamin C) 500 mg PO DAILY [facility] Stop: 02/27/17 08:59 Last Admin: 01/08/17 09:24 Dose: 500 mg Aspirin (Aspirin Chewable) 81 mg PO DAILY [facility] Stop: 02/28/17 08:59 Last Admin: 01/08/17 09:25 Dose: 81 mg Atorvastatin Calcium (Lipitor) 10 mg PO DAILY JOSE DAVID PRN Reason: Protocol Stop: 02/28/17 08:59 Last Admin: 01/08/17 09:25 Dose: 10 mg Bisacodyl (Dulcolax 10 Mg Supp) 10 mg RC DAILY PRN PRN Reason: Constipation Stop: 02/27/17 01:46 Carvedilol (Coreg) 6.25 mg PO BID JOSE DAVID Stop: 03/02/17 16:59 Last Admin: 01/08/17 09:26 Dose: 6.25 mg Docusate Sodium (Colace) 100 mg PO BID JOSE DAVID Stop: 02/27/17 08:59 Last Admin: 01/08/17 09:26 Dose: 100 mg Enoxaparin Sodium (Lovenox) 40 mg SUBQ Q12HR JOSE DAVID Stop: 02/27/17 20:59 Last Admin: 01/08/17 09:17 Dose: 40 mg Furosemide (Lasix) 40 mg IVP BID JOSE DAVID Stop: 03/02/17 16:59 Last Admin: 01/08/17 09:17 Dose: 40 mg Hydralazine HCl (Apresoline) 10 mg PO BID JOSE DAVID Stop: 02/27/17 08:59 Last Admin: 01/08/17 09:25 Dose: 10 mg Dopamine HCl/Dextrose (Dopamine) 400 mg in 250 mls @ 9.491 mls/hr IV Q26H JOSE DAVID PRN Reason: 3 MCG/KG/MIN Stop: 01/08/17 12:59 Last Admin: 01/07/17 16:40 Dose: 3 mcg/kg/min, 9.491 mls/hr Insulin Aspart (Novolog Insulin Sliding Scale) 0 units SUBQ ACHS JOSE DAVID PRN Reason: Protocol Stop: 02/27/17 07:29 Last Admin: 01/08/17 12:01 Dose: 4 units Isosorbide Dinitrate (Isordil) 10 mg PO TID JOSE DAVID Stop: 02/27/17 08:59 Last Admin: 01/08/17 09:25 Dose: 10 mg Lactobacillus Rhamnosus (Culturelle) 1 each PO DAILY JOSE DAVID Stop: 02/27/17 08:59 Last Admin: 01/08/17 09:26 Dose: 1 each Levetiracetam (Keppra) 250 mg PO BID JOSE DAVID Stop: 02/27/17 08:59 Last Admin: 01/08/17 09:25 Dose: 250 mg Levothyroxine Sodium (Synthroid) 0.05 mg PO QDAC JOSE DAVID Stop: 02/27/17 07:29 Last Admin: 01/08/17 06:37 Dose: 0.05 mg Magnesium Hydroxide (Milk Of Magnesia) 30 ml PO DAILY PRN PRN Reason: Constipation Stop: 02/27/17 01:46 Megestrol Acetate (Megace) 40 mg PO DAILY JOSE DAVID PRN Reason: Protocol Stop: 02/28/17 15:59 Last Admin: 01/08/17 09:34 Dose: 40 mg Metolazone (Zaroxolyn) 5 mg PO BID JOSE DAVID Stop: 03/05/17 16:59 Last Admin: 01/08/17 09:34 Dose: 5 mg Miscellaneous (Probiotic Screen) 1 ea MC PRN PRN PRN Reason: PROTOCOL Stop: 02/28/17 15:40 Montelukast Sodium (Singulair) 10 mg PO DAILY JOSE DAVID Stop: 02/27/17 08:59 Last Admin: 01/08/17 09:35 Dose: 10 mg Ondansetron HCl (Zofran Odt) 4 mg PO Q6HR PRN PRN Reason: Nausea / Vomiting Stop: 02/27/17 01:46 Pantoprazole Sodium (Protonix) 40 mg PO DAILY JOSE DAVID Stop: 02/27/17 08:59 Last Admin: 01/08/17 09:33 Dose: 40 mg Senna (Senna) 17.2 mg PO HS JOSE DAVID Stop: 02/27/17 20:59 Last Admin: 01/07/17 20:31 Dose: 17.2 mg Sodium Phosphate (Fleet Enema) 135 ml RC Q48HR PRN PRN Reason: Constipation Stop: 02/27/17 01:46 Spironolactone (Aldactone) 25 mg PO BID [facility] Stop: 03/02/17 16:59 Last Admin: 01/08/17 09:33 Dose: 25 mg General: weak, demented HEENT: NC/AT, PERRLA Neck: Supple Lungs: CTAB Cardiovascular: RRR, Normal S1, Normal S2, without murmur Abdomen: soft, non-tender, non-distended, positive bowel sound Neurological: other (confused) Internal Medicine Assmt/Plan - Assessment Assessment: Anemia CKD Diabetes Hyperlipidemia Non-ST elevated myocardial infarction Pacemaker status Pyelonephritis Seizure disorder Sick sinus syndrome Acute UTI - Plan Plan: continue dopamine as per cardio cardio f/u am labs continue iv antibiotics as per id monitor glucose continue current plan of care Nutritional Asmnt/Malnutr-PDOC - Dietary Evaluation Malnutrition Findings (Please click <Entered> for more info): Nutritional Asmnt/Malnutrition Start: 12/30/16 12: 57 Text: Status: Complete Freq: Document 12/30/16 12:57 GSUN (Rec: 12/30/16 13:17 [email or web address] [id number]) Nutritional Asmnt/Malnutrition Patient General Information Nutritional Screening High Risk Screening Diagnosis Elevated troponin level, UTI, poor intake Pertinent Medical Hx/Surgical Hx Anemia, CKD stage 2, DM, hyperlipidemia, non ST elevated myocardial infarction , pacemaker, pyelonephritis, seizure disorder, sick sinus syndrome Subjective Information 71 year old female. Pt's diet order noted to be pureed CCHO INCOLASA at [facility] , current diet order is low sodium. Spoke to RN Baldemar, RN made aware, RN also stated pt is American speaking but confused. Spoke to [employer] who assisted with breakfast, [employer] stated pt is a feeder, good appetite, tolerated well, however noted pt is edentulous so did not feed toast. Pt seen talkign to self during visit, appeared overweight, no muscle fat wasting noted. Current Diet Order/ Nutrition Support Low sodium Pertinent Medications Vitamin C, Lipitor, Dulcolax, Colace, Novolog, Culturelle, MOM, Zofran, Protonix, Senna, Fleet Enema Pertinent Labs 12/28: A1c 7.4H 12/30: BUN 54H, potassium 4.1, creatinine 1.4H, glucose 256H Nutritional Hx/Data Height 5 ft Height (Calculated Centimeters) 152.4 Current Weight (lbs) 186 lb Weight (Calculated Kilograms) 84.4 Weight (Calculated Grams) 80546.2 [place] Body Weight 100 Weight Status Obese GI Symptoms Usual diet at home [facility]: pureed, CCHO, NICOLASA Skin Integrity/Comment: Ho 13. Pitting 2+ lower extremities. Coccyx blanchable redness. Estimated Nutritional Goals BEE in Kcals: Adj wt of IBW Calories/Kcals/Kg AdjBW 121.5lb/55.2kg Kcals Calculated 1380-1656kcal (25-30kcal/kg) Protein: Adj wt of IBW Protein Calculated 55-66g (1-1.2g/kg) Fluid: ml 1380-1656ml (1ml/kcal) Nutritional Problem 2. Problem Problem Altered nutrition related laboratory values related to Etiology DM aeb Signs/Symptoms: A1c 7.4H, glucose 256H 1. Problem Problem (possible) diffiiculty chewing related to Etiology edentulous, diet order aeb Signs/Symptoms: pt was previously on pureed diet and now on regular texture Intervention/Recommendation Comments 1. Recommend [id number] low sodium, diet texture to be determined. Previous pureed diet order noted in transfer chart, however pt has been on regular texture diet since adm , day 2. RN Baldemar made aware. 2. Nursing staff to record % intake for every meal. No documentations since adm. Expected Outcomes/Goals Expected Outcomes/Goals 1. PO intake to meet at least 75% of estimated nutritional needs with tolerance.
--- NOTE | 2017-01-08 14:46 | General Progress Note ---
Subjective - Review of Systems Service Date: 01/08/17 Subjective: alert, screaming Objective - Results Result Diagrams: 01/02/17 10:29 01/08/17 05:55 Recent Labs: Laboratory Last Values WBC 7.6 Th/cmm (4.8-10.8) 01/02/17 10:29 RBC 4.48 Mil/cmm (3.80-5.20) 01/02/17 10:29 Hgb 12.0 gm/dL (12-16) 01/02/17 10:29 Hct 38.1 % (41.0-60) L D 01/02/17 10:29 MCV 85.1 fl (81-100) 01/02/17 10:29 MCH 26.8 pg (27.0-31.0) L 01/02/17 10:29 MCHC Differential 31.5 pg (28.0-36.0) 01/02/17 10:29 RDW 18.8 % (11.5-20.0) 01/02/17 10:29 Plt Count 154 Th/cmm (150-400) 01/02/17 10:29 MPV 9.2 fl 01/02/17 10:29 Neutrophils % 78.8 % (40.0-80.0) 01/02/17 10:29 Lymphocytes % 12.4 % (20.0-50.0) L 01/02/17 10:29 Monocytes % 6.0 % (2.0-10.0) 01/02/17 10:29 Eosinophils % 2.5 % (0.0-5.0) 01/02/17 10:29 Basophils % 0.3 % (0.0-2.0) 01/02/17 10:29 Eos Smear Source URINE 12/30/16 17:25 Eos Smear Total Cells NONE SEEN (NONE SEEN) 12/30/16 17:25 PT 14.0 SECONDS (9.5-11.5) H 12/28/16 22:11 INR 1.33 (0.5-1.4) 12/28/16 22:11 Sodium 134 mEq/L (136-145) L 01/08/17 05:55 Potassium 3.9 mEq/L (3.5-5.1) 01/08/17 05:55 Chloride 102 mEq/L (98-107) 01/08/17 05:55 Carbon Dioxide 25.0 mEq/L (21.0-31.0) 01/08/17 05:55 Anion Gap 10.9 (7.0-16.0) 01/08/17 05:55 BUN 32 mg/dL (7-25) H 01/08/17 05:55 Creatinine 1.2 mg/dL (0.6-1.2) 01/08/17 05:55 Est GFR ( Amer) TNP 01/08/17 05:55 Est GFR (Non-Af Amer) TNP 01/08/17 05:55 BUN/Creatinine Ratio 26.7 01/08/17 05:55 Glucose 206 mg/dL (70-105) H 01/08/17 05:55 POC Glucose 246 MG/DL (70 - 105) H 01/08/17 11:39 Hemoglobin A1c % 7.4 % (4.0-6.0) H 12/28/16 22:11 Plasma/Ser Osmolality 311 mOsmol/kg (280-301) H 12/30/16 05:35 Uric Acid 9.5 mg/dL (2.3-6.6) H 12/30/16 05:35 Calcium 8.9 mg/dL (8.6-10.3) 01/08/17 05:55 Phosphorus 3.3 mg/dL (2.5-5.0) 12/30/16 05:35 Magnesium 2.0 mg/dL (1.9-2.7) 01/07/17 05:40 Total Bilirubin 0.9 mg/dL (0.3-1.0) 12/30/16 05:35 AST 15 U/L (13-39) 12/30/16 05:35 ALT 8 U/L (7-52) 12/30/16 05:35 Alkaline Phosphatase 71 U/L (34-104) 12/30/16 05:35 Troponin I < 0.01 ng/mL (0.01-0.05) L 12/31/16 06:27 B-Natriuretic Peptide 2830.0 pg/mL (5.0-100.0) H 01/08/17 05:55 Total Protein 6.2 gm/dL (6.0-8.3) 12/30/16 05:35 Albumin 2.9 gm/dL (3.7-5.3) L 12/30/16 05:35 Globulin 3.3 gm/dL 12/30/16 05:35 Albumin/Globulin Ratio 0.9 (1.0-1.8) L 12/30/16 05:35 Triglycerides 60 mg/dL (<150) 12/30/16 05:35 Cholesterol 69 mg/dL (<200) 12/30/16 05:35 LDL Cholesterol Direct 47 mg/dL (75-193) L 12/30/16 05:35 HDL Cholesterol 23 mg/dL (23-92) 12/30/16 05:35 TSH 2.33 uIU/ml (0.34-5.60) 12/28/16 22:11 Urine Source CLEAN C 12/28/16 22:30 Urine Color YELLOW 12/28/16 22:30 Urine Clarity HAZY (CLEAR) 12/28/16 22:30 Urine pH 5.5 (4.6 - 8.0) 12/28/16 22:30 Ur Specific [place] 1.015 (1.005-1.030) 12/28/16 22:30 Urine Protein TRACE mg/dL (NEGATIVE) 12/28/16 22:30 Urine Glucose (UA) NEGATIVE mg/dL (NEGATIVE) 12/28/16 22:30 Urine Ketones NEGATIVE mg/dL (NEGATIVE) 12/28/16 22:30 Urine Blood SMALL (NEGATIVE) H 12/28/16 22:30 Urine Nitrate POSITIVE (NEGATIVE) H 12/28/16 22:30 Urine Bilirubin NEGATIVE (NEGATIVE) 12/28/16 22:30 Urine Urobilinogen 0.2 E.U./dL (0.2 - 1.0) 12/28/16 22:30 Ur Leukocyte Esterase TRACE (NEGATIVE) H 12/28/16 22:30 Urine RBC 10-25 /hpf (0-5) H 12/28/16 22:30 Urine WBC 6-10 /hpf (0-5) H 12/28/16 22:30 Ur Epithelial Cells FEW /lpf (FEW) 12/28/16 22:30 Urine Bacteria MODERATE /hpf (NONE SEEN) 12/28/16 22:30 Ur Random Sodium 13 mmol/L 12/30/16 17:25 Urine Creatinine 74.6 mg/dl (Not Estab.) 12/30/16 17:25 Urine Microalbumin 636.6 ug/mL (Not Estab.) 12/30/16 17:25 Microalb/Creat Ratio 853.4 mg/g creat (0.0-30.0) H 12/30/16 17:25 - Physical Exam Vitals and I&O: Vital Signs Temp 97.3 F 01/08/17 12:00 Pulse 76 01/08/17 13:53 Resp 18 01/08/17 12:00 BP 140/83 01/08/17 13:53 Pulse Ox 98 01/08/17 12:00 Intake & Output 01/07/17 01/08/17 01/08/17 18:59 06:59 18:59 Intake Total 226.993 Output Total 1000 Balance 226.993 -1000 Weight (lbs) 84.368 kg Intake: Intake, IV Amount 226.993 DOPamine 400 mg In 250 ml 226.993 @ 3 MCG/KG/MIN 9.491 mls /hr IV Q26H [facility] Rx#: [id number] Output: Urine 1000 Other: Stool Characteristics Soft Formed Active Medications: Current Medications Acetaminophen (Tylenol) 650 mg PO Q4HR PRN PRN Reason: Pain or Fever >101 Stop: 02/27/17 01:46 Last Admin: 01/08/17 09:24 Dose: 650 mg Albuterol/Ipratropium (Duoneb Neb) 3 ml HHN Q6HR PRN PRN Reason: Shortness of Breath or Wheeze Stop: 02/27/17 01:46 Ascorbic Acid (Vitamin C) 500 mg PO DAILY [facility] Stop: 02/27/17 08:59 Last Admin: 01/08/17 09:24 Dose: 500 mg Aspirin (Aspirin Chewable) 81 mg PO DAILY [facility] Stop: 02/28/17 08:59 Last Admin: 01/08/17 09:25 Dose: 81 mg Atorvastatin Calcium (Lipitor) 10 mg PO DAILY [facility] PRN Reason: Protocol Stop: 02/28/17 08:59 Last Admin: 01/08/17 09:25 Dose: 10 mg Bisacodyl (Dulcolax 10 Mg Supp) 10 mg RC DAILY PRN PRN Reason: Constipation Stop: 02/27/17 01:46 Carvedilol (Coreg) 6.25 mg PO BID [facility] Stop: 03/02/17 16:59 Last Admin: 01/08/17 09:26 Dose: 6.25 mg Docusate Sodium (Colace) 100 mg PO BID [facility] Stop: 02/27/17 08:59 Last Admin: 01/08/17 09:26 Dose: 100 mg Enoxaparin Sodium (Lovenox) 40 mg SUBQ Q12HR [facility] Stop: 02/27/17 20:59 Last Admin: 01/08/17 09:17 Dose: 40 mg Furosemide (Lasix) 40 mg IVP BID [facility] Stop: 03/02/17 16:59 Last Admin: 01/08/17 09:17 Dose: 40 mg Hydralazine HCl (Apresoline) 10 mg PO BID [facility] Stop: 02/27/17 08:59 Last Admin: 01/08/17 09:25 Dose: 10 mg Insulin Aspart (Novolog Insulin Sliding Scale) 0 units SUBQ ACHS [facility] PRN Reason: Protocol Stop: 02/27/17 07:29 Last Admin: 01/08/17 12:01 Dose: 4 units Isosorbide Dinitrate (Isordil) 10 mg PO TID [facility] Stop: 02/27/17 08:59 Last Admin: 01/08/17 13:53 Dose: 10 mg Lactobacillus Rhamnosus (Culturelle) 1 each PO DAILY [facility] Stop: 02/27/17 08:59 Last Admin: 01/08/17 09:26 Dose: 1 each Levetiracetam (Keppra) 250 mg PO BID [facility] Stop: 02/27/17 08:59 Last Admin: 01/08/17 09:25 Dose: 250 mg Levothyroxine Sodium (Synthroid) 0.05 mg PO QDAC [facility] Stop: 02/27/17 07:29 Last Admin: 01/08/17 06:37 Dose: 0.05 mg Magnesium Hydroxide (Milk Of Magnesia) 30 ml PO DAILY PRN PRN Reason: Constipation Stop: 02/27/17 01:46 Megestrol Acetate (Megace) 40 mg PO DAILY [facility] PRN Reason: Protocol Stop: 02/28/17 15:59 Last Admin: 01/08/17 09:34 Dose: 40 mg Metolazone (Zaroxolyn) 5 mg PO BID [facility] Stop: 03/05/17 16:59 Last Admin: 01/08/17 09:34 Dose: 5 mg Miscellaneous (Probiotic Screen) 1 ea MC PRN PRN PRN Reason: PROTOCOL Stop: 02/28/17 15:40 Montelukast Sodium (Singulair) 10 mg PO DAILY [facility] Stop: 02/27/17 08:59 Last Admin: 01/08/17 09:35 Dose: 10 mg Ondansetron HCl (Zofran Odt) 4 mg PO Q6HR PRN PRN Reason: Nausea / Vomiting Stop: 02/27/17 01:46 Pantoprazole Sodium (Protonix) 40 mg PO DAILY [facility] Stop: 02/27/17 08:59 Last Admin: 01/08/17 09:33 Dose: 40 mg Senna (Senna) 17.2 mg PO HS [facility] Stop: 02/27/17 20:59 Last Admin: 01/07/17 20:31 Dose: 17.2 mg Sodium Phosphate (Fleet Enema) 135 ml RC Q48HR PRN PRN Reason: Constipation Stop: 02/27/17 01:46 Spironolactone (Aldactone) 25 mg PO BID [facility] Stop: 03/02/17 16:59 Last Admin: 01/08/17 09:33 Dose: 25 mg General: Alert, No acute distress HEENT: Atraumatic Neck: Supple, +2 carotid pulse wo bruit Cardiovascular: Regular rate, Normal S1, Normal S2 Lungs: Other (decrease bs) Abdomen: Bowel sounds, Soft Extremities: Edema, Other ((+) 3 bipdeal edema) Neurological: Sensation intact Skin: no Rash Psych/Mental Status: Mood NL Assessment/Plan - Problem List Patient Problems: All Active Problems Anemia (Acute) D64.9 CKD (chronic kidney disease) stage 2, GFR 60-89 ml/min (Acute) N18.2 Diabetes (Acute) E11.9 Hyperlipidemia (Acute) E78.5 Non-ST elevated myocardial infarction (Acute) I21.4 Pacemaker (Acute) Z95.0 Pyelonephritis (Acute) N12 Seizure disorder (Acute) G40.909 Sick sinus syndrome (Acute) I49.5 UTI (urinary tract infection) (Acute) - Assessment Assessment: MAEVE on CKD Type 2 DM Alzh Dementia Ess Htn w/ CKD Severe Cardiomyopathy S/P AICD Epilepsy CAD Acute on Chronic Chf Severed PAD FTT - Plan Plan: Lab - Result Diagrams 12/30/16 05:35 12/31/16 06:27 Current Medications Acetaminophen (Tylenol) 650 mg PO Q4HR PRN PRN Reason: Pain or Fever >101 Stop: 02/27/17 01:46 Last Admin: 12/30/16 21:38 Dose: 650 mg Albuterol/Ipratropium (Duoneb Neb) 3 ml HHN Q6HR PRN PRN Reason: Shortness of Breath or Wheeze Stop: 02/27/17 01:46 Ascorbic Acid (Vitamin C) 500 mg PO DAILY [facility] Stop: 02/27/17 08:59 Last Admin: 12/31/16 09:30 Dose: 500 mg Aspirin (Aspirin Chewable) 81 mg PO DAILY [facility] Stop: 02/28/17 08:59 Last Admin: 12/31/16 09:30 Dose: 81 mg Atorvastatin Calcium (Lipitor) 10 mg PO DAILY [facility] PRN Reason: Protocol Stop: 02/28/17 08:59 Last Admin: 12/31/16 09:30 Dose: 10 mg Bisacodyl (Dulcolax 10 Mg Supp) 10 mg RC DAILY PRN PRN Reason: Constipation Stop: 02/27/17 01:46 Carvedilol (Coreg) 3.125 mg PO BID [facility] Stop: 02/27/17 08:59 Last Admin: 12/31/16 17:37 Dose: Not Given Docusate Sodium (Colace) 100 mg PO BID [facility] Stop: 02/27/17 08:59 Last Admin: 12/31/16 17:37 Dose: Not Given Enoxaparin Sodium (Lovenox) 40 mg SUBQ Q12HR [facility] Stop: 02/27/17 20:59 Last Admin: 12/31/16 09:30 Dose: 40 mg Hydralazine HCl (Apresoline) 10 mg PO BID [facility] Stop: 02/27/17 08:59 Last Admin: 12/31/16 17:37 Dose: Not Given Ceftriaxone Sodium 1 gm/ (Sodium Chloride) 50 mls @ 100 mls/hr IV Q24HR [facility] Stop: 02/28/17 00:00 Last Admin: 12/31/16 01:37 Dose: 100 mls/hr Sodium Chloride (Nacl 0.9%) 1,000 mls @ 70 mls/hr IV .[id number] [facility] Stop: 02/27/17 07:59 Last Admin: 12/31/16 07:00 Dose: 70 mls/hr Insulin Aspart (Novolog Insulin Sliding Scale) 0 units SUBQ ACHS [facility] PRN Reason: Protocol Stop: 02/27/17 07:29 Last Admin: 12/31/16 17:52 Dose: 3 units Isosorbide Dinitrate (Isordil) 10 mg PO TID [facility] Stop: 02/27/17 08:59 Last Admin: 12/31/16 14:10 Dose: Not Given Lactobacillus Rhamnosus (Culturelle) 1 each PO DAILY [facility] Stop: 02/27/17 08:59 Last Admin: 12/31/16 09:30 Dose: 1 each Levetiracetam (Keppra) 250 mg PO BID [facility] Stop: 02/27/17 08:59 Last Admin: 12/31/16 17:37 Dose: Not Given Levothyroxine Sodium (Synthroid) 0.05 mg PO QDAC [facility] Stop: 02/27/17 07:29 Last Admin: 12/31/16 07:01 Dose: 0.05 mg Magnesium Hydroxide (Milk Of Magnesia) 30 ml PO DAILY PRN PRN Reason: Constipation Stop: 02/27/17 01:46 Megestrol Acetate (Megace) 40 mg PO DAILY [facility] PRN Reason: Protocol Stop: 02/28/17 15:59 Last Admin: 12/31/16 09:30 Dose: 40 mg Miscellaneous (Probiotic Screen) 1 ea MC PRN PRN PRN Reason: PROTOCOL Stop: 02/28/17 15:40 Montelukast Sodium (Singulair) 10 mg PO DAILY [facility] Stop: 02/27/17 08:59 Last Admin: 12/31/16 09:30 Dose: 10 mg Mupirocin (Bactroban Oint) 1 appl NS BID [facility] Stop: 01/04/17 17:01 Last Admin: 12/31/16 17:37 Dose: Not Given Ondansetron HCl (Zofran Odt) 4 mg PO Q6HR PRN PRN Reason: Nausea / Vomiting Stop: 02/27/17 01:46 Pantoprazole Sodium (Protonix) 40 mg PO DAILY [facility] Stop: 02/27/17 08:59 Last Admin: 12/31/16 09:30 Dose: 40 mg Senna (Senna) 17.2 mg PO HS [facility] Stop: 02/27/17 20:59 Last Admin: 12/30/16 20:22 Dose: 17.2 mg Sodium Phosphate (Fleet Enema) 135 ml RC Q48HR PRN PRN Reason: Constipation Stop: 02/27/17 01:46 DC IVF due to elevated BNP, peripheral edema ECHO revealed severe CM w/ EJF of 10-15% B/L LAE, LVH no change kidney fnc already has AICD, consider bivent pacing CXR NAD, BNP 2830 FE Na 0.13% suggestive of prerenal component add spironolactone, increase coreg on lasix, metolazone, renal dose dopamine 7 Nutritional Asmnt/Malnutr-PDOC - Dietary Evaluation Malnutrition Findings (Please click <Entered> for more info): Nutritional Asmnt/Malnutrition Start: 12/30/16 12: 57 Text: Status: Complete Freq: Document 12/30/16 12:57 GSUN (Rec: 12/30/16 13:17 [email or web address] [id number]) Nutritional Asmnt/Malnutrition Patient General Information Nutritional Screening High Risk Screening Diagnosis Elevated troponin level, UTI, poor intake Pertinent Medical Hx/Surgical Hx Anemia, CKD stage 2, DM, hyperlipidemia, non ST elevated myocardial infarction , pacemaker, pyelonephritis, seizure disorder, sick sinus syndrome Subjective Information 71 year old female. Pt's diet order noted to be pureed [facility] at [facility] , current diet order is low sodium. Spoke to RN Baldemar, RN made aware, RN also stated pt is Russian speaking but confused. Spoke to DIRECTOR OF REIMBURSEMENT who assisted with breakfast, DIRECTOR OF REIMBURSEMENT stated pt is a feeder, good appetite, tolerated well, however noted pt is edentulous so did not feed toast. Pt seen talkign to self during visit, appeared overweight, no muscle fat wasting noted. Current Diet Order/ Nutrition Support Low sodium Pertinent Medications Vitamin C, Lipitor, Dulcolax, Colace, Novolog, Culturelle, MOM, Zofran, Protonix, Senna, Fleet Enema Pertinent Labs 12/28: A1c 7.4H 12/30: BUN 54H, potassium 4.1, creatinine 1.4H, glucose 256H Nutritional Hx/Data Height 1.52 m Height (Calculated Centimeters) 152.4 Current Weight (lbs) 84.368 kg Weight (Calculated Kilograms) 84.4 Weight (Calculated Grams) 79575.2 Isabella Body Weight 100 Weight Status Obese GI Symptoms Usual diet at home [facility]: pureyossi, CCHO, NICOLASA Skin Integrity/Comment: Ho 13. Pitting 2+ lower extremities. Coccyx blanchable redness. Estimated Nutritional Goals BEE in Kcals: Adj wt of IBW Calories/Kcals/Kg AdjBW 121.5lb/55.2kg Kcals Calculated 1380-1656kcal (25-30kcal/kg) Protein: Adj wt of IBW Protein Calculated 55-66g (1-1.2g/kg) Fluid: ml 1380-1656ml (1ml/kcal) Nutritional Problem 2. Problem Problem Altered nutrition related laboratory values related to Etiology DM aeb Signs/Symptoms: A1c 7.4H, glucose 256H 1. Problem Problem (possible) diffiiculty chewing related to Etiology edentulous, diet order aeb Signs/Symptoms: pt was previously on pureed diet and now on regular texture Intervention/Recommendation Comments 1. Recommend [id number] low sodium, diet texture to be determined. Previous pureed diet order noted in transfer chart, however pt has been on regular texture diet since adm , day 2. MIKE Mcdermott made aware. 2. Nursing staff to record % intake for every meal. No documentations since adm. Expected Outcomes/Goals Expected Outcomes/Goals 1. PO intake to meet at least 75% of estimated nutritional needs with tolerance.
[2017-01-09 06:15] LABS: HEMOGLOBIN 11.2 gm/dL (12-16); MEAN PLATELET VOLUME 9.4 fl
[2017-01-09 06:20] LABS: % BASOPHILS 0.9 % (0.0-2.0); % LYMPHOCYTES 25.3 % (20.0-50.0); % MONOCYTES 9.6 % (2.0-10.0); % NEUTROPHILS 60.2 % (40.0-80.0); MEAN CELL VOLUME 81.9 fl (81-100); MEAN CORPUSCULAR HGB CONC 32.9 pg (28.0-36.0); NEUTROPHILE ABSOLUTE 3.5 Th/cmm (1.8-8.0); PLATELET COUNT 148 Th/cmm (150-400); RED BLOOD COUNT 4.16 Mil/cmm (3.80-5.20); RED CELL DISTRIBUTION WIDTH 18.7 % (11.5-20.0)
[2017-01-09 06:21] LABS: HEMATOCRIT 34.1 % (41.0-60); WHITE BLOOD COUNT 5.9 Th/cmm (4.8-10.8)
[2017-01-09 06:33] LABS: ANION GAP 9.1 (7.0-16.0); BUN - UREA NITROGEN 33 mg/dL (7-25); BUN/CREATININE RATIO 27.5; CALCIUM SERUM 8.7 mg/dL (8.6-10.3); CARBON DIOXIDE 28.7 mEq/L (21.0-31.0); CHLORIDE 100 mEq/L (98-107); CREATININE - SERUM 1.2 mg/dL (0.6-1.2); GLUCOSE 118 mg/dL (70-105); POTASSIUM SERUM 3.8 mEq/L (3.5-5.1); SODIUM SERUM 134 mEq/L (136-145)
[2017-01-09] MEDS: INSULIN ASPART SLIDING SCALE 100 UNITS/ML UNIT SUBQ SCH ×4 (06:51→21:08)
[2017-01-09] MEDS: Levothyroxine 0.05 Mg Tab PO SCH (06:51)
--- NOTE | 2017-01-09 08:07 | Diagnostic Imaging Report ---
Exam: Chest portable HISTORY: Infiltrates Findings: Portable examination of the chest at 0753 hours was reviewed. The study compared to previous of 01/05/2017. The study demonstrates a no acute pulmonic infiltrates or effusions. Mediastinal structures midline the heart is not enlarged. The aortic arch calcified. Left-sided pacemaker is noted. IMPRESSION: No acute disease.
[2017-01-09] MEDS: Enoxaparin 40 mg/0.4 mL 0.4mL Syr SUBQ SCH ×4 (09:36→21:00)
[2017-01-09] MEDS: Pantoprazole 40 mg EC Tab PO SCH ×2 (09:37→10:47)
[2017-01-09] MEDS: Lactobacillus Rhamnosus 10 Billion CFU Capsule PO SCH ×2 (09:38→10:50)
[2017-01-09] MEDS: Aspirin 81mg Chewable Tab PO SCH ×2 (09:38→10:48)
[2017-01-09] MEDS: Multivitamin w/ Minerals Tab PO SCH ×2 (09:38→10:48)
[2017-01-09] MEDS: Atorvastatin Calcium 10 MG TAB PO SCH ×2 (09:41→10:49)
--- NOTE | 2017-01-09 10:54 | General Progress Note ---
Subjective - Review of Systems Events since last encounter: no change Objective - Results Result Diagrams: 01/09/17 06:00 01/09/17 06:00 Recent Labs: Laboratory Last Values WBC 5.9 Th/cmm (4.8-10.8) D 01/09/17 06:00 RBC 4.16 Mil/cmm (3.80-5.20) 01/09/17 06:00 Hgb 11.2 gm/dL (12-16) L 01/09/17 06:00 Hct 34.1 % (41.0-60) L D 01/09/17 06:00 MCV 81.9 fl (81-100) 01/09/17 06:00 MCH 27.0 pg (27.0-31.0) 01/09/17 06:00 MCHC Differential 32.9 pg (28.0-36.0) 01/09/17 06:00 RDW 18.7 % (11.5-20.0) 01/09/17 06:00 Plt Count 148 Th/cmm (150-400) L 01/09/17 06:00 MPV 9.4 fl 01/09/17 06:00 Neutrophils % 60.2 % (40.0-80.0) 01/09/17 06:00 Lymphocytes % 25.3 % (20.0-50.0) 01/09/17 06:00 Monocytes % 9.6 % (2.0-10.0) 01/09/17 06:00 Eosinophils % 4.0 % (0.0-5.0) 01/09/17 06:00 Basophils % 0.9 % (0.0-2.0) 01/09/17 06:00 Eos Smear Source URINE 12/30/16 17:25 Eos Smear Total Cells NONE SEEN (NONE SEEN) 12/30/16 17:25 PT 14.0 SECONDS (9.5-11.5) H 12/28/16 22:11 INR 1.33 (0.5-1.4) 12/28/16 22:11 Sodium 134 mEq/L (136-145) L 01/09/17 06:00 Potassium 3.8 mEq/L (3.5-5.1) 01/09/17 06:00 Chloride 100 mEq/L (98-107) 01/09/17 06:00 Carbon Dioxide 28.7 mEq/L (21.0-31.0) 01/09/17 06:00 Anion Gap 9.1 (7.0-16.0) 01/09/17 06:00 BUN 33 mg/dL (7-25) H 01/09/17 06:00 Creatinine 1.2 mg/dL (0.6-1.2) 01/09/17 06:00 Est GFR ( Amer) TNP 01/09/17 06:00 Est GFR (Non-Af Amer) TNP 01/09/17 06:00 BUN/Creatinine Ratio 27.5 01/09/17 06:00 Glucose 118 mg/dL (70-105) H 01/09/17 06:00 POC Glucose 114 MG/DL (70 - 105) H 01/09/17 06:48 Hemoglobin A1c % 7.4 % (4.0-6.0) H 12/28/16 22:11 Plasma/Ser Osmolality 311 mOsmol/kg (280-301) H 12/30/16 05:35 Uric Acid 9.5 mg/dL (2.3-6.6) H 12/30/16 05:35 Calcium 8.7 mg/dL (8.6-10.3) 01/09/17 06:00 Phosphorus 3.3 mg/dL (2.5-5.0) 12/30/16 05:35 Magnesium 2.0 mg/dL (1.9-2.7) 01/07/17 05:40 Total Bilirubin 0.9 mg/dL (0.3-1.0) 12/30/16 05:35 AST 15 U/L (13-39) 12/30/16 05:35 ALT 8 U/L (7-52) 12/30/16 05:35 Alkaline Phosphatase 71 U/L (34-104) 12/30/16 05:35 Troponin I < 0.01 ng/mL (0.01-0.05) L 12/31/16 06:27 B-Natriuretic Peptide 2830.0 pg/mL (5.0-100.0) H 01/08/17 05:55 Total Protein 6.2 gm/dL (6.0-8.3) 12/30/16 05:35 Albumin 2.9 gm/dL (3.7-5.3) L 12/30/16 05:35 Globulin 3.3 gm/dL 12/30/16 05:35 Albumin/Globulin Ratio 0.9 (1.0-1.8) L 12/30/16 05:35 Triglycerides 60 mg/dL (<150) 12/30/16 05:35 Cholesterol 69 mg/dL (<200) 12/30/16 05:35 LDL Cholesterol Direct 47 mg/dL (75-193) L 12/30/16 05:35 HDL Cholesterol 23 mg/dL (23-92) 12/30/16 05:35 TSH 2.33 uIU/ml (0.34-5.60) 12/28/16 22:11 Urine Source CLEAN C 12/28/16 22:30 Urine Color YELLOW 12/28/16 22:30 Urine Clarity HAZY (CLEAR) 12/28/16 22:30 Urine pH 5.5 (4.6 - 8.0) 12/28/16 22:30 Ur Specific [place] 1.015 (1.005-1.030) 12/28/16 22:30 Urine Protein TRACE mg/dL (NEGATIVE) 12/28/16 22:30 Urine Glucose (UA) NEGATIVE mg/dL (NEGATIVE) 12/28/16 22:30 Urine Ketones NEGATIVE mg/dL (NEGATIVE) 12/28/16 22:30 Urine Blood SMALL (NEGATIVE) H 12/28/16 22:30 Urine Nitrate POSITIVE (NEGATIVE) H 12/28/16 22:30 Urine Bilirubin NEGATIVE (NEGATIVE) 12/28/16 22:30 Urine Urobilinogen 0.2 E.U./dL (0.2 - 1.0) 12/28/16 22:30 Ur Leukocyte Esterase TRACE (NEGATIVE) H 12/28/16 22:30 Urine RBC 10-25 /hpf (0-5) H 12/28/16 22:30 Urine WBC 6-10 /hpf (0-5) H 12/28/16 22:30 Ur Epithelial Cells FEW /lpf (FEW) 12/28/16 22:30 Urine Bacteria MODERATE /hpf (NONE SEEN) 12/28/16 22:30 Ur Random Sodium 13 mmol/L 12/30/16 17:25 Urine Creatinine 74.6 mg/dl (Not Estab.) 12/30/16 17:25 Urine Microalbumin 636.6 ug/mL (Not Estab.) 12/30/16 17:25 Microalb/Creat Ratio 853.4 mg/g creat (0.0-30.0) H 12/30/16 17:25 - Physical Exam Vitals and I&O: Vital Signs Temp 97.5 F 01/09/17 04:00 Pulse 79 01/09/17 09:55 Resp 18 01/09/17 07:40 BP 126/46 01/09/17 09:55 Pulse Ox 97 01/09/17 07:40 Intake & Output 01/08/17 01/09/17 01/09/17 18:59 06:59 18:59 Intake Total 200 300 Output Total 1350 1360 Balance -1150 -1060 Weight (lbs) 84.368 kg 83.461 kg Intake: Oral 200 300 Output: Urine 1350 1360 Stool 0 Other: # Bowel Movements 2 Stool Characteristics Soft Soft Soft Formed Formed Formed Active Medications: Current Medications Acetaminophen (Tylenol) 650 mg PO Q4HR PRN PRN Reason: Pain or Fever >101 Stop: 02/27/17 01:46 Last Admin: 01/08/17 23:09 Dose: 650 mg Albuterol/Ipratropium (Duoneb Neb) 3 ml HHN Q6HR PRN PRN Reason: Shortness of Breath or Wheeze Stop: 02/27/17 01:46 Ascorbic Acid (Vitamin C) 500 mg PO DAILY [facility] Stop: 02/27/17 08:59 Last Admin: 01/08/17 09:24 Dose: 500 mg Aspirin (Aspirin Chewable) 81 mg PO DAILY [facility] Stop: 02/28/17 08:59 Last Admin: 01/08/17 09:25 Dose: 81 mg Atorvastatin Calcium (Lipitor) 10 mg PO DAILY [facility] PRN Reason: Protocol Stop: 02/28/17 08:59 Last Admin: 01/08/17 09:25 Dose: 10 mg Bisacodyl (Dulcolax 10 Mg Supp) 10 mg RC DAILY PRN PRN Reason: Constipation Stop: 02/27/17 01:46 Carvedilol (Coreg) 6.25 mg PO BID [facility] Stop: 03/02/17 16:59 Last Admin: 01/09/17 09:43 Dose: Not Given Docusate Sodium (Colace) 100 mg PO BID [facility] Stop: 02/27/17 08:59 Last Admin: 01/08/17 17:22 Dose: 100 mg Enoxaparin Sodium (Lovenox) 40 mg SUBQ Q12HR [facility] Stop: 02/27/17 20:59 Last Admin: 01/08/17 20:44 Dose: 40 mg Furosemide (Lasix) 40 mg IVP BID [facility] Stop: 03/02/17 16:59 Last Admin: 01/09/17 09:39 Dose: 40 mg Hydralazine HCl (Apresoline) 10 mg PO BID [facility] Stop: 02/27/17 08:59 Last Admin: 01/09/17 09:54 Dose: Not Given Insulin Aspart (Novolog Insulin Sliding Scale) 0 units SUBQ ACHS [facility] PRN Reason: Protocol Stop: 02/27/17 07:29 Last Admin: 01/09/17 06:51 Dose: Not Given Isosorbide Dinitrate (Isordil) 10 mg PO TID [facility] Stop: 02/27/17 08:59 Last Admin: 01/09/17 09:55 Dose: Not Given Lactobacillus Rhamnosus (Culturelle) 1 each PO DAILY [facility] Stop: 02/27/17 08:59 Last Admin: 01/08/17 09:26 Dose: 1 each Levetiracetam (Keppra) 250 mg PO BID [facility] Stop: 02/27/17 08:59 Last Admin: 01/08/17 17:22 Dose: 250 mg Levothyroxine Sodium (Synthroid) 0.05 mg PO QDAC [facility] Stop: 02/27/17 07:29 Last Admin: 01/09/17 06:51 Dose: 0.05 mg Magnesium Hydroxide (Milk Of Magnesia) 30 ml PO DAILY PRN PRN Reason: Constipation Stop: 02/27/17 01:46 Megestrol Acetate (Megace) 40 mg PO DAILY [facility] PRN Reason: Protocol Stop: 02/28/17 15:59 Last Admin: 01/08/17 09:34 Dose: 40 mg Metolazone (Zaroxolyn) 5 mg PO BID [facility] Stop: 03/05/17 16:59 Last Admin: 01/08/17 17:23 Dose: 5 mg Miscellaneous (Probiotic Screen) 1 ea PRN PRN PRN Reason: PROTOCOL Stop: 02/28/17 15:40 Montelukast Sodium (Singulair) 10 mg PO DAILY [facility] Stop: 02/27/17 08:59 Last Admin: 01/08/17 09:35 Dose: 10 mg Ondansetron HCl (Zofran Odt) 4 mg PO Q6HR PRN PRN Reason: Nausea / Vomiting Stop: 02/27/17 01:46 Pantoprazole Sodium (Protonix) 40 mg PO DAILY [facility] Stop: 02/27/17 08:59 Last Admin: 01/08/17 09:33 Dose: 40 mg Senna (Senna) 17.2 mg PO HS [facility] Stop: 02/27/17 20:59 Last Admin: 01/08/17 20:45 Dose: 17.2 mg Sodium Phosphate (Fleet Enema) 135 ml RC Q48HR PRN PRN Reason: Constipation Stop: 02/27/17 01:46 Spironolactone (Aldactone) 25 mg PO BID [facility] Stop: 03/02/17 16:59 Last Admin: 01/08/17 17:23 Dose: 25 mg General: Alert, No acute distress HEENT: Atraumatic Neck: Supple, +2 carotid pulse wo bruit Cardiovascular: Regular rate, Normal S1, Normal S2 Lungs: Other (decrease bs) Abdomen: Bowel sounds, Soft Extremities: Edema, Other ((+) 3 bipdeal edema) Neurological: Sensation intact Skin: no Rash Psych/Mental Status: Mood NL Assessment/Plan - Problem List Patient Problems: All Active Problems Anemia (Acute) D64.9 CKD (chronic kidney disease) stage 2, GFR 60-89 ml/min (Acute) N18.2 Diabetes (Acute) E11.9 Hyperlipidemia (Acute) E78.5 Non-ST elevated myocardial infarction (Acute) I21.4 Pacemaker (Acute) Z95.0 Pyelonephritis (Acute) N12 Seizure disorder (Acute) G40.909 Sick sinus syndrome (Acute) I49.5 UTI (urinary tract infection) (Acute) - Plan Plan: cardio w/up iv antibiotics cpm Nutritional Asmnt/Malnutr-PDOC - Dietary Evaluation Malnutrition Findings (Please click <Entered> for more info): Nutritional Asmnt/Malnutrition Start: 12/30/16 12: 57 Text: Status: Complete Freq: Document 12/30/16 12:57 GSUN (Rec: 12/30/16 13:17 GSUN [email or web address]) Nutritional Asmnt/Malnutrition Patient General Information Nutritional Screening High Risk Screening Diagnosis Elevated troponin level, UTI, poor intake Pertinent Medical Hx/Surgical Hx Anemia, CKD stage 2, DM, hyperlipidemia, non ST elevated myocardial infarction , pacemaker, pyelonephritis, seizure disorder, sick sinus syndrome Subjective Information 71 year old female. Pt's diet order noted to be pureed CCHO NICOLASA at [facility] , current diet order is low sodium. Spoke to RN Baldemar, RN made aware, RN also stated pt is Hebrew speaking but confused. Spoke to MLT who assisted with breakfast, MLT stated pt is a feeder, good appetite, tolerated well, however noted pt is edentulous so did not feed toast. Pt seen talkign to self during visit, appeared overweight, no muscle fat wasting noted. Current Diet Order/ Nutrition Support Low sodium Pertinent Medications Vitamin C, Lipitor, Dulcolax, Colace, Novolog, Culturelle, MOM, Zofran, Protonix, Senna, Fleet Enema Pertinent Labs 12/28: A1c 7.4H 12/30: BUN 54H, potassium 4.1, creatinine 1.4H, glucose 256H Nutritional Hx/Data Height 1.52 m Height (Calculated Centimeters) 152.4 Current Weight (lbs) 84.368 kg Weight (Calculated Kilograms) 84.4 Weight (Calculated Grams) 13974.2 [employer] Body Weight 100 Weight Status Obese GI Symptoms Usual diet at home [facility]: pureed, CCHO, NICOLASA Skin Integrity/Comment: Ho 13. Pitting 2+ lower extremities. Coccyx blanchable redness. Estimated Nutritional Goals BEE in Kcals: Adj wt of IBW Calories/Kcals/Kg AdjBW 121.5lb/55.2kg Kcals Calculated 1380-1656kcal (25-30kcal/kg) Protein: Adj wt of IBW Protein Calculated 55-66g (1-1.2g/kg) Fluid: ml 1380-1656ml (1ml/kcal) Nutritional Problem 2. Problem Problem Altered nutrition related laboratory values related to Etiology DM aeb Signs/Symptoms: A1c 7.4H, glucose 256H 1. Problem Problem (possible) diffiiculty chewing related to Etiology edentulous, diet order aeb Signs/Symptoms: pt was previously on pureed diet and now on regular texture Intervention/Recommendation Comments 1. Recommend [id number] low sodium, diet texture to be determined. Previous pureed diet order noted in transfer chart, however pt has been on regular texture diet since adm , day 2. RN Baldemar made aware. 2. Nursing staff to record % intake for every meal. No documentations since adm. Expected Outcomes/Goals Expected Outcomes/Goals 1. PO intake to meet at least 75% of estimated nutritional needs with tolerance.
--- NOTE | 2017-01-09 19:23 | Progress Notes ---
DATE: 01/09/2017 SUBJECTIVE: The patient was seen in her room, lying in the bed, son is at the bedside. Per the patient, she is feeling okay. Denies any pain or discomfort. Otherwise appears to be comfortable. OBJECTIVE: VITAL SIGNS: Temperature 98.3, heart rate 79, blood pressure 126/46, respirations 18, 98% on room air. HEENT: Head is atraumatic and normocephalic. Eyes: Bilateral conjunctivae are clear. Bilateral pupils are equally round and reactive. NECK: Supple. No JVD. CARDIOVASCULAR: S1 and S2, without murmur. PULMONARY: Decreased breath sounds on both sides. GASTROINTESTINAL: Soft and nontender without guarding. Positive bowel sounds. MUSCULOSKELETAL: No clubbing and no cyanosis noted. ASSESSMENT: 1. Hypertension. 2. Hyperlipidemia. 3. Hypothyroidism. 4. Diabetes mellitus. 5. Asthma. 6. Anemia. 7. Chronic kidney disease. 8. Non-ST elevation myocardial infarction. 9. Status post pacemaker. 10. Sick sinus syndrome. 11. Coronary artery disease. 12. Dehydration. PLAN: We will continue to monitor the patient's condition. The patient seems to be stable enough to be discharged back to the half-way. Treatment plans were discussed with the patient's nurse. Treatment plans were discussed with Dr. Kelly. JOB# [id number]
[2017-01-10 06:14] LABS: BUN - UREA NITROGEN 37 mg/dL (7-25); BUN/CREATININE RATIO 28.5; CALCIUM SERUM 8.3 mg/dL (8.6-10.3); CARBON DIOXIDE 27.8 mEq/L (21.0-31.0); CHLORIDE 101 mEq/L (98-107); CREATININE - SERUM 1.3 mg/dL (0.6-1.2); GLUCOSE 191 mg/dL (70-105); POTASSIUM SERUM 3.8 mEq/L (3.5-5.1); SODIUM SERUM 135 mEq/L (136-145)
[2017-01-10] MEDS: INSULIN ASPART SLIDING SCALE 100 UNITS/ML UNIT SUBQ SCH ×4 (06:36→21:01)
[2017-01-10] MEDS: Levothyroxine 0.05 Mg Tab PO SCH (06:37)
[2017-01-10] MEDS: Atorvastatin Calcium 10 MG TAB PO SCH (08:32)
[2017-01-10] MEDS: Multivitamin w/ Minerals Tab PO SCH (08:32)
[2017-01-10] MEDS: Pantoprazole 40 mg EC Tab PO SCH (08:32)
[2017-01-10] MEDS: Lactobacillus Rhamnosus 10 Billion CFU Capsule PO SCH (08:33)
[2017-01-10] MEDS: Aspirin 81mg Chewable Tab PO SCH (08:34)
[2017-01-10] MEDS: Enoxaparin 40 mg/0.4 mL 0.4mL Syr SUBQ SCH ×2 (08:37→21:00)
--- NOTE | 2017-01-10 09:50 | General Progress Note ---
Subjective - Review of Systems Events since last encounter: patient in no acute distress no complaints Objective - Results Result Diagrams: 01/09/17 06:00 01/10/17 05:33 Recent Labs: Laboratory Last Values WBC 5.9 Th/cmm (4.8-10.8) D 01/09/17 06:00 RBC 4.16 Mil/cmm (3.80-5.20) 01/09/17 06:00 Hgb 11.2 gm/dL (12-16) L 01/09/17 06:00 Hct 34.1 % (41.0-60) L D 01/09/17 06:00 MCV 81.9 fl (81-100) 01/09/17 06:00 MCH 27.0 pg (27.0-31.0) 01/09/17 06:00 MCHC Differential 32.9 pg (28.0-36.0) 01/09/17 06:00 RDW 18.7 % (11.5-20.0) 01/09/17 06:00 Plt Count 148 Th/cmm (150-400) L 01/09/17 06:00 MPV 9.4 fl 01/09/17 06:00 Neutrophils % 60.2 % (40.0-80.0) 01/09/17 06:00 Lymphocytes % 25.3 % (20.0-50.0) 01/09/17 06:00 Monocytes % 9.6 % (2.0-10.0) 01/09/17 06:00 Eosinophils % 4.0 % (0.0-5.0) 01/09/17 06:00 Basophils % 0.9 % (0.0-2.0) 01/09/17 06:00 Eos Smear Source URINE 12/30/16 17:25 Eos Smear Total Cells NONE SEEN (NONE SEEN) 12/30/16 17:25 PT 14.0 SECONDS (9.5-11.5) H 12/28/16 22:11 INR 1.33 (0.5-1.4) 12/28/16 22:11 Sodium 135 mEq/L (136-145) L 01/10/17 05:33 Potassium 3.8 mEq/L (3.5-5.1) 01/10/17 05:33 Chloride 101 mEq/L (98-107) 01/10/17 05:33 Carbon Dioxide 27.8 mEq/L (21.0-31.0) 01/10/17 05:33 Anion Gap 10.0 (7.0-16.0) 01/10/17 05:33 BUN 37 mg/dL (7-25) H 01/10/17 05:33 Creatinine 1.3 mg/dL (0.6-1.2) H 01/10/17 05:33 Est GFR ( Amer) TNP 01/10/17 05:33 Est GFR (Non-Af Amer) TNP 01/10/17 05:33 BUN/Creatinine Ratio 28.5 01/10/17 05:33 Glucose 191 mg/dL (70-105) H 01/10/17 05:33 POC Glucose 173 MG/DL (70 - 105) H 01/10/17 06:07 Hemoglobin A1c % 7.4 % (4.0-6.0) H 12/28/16 22:11 Plasma/Ser Osmolality 311 mOsmol/kg (280-301) H 12/30/16 05:35 Uric Acid 9.5 mg/dL (2.3-6.6) H 12/30/16 05:35 Calcium 8.3 mg/dL (8.6-10.3) L 01/10/17 05:33 Phosphorus 3.3 mg/dL (2.5-5.0) 12/30/16 05:35 Magnesium 2.0 mg/dL (1.9-2.7) 01/07/17 05:40 Total Bilirubin 0.9 mg/dL (0.3-1.0) 12/30/16 05:35 AST 15 U/L (13-39) 12/30/16 05:35 ALT 8 U/L (7-52) 12/30/16 05:35 Alkaline Phosphatase 71 U/L (34-104) 12/30/16 05:35 Troponin I < 0.01 ng/mL (0.01-0.05) L 12/31/16 06:27 B-Natriuretic Peptide 2830.0 pg/mL (5.0-100.0) H 01/08/17 05:55 Total Protein 6.2 gm/dL (6.0-8.3) 12/30/16 05:35 Albumin 2.9 gm/dL (3.7-5.3) L 12/30/16 05:35 Globulin 3.3 gm/dL 12/30/16 05:35 Albumin/Globulin Ratio 0.9 (1.0-1.8) L 12/30/16 05:35 Triglycerides 60 mg/dL (<150) 12/30/16 05:35 Cholesterol 69 mg/dL (<200) 12/30/16 05:35 LDL Cholesterol Direct 47 mg/dL (75-193) L 12/30/16 05:35 HDL Cholesterol 23 mg/dL (23-92) 12/30/16 05:35 TSH 2.33 uIU/ml (0.34-5.60) 12/28/16 22:11 Urine Source CLEAN C 12/28/16 22:30 Urine Color YELLOW 12/28/16 22:30 Urine Clarity HAZY (CLEAR) 12/28/16 22:30 Urine pH 5.5 (4.6 - 8.0) 12/28/16 22:30 Ur Specific [place] 1.015 (1.005-1.030) 12/28/16 22:30 Urine Protein TRACE mg/dL (NEGATIVE) 12/28/16 22:30 Urine Glucose (UA) NEGATIVE mg/dL (NEGATIVE) 12/28/16 22:30 Urine Ketones NEGATIVE mg/dL (NEGATIVE) 12/28/16 22:30 Urine Blood SMALL (NEGATIVE) H 12/28/16 22:30 Urine Nitrate POSITIVE (NEGATIVE) H 12/28/16 22:30 Urine Bilirubin NEGATIVE (NEGATIVE) 12/28/16 22:30 Urine Urobilinogen 0.2 E.U./dL (0.2 - 1.0) 12/28/16 22:30 Ur Leukocyte Esterase TRACE (NEGATIVE) H 12/28/16 22:30 Urine RBC 10-25 /hpf (0-5) H 12/28/16 22:30 Urine WBC 6-10 /hpf (0-5) H 12/28/16 22:30 Ur Epithelial Cells FEW /lpf (FEW) 12/28/16 22:30 Urine Bacteria MODERATE /hpf (NONE SEEN) 12/28/16 22:30 Ur Random Sodium 13 mmol/L 12/30/16 17:25 Urine Creatinine 74.6 mg/dl (Not Estab.) 12/30/16 17:25 Urine Microalbumin 636.6 ug/mL (Not Estab.) 12/30/16 17:25 Microalb/Creat Ratio 853.4 mg/g creat (0.0-30.0) H 12/30/16 17:25 - Physical Exam Vitals and I&O: Vital Signs Temp 98.7 F 01/10/17 04:00 Pulse 79 01/10/17 08:37 Resp 14 01/10/17 07:30 BP 125/68 01/10/17 08:37 Pulse Ox 98 01/10/17 07:30 Intake & Output 01/09/17 01/10/17 01/10/17 18:59 06:59 18:59 Intake Total 600 200 Output Total 1760 400 Balance -1160 -200 Weight (lbs) 83.461 kg 83.461 kg Intake: Oral 600 200 Output: Urine 1760 400 Stool 0 Other: # Voids 2 # Bowel Movements 2 Stool Characteristics Soft Formed Active Medications: Current Medications Acetaminophen (Tylenol) 650 mg PO Q4HR PRN PRN Reason: Pain or Fever >101 Stop: 02/27/17 01:46 Last Admin: 01/09/17 20:59 Dose: 650 mg Albuterol/Ipratropium (Duoneb Neb) 3 ml HHN Q6HR PRN PRN Reason: Shortness of Breath or Wheeze Stop: 02/27/17 01:46 Ascorbic Acid (Vitamin C) 500 mg PO DAILY [facility] Stop: 02/27/17 08:59 Last Admin: 01/10/17 08:32 Dose: 500 mg Aspirin (Aspirin Chewable) 81 mg PO DAILY [facility] Stop: 02/28/17 08:59 Last Admin: 01/10/17 08:34 Dose: 81 mg Atorvastatin Calcium (Lipitor) 10 mg PO DAILY [facility] PRN Reason: Protocol Stop: 02/28/17 08:59 Last Admin: 01/10/17 08:32 Dose: 10 mg Bisacodyl (Dulcolax 10 Mg Supp) 10 mg RC DAILY PRN PRN Reason: Constipation Stop: 02/27/17 01:46 Carvedilol (Coreg) 6.25 mg PO BID [facility] Stop: 03/02/17 16:59 Last Admin: 01/09/17 17:26 Dose: Not Given Docusate Sodium (Colace) 100 mg PO BID [facility] Stop: 02/27/17 08:59 Last Admin: 01/10/17 08:32 Dose: 100 mg Enoxaparin Sodium (Lovenox) 40 mg SUBQ Q12HR [facility] Stop: 02/27/17 20:59 Last Admin: 01/10/17 08:37 Dose: 40 mg Furosemide (Lasix) 40 mg IVP BID [facility] Stop: 03/02/17 16:59 Last Admin: 01/10/17 08:34 Dose: 40 mg Hydralazine HCl (Apresoline) 10 mg PO BID [facility] Stop: 02/27/17 08:59 Last Admin: 01/10/17 08:37 Dose: Not Given Insulin Aspart (Novolog Insulin Sliding Scale) 0 units SUBQ ACHS [facility] PRN Reason: Protocol Stop: 02/27/17 07:29 Last Admin: 01/10/17 06:36 Dose: 3 units Isosorbide Dinitrate (Isordil) 10 mg PO TID [facility] Stop: 02/27/17 08:59 Last Admin: 01/10/17 08:34 Dose: 10 mg Lactobacillus Rhamnosus (Culturelle) 1 each PO DAILY [facility] Stop: 02/27/17 08:59 Last Admin: 01/10/17 08:33 Dose: 1 each Levetiracetam (Keppra) 250 mg PO BID [facility] Stop: 02/27/17 08:59 Last Admin: 01/10/17 08:33 Dose: 250 mg Levothyroxine Sodium (Synthroid) 0.05 mg PO QDAC [facility] Stop: 02/27/17 07:29 Last Admin: 01/10/17 06:37 Dose: 0.05 mg Magnesium Hydroxide (Milk Of Magnesia) 30 ml PO DAILY PRN PRN Reason: Constipation Stop: 02/27/17 01:46 Megestrol Acetate (Megace) 40 mg PO DAILY [facility] PRN Reason: Protocol Stop: 02/28/17 15:59 Last Admin: 01/10/17 08:33 Dose: 40 mg Metolazone (Zaroxolyn) 5 mg PO BID [facility] Stop: 03/05/17 16:59 Last Admin: 01/10/17 08:33 Dose: 5 mg Miscellaneous (Probiotic Screen) 1 ea PRN PRN PRN Reason: PROTOCOL Stop: 02/28/17 15:40 Montelukast Sodium (Singulair) 10 mg PO DAILY [facility] Stop: 02/27/17 08:59 Last Admin: 01/10/17 08:34 Dose: 10 mg Ondansetron HCl (Zofran Odt) 4 mg PO Q6HR PRN PRN Reason: Nausea / Vomiting Stop: 02/27/17 01:46 Pantoprazole Sodium (Protonix) 40 mg PO DAILY [facility] Stop: 02/27/17 08:59 Last Admin: 01/10/17 08:32 Dose: 40 mg Senna (Senna) 17.2 mg PO HS [facility] Stop: 02/27/17 20:59 Last Admin: 01/09/17 21:00 Dose: 17.2 mg Sodium Phosphate (Fleet Enema) 135 ml RC Q48HR PRN PRN Reason: Constipation Stop: 02/27/17 01:46 Spironolactone (Aldactone) 25 mg PO BID [facility] Stop: 03/02/17 16:59 Last Admin: 01/10/17 08:33 Dose: 25 mg General: Alert, No acute distress HEENT: Atraumatic Neck: Supple, +2 carotid pulse wo bruit Cardiovascular: Regular rate, Normal S1, Normal S2 Lungs: Other (decrease bs) Abdomen: Bowel sounds, Soft Extremities: Edema, Other ((+) 3 bipdeal edema) Neurological: Sensation intact Skin: no Rash Psych/Mental Status: Mood NL Assessment/Plan - Problem List Patient Problems: All Active Problems Anemia (Acute) D64.9 CKD (chronic kidney disease) stage 2, GFR 60-89 ml/min (Acute) N18.2 Diabetes (Acute) E11.9 Hyperlipidemia (Acute) E78.5 Non-ST elevated myocardial infarction (Acute) I21.4 Pacemaker (Acute) Z95.0 Pyelonephritis (Acute) N12 Seizure disorder (Acute) G40.909 Sick sinus syndrome (Acute) I49.5 UTI (urinary tract infection) (Acute) - Plan Plan: cardio w/up iv antibiotics cpm Nutritional Asmnt/Malnutr-PDOC - Dietary Evaluation Malnutrition Findings (Please click <Entered> for more info): Nutritional Asmnt/Malnutrition Start: 12/30/16 12: 57 Text: Status: Complete Freq: Document 12/30/16 12:57 GSUN (Rec: 12/30/16 13:17 GSUN [email or web address]) Nutritional Asmnt/Malnutrition Patient General Information Nutritional Screening High Risk Screening Diagnosis Elevated troponin level, UTI, poor intake Pertinent Medical Hx/Surgical Hx Anemia, CKD stage 2, DM, hyperlipidemia, non ST elevated myocardial infarction , pacemaker, pyelonephritis, seizure disorder, sick sinus syndrome Subjective Information 71 year old female. Pt's diet order noted to be pureed CCHO NICOLASA at [facility] , current diet order is low sodium. Spoke to RN Baldemar, RN made aware, RN also stated pt is [place]an speaking but confused. Spoke to [employer] who assisted with breakfast, [employer]P [employer]PERATIONS stated pt is a feeder, good appetite, tolerated well, however noted pt is edentulous so did not feed toast. Pt seen talkign to self during visit, appeared overweight, no muscle fat wasting noted. Current Diet Order/ Nutrition Support Low sodium Pertinent Medications Vitamin C, Lipitor, Dulcolax, Colace, Novolog, Culturelle, MOM, Zofran, Protonix, Senna, Fleet Enema Pertinent Labs 12/28: A1c 7.4H 12/30: BUN 54H, potassium 4.1, creatinine 1.4H, glucose 256H Nutritional Hx/Data Height 1.52 m Height (Calculated Centimeters) 152.4 Current Weight (lbs) 84.368 kg Weight (Calculated Kilograms) 84.4 Weight (Calculated Grams) 67225.2 [place] Body Weight 100 Weight Status Obese GI Symptoms Usual diet at home [facility]: pureed, CCHO, NICOLASA Skin Integrity/Comment: Ho 13. Pitting 2+ lower extremities. Coccyx blanchable redness. Estimated Nutritional Goals BEE in Kcals: Adj wt of IBW Calories/Kcals/Kg AdjBW 121.5lb/55.2kg Kcals Calculated 1380-1656kcal (25-30kcal/kg) Protein: Adj wt of IBW Protein Calculated 55-66g (1-1.2g/kg) Fluid: ml 1380-1656ml (1ml/kcal) Nutritional Problem 2. Problem Problem Altered nutrition related laboratory values related to Etiology DM aeb Signs/Symptoms: A1c 7.4H, glucose 256H 1. Problem Problem (possible) diffiiculty chewing related to Etiology edentulous, diet order aeb Signs/Symptoms: pt was previously on pureed diet and now on regular texture Intervention/Recommendation Comments 1. Recommend [id number] low sodium, diet texture to be determined. Previous pureed diet order noted in transfer chart, however pt has been on regular texture diet since adm , day 2. MIKE Mcdermott made aware. 2. Nursing staff to record % intake for every meal. No documentations since adm. Expected Outcomes/Goals Expected Outcomes/Goals 1. PO intake to meet at least 75% of estimated nutritional needs with tolerance.
--- NOTE | 2017-01-10 14:27 | General Progress Note ---
Subjective - Review of Systems Service Date: 01/10/17 (no complaints) Objective - Results Result Diagrams: 01/09/17 06:00 01/10/17 05:33 Recent Labs: Laboratory Last Values WBC 5.9 Th/cmm (4.8-10.8) D 01/09/17 06:00 RBC 4.16 Mil/cmm (3.80-5.20) 01/09/17 06:00 Hgb 11.2 gm/dL (12-16) L 01/09/17 06:00 Hct 34.1 % (41.0-60) L D 01/09/17 06:00 MCV 81.9 fl (81-100) 01/09/17 06:00 MCH 27.0 pg (27.0-31.0) 01/09/17 06:00 MCHC Differential 32.9 pg (28.0-36.0) 01/09/17 06:00 RDW 18.7 % (11.5-20.0) 01/09/17 06:00 Plt Count 148 Th/cmm (150-400) L 01/09/17 06:00 MPV 9.4 fl 01/09/17 06:00 Neutrophils % 60.2 % (40.0-80.0) 01/09/17 06:00 Lymphocytes % 25.3 % (20.0-50.0) 01/09/17 06:00 Monocytes % 9.6 % (2.0-10.0) 01/09/17 06:00 Eosinophils % 4.0 % (0.0-5.0) 01/09/17 06:00 Basophils % 0.9 % (0.0-2.0) 01/09/17 06:00 Eos Smear Source URINE 12/30/16 17:25 Eos Smear Total Cells NONE SEEN (NONE SEEN) 12/30/16 17:25 PT 14.0 SECONDS (9.5-11.5) H 12/28/16 22:11 INR 1.33 (0.5-1.4) 12/28/16 22:11 Sodium 135 mEq/L (136-145) L 01/10/17 05:33 Potassium 3.8 mEq/L (3.5-5.1) 01/10/17 05:33 Chloride 101 mEq/L (98-107) 01/10/17 05:33 Carbon Dioxide 27.8 mEq/L (21.0-31.0) 01/10/17 05:33 Anion Gap 10.0 (7.0-16.0) 01/10/17 05:33 BUN 37 mg/dL (7-25) H 01/10/17 05:33 Creatinine 1.3 mg/dL (0.6-1.2) H 01/10/17 05:33 Est GFR ( Amer) TNP 01/10/17 05:33 Est GFR (Non-Af Amer) TNP 01/10/17 05:33 BUN/Creatinine Ratio 28.5 01/10/17 05:33 Glucose 191 mg/dL (70-105) H 01/10/17 05:33 POC Glucose 233 MG/DL (70 - 105) H 01/10/17 11:31 Hemoglobin A1c % 7.4 % (4.0-6.0) H 12/28/16 22:11 Plasma/Ser Osmolality 311 mOsmol/kg (280-301) H 12/30/16 05:35 Uric Acid 9.5 mg/dL (2.3-6.6) H 12/30/16 05:35 Calcium 8.3 mg/dL (8.6-10.3) L 01/10/17 05:33 Phosphorus 3.3 mg/dL (2.5-5.0) 12/30/16 05:35 Magnesium 2.0 mg/dL (1.9-2.7) 01/07/17 05:40 Total Bilirubin 0.9 mg/dL (0.3-1.0) 12/30/16 05:35 AST 15 U/L (13-39) 12/30/16 05:35 ALT 8 U/L (7-52) 12/30/16 05:35 Alkaline Phosphatase 71 U/L (34-104) 12/30/16 05:35 Troponin I < 0.01 ng/mL (0.01-0.05) L 12/31/16 06:27 B-Natriuretic Peptide 2830.0 pg/mL (5.0-100.0) H 01/08/17 05:55 Total Protein 6.2 gm/dL (6.0-8.3) 12/30/16 05:35 Albumin 2.9 gm/dL (3.7-5.3) L 12/30/16 05:35 Globulin 3.3 gm/dL 12/30/16 05:35 Albumin/Globulin Ratio 0.9 (1.0-1.8) L 12/30/16 05:35 Triglycerides 60 mg/dL (<150) 12/30/16 05:35 Cholesterol 69 mg/dL (<200) 12/30/16 05:35 LDL Cholesterol Direct 47 mg/dL (75-193) L 12/30/16 05:35 HDL Cholesterol 23 mg/dL (23-92) 12/30/16 05:35 TSH 2.33 uIU/ml (0.34-5.60) 12/28/16 22:11 Urine Source CLEAN C 12/28/16 22:30 Urine Color YELLOW 12/28/16 22:30 Urine Clarity HAZY (CLEAR) 12/28/16 22:30 Urine pH 5.5 (4.6 - 8.0) 12/28/16 22:30 Ur Specific [place] 1.015 (1.005-1.030) 12/28/16 22:30 Urine Protein TRACE mg/dL (NEGATIVE) 12/28/16 22:30 Urine Glucose (UA) NEGATIVE mg/dL (NEGATIVE) 12/28/16 22:30 Urine Ketones NEGATIVE mg/dL (NEGATIVE) 12/28/16 22:30 Urine Blood SMALL (NEGATIVE) H 12/28/16 22:30 Urine Nitrate POSITIVE (NEGATIVE) H 12/28/16 22:30 Urine Bilirubin NEGATIVE (NEGATIVE) 12/28/16 22:30 Urine Urobilinogen 0.2 E.U./dL (0.2 - 1.0) 12/28/16 22:30 Ur Leukocyte Esterase TRACE (NEGATIVE) H 12/28/16 22:30 Urine RBC 10-25 /hpf (0-5) H 12/28/16 22:30 Urine WBC 6-10 /hpf (0-5) H 12/28/16 22:30 Ur Epithelial Cells FEW /lpf (FEW) 12/28/16 22:30 Urine Bacteria MODERATE /hpf (NONE SEEN) 12/28/16 22:30 Ur Random Sodium 13 mmol/L 12/30/16 17:25 Urine Creatinine 74.6 mg/dl (Not Estab.) 12/30/16 17:25 Urine Microalbumin 636.6 ug/mL (Not Estab.) 12/30/16 17:25 Microalb/Creat Ratio 853.4 mg/g creat (0.0-30.0) H 12/30/16 17:25 - Physical Exam Vitals and I&O: Vital Signs Temp 98.9 F 01/10/17 08:00 Pulse 80 01/10/17 11:25 Resp 18 01/10/17 08:00 BP 110/55 01/10/17 11:25 Pulse Ox 98 01/10/17 08:00 Intake & Output 01/09/17 01/10/17 01/10/17 18:59 06:59 18:59 Intake Total 600 200 100 Output Total 1760 400 400 Balance -1160 -200 -300 Weight (lbs) 83.461 kg 83.461 kg 83.461 kg Intake: Oral 600 200 100 Output: Urine 1760 400 400 Stool 0 Other: # Voids 2 2 # Bowel Movements 2 Stool Characteristics Soft Formed Active Medications: Current Medications Acetaminophen (Tylenol) 650 mg PO Q4HR PRN PRN Reason: Pain or Fever >101 Stop: 02/27/17 01:46 Last Admin: 01/10/17 11:23 Dose: 650 mg Albuterol/Ipratropium (Duoneb Neb) 3 ml HHN Q6HR PRN PRN Reason: Shortness of Breath or Wheeze Stop: 02/27/17 01:46 Ascorbic Acid (Vitamin C) 500 mg PO DAILY [facility] Stop: 02/27/17 08:59 Last Admin: 01/10/17 08:32 Dose: 500 mg Aspirin (Aspirin Chewable) 81 mg PO DAILY [facility] Stop: 02/28/17 08:59 Last Admin: 01/10/17 08:34 Dose: 81 mg Atorvastatin Calcium (Lipitor) 10 mg PO DAILY [facility] PRN Reason: Protocol Stop: 02/28/17 08:59 Last Admin: 01/10/17 08:32 Dose: 10 mg Bisacodyl (Dulcolax 10 Mg Supp) 10 mg RC DAILY PRN PRN Reason: Constipation Stop: 02/27/17 01:46 Carvedilol (Coreg) 6.25 mg PO BID [facility] Stop: 03/02/17 16:59 Last Admin: 01/10/17 11:25 Dose: 6.25 mg Docusate Sodium (Colace) 100 mg PO BID [facility] Stop: 02/27/17 08:59 Last Admin: 01/10/17 08:32 Dose: 100 mg Enoxaparin Sodium (Lovenox) 40 mg SUBQ Q12HR [facility] Stop: 02/27/17 20:59 Last Admin: 01/10/17 08:37 Dose: 40 mg Furosemide (Lasix) 40 mg IVP BID [facility] Stop: 03/02/17 16:59 Last Admin: 01/10/17 08:34 Dose: 40 mg Hydralazine HCl (Apresoline) 10 mg PO BID [facility] Stop: 02/27/17 08:59 Last Admin: 01/10/17 08:37 Dose: Not Given Insulin Aspart (Novolog Insulin Sliding Scale) 0 units SUBQ ACHS [facility] PRN Reason: Protocol Stop: 02/27/17 07:29 Last Admin: 01/10/17 13:00 Dose: 4 units Isosorbide Dinitrate (Isordil) 10 mg PO TID [facility] Stop: 02/27/17 08:59 Last Admin: 01/10/17 08:34 Dose: 10 mg Lactobacillus Rhamnosus (Culturelle) 1 each PO DAILY [facility] Stop: 02/27/17 08:59 Last Admin: 01/10/17 08:33 Dose: 1 each Levetiracetam (Keppra) 250 mg PO BID [facility] Stop: 02/27/17 08:59 Last Admin: 01/10/17 08:33 Dose: 250 mg Levothyroxine Sodium (Synthroid) 0.05 mg PO QDAC [facility] Stop: 02/27/17 07:29 Last Admin: 01/10/17 06:37 Dose: 0.05 mg Magnesium Hydroxide (Milk Of Magnesia) 30 ml PO DAILY PRN PRN Reason: Constipation Stop: 02/27/17 01:46 Megestrol Acetate (Megace) 40 mg PO DAILY [facility] PRN Reason: Protocol Stop: 02/28/17 15:59 Last Admin: 01/10/17 08:33 Dose: 40 mg Metolazone (Zaroxolyn) 5 mg PO BID [facility] Stop: 03/05/17 16:59 Last Admin: 01/10/17 08:33 Dose: 5 mg Miscellaneous (Probiotic Screen) 1 ea PRN PRN PRN Reason: PROTOCOL Stop: 02/28/17 15:40 Montelukast Sodium (Singulair) 10 mg PO DAILY [facility] Stop: 02/27/17 08:59 Last Admin: 01/10/17 08:34 Dose: 10 mg Ondansetron HCl (Zofran Odt) 4 mg PO Q6HR PRN PRN Reason: Nausea / Vomiting Stop: 02/27/17 01:46 Pantoprazole Sodium (Protonix) 40 mg PO DAILY [facility] Stop: 02/27/17 08:59 Last Admin: 01/10/17 08:32 Dose: 40 mg Senna (Senna) 17.2 mg PO HS [facility] Stop: 02/27/17 20:59 Last Admin: 01/09/17 21:00 Dose: 17.2 mg Sodium Phosphate (Fleet Enema) 135 ml RC Q48HR PRN PRN Reason: Constipation Stop: 02/27/17 01:46 Spironolactone (Aldactone) 25 mg PO BID [facility] Stop: 03/02/17 16:59 Last Admin: 01/10/17 08:33 Dose: 25 mg General: Alert, No acute distress, Other (confusional) HEENT: Atraumatic Neck: Supple, +2 carotid pulse wo bruit Cardiovascular: Regular rate, Normal S1, Normal S2 Lungs: Other (decrease bs) Abdomen: Bowel sounds, Soft Extremities: Edema, Other ((+) 3 bipdeal edema) Neurological: Sensation intact, Other (bed bound) Skin: no Rash Psych/Mental Status: Mood NL, Other (confusional) Assessment/Plan - Problem List Patient Problems: All Active Problems Anemia (Acute) D64.9 CKD (chronic kidney disease) stage 2, GFR 60-89 ml/min (Acute) N18.2 Diabetes (Acute) E11.9 Hyperlipidemia (Acute) E78.5 Non-ST elevated myocardial infarction (Acute) I21.4 Pacemaker (Acute) Z95.0 Pyelonephritis (Acute) N12 Seizure disorder (Acute) G40.909 Sick sinus syndrome (Acute) I49.5 UTI (urinary tract infection) (Acute) Nutritional Asmnt/Malnutr-PDOC - Dietary Evaluation Malnutrition Findings (Please click <Entered> for more info): Nutritional Asmnt/Malnutrition Start: 12/30/16 12: 57 Text: Status: Complete Freq: Document 12/30/16 12:57 GSUN (Rec: 12/30/16 13:17 [email or web address] [email or web address]) Nutritional Asmnt/Malnutrition Patient General Information Nutritional Screening High Risk Screening Diagnosis Elevated troponin level, UTI, poor intake Pertinent Medical Hx/Surgical Hx Anemia, CKD stage 2, DM, hyperlipidemia, non ST elevated myocardial infarction , pacemaker, pyelonephritis, seizure disorder, sick sinus syndrome Subjective Information 71 year old female. Pt's diet order noted to be pureed CCHO NICOLASA at [facility] , current diet order is low sodium. Spoke to RN Baldemar, RN made aware, RN also stated pt is Slovak speaking but confused. Spoke to INVENTORY MANAGEMENT SPECIALIST who assisted with breakfast, INVENTORY MANAGEMENT SPECIALIST stated pt is a feeder, good appetite, tolerated well, however noted pt is edentulous so did not feed toast. Pt seen talkign to self during visit, appeared overweight, no muscle fat wasting noted. Current Diet Order/ Nutrition Support Low sodium Pertinent Medications Vitamin C, Lipitor, Dulcolax, Colace, Novolog, Culturelle, MOM, Zofran, Protonix, Senna, Fleet Enema Pertinent Labs 12/28: A1c 7.4H 12/30: BUN 54H, potassium 4.1, creatinine 1.4H, glucose 256H Nutritional Hx/Data Height 1.52 m Height (Calculated Centimeters) 152.4 Current Weight (lbs) 84.368 kg Weight (Calculated Kilograms) 84.4 Weight (Calculated Grams) 48205.2 [place] Body Weight 100 Weight Status Obese GI Symptoms Usual diet at home [facility]: pureed, CCHO, NICOLASA Skin Integrity/Comment: Ho 13. Pitting 2+ lower extremities. Coccyx blanchable redness. Estimated Nutritional Goals BEE in Kcals: Adj wt of IBW Calories/Kcals/Kg AdjBW 121.5lb/55.2kg Kcals Calculated 1380-1656kcal (25-30kcal/kg) Protein: Adj wt of IBW Protein Calculated 55-66g (1-1.2g/kg) Fluid: ml 1380-1656ml (1ml/kcal) Nutritional Problem 2. Problem Problem Altered nutrition related laboratory values related to Etiology DM aeb Signs/Symptoms: A1c 7.4H, glucose 256H 1. Problem Problem (possible) diffiiculty chewing related to Etiology edentulous, diet order aeb Signs/Symptoms: pt was previously on pureed diet and now on regular texture Intervention/Recommendation Comments 1. Recommend [id number] low sodium, diet texture to be determined. Previous pureed diet order noted in transfer chart, however pt has been on regular texture diet since adm , day 2. RN Baldemar made aware. 2. Nursing staff to record % intake for every meal. No documentations since adm. Expected Outcomes/Goals Expected Outcomes/Goals 1. PO intake to meet at least 75% of estimated nutritional needs with tolerance.
--- NOTE | 2017-01-10 23:18 | Infectious Disease Prog Note ---
Infectious Disease Subjective - Review of Systems Service Date: 01/10/17 Subjective: There is no new change, there is no fever. Infectious Disease Objective - Results Result Diagrams: 01/09/17 06:00 01/10/17 05:33 Recent Labs: Laboratory Last Values WBC 5.9 Th/cmm (4.8-10.8) D 01/09/17 06:00 RBC 4.16 Mil/cmm (3.80-5.20) 01/09/17 06:00 Hgb 11.2 gm/dL (12-16) L 01/09/17 06:00 Hct 34.1 % (41.0-60) L D 01/09/17 06:00 MCV 81.9 fl (81-100) 01/09/17 06:00 MCH 27.0 pg (27.0-31.0) 01/09/17 06:00 MCHC Differential 32.9 pg (28.0-36.0) 01/09/17 06:00 RDW 18.7 % (11.5-20.0) 01/09/17 06:00 Plt Count 148 Th/cmm (150-400) L 01/09/17 06:00 MPV 9.4 fl 01/09/17 06:00 Neutrophils % 60.2 % (40.0-80.0) 01/09/17 06:00 Lymphocytes % 25.3 % (20.0-50.0) 01/09/17 06:00 Monocytes % 9.6 % (2.0-10.0) 01/09/17 06:00 Eosinophils % 4.0 % (0.0-5.0) 01/09/17 06:00 Basophils % 0.9 % (0.0-2.0) 01/09/17 06:00 Eos Smear Source URINE 12/30/16 17:25 Eos Smear Total Cells NONE SEEN (NONE SEEN) 12/30/16 17:25 PT 14.0 SECONDS (9.5-11.5) H 12/28/16 22:11 INR 1.33 (0.5-1.4) 12/28/16 22:11 Sodium 135 mEq/L (136-145) L 01/10/17 05:33 Potassium 3.8 mEq/L (3.5-5.1) 01/10/17 05:33 Chloride 101 mEq/L (98-107) 01/10/17 05:33 Carbon Dioxide 27.8 mEq/L (21.0-31.0) 01/10/17 05:33 Anion Gap 10.0 (7.0-16.0) 01/10/17 05:33 BUN 37 mg/dL (7-25) H 01/10/17 05:33 Creatinine 1.3 mg/dL (0.6-1.2) H 01/10/17 05:33 Est GFR ( Amer) TNP 01/10/17 05:33 Est GFR (Non-Af Amer) TNP 01/10/17 05:33 BUN/Creatinine Ratio 28.5 01/10/17 05:33 Glucose 191 mg/dL (70-105) H 01/10/17 05:33 POC Glucose 260 MG/DL (70 - 105) H 01/10/17 20:48 Hemoglobin A1c % 7.4 % (4.0-6.0) H 12/28/16 22:11 Plasma/Ser Osmolality 311 mOsmol/kg (280-301) H 12/30/16 05:35 Uric Acid 9.5 mg/dL (2.3-6.6) H 12/30/16 05:35 Calcium 8.3 mg/dL (8.6-10.3) L 01/10/17 05:33 Phosphorus 3.3 mg/dL (2.5-5.0) 12/30/16 05:35 Magnesium 2.0 mg/dL (1.9-2.7) 01/07/17 05:40 Total Bilirubin 0.9 mg/dL (0.3-1.0) 12/30/16 05:35 AST 15 U/L (13-39) 12/30/16 05:35 ALT 8 U/L (7-52) 12/30/16 05:35 Alkaline Phosphatase 71 U/L (34-104) 12/30/16 05:35 Troponin I < 0.01 ng/mL (0.01-0.05) L 12/31/16 06:27 B-Natriuretic Peptide 2830.0 pg/mL (5.0-100.0) H 01/08/17 05:55 Total Protein 6.2 gm/dL (6.0-8.3) 12/30/16 05:35 Albumin 2.9 gm/dL (3.7-5.3) L 12/30/16 05:35 Globulin 3.3 gm/dL 12/30/16 05:35 Albumin/Globulin Ratio 0.9 (1.0-1.8) L 12/30/16 05:35 Triglycerides 60 mg/dL (<150) 12/30/16 05:35 Cholesterol 69 mg/dL (<200) 12/30/16 05:35 LDL Cholesterol Direct 47 mg/dL (75-193) L 12/30/16 05:35 HDL Cholesterol 23 mg/dL (23-92) 12/30/16 05:35 TSH 2.33 uIU/ml (0.34-5.60) 12/28/16 22:11 Urine Source CLEAN C 12/28/16 22:30 Urine Color YELLOW 12/28/16 22:30 Urine Clarity HAZY (CLEAR) 12/28/16 22:30 Urine pH 5.5 (4.6 - 8.0) 12/28/16 22:30 Ur Specific [place] 1.015 (1.005-1.030) 12/28/16 22:30 Urine Protein TRACE mg/dL (NEGATIVE) 12/28/16 22:30 Urine Glucose (UA) NEGATIVE mg/dL (NEGATIVE) 12/28/16 22:30 Urine Ketones NEGATIVE mg/dL (NEGATIVE) 12/28/16 22:30 Urine Blood SMALL (NEGATIVE) H 12/28/16 22:30 Urine Nitrate POSITIVE (NEGATIVE) H 12/28/16 22:30 Urine Bilirubin NEGATIVE (NEGATIVE) 12/28/16 22:30 Urine Urobilinogen 0.2 E.U./dL (0.2 - 1.0) 12/28/16 22:30 Ur Leukocyte Esterase TRACE (NEGATIVE) H 12/28/16 22:30 Urine RBC 10-25 /hpf (0-5) H 12/28/16 22:30 Urine WBC 6-10 /hpf (0-5) H 12/28/16 22:30 Ur Epithelial Cells FEW /lpf (FEW) 12/28/16 22:30 Urine Bacteria MODERATE /hpf (NONE SEEN) 12/28/16 22:30 Ur Random Sodium 13 mmol/L 12/30/16 17:25 Urine Creatinine 74.6 mg/dl (Not Estab.) 12/30/16 17:25 Urine Microalbumin 636.6 ug/mL (Not Estab.) 12/30/16 17:25 Microalb/Creat Ratio 853.4 mg/g creat (0.0-30.0) H 12/30/16 17:25 - Physical Exam Vitals and I&O: Vital Signs Temp 98.2 F 01/10/17 20:00 Pulse 75 01/10/17 21:13 Resp 17 01/10/17 20:00 BP 94/48 01/10/17 21:13 Pulse Ox 97 01/10/17 20:00 Intake & Output 01/10/17 01/10/17 01/11/17 06:59 18:59 06:59 Intake Total 200 100 Output Total 400 400 Balance -200 -300 Weight (lbs) 83.461 kg 83.461 kg Intake: Oral 200 100 Output: Urine 400 400 Other: # Voids 2 2 Active Medications: Current Medications Acetaminophen (Tylenol) 650 mg PO Q4HR PRN PRN Reason: Pain or Fever >101 Stop: 02/27/17 01:46 Last Admin: 01/10/17 21:00 Dose: 650 mg Albuterol/Ipratropium (Duoneb Neb) 3 ml HHN Q6HR PRN PRN Reason: Shortness of Breath or Wheeze Stop: 02/27/17 01:46 Ascorbic Acid (Vitamin C) 500 mg PO DAILY [facility] Stop: 02/27/17 08:59 Last Admin: 01/10/17 08:32 Dose: 500 mg Aspirin (Aspirin Chewable) 81 mg PO DAILY [facility] Stop: 02/28/17 08:59 Last Admin: 01/10/17 08:34 Dose: 81 mg Atorvastatin Calcium (Lipitor) 10 mg PO DAILY [facility] PRN Reason: Protocol Stop: 02/28/17 08:59 Last Admin: 01/10/17 08:32 Dose: 10 mg Bisacodyl (Dulcolax 10 Mg Supp) 10 mg RC DAILY PRN PRN Reason: Constipation Stop: 02/27/17 01:46 Carvedilol (Coreg) 6.25 mg PO BID [facility] Stop: 03/02/17 16:59 Last Admin: 01/10/17 16:19 Dose: Not Given Docusate Sodium (Colace) 100 mg PO BID [facility] Stop: 02/27/17 08:59 Last Admin: 01/10/17 16:19 Dose: 100 mg Enoxaparin Sodium (Lovenox) 40 mg SUBQ Q12HR [facility] Stop: 02/27/17 20:59 Last Admin: 01/10/17 21:00 Dose: 40 mg Furosemide (Lasix) 40 mg IVP BID [facility] Stop: 03/02/17 16:59 Last Admin: 01/10/17 16:16 Dose: 40 mg Hydralazine HCl (Apresoline) 10 mg PO BID [facility] Stop: 02/27/17 08:59 Last Admin: 01/10/17 16:17 Dose: Not Given Insulin Aspart (Novolog Insulin Sliding Scale) 0 units SUBQ ACHS [facility] PRN Reason: Protocol Stop: 02/27/17 07:29 Last Admin: 01/10/17 21:01 Dose: 5 units Isosorbide Dinitrate (Isordil) 10 mg PO TID [facility] Stop: 02/27/17 08:59 Last Admin: 01/10/17 21:13 Dose: Not Given Lactobacillus Rhamnosus (Culturelle) 1 each PO DAILY [facility] Stop: 02/27/17 08:59 Last Admin: 01/10/17 08:33 Dose: 1 each Levetiracetam (Keppra) 250 mg PO BID [facility] Stop: 02/27/17 08:59 Last Admin: 01/10/17 16:16 Dose: 250 mg Levothyroxine Sodium (Synthroid) 0.05 mg PO QDAC [facility] Stop: 02/27/17 07:29 Last Admin: 01/10/17 06:37 Dose: 0.05 mg Magnesium Hydroxide (Milk Of Magnesia) 30 ml PO DAILY PRN PRN Reason: Constipation Stop: 02/27/17 01:46 Megestrol Acetate (Megace) 40 mg PO DAILY [facility] PRN Reason: Protocol Stop: 02/28/17 15:59 Last Admin: 01/10/17 08:33 Dose: 40 mg Metolazone (Zaroxolyn) 5 mg PO BID [facility] Stop: 03/05/17 16:59 Last Admin: 01/10/17 16:17 Dose: 5 mg Miscellaneous (Probiotic Screen) 1 ea MC PRN PRN PRN Reason: PROTOCOL Stop: 02/28/17 15:40 Montelukast Sodium (Singulair) 10 mg PO DAILY [facility] Stop: 02/27/17 08:59 Last Admin: 01/10/17 08:34 Dose: 10 mg Ondansetron HCl (Zofran Odt) 4 mg PO Q6HR PRN PRN Reason: Nausea / Vomiting Stop: 02/27/17 01:46 Pantoprazole Sodium (Protonix) 40 mg PO DAILY [facility] Stop: 02/27/17 08:59 Last Admin: 01/10/17 08:32 Dose: 40 mg Senna (Senna) 17.2 mg PO HS [facility] Stop: 02/27/17 20:59 Last Admin: 01/10/17 21:00 Dose: 17.2 mg Sodium Phosphate (Fleet Enema) 135 ml RC Q48HR PRN PRN Reason: Constipation Stop: 02/27/17 01:46 Spironolactone (Aldactone) 25 mg PO BID [facility] Stop: 03/02/17 16:59 Last Admin: 01/10/17 16:16 Dose: 25 mg General: no acute distress, well developed, well nourished HEENT: atraumatic, normocephalic, PERRLA Neck: supple Cardiovascular: S1S2, regular Lungs: clear to auscultation bilaterally, clear to percussion Abdomen: soft, no tender Extremities: no cyanosis, no clubbing, no edema Skin: intact Infectious Disease Assmt/Plan - Problem List Patient Problems: All Active Problems Anemia (Acute) D64.9 CKD (chronic kidney disease) stage 2, GFR 60-89 ml/min (Acute) N18.2 Diabetes (Acute) E11.9 Hyperlipidemia (Acute) E78.5 Non-ST elevated myocardial infarction (Acute) I21.4 Pacemaker (Acute) Z95.0 Pyelonephritis (Acute) N12 Seizure disorder (Acute) G40.909 Sick sinus syndrome (Acute) I49.5 UTI (urinary tract infection) (Acute) - Assessment Assessment: UTI MRSA colonization. - Plan Plan: off antibiotics. Contact isolation. DC plan. Nutritional Asmnt/Malnutr-PDOC - Dietary Evaluation Malnutrition Findings (Please click <Entered> for more info): Nutritional Asmnt/Malnutrition Start: 12/30/16 12: 57 Text: Status: Complete Freq: Document 12/30/16 12:57 GSUN (Rec: 12/30/16 13:17 GSUN [email or web address]) Nutritional Asmnt/Malnutrition Patient General Information Nutritional Screening High Risk Screening Diagnosis Elevated troponin level, UTI, poor intake Pertinent Medical Hx/Surgical Hx Anemia, CKD stage 2, DM, hyperlipidemia, non ST elevated myocardial infarction , pacemaker, pyelonephritis, seizure disorder, sick sinus syndrome Subjective Information 71 year old female. Pt's diet order noted to be pureed CCHO NICOLASA at [facility] , current diet order is low sodium. Spoke to RN Baldemar, RN made aware, RN also stated pt is Malagasy speaking but confused. Spoke to CREEL SELECTOR who assisted with breakfast, CREEL SELECTOR stated pt is a feeder, good appetite, tolerated well, however noted pt is edentulous so did not feed toast. Pt seen talkign to self during visit, appeared overweight, no muscle fat wasting noted. Current Diet Order/ Nutrition Support Low sodium Pertinent Medications Vitamin C, Lipitor, Dulcolax, Colace, Novolog, Culturelle, MOM, Zofran, Protonix, Senna, Fleet Enema Pertinent Labs 12/28: A1c 7.4H 12/30: BUN 54H, potassium 4.1, creatinine 1.4H, glucose 256H Nutritional Hx/Data Height 1.52 m Height (Calculated Centimeters) 152.4 Current Weight (lbs) 84.368 kg Weight (Calculated Kilograms) 84.4 Weight (Calculated Grams) 67130.2 [place] Body Weight 100 Weight Status Obese GI Symptoms Usual diet at home [facility]: pureed, CCHO, NICOLASA Skin Integrity/Comment: Ho 13. Pitting 2+ lower extremities. Coccyx blanchable redness. Estimated Nutritional Goals BEE in Kcals: Adj wt of IBW Calories/Kcals/Kg AdjBW 121.5lb/55.2kg Kcals Calculated 1380-1656kcal (25-30kcal/kg) Protein: Adj wt of IBW Protein Calculated 55-66g (1-1.2g/kg) Fluid: ml 1380-1656ml (1ml/kcal) Nutritional Problem 2. Problem Problem Altered nutrition related laboratory values related to Etiology DM aeb Signs/Symptoms: A1c 7.4H, glucose 256H 1. Problem Problem (possible) diffiiculty chewing related to Etiology edentulous, diet order aeb Signs/Symptoms: pt was previously on pureed diet and now on regular texture Intervention/Recommendation Comments 1. Recommend [id number] low sodium, diet texture to be determined. Previous pureed diet order noted in transfer chart, however pt has been on regular texture diet since adm , day 2. RN Baldemar made aware. 2. Nursing staff to record % intake for every meal. No documentations since adm. Expected Outcomes/Goals Expected Outcomes/Goals 1. PO intake to meet at least 75% of estimated nutritional needs with tolerance.
[2017-01-11 06:11] LABS: ANION GAP 9.7 (7.0-16.0); BUN - UREA NITROGEN 41 mg/dL (7-25); BUN/CREATININE RATIO 29.3; CALCIUM SERUM 8.4 mg/dL (8.6-10.3); CARBON DIOXIDE 27.3 mEq/L (21.0-31.0); CHLORIDE 103 mEq/L (98-107); CREATININE - SERUM 1.4 mg/dL (0.6-1.2); GLUCOSE 211 mg/dL (70-105); SODIUM SERUM 136 mEq/L (136-145)
[2017-01-11] MEDS: Levothyroxine 0.05 Mg Tab PO SCH (06:44)
[2017-01-11] MEDS: INSULIN ASPART SLIDING SCALE 100 UNITS/ML UNIT SUBQ SCH (06:44)
[2017-01-11] MEDS: Atorvastatin Calcium 10 MG TAB PO SCH (09:25)
[2017-01-11] MEDS: Aspirin 81mg Chewable Tab PO SCH (09:26)
[2017-01-11] MEDS: Pantoprazole 40 mg EC Tab PO SCH (09:26)
[2017-01-11] MEDS: Lactobacillus Rhamnosus 10 Billion CFU Capsule PO SCH (09:27)
[2017-01-11] MEDS: Multivitamin w/ Minerals Tab PO SCH (09:27)
[2017-01-11] MEDS: Enoxaparin 40 mg/0.4 mL 0.4mL Syr SUBQ SCH (09:29)
[2017-01-11 10:04] LABS: % BASOPHILS 0.1 % (0.0-2.0); % EOSINOPHILS 3.5 % (0.0-5.0); % LYMPHOCYTES 26.4 % (20.0-50.0); % MONOCYTES 9.9 % (2.0-10.0); % NEUTROPHILS 60.1 % (40.0-80.0); HEMOGLOBIN 10.9 gm/dL (12-16); MEAN CELL VOLUME 81.9 fl (81-100); MEAN PLATELET VOLUME 10.4 fl; NEUTROPHILE ABSOLUTE 3.3 Th/cmm (1.8-8.0); PLATELET COUNT 132 Th/cmm (150-400); RED BLOOD COUNT 4.03 Mil/cmm (3.80-5.20); RED CELL DISTRIBUTION WIDTH 18.7 % (11.5-20.0); WHITE BLOOD COUNT 5.6 Th/cmm (4.8-10.8)
--- NOTE | 2017-01-15 23:24 | Discharge Summary ---
DATE OF DISCHARGE: 01/11/2017 The patient is admitted from [facility] to [facility] because of increasing BUN and creatinine, increasing renal failure, and metabolic encephalopathy, UTI, pyelonephritis, diabetes type 2, history of hyperlipidemia, history of seizures, history of anemia, status post pacemaker. The patient was treated for UTI as well as renal failure. The patient improved. The patient is in stable condition on 01/11/2017. The patient was discharged back to [facility] where I will be following the patient. FINAL DIAGNOSIS: Urinary tract infection, improving; sepsis, improving; history of myocardial infarction; history of chronic kidney disease, history of hyperlipidemia, history of seizures, history of status post pacemaker and foot ulcer. At the time of discharge, the patient was stable. JOB# [id number]
== END 2017-01-11 11:50 | disposition home or self-care (01) | DRG 871 ==
LOC: ER 21:58 → TELE 23:15
PROVIDERS: ADMIT Internal Medicine; ATTEND Internal Medicine
DX: A41.9 Sepsis, unspecified organism (principal); I21.4 Non-ST elevation (NSTEMI) myocardial infarction; N17.9 Acute kidney failure, unspecified; G92 Toxic encephalopathy; N10 Acute pyelonephritis; I13.0 Hypertensive heart and chronic kidney disease with heart failure and stage 1 through stage 4 chronic kidney disease, or unspecified chronic kidney disease; I42.9 Cardiomyopathy, unspecified; I50.9 Heart failure, unspecified; D50.9 Iron deficiency anemia, unspecified; N18.2 Chronic kidney disease, stage 2 (mild); E78.5 Hyperlipidemia, unspecified; G40.909 Epilepsy, unspecified, not intractable, without status epilepticus; Z95.0 Presence of cardiac pacemaker; M19.90 Unspecified osteoarthritis, unspecified site; E03.9 Hypothyroidism, unspecified; E86.0 Dehydration; I25.10 Atherosclerotic heart disease of native coronary artery without angina pectoris; F32.9 Major depressive disorder, single episode, unspecified; R62.7 Adult failure to thrive; E11.21 Type 2 diabetes mellitus with diabetic nephropathy; E11.51 Type 2 diabetes mellitus with diabetic peripheral angiopathy without gangrene; G30.9 Alzheimer's disease, unspecified; F02.80 Dementia in other diseases classified elsewhere, unspecified severity, without behavioral disturbance, psychotic disturbance, mood disturbance, and anxiety; J45.909 Unspecified asthma, uncomplicated; Z86.73 Personal history of transient ischemic attack (TIA), and cerebral infarction without residual deficits; Z22.322 Carrier or suspected carrier of Methicillin resistant Staphylococcus aureus
CPT/HCPCS: 36415-UA; 71010-TC; 76770-TC; 80048-TC; 80053-TC; 80061-TC; 81001-TC; 81015-TC; 82043-90; 82570-TC; 82948-90; 83036-90; 83735-TC; 83880-TC; 83930-90; 84100-TC; 84300-TC; 84443-TC; 84484-TC; 84550-TC; 85025-TC; 85610-TC; 87086-90; 93005; 94760; J0696; J1265; J1650; J1815; J1940; J3475; J7030; J7040; J7042; Z7610

== ENCOUNTER 2017-01-20 17:09 | Inpatient (IN) | payer MEDICARE, MEDICAID ==
--- NOTE | 2017-01-20 17:45 | ED Physician Chart ---
ED Chief Complaint/HPI - Patient Information Date Seen:: 01/20/17 Time Seen:: 17:30 Chief Complaint:: Left Foot Pain History of Present Illness:: onset x 2 days of left foot pain, redness, and swelling; no report of trauma, H/ As, neck pain, C/P, SOB, cough, Abd./Flank Pain, A/N/V/D/C, fever, chills, or urinary s/s; pt's last tetanus shot: < 5 years; UTD Allergies:: Allergies Allergy/AdvReac Type Severity Reaction Status Date / Time No Known Allergies Allergy Verified 12/28/16 22:31 Vitals:: Vital Signs - 8 hr 01/20/17 17:28 Temp 97.1 F HR 62 RR 17 BP 95/65 O2 Sat % 97 Historian:: Patient, EMS Review:: Nurse's Note Reviewed, EMS run form Reviewed ED Review of Systems - Review of Systems General/Constitutional: Fever, No chills, No weight loss, Weakness, No diaphoresis, No edema, No loss of appetite Skin: No skin lesions, No rash, No bruising Head: No headache, No light-headedness Eyes: No loss of vision, No pain, No diplopia ENT: No earache, No nasal drainage, No sore throat, No tinnitus Neck: No neck pain, No swelling, No thyromegaly, No stiffness, No mass noted Cardio Vascular: Chest pain, Palpitations, PND, orthopnea, edema Pulmonary: SOB, Cough, No sputum, No wheezing GI: No nausea, No vomiting, No diarrhea, No pain, No melena, No hematochezia, No constipation, No hematemesis G/U: No dysuria, No frequency, No hematuria, Nocturia 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, No abnormal vaginal bleed, No contraction Musculoskeletal: No bone or joint pain, No back pain, No muscle pain Endocrine: No polyuria, No polydipsia Psychiatric: No prior psych history, No depression, No anxiety, No suicidal ideation Hematopoietic: No bruising, No lymphadenopathy Allergic/Immuno: No urticaria, No angioedema Neurological: No syncope, No focal symptoms, Weakness, Paresthesia, No headache , No seizure, Dizziness, Confusion, Vertigo ED Past Medical History - Past Medical History Obtainable: Yes Past Medical History: HTN, DM, CAD, CHF, Dyslipidemia, PUD/GERD, ESRD, Thyroid disorder, Arthritis, Dementia Family History: Heart disease, Diabetes Melitus, HTN Social History: Non Smoker, No Alcohol, No Drug Use, Single, Care Facility Surgical History: Pacemaker Psychiatricy History: Dementia Medication: Reviewed Family Medical History - Family Member Mother History Unknown: Yes Ethnicity: Living Status: ED Physical Exam - Physical Examination General/Constitutional: Awake, Well-developed, well-nourished, Alert, No distress, GCS 15, Non-toxic appearing, Ambulatory Head: Atraumatic Eyes: Lids, conjuctiva normal, PERRL, EOMI Skin: Nl inspection, No rash, No skin lesions, No ecchymosis, Well hydrated, No lymphadenopathy Other Skin comments:: Left Foot Heel Ulcer and Cellulitis ENMT: External ears, nose nl, Nasal exam nl, Lips, teeth, gums nl Neck: Nontender, Full ROM w/o pain, No JVD, No nuchal rigidity, No bruit, No mass, No stridor Respiratory: Nl effort/Exclusion, Clear to Auscultation, No Wheeze/Rhonchi/Rales Cardio Vascular: RRR, No murmur, gallop, rubs, NL S1 S2 GI: No tenderness/rebounding/guarding, No organomegaly, No hernia, Normal BS's, Nondistended, No mass/bruits, No McBurney tenderness : No CVA tenderness Extremities: No tenderness or effusion, Full ROM, normal strength in all extremities, No edema, Normal digits & nails Neuro/Psych: Alert/oriented, DTR's symmetric, Normal sensory exam, Normal motor strength, Judgement/insight normal, Mood normal, Normal gait, No focal deficits Misc: Normal back, No paraspinal tenderness ED Labs/Radiology/EKG Results - Lab Results Comments:: BNP: 2380; BUN: 56; H/H: Low - Radiology Results Comments:: CXR: CHF - EKG Interpretations EKG Time:: 18:15 Rate & Rhythm: 63; NSR Comments:: LVH; nonspecific st-t changes ED Septic Shock - . Is Septic Shock (SBP<90, OR Lactate>4 mmol\L) present?: No - <6hrs of presentation: Vital Signs: Vital Signs - 8 hr 10/18/17 17:28 Temp 97.1 F HR 62 RR 17 BP 95/65 O2 Sat % 97 ED Reassessment (Disposition) - Reassessment Reassessment Condition:: Improved - Diagnosis Diagnosis:: Dx: Cellulitis; Ulcers; CHF; Sepsis; Dehydration; Anemia; DM - Aftercare/Follow up Instructions Aftercare/Follow-Up Instructions:: Counseled pt regarding lab results/diagnosis & need follow up, Counseled pt & family regarding lab results/diagnosis & need follow up - Patient Disposition Discharge/Transfer:: Acute Care w/in this hosp Accepting Physician:: Dr. Kelly Time Called:: 2099 Time Responded:: 21:00 Admitted to:: Telemetry Spoke to:: Dr. Kelly Admitting Medical Physician:: Dr. Kelly Condition at Disposition:: Stable, Improved
[2017-01-20] MEDS ORDERED: Sodium Chloride 0.9% 1,000 ML IV ONE (17:58)
[2017-01-20 18:08] LABS: % BASOPHILS 0.4 % (0.0-2.0); % EOSINOPHILS 3.4 % (0.0-5.0); % LYMPHOCYTES 11.4 % (20.0-50.0); % MONOCYTES 5.5 % (2.0-10.0); % NEUTROPHILS 79.3 % (40.0-80.0); HEMATOCRIT 32.9 % (41.0-60); HEMOGLOBIN 10.6 gm/dL (12-16); MEAN CELL VOLUME 81.2 fl (81-100); MEAN CORPUSCULAR HEMOGLOBIN 26.2 pg (27.0-31.0); MEAN CORPUSCULAR HGB CONC 32.3 pg (28.0-36.0); MEAN PLATELET VOLUME 9.8 fl; NEUTROPHILE ABSOLUTE 6.7 Th/cmm (1.8-8.0); RED BLOOD COUNT 4.06 Mil/cmm (3.80-5.20); RED CELL DISTRIBUTION WIDTH 18.2 % (11.5-20.0)
[2017-01-20 18:15] LABS: WHITE BLOOD COUNT 8.5 Th/cmm (4.8-10.8)
[2017-01-20 18:16] LABS: PLATELET COUNT 201 Th/cmm (150-400)
[2017-01-20 18:23] LABS: INR 1.26 (0.5-1.4); PROTHROMBIN TIME (TEST) 13.3 SECONDS (9.5-11.5)
[2017-01-20 18:27] LABS: ALB/GLOB RATIO 0.7 (1.0-1.8); ALKALINE PHOSPHATASE 68 U/L (34-104); ANION GAP 11.9 (7.0-16.0); BILIRUBIN,TOTAL 1.2 mg/dL (0.3-1.0); BUN - UREA NITROGEN 56 mg/dL (7-25); CALCIUM SERUM 8.8 mg/dL (8.6-10.3); CARBON DIOXIDE 24.1 mEq/L (21.0-31.0); CHLORIDE 104 mEq/L (98-107); CHOLESTEROL 68 mg/dL (<200); CREATININE - SERUM 1.4 mg/dL (0.6-1.2); GLUCOSE 107 mg/dL (70-105); SGOT 13 U/L (13-39); SGPT/ALT 8 U/L (7-52); SODIUM SERUM 136 mEq/L (136-145); TRIGLYCERIDES 68 mg/dL (<150)
[2017-01-21 01:44] VITALS: BP 114/50
[2017-01-21] MEDS: Sodium Chloride 0.45% 1,000 ML IV SCH ×2 (04:20→21:06)
[2017-01-21 07:18] LABS: URINE BILIRUBIN NEGATIVE (NEGATIVE); URINE BLOOD TRACE (NEGATIVE); URINE GLUCOSE (UA) NEGATIVE (NEGATIVE); URINE KETONE TRACE mg/dL (NEGATIVE); URINE PH 6.5 (4.6 - 8.0); URINE PROTEIN 30 mg/dL (NEGATIVE); URINE UROBILINOGEN 0.2 E.U./dL (0.2 - 1.0)
[2017-01-21] MEDS ORDERED: Albuterol/Ipratropium Neb 3 ML AERS HHN PRN (07:31)
[2017-01-21] MEDS ORDERED: Fleet Enema 135 mL RC PRN (07:31)
[2017-01-21] MEDS ORDERED: Magnesium Hydroxide (MOM) 30 mL UDC PO PRN (07:31)
--- NOTE | 2017-01-21 07:41 | Diagnostic Imaging Report ---
CHEST X-RAY: AP view INDICATION: Sepsis COMPARISON: Chest x-ray 01/09/2017 FINDINGS: Patient is rotated. Left chest wall AICD stable. Left basal density is noted. Cardiomegaly is noted. Increased interstitial lung markings are noted. Atherosclerosis is noted. Degenerative changes of the spine are noted. IMPRESSION: Left basal density likely due to superimposition of soft tissue structures and cardiomegaly. A small left effusion with left basal atelectasis versus infiltrate is less likely. Please correlate with clinical findings. Increased interstitial lung markings, likely chronic. Note that a marginal degree of congestion is considered less likely. Cardiomegaly and atherosclerotic vascular disease. AICD noted.
[2017-01-21 07:55] LABS: URINE COLOR YELLOW; URINE WBC 0-2 /hpf (0-5)
[2017-01-21 07:56] LABS: URINE BACTERIA OCCASIONAL /hpf (NONE SEEN); URINE EPITHELIAL CELLS FEW /lpf (FEW)
[2017-01-21] MEDS ORDERED: Non-Formulary Item 1 EA (Cranberry Fruit Extract [Cranberry] 425 MG) PO SCH (09:00)
[2017-01-21] MEDS ORDERED: Influenza Vaccine 0.5 mL Syr IM ONE (09:00)
[2017-01-21] MEDS ORDERED: SACCHAROMYCES BOULARDII 250 MG PO SCH (09:00)
[2017-01-21] MEDS ORDERED: Pneumococcal Vaccine 0.5 mL Vial IM ONE (09:00)
[2017-01-21] MEDS: Aspirin 81mg Chewable Tab PO SCH (10:06)
[2017-01-21] MEDS: Pantoprazole 40 mg EC Tab PO SCH (10:14)
[2017-01-21] MEDS: Enoxaparin 40 mg/0.4 mL 0.4mL Syr SUBQ SCH ×2 (10:15→21:41)
[2017-01-21] MEDS: Atorvastatin Calcium 10 MG TAB PO SCH (10:15)
[2017-01-21] MEDS: Lactobacillus Rhamnosus 10 Billion CFU Capsule PO SCH (10:15)
[2017-01-21] MEDS: Multivitamin w/ Minerals Tab PO SCH (10:15)
[2017-01-21] MEDS: INSULIN ASPART SLIDING SCALE 100 UNITS/ML UNIT SUBQ SCH ×2 (12:00→21:40)
--- NOTE | 2017-01-21 16:43 | Consultation ---
Consult Note - Consult Note Service Date: 01/21/17 Referring Physician: Tita Kelly Consult Note: PHYSICIAN Consultation Note: Date of Admission: 01/20/17 Purpose of Consultation: diabetic foot ulcer. Chief Complaint: Patient FRANCOIS MARTINEZ was admitted to [facility] with DIABETIC FOOT ULCER. History of Present Illness: 71 year old femalw was brought in for non-healing ulcer in left heel. patient is poor historian and and reliuctant provide any history. no report of trauma, H/As, neck pain, C/P, SOB, cough, Abd./Flank Pain, A/N/V/D/ C, fever, chills, or urinary s/s; Immunization: pt's last tetanus shot: < 5 years; UTD. Past Medical History: HTN, DM, CAD, CHF, Dyslipidemia, PUD/GERD, ESRD, Thyroid disorder, Arthritis, Dementia Allergies Allergy/AdvReac Type Severity Reaction Status Date / Time No Known Allergies Allergy Verified 12/28/16 22:31 Vital Signs Temp 98.2 F 01/21/17 16:23 Pulse 70 01/21/17 16:23 Resp 17 01/21/17 16:23 BP 130/65 01/21/17 16:23 Pulse Ox 99 01/21/17 16:23 Intake & Output 01/20/17 01/21/17 01/21/17 18:59 06:59 18:59 Intake Total 126.25 Balance 126.25 Weight (lbs) 71.668 kg Intake: Intake, IV Amount 126.25 Sodium Chloride 0.45% 1, 126.25 000 ml @ 75 mls/hr IV . [id number] [facility] Rx#:[id number] Laboratory Results - last 24 hr 01/21/17 06:58 Urine Source CATH Urine Color YELLOW Urine Clarity CLEAR Urine pH 6.5 Ur Specific [place] 1.015 Urine Protein 30 H Urine Glucose (UA) NEGATIVE Urine Ketones TRACE Urine Blood TRACE Urine Nitrate NEGATIVE Urine Bilirubin NEGATIVE Urine Urobilinogen 0.2 Ur Leukocyte Esterase NEGATIVE Urine RBC 2-5 Urine WBC 0-2 Ur Epithelial Cells FEW Urine Bacteria OCCASIONAL Home Medication Medication Instructions Recorded Type Acetaminophen [Tylenol Extra 2 tab PO Q4HR PRN 12/28/16 History Strength] Cranberry Fruit Extract [Cranberry] 425 mg PO DAILY 12/28/16 History Saccharomyces Boulardii [Florastor] 250 mg PO DAILY 12/28/16 History Acetaminophen [Tylenol] 650 mg PO Q4HR PRN tab 01/11/17 Rx Albuterol/Ipratropium Neb [Duoneb 3 ml HHN Q6HR PRN aers 01/11/17 Rx Neb] Ascorbic Acid [Vitamin C] 500 mg PO DAILY tab 01/11/17 Rx Aspirin [Aspirin Chewable] 81 mg PO DAILY ctb 01/11/17 Rx Atorvastatin Calcium [Lipitor] 10 mg PO DAILY tab 01/11/17 Rx Bisacodyl [Dulcolax 10 Mg Supp] 10 mg RC DAILY PRN sup 01/11/17 Rx Carvedilol [Coreg] 6.25 mg PO BID tab 01/11/17 Rx Docusate Sodium [Colace] 100 mg PO BID cap 01/11/17 Rx Enoxaparin [Lovenox] 40 mg SUBQ Q12HR syr 01/11/17 Rx Fleet Enema 135 ml RC Q48HR PRN btl 01/11/17 Rx Furosemide [Lasix] 40 mg IVP BID vial 01/11/17 Rx Hydralazine [Apresoline*] 10 mg PO BID tab 01/11/17 Rx Insulin Aspart Sliding Scale See Protocol SUBQ ACHS unit 01/11/17 Rx [NovoLOG INSULIN SLIDING SCALE] Isosorbide Dinitrate [Isordil] 10 mg PO TID tab 01/11/17 Rx Lactobacillus Rhamnosus 1 each PO DAILY cap.sprink 01/11/17 Rx [Culturelle] Levetiracetam [Keppra] 250 mg PO BID tab 01/11/17 Rx Levothyroxine [Synthroid] 0.05 mg PO QDAC tab 01/11/17 Rx Magnesium Hydroxide [Milk of 30 ml PO DAILY PRN udc 01/11/17 Rx Magnesia] Megestrol Acetate [Megace] 40 mg PO DAILY tab 01/11/17 Rx Montelukast [Singulair] 10 mg PO DAILY tab 01/11/17 Rx Multivitamin w/ Minerals 1 tab PO DAILY tab 01/11/17 Rx [Theragran M] Ondansetron [Zofran Odt] 4 mg PO Q6HR PRN odt 01/11/17 Rx Pantoprazole [Protonix] 40 mg PO DAILY ect 01/11/17 Rx Sennosides A and B [Senna] 17.2 mg PO HS tab 01/11/17 Rx Spironolactone [Aldactone] 25 mg PO BID tab 01/11/17 Rx cloNIDine HCl [Catapres] 0.1 mg PO Q6HR PRN tab 01/11/17 Rx Current Medications Generic Name Dose Route Start Last Admin Trade Name Freq PRN Reason Stop Dose Admin Acetaminophen 650 mg 01/21/17 07:31 Tylenol PO 03/22/17 07:30 Q4HR PRN Pain or Fever >101 Acetaminophen 500 mg 01/21/17 07:31 Tylenol Extra Strength PO 03/22/17 07:30 Q4HR PRN Pain (Moderate) Albuterol/Ipratropium 3 ml 01/21/17 07:31 Duoneb Neb HHN 03/22/17 07:30 Q6HR PRN Shortness of Breath or Wheeze Ascorbic Acid 500 mg 01/21/17 09:00 01/21/17 10:15 Vitamin C PO 03/22/17 08:59 500 mg DAILY JOSE DAVID Administration Aspirin 81 mg 01/21/17 09:00 01/21/17 10:06 Aspirin Chewable PO 03/22/17 08:59 81 mg DAILY JOSE DAVID Administration Atorvastatin Calcium 10 mg 01/21/17 09:00 01/21/17 10:15 Lipitor PO 03/22/17 08:59 10 mg DAILY JOSE DAVID Administration Protocol Bisacodyl 10 mg 01/21/17 07:31 Dulcolax 10 Mg Supp RC 03/22/17 07:30 DAILY PRN Constipation Carvedilol 6.25 mg 01/21/17 09:00 01/21/17 10:09 Coreg PO 03/22/17 08:59 6.25 mg BID JOSE DAVID Administration Docusate Sodium 100 mg 01/21/17 09:00 01/21/17 10:10 Colace PO 03/22/17 08:59 100 mg BID JOSE DAVID Administration Enoxaparin Sodium 40 mg 01/21/17 09:00 01/21/17 10:15 Lovenox SUBQ 03/22/17 08:59 40 mg Q12HR JOSE DAVID Administration Furosemide 40 mg 01/21/17 09:00 01/21/17 10:15 Lasix IVP 03/22/17 08:59 40 mg BID JOSE DAVID Administration Hydralazine HCl 10 mg 01/21/17 09:00 01/21/17 10:09 Apresoline PO 03/22/17 08:59 10 mg BID JOSE DAVID Administration Sodium Chloride 1,000 mls @ 75 mls/hr 01/21/17 03:55 01/21/17 06:01 Nacl 0.45% IV 03/22/17 03:54 75 mls/hr .[id number] JOSE DAVID Infusion Vancomycin HCl 1.25 gm/ Sodium 250 mls @ 165 mls/hr 01/21/17 10:00 01/21/17 10:16 Chloride IV 03/22/17 09:59 165 mls/hr Q24H JOSE DAVID Administration Insulin Aspart 0 units 01/21/17 11:30 Novolog Insulin Sliding Scale SUBQ 03/22/17 11:29 ACHS JOSE DAVID Protocol Isosorbide Dinitrate 10 mg 01/21/17 09:00 01/21/17 10:08 Isordil PO 03/22/17 08:59 10 mg TID JOSE DAVID Administration Lactobacillus Rhamnosus 1 each 01/21/17 09:00 01/21/17 10:15 Culturelle PO 03/22/17 08:59 1 each DAILY JOSE DAVID Administration Levetiracetam 250 mg 01/21/17 09:00 01/21/17 10:07 Keppra PO 03/22/17 08:59 250 mg BID JOSE DAVID Administration Levothyroxine Sodium 0.05 mg 01/22/17 07:30 Synthroid PO 03/23/17 07:29 QDAC JOSE DAVID Magnesium Hydroxide 30 ml 01/21/17 07:31 Milk Of Magnesia PO 03/22/17 07:30 DAILY PRN Constipation Megestrol Acetate 40 mg 01/21/17 09:00 01/21/17 10:06 Megace PO 03/22/17 08:59 40 mg DAILY JOSE DAVID Administration Protocol Miscellaneous 1 ea 01/22/17 09:00 Vancomycin Iv Per Pharmacy 03/23/17 08:59 DAILY JOSE DAVID Montelukast Sodium 10 mg 01/21/17 09:00 01/21/17 10:15 Singulair PO 03/22/17 08:59 10 mg DAILY JOSE DAVID Administration Ondansetron HCl 4 mg 01/21/17 07:31 Zofran Odt PO 03/22/17 07:30 Q6HR PRN Nausea / Vomiting Pantoprazole Sodium 40 mg 01/21/17 09:00 01/21/17 10:14 Protonix PO 03/22/17 08:59 40 mg DAILY JOSE DAVID Administration Senna 17.2 mg 01/21/17 21:00 Senna PO 03/22/17 20:59 HS JOSE DAVID Sodium Phosphate 135 ml 01/21/17 07:31 Fleet Enema RC 03/22/17 07:30 Q48HR PRN Constipation Spironolactone 25 mg 01/21/17 09:00 01/21/17 10:08 Aldactone PO 03/22/17 08:59 25 mg BID JOSE DAVID Administration Review of Systems: A 12 point ROS was reviewed with the pertinent positive and negatives noted in the HPI. Social History Smoking Status Unknown if ever smoked Family Medical History Family Medical History Mother History Unknown Yes Ethnicity Living Status Hx Family Hypertension Yes Hx Family Diabetes Yes Physical Exam: General: Comfortable lying in bed not in acute distress. HEENT: Head: Normocephalic. Atraumatic. Oral cavity: Moist, pink tongue. Eyes : No pallor and icterus. Neck: Supple, no JVD, no use of XI muscle. Cardio: S1 and S2 within normal limits regular rhythm. Respiratory: Vesicular breath sound, no crackles no wheezing. Abdominal: Soft, nontender nondistended, bowel sounds present Genital/Urinary: Deferred Extremities: N CCE. Left heel stage 4, wound with red base with well defined border. Neurological: Alert, awake, oriented 3. Assessment: 1. chronic nonhealing left heel wound. 2. dementia. 3. DM2. 3. HTN. 4. CAD. Plan: Contiue vanco IV. Wound care. Thank you, Dr Kelly for involving me in takeing care of this patient. Signed, Elías Jc M.D. [id number]
[2017-01-22] MEDS: INSULIN ASPART SLIDING SCALE 100 UNITS/ML UNIT SUBQ SCH ×6 (06:34→21:19)
[2017-01-22] MEDS: Levothyroxine 0.05 Mg Tab PO SCH (06:35)
[2017-01-22] MEDS: Atorvastatin Calcium 10 MG TAB PO SCH (09:40)
[2017-01-22] MEDS: Multivitamin w/ Minerals Tab PO SCH (09:41)
[2017-01-22] MEDS: Lactobacillus Rhamnosus 10 Billion CFU Capsule PO SCH (09:41)
[2017-01-22] MEDS: Pantoprazole 40 mg EC Tab PO SCH (09:42)
[2017-01-22] MEDS: Aspirin 81mg Chewable Tab PO SCH (09:42)
[2017-01-22] MEDS: Enoxaparin 40 mg/0.4 mL 0.4mL Syr SUBQ SCH ×2 (09:51→20:58)
--- NOTE | 2017-01-22 12:34 | Infectious Disease Prog Note ---
Infectious Disease Subjective - Review of Systems Service Date: 01/22/17 Subjective: No new change. Infectious Disease Objective - Results Result Diagrams: 01/20/17 17:45 01/20/17 17:45 Recent Labs: Laboratory Last Values WBC 8.5 Th/cmm (4.8-10.8) D 01/20/17 17:45 RBC 4.06 Mil/cmm (3.80-5.20) 01/20/17 17:45 Hgb 10.6 gm/dL (12-16) L 01/20/17 17:45 Hct 32.9 % (41.0-60) L 01/20/17 17:45 MCV 81.2 fl (81-100) 01/20/17 17:45 MCH 26.2 pg (27.0-31.0) L 01/20/17 17:45 MCHC Differential 32.3 pg (28.0-36.0) 01/20/17 17:45 RDW 18.2 % (11.5-20.0) 01/20/17 17:45 Plt Count 201 Th/cmm (150-400) D 01/20/17 17:45 MPV 9.8 fl 01/20/17 17:45 Neutrophils % 79.3 % (40.0-80.0) 01/20/17 17:45 Lymphocytes % 11.4 % (20.0-50.0) L 01/20/17 17:45 Monocytes % 5.5 % (2.0-10.0) 01/20/17 17:45 Eosinophils % 3.4 % (0.0-5.0) 01/20/17 17:45 Basophils % 0.4 % (0.0-2.0) 01/20/17 17:45 PT 13.3 SECONDS (9.5-11.5) H 01/20/17 17:45 INR 1.26 (0.5-1.4) 01/20/17 17:45 PTT (Actin FS) 28.6 SECONDS (26.0-38.0) 01/20/17 17:45 Sodium 136 mEq/L (136-145) 01/20/17 17:45 Potassium 4.0 mEq/L (3.5-5.1) 01/20/17 17:45 Chloride 104 mEq/L (98-107) 01/20/17 17:45 Carbon Dioxide 24.1 mEq/L (21.0-31.0) 01/20/17 17:45 Anion Gap 11.9 (7.0-16.0) 01/20/17 17:45 BUN 56 mg/dL (7-25) H 01/20/17 17:45 Creatinine 1.4 mg/dL (0.6-1.2) H 01/20/17 17:45 Est GFR ( Amer) TNP 01/20/17 17:45 Est GFR (Non-Af Amer) TNP 01/20/17 17:45 BUN/Creatinine Ratio 40.0 01/20/17 17:45 Glucose 107 mg/dL (70-105) H 01/20/17 17:45 POC Glucose 237 MG/DL (70 - 105) H 01/22/17 05:57 Whole Bld Lactic Acid 1.18 mmol/L (0.60-1.99) 01/20/17 18:32 Calcium 8.8 mg/dL (8.6-10.3) 01/20/17 17:45 Total Bilirubin 1.2 mg/dL (0.3-1.0) H 01/20/17 17:45 AST 13 U/L (13-39) 01/20/17 17:45 ALT 8 U/L (7-52) 01/20/17 17:45 Alkaline Phosphatase 68 U/L (34-104) 01/20/17 17:45 Creatine Kinase 36 U/L (30-223) 01/20/17 17:45 Troponin I 0.02 ng/mL (0.01-0.05) 01/20/17 17:45 B-Natriuretic Peptide 2380.0 pg/mL (5.0-100.0) H 01/20/17 17:45 Total Protein 6.8 gm/dL (6.0-8.3) 01/20/17 17:45 Albumin 2.9 gm/dL (3.7-5.3) L 01/20/17 17:45 Globulin 3.9 gm/dL 01/20/17 17:45 Albumin/Globulin Ratio 0.7 (1.0-1.8) L 01/20/17 17:45 Triglycerides 68 mg/dL (<150) 01/20/17 17:45 Cholesterol 68 mg/dL (<200) 01/20/17 17:45 LDL Cholesterol Direct 46 mg/dL (75-193) L 01/20/17 17:45 HDL Cholesterol 19 mg/dL (23-92) L 01/20/17 17:45 Urine Source CATH 01/21/17 06:58 Urine Color YELLOW 01/21/17 06:58 Urine Clarity CLEAR (CLEAR) 01/21/17 06:58 Urine pH 6.5 (4.6 - 8.0) 01/21/17 06:58 Ur Specific [place] 1.015 (1.005-1.030) 01/21/17 06:58 Urine Protein 30 mg/dL (NEGATIVE) H 01/21/17 06:58 Urine Glucose (UA) NEGATIVE mg/dL (NEGATIVE) 01/21/17 06:58 Urine Ketones TRACE mg/dL (NEGATIVE) 01/21/17 06:58 Urine Blood TRACE (NEGATIVE) 01/21/17 06:58 Urine Nitrate NEGATIVE (NEGATIVE) 01/21/17 06:58 Urine Bilirubin NEGATIVE (NEGATIVE) 01/21/17 06:58 Urine Urobilinogen 0.2 E.U./dL (0.2 - 1.0) 01/21/17 06:58 Ur Leukocyte Esterase NEGATIVE (NEGATIVE) 01/21/17 06:58 Urine RBC 2-5 /hpf (0-5) 01/21/17 06:58 Urine WBC 0-2 /hpf (0-5) 01/21/17 06:58 Ur Epithelial Cells FEW /lpf (FEW) 01/21/17 06:58 Urine Bacteria OCCASIONAL /hpf (NONE SEEN) 01/21/17 06:58 - Physical Exam Vitals and I&O: Vital Signs Temp 98.1 F 01/22/17 04:00 Pulse 79 01/22/17 09:55 Resp 18 01/22/17 07:50 BP 103/60 01/22/17 09:55 Pulse Ox 97 01/22/17 07:50 Intake & Output 01/21/17 01/22/17 01/22/17 18:59 06:59 18:59 Intake Total 873.75 920 Balance 873.75 920 Weight (lbs) 71.668 kg 72.575 kg Intake: Intake, IV Amount 873.75 920 Sodium Chloride 0.45% 1, 873.75 670 000 ml @ 75 mls/hr IV . [id number] [facility] Rx#:[id number] Vancomycin HCl 1.25 gm In 250 Sodium Chloride 0.9% 250 ml @ 165 mls/hr IV Q24H [facility] Rx#:[id number] Other: # Voids 3 # Bowel Movements 2 Active Medications: Current Medications Acetaminophen (Tylenol) 650 mg PO Q4HR PRN PRN Reason: Pain or Fever >101 Stop: 03/22/17 07:30 Acetaminophen (Tylenol Extra Strength) 500 mg PO Q4HR PRN PRN Reason: Pain (Moderate) Stop: 03/22/17 07:30 Albuterol/Ipratropium (Duoneb Neb) 3 ml HHN Q6HR PRN PRN Reason: Shortness of Breath or Wheeze Stop: 03/22/17 07:30 Ascorbic Acid (Vitamin C) 500 mg PO DAILY [facility] Stop: 03/22/17 08:59 Last Admin: 01/22/17 09:42 Dose: 500 mg Aspirin (Aspirin Chewable) 81 mg PO DAILY [facility] Stop: 03/22/17 08:59 Last Admin: 01/22/17 09:42 Dose: 81 mg Atorvastatin Calcium (Lipitor) 10 mg PO DAILY [facility] PRN Reason: Protocol Stop: 03/22/17 08:59 Last Admin: 01/22/17 09:40 Dose: 10 mg Bisacodyl (Dulcolax 10 Mg Supp) 10 mg RC DAILY PRN PRN Reason: Constipation Stop: 03/22/17 07:30 Carvedilol (Coreg) 6.25 mg PO BID [facility] Stop: 03/22/17 08:59 Last Admin: 01/22/17 09:52 Dose: 6.25 mg Docusate Sodium (Colace) 100 mg PO BID [facility] Stop: 03/22/17 08:59 Last Admin: 01/22/17 09:42 Dose: 100 mg Enoxaparin Sodium (Lovenox) 40 mg SUBQ Q12HR [facility] Stop: 03/22/17 08:59 Last Admin: 01/22/17 09:51 Dose: 40 mg Furosemide (Lasix) 40 mg IVP BID [facility] Stop: 03/22/17 08:59 Last Admin: 01/22/17 09:51 Dose: 40 mg Hydralazine HCl (Apresoline) 10 mg PO BID [facility] Stop: 03/22/17 08:59 Last Admin: 01/22/17 09:54 Dose: Not Given Sodium Chloride (Nacl 0.45%) 1,000 mls @ 75 mls/hr IV .[id number] [facility] Stop: 03/22/17 03:54 Last Infusion: 01/22/17 06:02 Dose: 75 mls/hr Vancomycin HCl 1.25 gm/ Sodium (Chloride) 250 mls @ 165 mls/hr IV Q24H [facility] Stop: 03/22/17 09:59 Last Infusion: 01/22/17 06:02 Dose: Infused Insulin Aspart (Novolog Insulin Sliding Scale) 0 units SUBQ ACHS [facility] PRN Reason: Protocol Stop: 03/22/17 11:29 Last Admin: 01/22/17 06:34 Dose: 4 units Isosorbide Dinitrate (Isordil) 10 mg PO TID [facility] Stop: 03/22/17 08:59 Last Admin: 01/22/17 09:55 Dose: Not Given Lactobacillus Rhamnosus (Culturelle) 1 each PO DAILY [facility] Stop: 03/22/17 08:59 Last Admin: 01/22/17 09:41 Dose: 1 each Levetiracetam (Keppra) 250 mg PO BID [facility] Stop: 03/22/17 08:59 Last Admin: 01/22/17 09:41 Dose: 250 mg Levothyroxine Sodium (Synthroid) 0.05 mg PO QDAC [facility] Stop: 03/23/17 07:29 Last Admin: 01/22/17 06:35 Dose: 0.05 mg Magnesium Hydroxide (Milk Of Magnesia) 30 ml PO DAILY PRN PRN Reason: Constipation Stop: 03/22/17 07:30 Megestrol Acetate (Megace) 40 mg PO DAILY [facility] PRN Reason: Protocol Stop: 03/22/17 08:59 Last Admin: 01/22/17 09:42 Dose: 40 mg Miscellaneous (Vancomycin Iv Per Pharmacy) 1 ea MC DAILY [facility] Stop: 03/23/17 08:59 Montelukast Sodium (Singulair) 10 mg PO DAILY [facility] Stop: 03/22/17 08:59 Last Admin: 01/22/17 09:41 Dose: 10 mg Ondansetron HCl (Zofran Odt) 4 mg PO Q6HR PRN PRN Reason: Nausea / Vomiting Stop: 03/22/17 07:30 Pantoprazole Sodium (Protonix) 40 mg PO DAILY [facility] Stop: 03/22/17 08:59 Last Admin: 01/22/17 09:42 Dose: 40 mg Senna (Senna) 17.2 mg PO HS [facility] Stop: 03/22/17 20:59 Last Admin: 01/21/17 21:42 Dose: Not Given Sodium Phosphate (Fleet Enema) 135 ml RC Q48HR PRN PRN Reason: Constipation Stop: 03/22/17 07:30 Spironolactone (Aldactone) 25 mg PO BID [facility] Stop: 03/22/17 08:59 Last Admin: 01/22/17 09:53 Dose: 25 mg General: no acute distress, well developed, well nourished HEENT: atraumatic, normocephalic, PERRLA, EOMI, moist mucous membrane Neck: supple, no thyromegaly Cardiovascular: S1S2, regular Lungs: clear to auscultation bilaterally, clear to percussion Abdomen: soft, bowel sounds, no tender, no distended, no rebound, no hepatomegaly, no splenomegaly, no ascites, no guarding Extremities: other (left heel wound.), no cyanosis, no clubbing, no edema Neurological: awake, alert, oriented Infectious Disease Assmt/Plan - Problem List Patient Problems: All Active Problems Anemia (Acute) D64.9 CKD (chronic kidney disease) stage 2, GFR 60-89 ml/min (Acute) N18.2 Diabetes (Acute) E11.9 Hyperlipidemia (Acute) E78.5 Non-ST elevated myocardial infarction (Acute) I21.4 Pacemaker (Acute) Z95.0 Pyelonephritis (Acute) N12 Seizure disorder (Acute) G40.909 Sick sinus syndrome (Acute) I49.5 UTI (urinary tract infection) (Acute) - Assessment Assessment: 1. chronic nonhealing left heel wound. 2. dementia. 3. DM2. 3. HTN. 4. CAD.q 5. H/O MRSA infection. - Plan Plan: Continue vanco IV. 3P bone scan. wound care. Nutritional Asmnt/Malnutr-PDOC - Dietary Evaluation Malnutrition Findings (Please click <Entered> for more info): Nutritional Asmnt/Malnutrition Start: 10/19/17 14: 20 Text: Status: Active Freq: Document 01/21/17 14:20 KEVON (Rec: 01/21/17 14:31 KEVON FRANCIS -FNS4) Nutritional Asmnt/Malnutrition Patient General Information Nutritional Screening Consult Diagnosis Diabetic foot ulcer Pertinent Medical Hx/Surgical Hx HTN, DM, CAD, CHF, dyslipidemia, PUD/GERD, ESRD, thyroid disorder, arthritis, dementia per MD notes Subjective Information Pt seen for Nutrition Consult (Ho 12). Pt was confused at time of RD visit. No family at bedside. Per RN, pt ate "okay" at breakfast. Pt is pending bone scan. Per RD chart review, pt has an unstageable L foot ulcer. Per EMR, abd is firm/soft/non- tender. I/O: 126/0 (+126 ml) per 12 hours. Current diet is appropriate at this time. Pt is not appropriate for nutritin education. Current Diet Order/ Nutrition Support CCHO-75 gm Patient / S.O Can't verbalize diet edu Pertinent Medications VIT C, lipitor, colace, lasix, culturelle, megace, protonix, aldactone Pertinent Labs BG 107 H, BUN 56 H, CRE 1.4 H, ALB 2.9 L, LDL 46 L, HDL 19 L , H/H 10.6 L/32.9 L Nutritional Hx/Data Height 1.52 m Height (Calculated Centimeters) 152.4 Current Weight (lbs) 45.359 kg Weight (Calculated Kilograms) 45.4 Weight (Calculated Grams) 35078.2 [place] Body Weight 100 lb, 45 kg. Adj IBW ( obesity): 115 lb, 52 kg % [place] Body Weight 160 Weight Status Obese GI Symptoms GI Symptoms None Skin Integrity/Comment: L foot w/ diabetic ulcer per RN report Current %PO Fair (50-74%) Estimated Nutritional Goals BEE in Kcals: Adj wt of IBW Calories/Kcals/Kg 30-35 kcal/kg Adj IBW for wound healing Kcals Calculated 8363-7794 kcal/day Protein: Adj wt of IBW Protein g/k.2-1.5 gm/kg Adj IBW for wound healing Protein Calculated 62-78 gm/day Fluid: ml Per MD (CHF/ESRD) Nutritional Problem 1. Problem Problem Increased nutritional needs Etiology related to metabolic demands Signs/Symptoms: as evidenced by estimated nutritional requirements for possible unstageable diabetic ulcer to L foot. Malnutrition Alert Is there a minimum of two criteria No selected? Query Text:Check all the applicable criteria. A minimum of two criteria are recommended for diagnosis of either severe or non-severe malnutrition. Malnutrition Related to Morbid Obesity Malnutrition related to morbid obesity No Intervention/Recommendation Recommendations by RD Increase Calorie Intake Comments * Recommend continuing CCHO-75 gm diet per MD * Consider protein supplement (Boost Glucose Control BID) if PO intakes decline <50% * Consider MVI and zinc Expected Outcomes/Goals Expected Outcomes/Goals - Monitor appetite and PO intakes w/ goal of pt meeting at least 75% of estimated nutritional needs, labs trending WNL, normal GI function, and skin integrity/ wt maintenance within 3-5 days
[2017-01-22] MEDS: Acetaminophen 500 MG TAB PO PRN ×2 (13:45→17:47)
[2017-01-22] MEDS: Venelex 60gm Tube TP SCH (17:51)
--- NOTE | 2017-01-22 20:03 | Internal Medicine Prog Note ---
Internal Medicine Subjective - Subjective Service Date: 01/22/17 ([facility] DICTATED [id number]) Internal Medicine Objective - Results Result Diagrams: 01/20/17 17:45 01/20/17 17:45 Recent Labs: Laboratory Last Values WBC 8.5 Th/cmm (4.8-10.8) D 01/20/17 17:45 RBC 4.06 Mil/cmm (3.80-5.20) 01/20/17 17:45 Hgb 10.6 gm/dL (12-16) L 01/20/17 17:45 Hct 32.9 % (41.0-60) L 01/20/17 17:45 MCV 81.2 fl (81-100) 01/20/17 17:45 MCH 26.2 pg (27.0-31.0) L 01/20/17 17:45 MCHC Differential 32.3 pg (28.0-36.0) 01/20/17 17:45 RDW 18.2 % (11.5-20.0) 01/20/17 17:45 Plt Count 201 Th/cmm (150-400) D 01/20/17 17:45 MPV 9.8 fl 01/20/17 17:45 Neutrophils % 79.3 % (40.0-80.0) 01/20/17 17:45 Lymphocytes % 11.4 % (20.0-50.0) L 01/20/17 17:45 Monocytes % 5.5 % (2.0-10.0) 01/20/17 17:45 Eosinophils % 3.4 % (0.0-5.0) 01/20/17 17:45 Basophils % 0.4 % (0.0-2.0) 01/20/17 17:45 PT 13.3 SECONDS (9.5-11.5) H 01/20/17 17:45 INR 1.26 (0.5-1.4) 01/20/17 17:45 PTT (Actin FS) 28.6 SECONDS (26.0-38.0) 01/20/17 17:45 Sodium 136 mEq/L (136-145) 01/20/17 17:45 Potassium 4.0 mEq/L (3.5-5.1) 01/20/17 17:45 Chloride 104 mEq/L (98-107) 01/20/17 17:45 Carbon Dioxide 24.1 mEq/L (21.0-31.0) 01/20/17 17:45 Anion Gap 11.9 (7.0-16.0) 01/20/17 17:45 BUN 56 mg/dL (7-25) H 01/20/17 17:45 Creatinine 1.4 mg/dL (0.6-1.2) H 01/20/17 17:45 Est GFR ( Amer) TNP 01/20/17 17:45 Est GFR (Non-Af Amer) TNP 01/20/17 17:45 BUN/Creatinine Ratio 40.0 01/20/17 17:45 Glucose 107 mg/dL (70-105) H 01/20/17 17:45 POC Glucose 313 MG/DL (70 - 105) H 01/22/17 17:43 Whole Bld Lactic Acid 1.18 mmol/L (0.60-1.99) 01/20/17 18:32 Calcium 8.8 mg/dL (8.6-10.3) 01/20/17 17:45 Total Bilirubin 1.2 mg/dL (0.3-1.0) H 01/20/17 17:45 AST 13 U/L (13-39) 01/20/17 17:45 ALT 8 U/L (7-52) 01/20/17 17:45 Alkaline Phosphatase 68 U/L (34-104) 01/20/17 17:45 Creatine Kinase 36 U/L (30-223) 01/20/17 17:45 Troponin I 0.02 ng/mL (0.01-0.05) 01/20/17 17:45 B-Natriuretic Peptide 2380.0 pg/mL (5.0-100.0) H 01/20/17 17:45 Total Protein 6.8 gm/dL (6.0-8.3) 01/20/17 17:45 Albumin 2.9 gm/dL (3.7-5.3) L 01/20/17 17:45 Globulin 3.9 gm/dL 01/20/17 17:45 Albumin/Globulin Ratio 0.7 (1.0-1.8) L 01/20/17 17:45 Triglycerides 68 mg/dL (<150) 01/20/17 17:45 Cholesterol 68 mg/dL (<200) 01/20/17 17:45 LDL Cholesterol Direct 46 mg/dL (75-193) L 01/20/17 17:45 HDL Cholesterol 19 mg/dL (23-92) L 01/20/17 17:45 Urine Source CATH 01/21/17 06:58 Urine Color YELLOW 01/21/17 06:58 Urine Clarity CLEAR (CLEAR) 01/21/17 06:58 Urine pH 6.5 (4.6 - 8.0) 01/21/17 06:58 Ur Specific [place] 1.015 (1.005-1.030) 01/21/17 06:58 Urine Protein 30 mg/dL (NEGATIVE) H 01/21/17 06:58 Urine Glucose (UA) NEGATIVE mg/dL (NEGATIVE) 01/21/17 06:58 Urine Ketones TRACE mg/dL (NEGATIVE) 01/21/17 06:58 Urine Blood TRACE (NEGATIVE) 01/21/17 06:58 Urine Nitrate NEGATIVE (NEGATIVE) 01/21/17 06:58 Urine Bilirubin NEGATIVE (NEGATIVE) 01/21/17 06:58 Urine Urobilinogen 0.2 E.U./dL (0.2 - 1.0) 01/21/17 06:58 Ur Leukocyte Esterase NEGATIVE (NEGATIVE) 01/21/17 06:58 Urine RBC 2-5 /hpf (0-5) 01/21/17 06:58 Urine WBC 0-2 /hpf (0-5) 01/21/17 06:58 Ur Epithelial Cells FEW /lpf (FEW) 01/21/17 06:58 Urine Bacteria OCCASIONAL /hpf (NONE SEEN) 01/21/17 06:58 - Physical Exam Vitals and I&O: Vital Signs Temp 97.2 F 01/22/17 16:00 Pulse 74 01/22/17 19:47 Resp 18 01/22/17 19:47 BP 111/57 01/22/17 18:54 Pulse Ox 95 01/22/17 19:47 Intake & Output 01/22/17 01/22/17 01/23/17 06:59 18:59 06:59 Intake Total 920 400 Balance 920 400 Weight (lbs) 160 lb 160 lb Intake: Intake, IV Amount 920 Sodium Chloride 0.45% 1, 670 000 ml @ 75 mls/hr IV . [id number] [facility] Rx#:[id number] Vancomycin HCl 1.25 gm In 250 Sodium Chloride 0.9% 250 ml @ 165 mls/hr IV Q24H [facility] Rx#:[id number] Oral 400 Other: # Voids 3 4 # Bowel Movements 2 Active Medications: Current Medications Acetaminophen (Tylenol) 650 mg PO Q4HR PRN PRN Reason: Pain or Fever >101 Stop: 03/22/17 07:30 Acetaminophen (Tylenol Extra Strength) 500 mg PO Q4HR PRN PRN Reason: Pain (Moderate) Stop: 03/22/17 07:30 Last Admin: 01/22/17 17:47 Dose: 500 mg Albuterol/Ipratropium (Duoneb Neb) 3 ml HHN Q6HR PRN PRN Reason: Shortness of Breath or Wheeze Stop: 03/22/17 07:30 Ascorbic Acid (Vitamin C) 500 mg PO DAILY [facility] Stop: 03/22/17 08:59 Last Admin: 01/22/17 09:42 Dose: 500 mg Aspirin (Aspirin Chewable) 81 mg PO DAILY [facility] Stop: 03/22/17 08:59 Last Admin: 01/22/17 09:42 Dose: 81 mg Atorvastatin Calcium (Lipitor) 10 mg PO DAILY [facility] PRN Reason: Protocol Stop: 03/22/17 08:59 Last Admin: 01/22/17 09:40 Dose: 10 mg Bisacodyl (Dulcolax 10 Mg Supp) 10 mg RC DAILY PRN PRN Reason: Constipation Stop: 03/22/17 07:30 Carvedilol (Coreg) 6.25 mg PO BID [facility] Stop: 03/22/17 08:59 Last Admin: 01/22/17 17:46 Dose: 6.25 mg Docusate Sodium (Colace) 100 mg PO BID [facility] Stop: 03/22/17 08:59 Last Admin: 01/22/17 17:48 Dose: 100 mg Enoxaparin Sodium (Lovenox) 40 mg SUBQ Q12HR [facility] Stop: 03/22/17 08:59 Last Admin: 01/22/17 09:51 Dose: 40 mg Furosemide (Lasix) 40 mg IVP BID [facility] Stop: 03/22/17 08:59 Last Admin: 01/22/17 17:28 Dose: 40 mg Hydralazine HCl (Apresoline) 10 mg PO BID [facility] Stop: 03/22/17 08:59 Last Admin: 01/22/17 18:54 Dose: Not Given Sodium Chloride (Nacl 0.45%) 1,000 mls @ 75 mls/hr IV .[id number] [facility] Stop: 03/22/17 03:54 Last Infusion: 01/22/17 06:02 Dose: 75 mls/hr Vancomycin HCl 1.25 gm/ Sodium (Chloride) 250 mls @ 165 mls/hr IV Q24H [facility] Stop: 03/22/17 09:59 Last Admin: 01/22/17 12:57 Dose: 165 mls/hr Insulin Aspart (Novolog Insulin Sliding Scale) 0 units SUBQ ACHS [facility] PRN Reason: Protocol Stop: 03/22/17 11:29 Last Admin: 01/22/17 17:48 Dose: 6 units Isosorbide Dinitrate (Isordil) 10 mg PO TID [facility] Stop: 03/22/17 08:59 Last Admin: 01/22/17 13:46 Dose: 10 mg Lactobacillus Rhamnosus (Culturelle) 1 each PO DAILY [facility] Stop: 03/22/17 08:59 Last Admin: 01/22/17 09:41 Dose: 1 each Levetiracetam (Keppra) 250 mg PO BID [facility] Stop: 03/22/17 08:59 Last Admin: 01/22/17 17:47 Dose: 250 mg Levothyroxine Sodium (Synthroid) 0.05 mg PO QDAC [facility] Stop: 03/23/17 07:29 Last Admin: 01/22/17 06:35 Dose: 0.05 mg Magnesium Hydroxide (Milk Of Magnesia) 30 ml PO DAILY PRN PRN Reason: Constipation Stop: 03/22/17 07:30 Megestrol Acetate (Megace) 40 mg PO DAILY [facility] PRN Reason: Protocol Stop: 03/22/17 08:59 Last Admin: 01/22/17 09:42 Dose: 40 mg Miscellaneous (Vancomycin Iv Per Pharmacy) 1 ea MC DAILY [facility] Stop: 03/23/17 08:59 Montelukast Sodium (Singulair) 10 mg PO DAILY [facility] Stop: 03/22/17 08:59 Last Admin: 01/22/17 09:41 Dose: 10 mg Ondansetron HCl (Zofran Odt) 4 mg PO Q6HR PRN PRN Reason: Nausea / Vomiting Stop: 03/22/17 07:30 Pantoprazole Sodium (Protonix) 40 mg PO DAILY [facility] Stop: 03/22/17 08:59 Last Admin: 01/22/17 09:42 Dose: 40 mg Senna (Senna) 17.2 mg PO HS [facility] Stop: 03/22/17 20:59 Last Admin: 01/21/17 21:42 Dose: Not Given Sodium Phosphate (Fleet Enema) 135 ml RC Q48HR PRN PRN Reason: Constipation Stop: 03/22/17 07:30 Spironolactone (Aldactone) 25 mg PO BID [facility] Stop: 03/22/17 08:59 Last Admin: 01/22/17 17:48 Dose: 25 mg Nutritional Asmnt/Malnutr-PDOC - Dietary Evaluation Malnutrition Findings (Please click <Entered> for more info): Nutritional Asmnt/Malnutrition Start: 01/21/17 14: 20 Text: Status: Active Freq: Document 01/21/17 14:20 KEVON (Rec: 01/21/17 14:31 KEVON FRANCIS -FNS4) Nutritional Asmnt/Malnutrition Patient General Information Nutritional Screening Consult Diagnosis Diabetic foot ulcer Pertinent Medical Hx/Surgical Hx HTN, DM, CAD, CHF, dyslipidemia, PUD/GERD, ESRD, thyroid disorder, arthritis, dementia per MD notes Subjective Information Pt seen for Nutrition Consult (Ho 12). Pt was confused at time of RD visit. No family at bedside. Per RN, pt ate "okay" at breakfast. Pt is pending bone scan. Per RD chart review, pt has an unstageable L foot ulcer. Per EMR, abd is firm/soft/non- tender. I/O: 126/0 (+126 ml) per 12 hours. Current diet is appropriate at this time. Pt is not appropriate for nutritin education. Current Diet Order/ Nutrition Support CCHO-75 gm Patient / S.O Can't verbalize diet edu Pertinent Medications VIT C, lipitor, colace, lasix, culturelle, megace, protonix, aldactone Pertinent Labs BG 107 H, BUN 56 H, CRE 1.4 H, ALB 2.9 L, LDL 46 L, HDL 19 L , H/H 10.6 L/32.9 L Nutritional Hx/Data Height 5 ft Height (Calculated Centimeters) 152.4 Current Weight (lbs) 100 lb Weight (Calculated Kilograms) 45.4 Weight (Calculated Grams) 61223.2 [place] Body Weight 100 lb, 45 kg. Adj IBW ( obesity): 115 lb, 52 kg % [place] Body Weight 160 Weight Status Obese GI Symptoms GI Symptoms None Skin Integrity/Comment: L foot w/ diabetic ulcer per RN report Current %PO Fair (50-74%) Estimated Nutritional Goals BEE in Kcals: Adj wt of IBW Calories/Kcals/Kg 30-35 kcal/kg Adj IBW for wound healing Kcals Calculated 3328-0663 kcal/day Protein: Adj wt of IBW Protein g/k.2-1.5 gm/kg Adj IBW for wound healing Protein Calculated 62-78 gm/day Fluid: ml Per MD (CHF/ESRD) Nutritional Problem 1. Problem Problem Increased nutritional needs Etiology related to metabolic demands Signs/Symptoms: as evidenced by estimated nutritional requirements for possible unstageable diabetic ulcer to L foot. Malnutrition Alert Is there a minimum of two criteria No selected? Query Text:Check all the applicable criteria. A minimum of two criteria are recommended for diagnosis of either severe or non-severe malnutrition. Malnutrition Related to Morbid Obesity Malnutrition related to morbid obesity No Intervention/Recommendation Recommendations by RD Increase Calorie Intake Comments * Recommend continuing CCHO-75 gm diet per MD * Consider protein supplement (Boost Glucose Control BID) if PO intakes decline <50% * Consider MVI and zinc Expected Outcomes/Goals Expected Outcomes/Goals - Monitor appetite and PO intakes w/ goal of pt meeting at least 75% of estimated nutritional needs, labs trending WNL, normal GI function, and skin integrity/ wt maintenance within 3-5 days
--- NOTE | 2017-01-22 21:46 | History & Physical ---
ADMIT DATE: 01/22/[address] Kelly. CHIEF COMPLAINT: Left foot pain. HISTORY OF PRESENT ILLNESS: This is a 71-year-old female who has a 2-day history of left foot pain associated with redness and swelling. There is no fever reported. PAST MEDICAL HISTORY: Hypertension, DM, CAD, CHF, dyslipidemia, PUD, GERD, thyroid disorder, arthritis, and dementia. SOCIAL HISTORY: The patient is a residential resident. FAMILY HISTORY: Noncontributory. SURGICAL HISTORY: Pacemaker. PSYCHIATRIC HISTORY: Dementia. REVIEW OF SYSTEMS: Unable to obtain due to the patient's mental status. PHYSICAL EXAMINATION: GENERAL: This is an elderly female, awake with some confusion in no apparent distress. VITAL SIGNS: Temperature 97.2, heart rate 71, blood pressure , respirations of 18, and O2 of 98%. HEENT: Head is normocephalic and atraumatic. NECK: Supple. No mass. LUNGS: Clear bilaterally. HEART: Regular rhythm. ABDOMEN: Soft, nontender. LABORATORY DATA: WBC 8.5, H and H 10.6, and hematocrit 32.9. ASSESSMENT: Diabetic foot ulcer, hypertension, peptic ulcer disease, gastroesophageal reflux disease, dementia, osteoporosis, and Alzheimer disease. PLAN: The patient will be admitted to the Telemetry Unit. We will have Infectious Disease, Psychiatry consult as well as will wait for a 3-phase bone scan. We will continue to follow this patient. [facility]# [id number]
[2017-01-23] MEDS: Acetaminophen 500 MG TAB PO PRN ×2 (00:17→14:34)
[2017-01-23] MEDS: Levothyroxine 0.05 Mg Tab PO SCH (06:50)
[2017-01-23] MEDS: INSULIN ASPART SLIDING SCALE 100 UNITS/ML UNIT SUBQ SCH ×4 (06:58→21:28)
--- NOTE | 2017-01-23 08:00 | Progress Notes ---
DATE: 01/23/2017 SUBJECTIVE: The patient was seen in her room. The patient is agitated and restless. Per nurses, the patient has been screaming since last night. The patient is awake, alert, oriented x 1-2 with episodes of confusion. Otherwise, the patient appears to be comfortable in no acute distress. OBJECTIVE: VITAL SIGNS: Temperature 98.1, heart rate was 72, blood pressure 121/57, respirations of 18, 96% on room air. HEAD: Atraumatic and normocephalic. EYES: Bilateral conjunctivae are clear. Bilateral pupils are equally round and reactive. NECK: Supple. No JVD. CARDIOVASCULAR: S1 and S2, without murmur. PULMONARY: Clear to auscultation. GASTROINTESTINAL: Soft and nontender without guarding. Positive bowel sounds. MUSCULOSKELETAL: No clubbing, no cyanosis noted ASSESSMENT: 1. Cellulitis. 2. Diabetic foot ulcer. 3. Dementia. 4. Hypertension. 5. Osteoporosis. 6. Gastroesophageal reflux disease. 7. Anemia. 8. Dehydration. PLAN: We will continue IV antibiotics per ID doctor. We will give the patient Ativan 1 mg every 6 hours as needed. We will also consult with the psychiatrist for the patient's behavior. Treatment plans were discussed with the patient's nurse. Treatment plans were discussed with Dr. Kelly. JOB# [id number]
[2017-01-23] MEDS: Sodium Chloride 0.45% 1,000 ML IV SCH ×2 (09:14→22:30)
[2017-01-23] MEDS: Atorvastatin Calcium 10 MG TAB PO SCH (09:15)
[2017-01-23] MEDS: Pantoprazole 40 mg EC Tab PO SCH (09:15)
[2017-01-23] MEDS: Multivitamin w/ Minerals Tab PO SCH (09:15)
[2017-01-23] MEDS: Lactobacillus Rhamnosus 10 Billion CFU Capsule PO SCH (09:15)
[2017-01-23] MEDS: Aspirin 81mg Chewable Tab PO SCH (09:15)
[2017-01-23] MEDS: Enoxaparin 40 mg/0.4 mL 0.4mL Syr SUBQ SCH ×2 (09:16→21:09)
--- NOTE | 2017-01-23 10:22 | Diagnostic Imaging Report ---
Nuclear medicine triple phase bone scan History: Diabetic foot ulcer, left heel Comparison: None Technique/procedure: 25.2 mCi of technetium 99 MDP was administered intravenously and flow, blood pool, and delayed images of the bilateral lower semis were obtained. Findings: Exam is limited due to technical factors. Flow images demonstrate slight increased uptake seen along the right forefoot region. Blood pool images demonstrate increased uptake along the right forefoot region. Additional increased uptake of the bilateral heel regions are also noted. Delayed images demonstrate slight increased uptake of the right heel. IMPRESSION: Limited exam. Areas of slight increased uptake are noted as detailed above, inconclusive. Correlation needs to be made clinically. If there is continued concern for osteomyelitis MRI in the region of concern is recommended for further assessment.
[2017-01-23 11:14] LABS: % BASOPHILS 0.3 % (0.0-2.0); % EOSINOPHILS 0.8 % (0.0-5.0); % LYMPHOCYTES 11.8 % (20.0-50.0); % MONOCYTES 9.1 % (2.0-10.0); HEMATOCRIT 33.8 % (41.0-60); HEMOGLOBIN 10.9 gm/dL (12-16); MEAN CELL VOLUME 81.9 fl (81-100); MEAN CORPUSCULAR HEMOGLOBIN 26.4 pg (27.0-31.0); MEAN CORPUSCULAR HGB CONC 32.2 pg (28.0-36.0); MEAN PLATELET VOLUME 9.8 fl; NEUTROPHILE ABSOLUTE 7.6 Th/cmm (1.8-8.0); PLATELET COUNT 188 Th/cmm (150-400); RED BLOOD COUNT 4.13 Mil/cmm (3.80-5.20); RED CELL DISTRIBUTION WIDTH 18.9 % (11.5-20.0); WHITE BLOOD COUNT 9.7 Th/cmm (4.8-10.8)
[2017-01-23 11:32] LABS: ALB/GLOB RATIO 0.8 (1.0-1.8); ALKALINE PHOSPHATASE 61 U/L (34-104); BILIRUBIN,TOTAL 1.1 mg/dL (0.3-1.0); BUN - UREA NITROGEN 55 mg/dL (7-25); BUN/CREATININE RATIO 34.4; CALCIUM SERUM 8.5 mg/dL (8.6-10.3); CARBON DIOXIDE 23.1 mEq/L (21.0-31.0); CHLORIDE 101 mEq/L (98-107); CREATININE - SERUM 1.6 mg/dL (0.6-1.2); GLUCOSE 250 mg/dL (70-105); POTASSIUM SERUM 4.1 mEq/L (3.5-5.1); SGOT 12 U/L (13-39); SGPT/ALT 7 U/L (7-52); SODIUM SERUM 132 mEq/L (136-145)
[2017-01-23] MEDS: Venelex 60gm Tube TP SCH (13:19)
--- NOTE | 2017-01-23 16:32 | Infectious Disease Prog Note ---
Infectious Disease Subjective - Review of Systems Service Date: 01/23/17 Subjective: No new change. Infectious Disease Objective - Results Result Diagrams: 01/23/17 11:05 01/23/17 11:05 Recent Labs: Laboratory Last Values WBC 9.7 Th/cmm (4.8-10.8) 01/23/17 11:05 RBC 4.13 Mil/cmm (3.80-5.20) 01/23/17 11:05 Hgb 10.9 gm/dL (12-16) L 01/23/17 11:05 Hct 33.8 % (41.0-60) L 01/23/17 11:05 MCV 81.9 fl (81-100) 01/23/17 11:05 MCH 26.4 pg (27.0-31.0) L 01/23/17 11:05 MCHC Differential 32.2 pg (28.0-36.0) 01/23/17 11:05 RDW 18.9 % (11.5-20.0) 01/23/17 11:05 Plt Count 188 Th/cmm (150-400) 01/23/17 11:05 MPV 9.8 fl 01/23/17 11:05 Neutrophils % 78.0 % (40.0-80.0) 01/23/17 11:05 Lymphocytes % 11.8 % (20.0-50.0) L 01/23/17 11:05 Monocytes % 9.1 % (2.0-10.0) 01/23/17 11:05 Eosinophils % 0.8 % (0.0-5.0) 01/23/17 11:05 Basophils % 0.3 % (0.0-2.0) 01/23/17 11:05 PT 13.3 SECONDS (9.5-11.5) H 01/20/17 17:45 INR 1.26 (0.5-1.4) 01/20/17 17:45 PTT (Actin FS) 28.6 SECONDS (26.0-38.0) 01/20/17 17:45 Sodium 132 mEq/L (136-145) L 01/23/17 11:05 Potassium 4.1 mEq/L (3.5-5.1) 01/23/17 11:05 Chloride 101 mEq/L (98-107) 01/23/17 11:05 Carbon Dioxide 23.1 mEq/L (21.0-31.0) 01/23/17 11:05 Anion Gap 12.0 (7.0-16.0) 01/23/17 11:05 BUN 55 mg/dL (7-25) H 01/23/17 11:05 Creatinine 1.6 mg/dL (0.6-1.2) H 01/23/17 11:05 Est GFR ( Amer) TNP 01/23/17 11:05 Est GFR (Non-Af Amer) TNP 01/23/17 11:05 BUN/Creatinine Ratio 34.4 01/23/17 11:05 Glucose 250 mg/dL (70-105) H 01/23/17 11:05 POC Glucose 227 MG/DL (70 - 105) H 01/23/17 12:52 Whole Bld Lactic Acid 1.18 mmol/L (0.60-1.99) 01/20/17 18:32 Calcium 8.5 mg/dL (8.6-10.3) L 01/23/17 11:05 Total Bilirubin 1.1 mg/dL (0.3-1.0) H 01/23/17 11:05 AST 12 U/L (13-39) L 01/23/17 11:05 ALT 7 U/L (7-52) 01/23/17 11:05 Alkaline Phosphatase 61 U/L (34-104) 01/23/17 11:05 Creatine Kinase 36 U/L (30-223) 01/20/17 17:45 Troponin I 0.02 ng/mL (0.01-0.05) 01/20/17 17:45 B-Natriuretic Peptide 2160.0 pg/mL (5.0-100.0) H 01/23/17 11:05 Total Protein 6.7 gm/dL (6.0-8.3) 01/23/17 11:05 Albumin 2.9 gm/dL (3.7-5.3) L 01/23/17 11:05 Globulin 3.8 gm/dL 01/23/17 11:05 Albumin/Globulin Ratio 0.8 (1.0-1.8) L 01/23/17 11:05 Triglycerides 68 mg/dL (<150) 01/20/17 17:45 Cholesterol 68 mg/dL (<200) 01/20/17 17:45 LDL Cholesterol Direct 46 mg/dL (75-193) L 01/20/17 17:45 HDL Cholesterol 19 mg/dL (23-92) L 01/20/17 17:45 Urine Source CATH 01/21/17 06:58 Urine Color YELLOW 01/21/17 06:58 Urine Clarity CLEAR (CLEAR) 01/21/17 06:58 Urine pH 6.5 (4.6 - 8.0) 01/21/17 06:58 Ur Specific Gracey 1.015 (1.005-1.030) 01/21/17 06:58 Urine Protein 30 mg/dL (NEGATIVE) H 01/21/17 06:58 Urine Glucose (UA) NEGATIVE mg/dL (NEGATIVE) 01/21/17 06:58 Urine Ketones TRACE mg/dL (NEGATIVE) 01/21/17 06:58 Urine Blood TRACE (NEGATIVE) 01/21/17 06:58 Urine Nitrate NEGATIVE (NEGATIVE) 01/21/17 06:58 Urine Bilirubin NEGATIVE (NEGATIVE) 01/21/17 06:58 Urine Urobilinogen 0.2 E.U./dL (0.2 - 1.0) 01/21/17 06:58 Ur Leukocyte Esterase NEGATIVE (NEGATIVE) 01/21/17 06:58 Urine RBC 2-5 /hpf (0-5) 01/21/17 06:58 Urine WBC 0-2 /hpf (0-5) 01/21/17 06:58 Ur Epithelial Cells FEW /lpf (FEW) 01/21/17 06:58 Urine Bacteria OCCASIONAL /hpf (NONE SEEN) 01/21/17 06:58 Vancomycin Trough 29.2 ug/mL (10-20) H 01/23/17 08:57 - Physical Exam Vitals and I&O: Vital Signs Temp 97.7 F 01/23/17 13:41 Pulse 74 01/23/17 16:21 Resp 16 01/23/17 13:41 BP 116/54 01/23/17 16:22 Pulse Ox 96 01/23/17 13:41 Intake & Output 01/22/17 01/23/17 01/23/17 18:59 06:59 18:59 Intake Total 730 150 Balance 730 150 Weight (lbs) 72.575 kg 72.575 kg Intake: Intake, IV Amount 330 Sodium Chloride 0.45% 1, 330 000 ml @ 75 mls/hr IV . [id number] [facility] Rx#:[id number] Oral 400 150 Other: # Voids 4 3 # Bowel Movements 1 Stool Characteristics Formed [place] Active Medications: Current Medications Acetaminophen (Tylenol) 650 mg PO Q4HR PRN PRN Reason: Pain or Fever >101 Stop: 03/22/17 07:30 Last Admin: 01/22/17 20:52 Dose: 650 mg Acetaminophen (Tylenol Extra Strength) 500 mg PO Q4HR PRN PRN Reason: Pain (Moderate) Stop: 03/22/17 07:30 Last Admin: 01/23/17 14:34 Dose: 500 mg Albuterol/Ipratropium (Duoneb Neb) 3 ml HHN Q6HR PRN PRN Reason: Shortness of Breath or Wheeze Stop: 03/22/17 07:30 Ascorbic Acid (Vitamin C) 500 mg PO DAILY [facility] Stop: 03/22/17 08:59 Last Admin: 01/23/17 09:15 Dose: 500 mg Aspirin (Aspirin Chewable) 81 mg PO DAILY [facility] Stop: 03/22/17 08:59 Last Admin: 01/23/17 09:15 Dose: 81 mg Atorvastatin Calcium (Lipitor) 10 mg PO DAILY [facility] PRN Reason: Protocol Stop: 03/22/17 08:59 Last Admin: 01/23/17 09:15 Dose: 10 mg Bisacodyl (Dulcolax 10 Mg Supp) 10 mg RC DAILY PRN PRN Reason: Constipation Stop: 03/22/17 07:30 Carvedilol (Coreg) 6.25 mg PO BID [facility] Stop: 03/22/17 08:59 Last Admin: 01/23/17 09:17 Dose: Not Given Docusate Sodium (Colace) 100 mg PO BID [facility] Stop: 03/22/17 08:59 Last Admin: 01/23/17 16:22 Dose: 100 mg Enoxaparin Sodium (Lovenox) 40 mg SUBQ Q12HR [facility] Stop: 03/22/17 08:59 Last Admin: 01/23/17 09:16 Dose: 40 mg Furosemide (Lasix) 40 mg IVP BID [facility] Stop: 03/22/17 08:59 Last Admin: 01/23/17 16:22 Dose: 40 mg Hydralazine HCl (Apresoline) 10 mg PO BID [facility] Stop: 03/22/17 08:59 Last Admin: 01/23/17 16:21 Dose: 10 mg Sodium Chloride (Nacl 0.45%) 1,000 mls @ 75 mls/hr IV .[id number] [facility] Stop: 03/22/17 03:54 Last Admin: 01/23/17 09:14 Dose: 75 mls/hr Daptomycin 300 mg/ Sodium (Chloride) 100 mls @ 100 mls/hr IV Q48HR@1700 JO[facility] Stop: 03/24/17 16:59 Insulin Aspart (Novolog Insulin Sliding Scale) 0 units SUBQ ACHS [facility] PRN Reason: Protocol Stop: 03/22/17 11:29 Last Admin: 01/23/17 13:15 Dose: 4 units Isosorbide Dinitrate (Isordil) 10 mg PO TID [facility] Stop: 03/22/17 08:59 Last Admin: 01/23/17 13:15 Dose: 10 mg Lactobacillus Rhamnosus (Culturelle) 1 each PO DAILY [facility] Stop: 03/22/17 08:59 Last Admin: 01/23/17 09:15 Dose: 1 each Levetiracetam (Keppra) 250 mg PO BID [facility] Stop: 03/22/17 08:59 Last Admin: 01/23/17 16:22 Dose: 250 mg Levothyroxine Sodium (Synthroid) 0.05 mg PO QDAC [facility] Stop: 03/23/17 07:29 Last Admin: 01/23/17 06:50 Dose: 0.05 mg Lorazepam (Ativan) 1 mg IVP Q6HR PRN; Protocol PRN Reason: Agitation Stop: 03/24/17 06:33 Magnesium Hydroxide (Milk Of Magnesia) 30 ml PO DAILY PRN PRN Reason: Constipation Stop: 03/22/17 07:30 Megestrol Acetate (Megace) 40 mg PO DAILY [facility] PRN Reason: Protocol Stop: 03/22/17 08:59 Last Admin: 01/23/17 09:15 Dose: 40 mg Miscellaneous (Vancomycin Iv Per Pharmacy) 1 ea MC DAILY [facility] Stop: 03/23/17 08:59 Miscellaneous (Pharmacy To Dose) 1 ea MC PRN [facility] Stop: 03/24/17 15:59 Miscellaneous (Clinical Monitoring) 1 ea MC PRN PRN PRN Reason: PROTOCOL Stop: 03/24/17 16:12 Montelukast Sodium (Singulair) 10 mg PO DAILY [facility] Stop: 03/22/17 08:59 Last Admin: 01/23/17 09:15 Dose: 10 mg Ondansetron HCl (Zofran Odt) 4 mg PO Q6HR PRN PRN Reason: Nausea / Vomiting Stop: 03/22/17 07:30 Pantoprazole Sodium (Protonix) 40 mg PO DAILY [facility] Stop: 03/22/17 08:59 Last Admin: 01/23/17 09:15 Dose: 40 mg Senna (Senna) 17.2 mg PO HS JO[facility] DAVID Stop: 03/22/17 20:59 Last Admin: 01/22/17 20:54 Dose: 17.2 mg Sodium Phosphate (Fleet Enema) 135 ml RC Q48HR PRN PRN Reason: Constipation Stop: 03/22/17 07:30 Spironolactone (Aldactone) 25 mg PO BID [facility] Stop: 03/22/17 08:59 Last Admin: 01/23/17 09:17 Dose: Not Given General: no acute distress, well developed, well nourished HEENT: atraumatic, normocephalic, PERRLA Neck: supple, thyromegaly Cardiovascular: S1S2, regular Lungs: clear to auscultation bilaterally, clear to percussion Abdomen: soft, no tender, no distended Extremities: no cyanosis, no clubbing, no edema Neurological: awake, alert, oriented Skin: other (left heel ulcer stage 4.) Infectious Disease Assmt/Plan - Problem List Patient Problems: All Active Problems Anemia (Acute) D64.9 CKD (chronic kidney disease) stage 2, GFR 60-89 ml/min (Acute) N18.2 Diabetes (Acute) E11.9 Hyperlipidemia (Acute) E78.5 Non-ST elevated myocardial infarction (Acute) I21.4 Pacemaker (Acute) Z95.0 Pyelonephritis (Acute) N12 Seizure disorder (Acute) G40.909 Sick sinus syndrome (Acute) I49.5 UTI (urinary tract infection) (Acute) - Assessment Assessment: 1. chronic nonhealing left heel wound. 2. dementia. 3. DM2. 3. HTN. 4. CAD.q 5. H/O MRSA infection. - Plan Plan: Continue vanco IV for 6 weeks total . or may change to cubicin 300mg IV daily on discharge to complete 6 weeks of therapy. wound care. Nutritional Asmnt/Malnutr-PDOC - Dietary Evaluation Malnutrition Findings (Please click <Entered> for more info): Nutritional Asmnt/Malnutrition Start: 01/21/17 14: 20 Text: Status: Active Freq: Document 01/21/17 14:20 KEVON (Rec: 01/21/17 14:31 KEVON PENNY -[id number]) Nutritional Asmnt/Malnutrition Patient General Information Nutritional Screening Consult Diagnosis Diabetic foot ulcer Pertinent Medical Hx/Surgical Hx HTN, DM, CAD, CHF, dyslipidemia, PUD/GERD, ESRD, thyroid disorder, arthritis, dementia per MD notes Subjective Information Pt seen for Nutrition Consult (Ho 12). Pt was confused at time of RD visit. No family at bedside. Per RN, pt ate "okay" at breakfast. Pt is pending bone scan. Per RD chart review, pt has an unstageable L foot ulcer. Per EMR, abd is firm/soft/non- tender. I/O: 126/0 (+126 ml) per 12 hours. Current diet is appropriate at this time. Pt is not appropriate for nutritin education. Current Diet Order/ Nutrition Support CCHO-75 gm Patient / S.O Can't verbalize diet edu Pertinent Medications VIT C, lipitor, colace, lasix, culturelle, megace, protonix, aldactone Pertinent Labs BG 107 H, BUN 56 H, CRE 1.4 H, ALB 2.9 L, LDL 46 L, HDL 19 L , H/H 10.6 L/32.9 L Nutritional Hx/Data Height 1.52 m Height (Calculated Centimeters) 152.4 Current Weight (lbs) 45.359 kg Weight (Calculated Kilograms) 45.4 Weight (Calculated Grams) 66772.2 [place] Body Weight 100 lb, 45 kg. Adj IBW ( obesity): 115 lb, 52 kg % [place] Body Weight 160 Weight Status Obese GI Symptoms GI Symptoms None Skin Integrity/Comment: L foot w/ diabetic ulcer per RN report Current %PO Fair (50-74%) Estimated Nutritional Goals BEE in Kcals: Adj wt of IBW Calories/Kcals/Kg 30-35 kcal/kg Adj IBW for wound healing Kcals Calculated 4416-2482 kcal/day Protein: Adj wt of IBW Protein g/k.2-1.5 gm/kg Adj IBW for wound healing Protein Calculated 62-78 gm/day Fluid: ml Per MD (CHF/ESRD) Nutritional Problem 1. Problem Problem Increased nutritional needs Etiology related to metabolic demands Signs/Symptoms: as evidenced by estimated nutritional requirements for possible unstageable diabetic ulcer to L foot. Malnutrition Alert Is there a minimum of two criteria No selected? Query Text:Check all the applicable criteria. A minimum of two criteria are recommended for diagnosis of either severe or non-severe malnutrition. Malnutrition Related to Morbid Obesity Malnutrition related to morbid obesity No Intervention/Recommendation Recommendations by RD Increase Calorie Intake Comments * Recommend continuing CCHO-75 gm diet per MD * Consider protein supplement (Boost Glucose Control BID) if PO intakes decline <50% * Consider MVI and zinc Expected Outcomes/Goals Expected Outcomes/Goals - Monitor appetite and PO intakes w/ goal of pt meeting at least 75% of estimated nutritional needs, labs trending WNL, normal GI function, and skin integrity/ wt maintenance within 3-5 days
[2017-01-24] MEDS: INSULIN ASPART SLIDING SCALE 100 UNITS/ML UNIT SUBQ SCH ×4 (06:46→21:40)
[2017-01-24] MEDS: Levothyroxine 0.05 Mg Tab PO SCH (06:53)
[2017-01-24] MEDS: Enoxaparin 40 mg/0.4 mL 0.4mL Syr SUBQ SCH ×2 (10:11→21:17)
[2017-01-24] MEDS: Atorvastatin Calcium 10 MG TAB PO SCH (10:14)
--- NOTE | 2017-01-24 10:14 | General Progress Note ---
Subjective - Review of Systems Events since last encounter: patient awake confused at times no acute distress Objective - Results Result Diagrams: 01/23/17 11:05 01/23/17 11:05 Recent Labs: Laboratory Last Values WBC 9.7 Th/cmm (4.8-10.8) 01/23/17 11:05 RBC 4.13 Mil/cmm (3.80-5.20) 01/23/17 11:05 Hgb 10.9 gm/dL (12-16) L 01/23/17 11:05 Hct 33.8 % (41.0-60) L 01/23/17 11:05 MCV 81.9 fl (81-100) 01/23/17 11:05 MCH 26.4 pg (27.0-31.0) L 01/23/17 11:05 MCHC Differential 32.2 pg (28.0-36.0) 01/23/17 11:05 RDW 18.9 % (11.5-20.0) 01/23/17 11:05 Plt Count 188 Th/cmm (150-400) 01/23/17 11:05 MPV 9.8 fl 01/23/17 11:05 Neutrophils % 78.0 % (40.0-80.0) 01/23/17 11:05 Lymphocytes % 11.8 % (20.0-50.0) L 01/23/17 11:05 Monocytes % 9.1 % (2.0-10.0) 01/23/17 11:05 Eosinophils % 0.8 % (0.0-5.0) 01/23/17 11:05 Basophils % 0.3 % (0.0-2.0) 01/23/17 11:05 PT 13.3 SECONDS (9.5-11.5) H 01/20/17 17:45 INR 1.26 (0.5-1.4) 01/20/17 17:45 PTT (Actin FS) 28.6 SECONDS (26.0-38.0) 01/20/17 17:45 Sodium 132 mEq/L (136-145) L 01/23/17 11:05 Potassium 4.1 mEq/L (3.5-5.1) 01/23/17 11:05 Chloride 101 mEq/L (98-107) 01/23/17 11:05 Carbon Dioxide 23.1 mEq/L (21.0-31.0) 01/23/17 11:05 Anion Gap 12.0 (7.0-16.0) 01/23/17 11:05 BUN 55 mg/dL (7-25) H 01/23/17 11:05 Creatinine 1.6 mg/dL (0.6-1.2) H 01/23/17 11:05 Est GFR ( Amer) TNP 01/23/17 11:05 Est GFR (Non-Af Amer) TNP 01/23/17 11:05 BUN/Creatinine Ratio 34.4 01/23/17 11:05 Glucose 250 mg/dL (70-105) H 01/23/17 11:05 POC Glucose 222 MG/DL (70 - 105) H 01/24/17 06:41 Whole Bld Lactic Acid 1.18 mmol/L (0.60-1.99) 01/20/17 18:32 Calcium 8.5 mg/dL (8.6-10.3) L 01/23/17 11:05 Total Bilirubin 1.1 mg/dL (0.3-1.0) H 01/23/17 11:05 AST 12 U/L (13-39) L 01/23/17 11:05 ALT 7 U/L (7-52) 01/23/17 11:05 Alkaline Phosphatase 61 U/L (34-104) 01/23/17 11:05 Creatine Kinase 36 U/L (30-223) 01/20/17 17:45 Troponin I 0.02 ng/mL (0.01-0.05) 01/20/17 17:45 B-Natriuretic Peptide 2160.0 pg/mL (5.0-100.0) H 01/23/17 11:05 Total Protein 6.7 gm/dL (6.0-8.3) 01/23/17 11:05 Albumin 2.9 gm/dL (3.7-5.3) L 01/23/17 11:05 Globulin 3.8 gm/dL 01/23/17 11:05 Albumin/Globulin Ratio 0.8 (1.0-1.8) L 01/23/17 11:05 Triglycerides 68 mg/dL (<150) 01/20/17 17:45 Cholesterol 68 mg/dL (<200) 01/20/17 17:45 LDL Cholesterol Direct 46 mg/dL (75-193) L 01/20/17 17:45 HDL Cholesterol 19 mg/dL (23-92) L 01/20/17 17:45 Urine Source CATH 01/21/17 06:58 Urine Color YELLOW 01/21/17 06:58 Urine Clarity CLEAR (CLEAR) 01/21/17 06:58 Urine pH 6.5 (4.6 - 8.0) 01/21/17 06:58 Ur Specific [place] 1.015 (1.005-1.030) 01/21/17 06:58 Urine Protein 30 mg/dL (NEGATIVE) H 01/21/17 06:58 Urine Glucose (UA) NEGATIVE mg/dL (NEGATIVE) 01/21/17 06:58 Urine Ketones TRACE mg/dL (NEGATIVE) 01/21/17 06:58 Urine Blood TRACE (NEGATIVE) 01/21/17 06:58 Urine Nitrate NEGATIVE (NEGATIVE) 01/21/17 06:58 Urine Bilirubin NEGATIVE (NEGATIVE) 01/21/17 06:58 Urine Urobilinogen 0.2 E.U./dL (0.2 - 1.0) 01/21/17 06:58 Ur Leukocyte Esterase NEGATIVE (NEGATIVE) 01/21/17 06:58 Urine RBC 2-5 /hpf (0-5) 01/21/17 06:58 Urine WBC 0-2 /hpf (0-5) 01/21/17 06:58 Ur Epithelial Cells FEW /lpf (FEW) 01/21/17 06:58 Urine Bacteria OCCASIONAL /hpf (NONE SEEN) 01/21/17 06:58 Vancomycin Trough 29.2 ug/mL (10-20) H 01/23/17 08:57 Random Vancomycin 21.8 ug/mL (5.0-40.0) 01/24/17 05:59 - Physical Exam Vitals and I&O: Vital Signs Temp 98.3 F 01/24/17 04:00 Pulse 71 01/24/17 09:27 Resp 18 01/24/17 09:31 BP 104/75 01/24/17 09:27 Pulse Ox 94 01/24/17 07:38 Intake & Output 01/23/17 01/24/17 01/24/17 18:59 06:59 18:59 Intake Total 300 1566.25 Balance 300 1566.25 Weight (lbs) 72.575 kg 72.603 kg Intake: Intake, IV Amount 1566.25 Sodium Chloride 0.45% 1, 1566.25 000 ml @ 75 mls/hr IV . [id number] [facility] Rx#:[id number] Oral 300 Other: # Voids 3 2 # Bowel Movements 1 0 Stool Characteristics Formed [place] Active Medications: Current Medications Acetaminophen (Tylenol) 650 mg PO Q4HR PRN PRN Reason: Pain or Fever >101 Stop: 03/22/17 07:30 Last Admin: 01/22/17 20:52 Dose: 650 mg Acetaminophen (Tylenol Extra Strength) 500 mg PO Q4HR PRN PRN Reason: Pain (Moderate) Stop: 03/22/17 07:30 Last Admin: 01/23/17 14:34 Dose: 500 mg Albuterol/Ipratropium (Duoneb Neb) 3 ml HHN Q6HR PRN PRN Reason: Shortness of Breath or Wheeze Stop: 03/22/17 07:30 Ascorbic Acid (Vitamin C) 500 mg PO DAILY [facility] Stop: 03/22/17 08:59 Last Admin: 01/23/17 09:15 Dose: 500 mg Aspirin (Aspirin Chewable) 81 mg PO DAILY [facility] Stop: 03/22/17 08:59 Last Admin: 01/23/17 09:15 Dose: 81 mg Atorvastatin Calcium (Lipitor) 10 mg PO DAILY [facility] PRN Reason: Protocol Stop: 03/22/17 08:59 Last Admin: 01/23/17 09:15 Dose: 10 mg Bisacodyl (Dulcolax 10 Mg Supp) 10 mg RC DAILY PRN PRN Reason: Constipation Stop: 03/22/17 07:30 Carvedilol (Coreg) 6.25 mg PO BID [facility] Stop: 03/22/17 08:59 Last Admin: 01/24/17 09:27 Dose: Not Given Docusate Sodium (Colace) 100 mg PO BID [facility] Stop: 03/22/17 08:59 Last Admin: 01/23/17 16:22 Dose: 100 mg Enoxaparin Sodium (Lovenox) 40 mg SUBQ Q12HR [facility] Stop: 03/22/17 08:59 Last Admin: 10/21/17 21:09 Dose: 40 mg Furosemide (Lasix) 40 mg IVP BID [facility] Stop: 03/22/17 08:59 Last Admin: 01/23/17 16:22 Dose: 40 mg Hydralazine HCl (Apresoline) 10 mg PO BID [facility] Stop: 03/22/17 08:59 Last Admin: 01/23/17 16:21 Dose: 10 mg Sodium Chloride (Nacl 0.45%) 1,000 mls @ 75 mls/hr IV .[id number] [facility] Stop: 03/22/17 03:54 Last Infusion: 01/24/17 06:07 Dose: 75 mls/hr Insulin Aspart (Novolog Insulin Sliding Scale) 0 units SUBQ ACHS [facility] PRN Reason: Protocol Stop: 03/22/17 11:29 Last Admin: 01/24/17 06:46 Dose: 4 units Isosorbide Dinitrate (Isordil) 10 mg PO TID [facility] Stop: 03/22/17 08:59 Last Admin: 01/23/17 21:18 Dose: Not Given Lactobacillus Rhamnosus (Culturelle) 1 each PO DAILY [facility] Stop: 03/22/17 08:59 Last Admin: 01/23/17 09:15 Dose: 1 each Levetiracetam (Keppra) 250 mg PO BID [facility] Stop: 03/22/17 08:59 Last Admin: 01/23/17 16:22 Dose: 250 mg Levothyroxine Sodium (Synthroid) 0.05 mg PO QDAC [facility] Stop: 03/23/17 07:29 Last Admin: 01/24/17 06:53 Dose: Not Given Lorazepam (Ativan) 1 mg IVP Q6HR PRN; Protocol PRN Reason: Agitation Stop: 03/24/17 06:33 Magnesium Hydroxide (Milk Of Magnesia) 30 ml PO DAILY PRN PRN Reason: Constipation Stop: 03/22/17 07:30 Megestrol Acetate (Megace) 40 mg PO DAILY [facility] PRN Reason: Protocol Stop: 03/22/17 08:59 Last Admin: 01/23/17 09:15 Dose: 40 mg Miscellaneous (Vancomycin Iv Per Pharmacy) 1 ea MC DAILY [facility] Stop: 03/23/17 08:59 Montelukast Sodium (Singulair) 10 mg PO DAILY [facility] Stop: 03/22/17 08:59 Last Admin: 01/23/17 09:15 Dose: 10 mg Ondansetron HCl (Zofran Odt) 4 mg PO Q6HR PRN PRN Reason: Nausea / Vomiting Stop: 03/22/17 07:30 Pantoprazole Sodium (Protonix) 40 mg PO DAILY [facility] Stop: 03/22/17 08:59 Last Admin: 01/23/17 09:15 Dose: 40 mg Senna (Senna) 17.2 mg PO HS [facility] Stop: 03/22/17 20:59 Last Admin: 01/23/17 21:18 Dose: Not Given Sodium Phosphate (Fleet Enema) 135 ml RC Q48HR PRN PRN Reason: Constipation Stop: 03/22/17 07:30 Spironolactone (Aldactone) 25 mg PO BID [facility] Stop: 03/22/17 08:59 Last Admin: 01/23/17 17:41 Dose: Not Given General: No acute distress HEENT: Atraumatic, PERRLA Neck: Thyromegaly Cardiovascular: Regular rate, Normal S1 Lungs: Clear to auscultation Abdomen: Bowel sounds Assessment/Plan - Problem List Patient Problems: All Active Problems Anemia (Acute) D64.9 CKD (chronic kidney disease) stage 2, GFR 60-89 ml/min (Acute) N18.2 Diabetes (Acute) E11.9 Hyperlipidemia (Acute) E78.5 Non-ST elevated myocardial infarction (Acute) I21.4 Pacemaker (Acute) Z95.0 Pyelonephritis (Acute) N12 Seizure disorder (Acute) G40.909 Sick sinus syndrome (Acute) I49.5 UTI (urinary tract infection) (Acute) - Plan Plan: cpm Nutritional Asmnt/Malnutr-PDOC - Dietary Evaluation Malnutrition Findings (Please click <Entered> for more info): Nutritional Asmnt/Malnutrition Start: 01/21/17 14: 20 Text: Status: Active Freq: Document 01/21/17 14:20 KEVON (Rec: 01/21/17 14:31 KEVON FRANCIS -[id number]) Nutritional Asmnt/Malnutrition Patient General Information Nutritional Screening Consult Diagnosis Diabetic foot ulcer Pertinent Medical Hx/Surgical Hx HTN, DM, CAD, CHF, dyslipidemia, PUD/GERD, ESRD, thyroid disorder, arthritis, dementia per MD notes Subjective Information Pt seen for Nutrition Consult (Ho 12). Pt was confused at time of RD visit. No family at bedside. Per RN, pt ate "okay" at breakfast. Pt is pending bone scan. Per RD chart review, pt has an unstageable L foot ulcer. Per EMR, abd is firm/soft/non- tender. I/O: 126/0 (+126 ml) per 12 hours. Current diet is appropriate at this time. Pt is not appropriate for nutritin education. Current Diet Order/ Nutrition Support CCHO-75 gm Patient / S.O Can't verbalize diet edu Pertinent Medications VIT C, lipitor, colace, lasix, culturelle, megace, protonix, aldactone Pertinent Labs BG 107 H, BUN 56 H, CRE 1.4 H, ALB 2.9 L, LDL 46 L, HDL 19 L , H/H 10.6 L/32.9 L Nutritional Hx/Data Height 1.52 m Height (Calculated Centimeters) 152.4 Current Weight (lbs) 45.359 kg Weight (Calculated Kilograms) 45.4 Weight (Calculated Grams) 66931.2 [place] Body Weight 100 lb, 45 kg. Adj IBW ( obesity): 115 lb, 52 kg % [place] Body Weight 160 Weight Status Obese GI Symptoms GI Symptoms None Skin Integrity/Comment: L foot w/ diabetic ulcer per RN report Current %PO Fair (50-74%) Estimated Nutritional Goals BEE in Kcals: Adj wt of IBW Calories/Kcals/Kg 30-35 kcal/kg Adj IBW for wound healing Kcals Calculated 1289-3061 kcal/day Protein: Adj wt of IBW Protein g/k.2-1.5 gm/kg Adj IBW for wound healing Protein Calculated 62-78 gm/day Fluid: ml Per MD (CHF/ESRD) Nutritional Problem 1. Problem Problem Increased nutritional needs Etiology related to metabolic demands Signs/Symptoms: as evidenced by estimated nutritional requirements for possible unstageable diabetic ulcer to L foot. Malnutrition Alert Is there a minimum of two criteria No selected? Query Text:Check all the applicable criteria. A minimum of two criteria are recommended for diagnosis of either severe or non-severe malnutrition. Malnutrition Related to Morbid Obesity Malnutrition related to morbid obesity No Intervention/Recommendation Recommendations by RD Increase Calorie Intake Comments * Recommend continuing CCHO-75 gm diet per MD * Consider protein supplement (Boost Glucose Control BID) if PO intakes decline <50% * Consider MVI and zinc Expected Outcomes/Goals Expected Outcomes/Goals - Monitor appetite and PO intakes w/ goal of pt meeting at least 75% of estimated nutritional needs, labs trending WNL, normal GI function, and skin integrity/ wt maintenance within 3-5 days
[2017-01-24] MEDS: Lactobacillus Rhamnosus 10 Billion CFU Capsule PO SCH (10:15)
[2017-01-24] MEDS: Pantoprazole 40 mg EC Tab PO SCH (10:15)
[2017-01-24] MEDS: Multivitamin w/ Minerals Tab PO SCH (10:16)
[2017-01-24] MEDS: Aspirin 81mg Chewable Tab PO SCH (10:18)
[2017-01-24] MEDS ORDERED: Probiotic Screen MC PRN (11:40)
[2017-01-24] MEDS: Sodium Chloride 0.45% 1,000 ML IV SCH (12:30)
[2017-01-24] MEDS: Venelex 60gm Tube TP SCH (18:11)
[2017-01-25] MEDS: Sodium Chloride 0.45% 1,000 ML IV SCH (01:45)
[2017-01-25] MEDS: INSULIN ASPART SLIDING SCALE 100 UNITS/ML UNIT SUBQ SCH (06:55)
[2017-01-25] MEDS: Levothyroxine 0.05 Mg Tab PO SCH (07:00)
[2017-01-25 09:11] LABS: % BASOPHILS 0.1 % (0.0-2.0); % EOSINOPHILS 0.7 % (0.0-5.0); % LYMPHOCYTES 12.6 % (20.0-50.0); % MONOCYTES 7.5 % (2.0-10.0); % NEUTROPHILS 79.1 % (40.0-80.0); HEMATOCRIT 34.1 % (41.0-60); HEMOGLOBIN 11.1 gm/dL (12-16); MEAN CELL VOLUME 81.4 fl (81-100); MEAN CORPUSCULAR HEMOGLOBIN 26.6 pg (27.0-31.0); MEAN CORPUSCULAR HGB CONC 32.6 pg (28.0-36.0); MEAN PLATELET VOLUME 10.1 fl; RED BLOOD COUNT 4.19 Mil/cmm (3.80-5.20); RED CELL DISTRIBUTION WIDTH 18.7 % (11.5-20.0); WHITE BLOOD COUNT 11.4 Th/cmm (4.8-10.8)
[2017-01-25] MEDS: Atorvastatin Calcium 10 MG TAB PO SCH (09:41)
[2017-01-25] MEDS: Aspirin 81mg Chewable Tab PO SCH (09:43)
[2017-01-25] MEDS: Enoxaparin 40 mg/0.4 mL 0.4mL Syr SUBQ SCH (09:44)
[2017-01-25] MEDS: Venelex 60gm Tube TP SCH (09:49)
[2017-01-25 09:52] LABS: PLATELET COUNT 249 Th/cmm (150-400)
[2017-01-25] MEDS: Multivitamin w/ Minerals Tab PO SCH (10:02)
[2017-01-25] MEDS: Pantoprazole 40 mg EC Tab PO SCH (10:03)
[2017-01-25] MEDS: Lactobacillus Rhamnosus 10 Billion CFU Capsule PO SCH (10:07)
== END 2017-01-25 10:30 | disposition home or self-care (01) | DRG 871 ==
LOC: ER 17:09 → TELE 23:50 → MSI 01-22 21:00
PROVIDERS: ADMIT Internal Medicine; ATTEND Internal Medicine
DX: A41.9 Sepsis, unspecified organism (principal); N18.6 End stage renal disease; E43 Unspecified severe protein-calorie malnutrition; I50.41 Acute combined systolic (congestive) and diastolic (congestive) heart failure; E11.22 Type 2 diabetes mellitus with diabetic chronic kidney disease; E11.621 Type 2 diabetes mellitus with foot ulcer; G30.9 Alzheimer's disease, unspecified; F02.80 Dementia in other diseases classified elsewhere, unspecified severity, without behavioral disturbance, psychotic disturbance, mood disturbance, and anxiety; I13.0 Hypertensive heart and chronic kidney disease with heart failure and stage 1 through stage 4 chronic kidney disease, or unspecified chronic kidney disease; L03.116 Cellulitis of left lower limb; L97.429 Non-pressure chronic ulcer of left heel and midfoot with unspecified severity; I25.10 Atherosclerotic heart disease of native coronary artery without angina pectoris; E78.5 Hyperlipidemia, unspecified; M19.90 Unspecified osteoarthritis, unspecified site; K21.9 Gastro-esophageal reflux disease without esophagitis; E86.0 Dehydration; D64.9 Anemia, unspecified; K27.9 Peptic ulcer, site unspecified, unspecified as acute or chronic, without hemorrhage or perforation; M81.0 Age-related osteoporosis without current pathological fracture; Z83.3 Family history of diabetes mellitus; Z82.49 Family history of ischemic heart disease and other diseases of the circulatory system; Z95.0 Presence of cardiac pacemaker; Z79.82 Long term (current) use of aspirin; Z79.4 Long term (current) use of insulin
CPT/HCPCS: 36415-UA; 71010-TC; 78315-TC; 80053-TC; 80061-TC; 80202-TC; 81001-TC; 82550-TC; 82565-TC; 82948-90; 83605; 83880-TC; 84484-TC; 84520-TC; 85025-TC; 85610-TC; 85730-TC; 87070-90; 87075-90; 87205-90; 93005; 94760; A9503; J0878; J1650; J1815; J1940; J3370; J7030; Z7610